=== PATIENT | female | born 1940 | race African-American/Black ===

== ENCOUNTER → 2017-08-21 10:43 | Outpatient (CLI) | payer MEDICARE, OTHER, SELFPAY ==
[2017-08-21 12:04] LABS: Anion Gap 8 (5-15); BUN 36 mg/dL (7-18); BUN/Creat Ratio 20.5 RATIO (10-20); Chloride 109 mmol/L (98-107); Creatinine, Serum 1.76 mg/dL (0.55-1.02); EST Glomerular Filtration Rate 30 mL/min (>60); Est Glom Filt Rate - Afr Amer 36 mL/min (>60); Glucose 281 mg/dL (74-106); Potassium 5.8 mmol/L (3.5-5.1); Sodium Level 138 mmol/L (136-145)
== END ==
PROVIDERS: Family Provider Family Medicine; PCP Family Medicine; Visit Provider Family Medicine
DX: N18.3 Chronic kidney disease, stage 3 (moderate) (principal)
CPT/HCPCS: 36415; 80048

== ENCOUNTER → 2017-09-20 10:44 | Outpatient (CLI) | payer MEDICARE, OTHER, SELFPAY ==
[2017-09-20 11:34] LABS: Hematocrit 35.9 % (37-47); Hemoglobin 11.6 g/dl (12.0-15.0); Mean Corp Hgb Conc 32.3 g/gl (32-36); Mean Corpuscular Volume 86.7 fL (81-99); Mean Platelet Vol. 11.8 fl (6.2-12.0); Platelet Count 221 K/mm3 (150-450); RBC Distribution Width CV 12.1 % (11.6-14.6); RBC Distribution Width SD 37.6 fl (35.1-43.9); Red Blood Count 4.14 M/mm3 (4.2-5.4); White Blood Count 5.6 K/mm3 (4.4-11.0)
[2017-09-20 11:35] LABS: Scan Indicated on CBC? Y/N NO
[2017-09-20 11:53] LABS: Protein, Urine (Random) 38.7 mg/dL (<11.9); Protein:Creat Ratio 419 mg/g CRE (0-200)
[2017-09-20 12:06] LABS: Albumin, Serum 3.7 g/dL (3.2-5.0); BUN 33 mg/dL (7-18); BUN/Creat Ratio 20.5 RATIO (10-20); Calcium,Total 9.5 mg/dL (8.5-10.1); Chloride 114 mmol/L (98-107); Creatinine, Serum 1.61 mg/dL (0.55-1.02); EST Glomerular Filtration Rate 33 mL/min (>60); Est Glom Filt Rate - Afr Amer 40 mL/min (>60); Glucose 74 mg/dL (74-106); Phosphorus 3.4 mg/dL (2.5-4.9); Potassium 5.3 mmol/L (3.5-5.1); Sodium Level 144 mmol/L (136-145)
[2017-09-20 12:17] LABS: PTHIN 73.5 pg/mL (18.4-80.1); Vitamin D,25 Hydroxy 60.2 ng/mL (29.95-100.01)
== END ==
PROVIDERS: Family Provider Family Medicine; PCP Family Medicine; Visit Provider Internal Medicine Nephrology
DX: N18.3 Chronic kidney disease, stage 3 (moderate) (principal)
CPT/HCPCS: 36415; 80069; 82306; 82570; 83970; 84156; 85027

== ENCOUNTER 2017-09-27 11:05 | Observation (INO) | payer MEDICARE, OTHER, SELFPAY ==
[2017-09-27] VITALS (14 sets, daily range): BP systolic 156–170; BP diastolic 60–78; PULSE 78–111; RESP 15–34; TEMP 36.6–37.2; O2SAT 94–100; BMI 25.1; BMI 25.5; BMI 25.6
--- NOTE | 2017-09-27 11:15 | NURSING ---
NO LW OR POA
[2017-09-27] MEDS: 0.9% Normal Saline 1,000 ML 1000 ML IV (11:39)
[2017-09-27 11:47] LABS: Absolute Lymphocyte Count 1.33 X10^3/ul (0.83-4.51); Absolute Neutrophil Count 4.1 X10^3/uL (2.0-7.7); Basophil# 0.02 X10^3/uL; Basophil% 0.3 % (0-1); Eosinophil# 0.38 X10^3/uL; Eosinophils% 5.9 % (0-5); Hematocrit 33.5 % (37-47); Hemoglobin 10.9 g/dl (12.0-15.0); Lymphocyte # 1.33 X10^3/ul (4.0); Lymphocyte % 20.7 % (19-41); Mean Corp Hgb Conc 32.5 g/gl (32-36); Mean Corpuscular Hgb 28.2 pg (27.0-32.0); Mean Corpuscular Volume 86.6 fL (81-99); Mean Platelet Vol. 11.9 fl (6.2-12.0); Monocyte# 0.62 X10^3/uL; Monocyte% 9.6 % (0-10); Neutrophil # 4.06 X10^3/uL (2.7-7.7); Neutrophil % 63.2 % (47-70); Platelet Count 218 K/mm3 (150-450); RBC Distribution Width CV 11.8 % (11.6-14.6); RBC Distribution Width SD 36.8 fl (35.1-43.9); Red Blood Count 3.87 M/mm3 (4.2-5.4); White Blood Count 6.4 K/mm3 (4.4-11.0)
[2017-09-27 11:49] LABS: POSITIVE COUNT NO; POSITIVE DIFFERENTIAL NO; POSITIVE MORPHOLOGY NO
[2017-09-27 11:56] LABS: Anion Gap 6 (5-15); BUN 29 mg/dL (7-18); Calcium,Total 9.9 mg/dL (8.5-10.1); Chloride 108 mmol/L (98-107); Creatinine, Serum 1.53 mg/dL (0.55-1.02); EST Glomerular Filtration Rate 35 mL/min (>60); Est Glom Filt Rate - Afr Amer 42 mL/min (>60); Estimated Creatinine Clearance 21.77 ml/min; Glucose 141 mg/dL (74-106); Potassium 5.9 mmol/L (3.5-5.1); Sodium Level 139 mmol/L (136-145)
[2017-09-27 12:18] LABS: Lactic Acid 1.1 mmol/L (0.4-2.0)
--- NOTE | 2017-09-27 13:11 | EKG12_ITS ---
Test Reason : FLU S/SX Blood Pressure : / mmHG Vent. Rate : 076 BPM Atrial Rate : 076 BPM P-R Int : 108 ms QRS Dur : 066 ms QT Int : 346 ms P-R-T Axes : 026 003 023 degrees QTc Int : 389 ms Sinus rhythm with short [place] Otherwise normal ECG Confirmed by RICK JORDAN, BABITA ([id number]), food expeditor HALEY GRACIA ([id number] on 09/29/2017 3:37:53 PM Referred By: Brant Marquis Confirmed By:BABITA CABRERA MD
[2017-09-27] MEDS: Ipratropium/Albuterol Sulfate 3 ML AMPUL.NEB INHALATION ×3 (13:25→23:26)
--- NOTE | 2017-09-27 13:33 | RAD_ITS ---
STUDY: X-RAY CHEST REASON FOR EXAM: Female, 77 years old. Dyspnea TECHNIQUE: Single AP portable view of the chest. COMPARISON: None. FINDINGS: There is hyperinflation of the lungs consistent with chronic obstructive lung disease (COPD). There is no demonstrated pleural abnormality. Normal size heart. Normal mediastinum and riki. Normal visualized pulmonary arteries. Normal visualized aortic arch and descending thoracic aorta. Normal visualized thoracic spine. Normal visualized ribs, clavicles, and shoulders. There is no demonstrated abnormality of the visualized soft tissue structures of the upper abdomen. RAD/Chest PA and Lateral IMPRESSION: COPD Electronically Signed: Amena Parish MD at 14:47 EDT Tel , Service support ,
--- NOTE | 2017-09-27 15:21 | ED.VISSUMM ---
- ER Visit Summary Date of Service: 09/27/17 Chief Complaint: [Shortness of breath, cough, not feeling well] History of Present Illness: The patient is a 77 F [presents to the emergency department with cough, shortness of breath, not feeling well for the last week and a half. Patient planes of exertional dyspnea. Cough is been nonproductive. Patient has not had a fever. Patient had some intermittent chest discomfort. She has had intermittent abdominal discomfort. Patient did have diarrhea 2 or 3 days ago but that seems to have improved. Patient denies any blood in her stool or black tarry stools.] Physical Examination: [HEENT-PERRLA, EOMI. Cranial nerves II through XII grossly intact. TMs clear. Mucous membranes moist. No adenopathy. Cardiovascular-regular rate and rhythm without murmur or ectopy Lungs-aeration bilaterally. Some faint expiratory wheezes noted bilaterally. No accessory muscles or retractions. With ambulation to bathroom and back patient gets very dyspneic and develops significant tachypnea and expiratory wheezes. Abdomen-normoactive bowel sounds, soft, nontender, no rebound or rigidity, no peritoneal signs. Extremities-intact ?4, normal range of motion, normal pulses, atraumatic] Test Results: [EKG obtained arrival shows sinus rhythm with a ventricular rate 76 bpm with no acute ST segment changes. CBC with differential showed a white count 6.4, hemoglobin 10.9, hematocrit 33, platelets 218. Chemistry showed a sodium 139, potassium 5.9, chloride 108, CO2 25, BUN 29, creatinine 1.5, glucose 141. Lactate was normal 1.1 troponin was less than 0.02. BNP was normal. Chest x-ray showed COPD.] Emergency Department Course and Treatment: [Patient was medicated with Solu-Medrol and a DuoNeb aerosol. Patient was given 30 g of Kayexalate p.o.] Treatment Plan: [Admit] Disposition: [Admit] Impression: [COPD exacerbation Hyperkalemia] This note was generated with [employer] dictation software. It may contain incorrect words, spelling, and punctuation that were not noted in review of the chart prior to signing ED Disposition - Plan for ED Patient: Chief Complaint: Cold Sx Referrals: Becky Lassiter DO [Primary Care Provider] -
--- NOTE | 2017-09-27 15:24 | ED.DCSUM_ITS ---
- ER Visit Summary Date of Service: 09/27/17 Chief Complaint: [Shortness of breath, cough, not feeling well] History of Present Illness: The patient is a 77 F [presents to the emergency department with cough, shortness of breath, not feeling well for the last week and a half. Patient planes of exertional dyspnea. Cough is been nonproductive. Patient has not had a fever. Patient had some intermittent chest discomfort. She has had intermittent abdominal discomfort. Patient did have diarrhea 2 or 3 days ago but that seems to have improved. Patient denies any blood in her stool or black tarry stools.] Physical Examination: [HEENT-PERRLA, EOMI. Cranial nerves II through XII grossly intact. TMs clear. Mucous membranes moist. No adenopathy. Cardiovascular-regular rate and rhythm without murmur or ectopy Lungs-aeration bilaterally. Some faint expiratory wheezes noted bilaterally. No accessory muscles or retractions. With ambulation to bathroom and back patient gets very dyspneic and develops significant tachypnea and expiratory wheezes. Abdomen-normoactive bowel sounds, soft, nontender, no rebound or rigidity, no peritoneal signs. Extremities-intact ?4, normal range of motion, normal pulses, atraumatic] Test Results: [EKG obtained arrival shows sinus rhythm with a ventricular rate 76 bpm with no acute ST segment changes. CBC with differential showed a white count 6.4, hemoglobin 10.9, hematocrit 33, platelets 218. Chemistry showed a sodium 139, potassium 5.9, chloride 108, CO2 25, BUN 29, creatinine 1.5, glucose 141. Lactate was normal 1.1 troponin was less than 0.02. BNP was normal. Chest x-ray showed COPD.] Emergency Department Course and Treatment: [Patient was medicated with Solu- Medrol and a DuoNeb aerosol. Patient was given 30 g of Kayexalate p.o.] Treatment Plan: [Admit] Disposition: [Admit] Impression: [COPD exacerbation Hyperkalemia] This note was generated with [employer] dictation software. It may contain incorrect words, spelling, and punctuation that were not noted in review of the chart prior to signing ED Disposition - Plan for ED Patient: Chief Complaint: Cold Sx Referrals: Becky Lassiter DO [Primary Care Provider] -
[2017-09-27] MEDS: MethylPREDNISolone 125 MG/2 ML Vial IV (15:54)
[2017-09-27] MEDS: Sodium Polystyrene Sulfonate 15 GM/60 ML UDC 30 GM PO (15:54)
--- NOTE | 2017-09-27 16:00 | HP.PCM_ITS ---
<Janelle Patel - Last Filed: 09/27/17 16:10> Problem List (1) Hyperlipidemia Status: Chronic (2) History of tobacco use Status: Chronic (3) Suspected chronic obstructive pulmonary disease based on initial evaluation Status: Chronic (4) Benign essential hypertension Status: Chronic (5) Hearing loss Status: Chronic (6) Type 2 diabetes mellitus Status: Chronic (7) history of breast cancer with lumpectomy Status: Chronic History of Present Illness Date of Admission: 09/27/17 Chief Complaint: Shortness of breath The patient is a 77 year old F who presents to the emergency room with a 3-4 day history of shortness of breath. Patient complains of associated cough, nasal drainage. Denies fever, chills. Patient states she has had intermittent chest pain which has been ongoing. Denies chest pain with exertion. Denies exposure to sick persons. Denies other associated complaints. Patient has never had a formal diagnosis of COPD. She states she was a longtime smoker and quit in 2004. She does not use home inhalers or home oxygen. She denies previous hospital admissions for COPD. Her past medical history includes hypertension, hyperlipidemia, type 2 diabetes mellitus, chronic kidney disease stage III, history of recurrent hyperkalemia, anemia of chronic disease, history of breast cancer status post lumpectomy and chemotherapy. Patient's lives at home with her son. Denies difficulty caring for self at home. Past Medical History Past Medical History (Chronic Problems): Chronic Problems Hyperlipidemia (Chronic) History of tobacco use (Chronic) Suspected chronic obstructive pulmonary disease based on initial evaluation ( Chronic) Hearing loss (Chronic) history of breast cancer with lumpectomy (Chronic) Type 2 diabetes mellitus (Chronic) Benign essential hypertension (Chronic) Allergies penicillin Allergy (Verified 09/27/17 11:07) Rash Home Medications: Ambulatory Orders Medication Instructions Recorded Atenolol [Tenormin (beta nae)] 25 mg PO DAILY 09/27/17 Cholecalciferol (Vitamin D3) 2,000 unit PO DAILY 09/27/17 [Vitamin D3] Glipizide [Glipizide ER] 2.5 mg PO DAILY 09/27/17 Insulin Glargine,Hum.rec.anlog 60 unit SQ QHS 09/27/17 [Lantus] Lisinopril [Lisinopril] 20 mg PO DAILY 09/27/17 Simvastatin [Zocor] 20 mg PO DAILY 09/27/17 Surgical History: cholecystectomy, - - Breast lumpectomy, bilateral cataract surgery. Psychiatric History: No pertinent psych hx Lives: With Family Smoking Status: Former smoker Alcohol: None Drugs: None - *Family History Maternal History Items: No pertinent history Paternal History Items: No pertinent history Review of Systems Constitutional: Reports: Malaise. Denies: Chills, Fever, Fatigue HEENT: Reports: Difficulty Hearing, Nasal Congestion. Denies: Sore Throat Cardiovascular: Reports: Chest Pain. Denies: Edema, Light Headedness, Palpitations, Syncope Respiratory: Reports: Cough, Shortness of Breath, Wheezing. Denies: Sputum production Gastrointestinal: Denies: Abdominal Pain, Diarrhea, Nausea, Vomiting Genitourinary: Denies: Dysuria Musculoskeletal: Denies: Joint Pain, Joint Tenderness Skin: Denies: Rash, Wounds Neurological: Denies: Numbness, Tingling, Focal weakness Psychiatric: Denies: Anxiety, Depression, Homicidal Ideations, Suicidal Ideations Hematologic/ Lymphatic: Denies: Easy Bruising, Easy Bleeding VTE Information - Inpt Only VTE Present on Admission: No VTE Mechan Device Prophylaxis: None VTE Pharm Prophylaxis ordered?: Yes - Physical Exam General: Alert, Oriented x3, Cooperative, No apparent distress HEENT: Atraumatic, PERRLA, EOMI, Normocephalic Oral: Dry Mucosa Neck: Supple, No JVD, Negative Carotid Bruits Lungs: Diminished, Wheezes - Minimal scattered expiratory wheezing. Cardiovascular: Regular rate, Regular Rhythm, Normal S1, Normal S2, No murmurs Abdomen: Bowel Sounds Present, Soft, Non Tender, Non-Distended Extremities: No clubbing, No cyanosis, No edema, Capillary Refill Less than 3 Seconds Skin: No rashes, No breakdown Musculoskeletal: No Tenderness to Palpation of Joints or Extremities Neurological: Cranial nerves II-XII grossly intact, Neuro grossly intact Psych/Mental Status: Normal Affect, Appropriate Vital Signs Temp Pulse Resp BP Pulse Ox 98.9 F 79 18 156/78 H 97 09/27/17 11:05 09/27/17 13:25 09/27/17 13:25 09/27/17 11:05 09/27/17 13:25 Oxygen Flow Rate (L/min) 2 Oxygen Delivery Method Nasal Cannula Weight: 58.4 kg Body Mass Index (BMI) 25.1 Laboratory Tests Past 24 Hrs 09/27/17 09/27/17 09/27/17 11:30 11:30 11:30 WBC 6.4 RBC 3.87 L Hgb 10.9 L Hct 33.5 L MCV 86.6 MCH 28.2 MCHC 32.5 RDW 11.8 RDW Differential 36.8 Plt Count 218 MPV 11.9 Immature Gran % (Auto) 0.300 Neut % (Auto) 63.2 Lymph % (Auto) 20.7 [place] % (Auto) 9.6 Eos % (Auto) 5.9 H Baso % (Auto) 0.3 Absolute Neuts (auto) 4.1 Absolute Lymphs (auto) 1.33 Total Counted Not Reportable Sodium 139 Potassium 5.9 H Chloride 108 H Carbon Dioxide 25.0 Anion Gap 6 BUN 29 H Creatinine 1.53 H Estim Creat Clear Calc 21.77 Est GFR (MDRD) Af Amer 42 L Est GFR (MDRD) Non-Af 35 L BUN/Creatinine Ratio 19.0 Glucose 141 H Lactic Acid 1.1 Calcium 9.9 Troponin I B-Natriuretic Peptide Blood Type Antibody Screen 09/27/17 09/27/17 09/27/17 11:30 11:30 11:30 WBC RBC Hgb Hct MCV MCH MCHC RDW RDW Differential Plt Count MPV Immature Gran % (Auto) Neut % (Auto) Lymph % (Auto) [place] % (Auto) Eos % (Auto) Baso % (Auto) Absolute Neuts (auto) Absolute Lymphs (auto) Total Counted Sodium Potassium Chloride Carbon Dioxide Anion Gap BUN Creatinine Estim Creat Clear Calc Est GFR (MDRD) Af Amer Est GFR (MDRD) Non-Af BUN/Creatinine Ratio Glucose Lactic Acid Calcium Troponin I < 0.02 B-Natriuretic Peptide 12.0 Blood Type A POSITIVE Antibody Screen NEGATIVE Assessment/Plan 1. Suspected COPD exacerbation-patient has not had any formal pulmonary function testing. Denies known history of COPD. Chest x-ray on admission consistent with COPD. Patient does have a long-term smoking history. Quit in 2004. IV Solu-Medrol 40 mg every 8 hours. Albuterol and DuoNeb aerosols. Complete respiratory panel. Patient is on 2 L of oxygen with no documentation of hypoxia prior to supplemental oxygen. Wean oxygen as tolerated to maintain O2 at or above 90%. Recommend follow-up with pulmonary medicine as outpatient for pulmonary function testing. 2. Hyperkalemia-patient has had chronic intermittent hyperkalemia. She received Kayexalate in ER. No EKG changes. Hold lisinopril. Trend BMP. 3. Atypical chest pain-patient complains of ongoing intermittent chest pain. Not associated with exertion. EKG on admission without evidence of ischemia. Trend enzymes. 4. Chronic kidney disease stage III- Follows with Dr. Marquis. Baseline creat appears to be approximately 1.6. Creatinine admission 1.5. Monitor BMP. Lisinopril on hold. Consider discontinuing lisinopril going forward given chronic kidney disease and recurrent hyperkalemia. May need additional blood pressure agent. 5. Type 2 diabetes mellitus-hemoglobin A1c November 2016 10.4%. Repeat hemoglobin A1c. Continue home glipizide and Lantus regimen. Accu-Cheks before meals at bedtime with sliding scale insulin. ADA diet. 6. Hypertension-continue home atenolol regimen. Hydralazine as needed for systolic greater than 160. Lisinopril on hold secondary to #1/#2. 7. Hyperlipidemia-continue statin. 8. Chronic normochromic normocytic anemia/anemia of chronic disease-stable. 9. History of breast cancer-status post lumpectomy and chemotherapy. DVT prophylaxis-heparin subcu. This patient was seen by DOROTHY Milton under the supervision of Dr. Sparks. <Bimal Sparks - Last Filed: 09/27/17 18:39> History of Present Illness Seen and examined patient is admitted for shortness of breath for 3-4 days along with cough nasal congestion. Patient also has wheezing , [] Past Medical History Allergies penicillin Allergy (Verified 09/27/17 11:07) Rash - Physical Exam Lungs: Diminished, Wheezes Cardiovascular: Regular rate, Normal S1, Normal S2, No murmurs Vital Signs Temp Pulse Resp BP Pulse Ox 98.0 F 78 16 170/73 H 97 09/27/17 17:26 09/27/17 17:50 09/27/17 17:26 09/27/17 17:50 09/27/17 17:59 Oxygen Flow Rate (L/min) 2 Oxygen Delivery Method Room Air Weight: 126 lb 8.725 oz Body Mass Index (BMI) 25.5 Intake and Output for Last 24 Hours 09/25/17 09/26/17 09/27/17 23:59 23:59 23:59 Intake Total Balance Laboratory Tests Past 24 Hrs 09/27/17 09/27/17 18:08 18:08 Hgb Pending Troponin I Pending POC Glucose 09/27/17 17:41 POC Glucose 98 Assessment/Plan This patient was seen in conjunction with HEALTH AND SAFETY ADVISORJanelle. I have independently interviewed and examined the patient and reviewed pertinent history, examination findings, laboratory and plan of management. I have reviewed the note and agree with the documented findings with the few additional points. In brief, patient is admitted for COPD exacerbation most probably from viral bronchitis. Patient also has hyperkalemia for which she received Kayexalate. Repeat potassium at about 8 PM I have discussed my assessment with Janelle SAINI and orders have been reviewed. Code Visit Inpatient E&M: 65163 Init Hosp L3
--- NOTE | 2017-09-27 16:07 | NURSING ---
PCU OBS COPD EXAC, AND HYPERKALEMIA JESI
[2017-09-27] MEDS: hydrALAZINE 20 MG/ML Vial 5 MG IV (17:50)
[2017-09-27 17:51] LABS: Bedside Glucose 98 mg/dL (70-110)
[2017-09-27 18:39] LABS: Hemoglobin 11.3 g/dl (12.0-15.0)
[2017-09-27] MEDS: Enoxaparin 30 MG/0.3 ML Syringe SC (21:22)
[2017-09-27] MEDS: Atorvastatin Calcium 10 MG Tablet PO (21:23)
[2017-09-27 21:42] LABS: Potassium 4.9 mmol/L (3.5-5.1)
[2017-09-27 23:25] LABS: Bedside Glucose 435 mg/dL (70-110)
[2017-09-28] VITALS (15 sets, daily range): BP systolic 111–143; BP diastolic 54–74; PULSE 94–120; RESP 16–20; TEMP 36.6–36.8; O2SAT 95–99
[2017-09-28] MEDS: Ipratropium/Albuterol Sulfate 3 ML AMPUL.NEB INHALATION ×5 (03:22→22:56)
[2017-09-28 03:50] LABS: Anion Gap 16 (5-15); BUN 30 mg/dL (7-18); BUN/Creat Ratio 15.5 RATIO (10-20); Calcium,Total 9.1 mg/dL (8.5-10.1); Chloride 107 mmol/L (98-107); Creatinine, Serum 1.94 mg/dL (0.55-1.02); EST Glomerular Filtration Rate 27 mL/min (>60); Est Glom Filt Rate - Afr Amer 32 mL/min (>60); Estimated Creatinine Clearance 21.66 ml/min; Glucose 493 mg/dL (74-106); Potassium 5.1 mmol/L (3.5-5.1); Sodium Level 139 mmol/L (136-145)
[2017-09-28 04:01] LABS: Bedside Glucose > 500 mg/dL (70-110)
[2017-09-28] MEDS: Enoxaparin 30 MG/0.3 ML Syringe SC (06:52)
[2017-09-28 07:31] LABS: Glucose 484 mg/dL (74-106)
[2017-09-28] MEDS: 0.9% Normal Saline 1,000 ML 100 ML IV ×2 (08:30→17:45)
[2017-09-28] MEDS: 0.9% NaCl Peripheral Flush Adult/Peds IV (08:30)
[2017-09-28] MEDS: glipiZIDE 5 MG Tablet 2.5 MG PO (08:51)
[2017-09-28] MEDS: Atenolol 25 MG Tablet PO (08:52)
--- NOTE | 2017-09-28 09:17 | EKG12_ITS ---
Test Reason : CP Blood Pressure : / mmHG Vent. Rate : 112 BPM Atrial Rate : 112 BPM P-R Int : 154 ms QRS Dur : 070 ms QT Int : 330 ms P-R-T Axes : 064 -01 004 degrees QTc Int : 450 ms Sinus tachycardia Marked ST abnormality, possible inferior subendocardial injury Abnormal ECG When compared with ECG of 27-SEP-2017 13:26, MANUAL COMPARISON REQUIRED, DATA IS UNCONFIRMED Confirmed by RICK JORDAN, BABITA ([id number]), avid editor HALEY GRACIA ([id number]) on 10/02/2017 2:33:59 PM Referred By: Brant Marquis Confirmed By:BABITA CABRERA MD
[2017-09-28 09:21] LABS: Bedside Glucose 480 mg/dL (70-110)
[2017-09-28 10:39] LABS: Glucose 506 mg/dL (74-106)
[2017-09-28] MEDS: Acetaminophen 325 MG Tablet 650 MG PO (11:20)
--- NOTE | 2017-09-28 11:20 | CASEMGMT ---
This MIRNA GONZALEZ to room with STEEN form at this time, explanation done, and pt voices understanding. Pt voices no further questions/concerns at this time. Pt attempts to sign STEEN form at this time but is very shaking and gets frustrated. Pt is able to initial at this time and did give this MIRNA GONZALEZ verbal consent for form. Original STEEN to chart and copy to pt at this time. S[place]en MIRNA GONZALEZ
[2017-09-28 11:41] LABS: Bedside Glucose > 500 mg/dL (70-110)
--- NOTE | 2017-09-28 13:08 | PCM.PROGNOTE ---
<Jairon Villa - Last Filed: 09/28/17 13:08> Subjective: Pts SOB significantly improved this AM. Still complaining of intermittent midsternal chest pain. Former smoker. Last stress test >10 years ago in [place]. No dizzyness or LH. Has a chronic resting tremor. Told by her PCP she does not have parkinsons, has no diagnosis for this. It is not new, or worse than normal. Blood sugars are still resistant despite additional sliding scales. - Physical Exam General: Alert, Oriented x3, Cooperative HEENT: Atraumatic, PERRLA, EOMI, Normocephalic Neck: Supple, No JVD, Negative Carotid Bruits Lungs: Clear to auscultation, Normal air movement Cardiovascular: Regular rate, No murmurs Abdomen: Bowel Sounds Present, Soft, Non Tender Extremities: No edema, Capillary Refill Less than 3 Seconds Skin: No rashes, No breakdown Musculoskeletal: No Tenderness to Palpation of Joints or Extremities Neurological: Cranial nerves II-XII grossly intact Psych/Mental Status: Normal Affect, Appropriate, Alert and oriented to time, place, person, mood and affect Vital Signs Temp Pulse Resp BP Pulse Ox 97.9 F 120 H 19 H 132/63 H 98 09/28/17 08:34 09/28/17 11:43 09/28/17 10:10 09/28/17 08:34 09/28/17 08:34 Oxygen Flow Rate (L/min) 2 Oxygen Delivery Method Room Air Weight: 57.4 kg Body Mass Index (BMI) 25.5 Intake and Output for Last 24 Hours 09/26/17 09/27/17 09/28/17 23:59 23:59 23:59 Intake Total 1019 / 1019 Balance 1019 / 1019 Microbiology Past 72 Hours 09/27/17 17:22 Respiratory Panel (PCR) - Final Mucosa - Nose Laboratory Tests Past 24 Hrs 09/27/17 09/27/17 09/27/17 18:08 18:08 21:02 Hgb 11.3 L Sodium Potassium Chloride Carbon Dioxide Anion Gap BUN Creatinine Estim Creat Clear Calc Est GFR (MDRD) Af Amer Est GFR (MDRD) Non-Af BUN/Creatinine Ratio Glucose Calcium Troponin I < 0.02 < 0.02 09/27/17 09/28/17 09/28/17 21:02 03:12 03:12 Hgb Sodium 139 Potassium 4.9 5.1 Chloride 107 Carbon Dioxide 16.0 L Anion Gap 16 H BUN 30 H Creatinine 1.94 H Estim Creat Clear Calc 21.66 Est GFR (MDRD) Af Amer 32 L Est GFR (MDRD) Non-Af 27 L BUN/Creatinine Ratio 15.5 Glucose 493 H* Calcium 9.1 Troponin I 0.15 H 09/28/17 09/28/17 07:05 09:34 Hgb Sodium Potassium Chloride Carbon Dioxide Anion Gap BUN Creatinine Estim Creat Clear Calc Est GFR (MDRD) Af Amer Est GFR (MDRD) Non-Af BUN/Creatinine Ratio Glucose 484 H* 506 H* Calcium Troponin I POC Glucose 09/28/17 09/28/17 09/28/17 11:30 09:05 03:54 POC Glucose > 500 H* 480 H* > 500 H* 09/27/17 09/27/17 21:20 17:41 POC Glucose 435 H 98 Medical Necessity - Tobacco Use Smoking Status: Former smoker Assessment/Plan 1. Acute COPD exacerbation - no formal diagnosis of COPD but was a heavy smoker. CXR c/w COPD. 2. Chest pain - troponin bump. Intermittent CP continues. Stress test tomorrow. Risk factors include age, htn, former smoker, poorly controlled DMt2. 3. T2DM with hyperglycemia - added mealtime, increased long acting, continue SSI. Continue PO. 4. Tachy - sinus. Trend and maintain tele. Possibly 2/2 steroids/albuterol. Check TSH. 5. Elevated creatinine - dc lovenox. OCTAVIO held at admission. Improve glycemic control - Glucose goal 130. Likely CKD III 6. Hyperkalemia - resolved s/p kayex 7. HTN - stable 8. Tremor - resting. Neuro consult. 9. Mild normocytic anemia - improved. DVT ppx: lovenox changed to heparin DC planning: PTOT. Patient was seen by Jairon Villa PA-C under the supervision of Dr. Reyes <Nancy Reyes - Last Filed: 09/29/17 07:17> - Physical Exam Vital Signs Temp Pulse Resp BP Pulse Ox 98.1 F 90 16 114/40 L 96 09/29/17 03:55 09/29/17 03:55 09/29/17 03:55 09/29/17 03:55 09/29/17 03:55 Oxygen Flow Rate (L/min) 2 Oxygen Delivery Method Room Air Weight: 57.4 kg Body Mass Index (BMI) 25.5 Intake and Output for Last 24 Hours 09/27/17 09/28/17 09/29/17 23:59 23:59 23:59 Intake Total 1877 1041 / 1041 Balance 1877 1041 / 1041 Microbiology Past 72 Hours 09/27/17 17:22 Respiratory Panel (PCR) - Final Mucosa - Nose Laboratory Tests Past 24 Hrs 09/28/17 09/28/17 09/28/17 07:05 09:34 09:34 WBC RBC Hgb Hct MCV MCH MCHC RDW RDW Differential Plt Count MPV Immature Gran % (Auto) Neut % (Auto) Lymph % (Auto) [place] % (Auto) Eos % (Auto) Baso % (Auto) Absolute Neuts (auto) Absolute Lymphs (auto) Total Counted PT INR APTT Sodium Potassium Chloride Carbon Dioxide Anion Gap BUN Creatinine Estim Creat Clear Calc Est GFR (MDRD) Af Amer Est GFR (MDRD) Non-Af BUN/Creatinine Ratio Glucose 484 H* 506 H* Calcium TSH 1.05 09/29/17 09/29/17 09/29/17 05:00 05:00 05:00 WBC 8.3 RBC 3.27 L Hgb 9.1 L Hct 27.9 L MCV 85.3 MCH 27.8 MCHC 32.6 RDW 12.6 RDW Differential 39.0 Plt Count 184 MPV 11.6 Immature Gran % (Auto) 0.200 Neut % (Auto) 69.3 Lymph % (Auto) 21.1 [place] % (Auto) 7.6 Eos % (Auto) 1.7 Baso % (Auto) 0.1 Absolute Neuts (auto) 5.7 Absolute Lymphs (auto) 1.75 Total Counted Not Reportable PT 14.6 INR 1.1 APTT 29.2 Sodium 147 H Potassium 4.0 Chloride 116 H Carbon Dioxide 22.0 Anion Gap 9 BUN 30 H Creatinine 1.44 H Estim Creat Clear Calc 29.18 Est GFR (MDRD) Af Amer 45 L Est GFR (MDRD) Non-Af 37 L BUN/Creatinine Ratio 20.8 H Glucose 78 Calcium 8.8 TSH POC Glucose 09/29/17 09/28/17 09/28/17 05:47 21:01 17:31 POC Glucose 80 306 H 332 H 09/28/17 09/28/17 09/28/17 14:53 11:30 09:05 POC Glucose 389 H > 500 H* 480 H* 09/28/17 09/28/17 09/28/17 06:49 06:46 06:44 POC Glucose > 500 H* 449 H > 500 H* Assessment/Plan Patient was seen and examined. Denies any shortness of breath. Off oxygen. Complains of severe tremors in both hands getting worse. Vitals reviewed, stable. Not bilateral intention tremors. 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 Await further recommendations from neurology. Code Visit Inpatient E&M: 98110 Subs Hosp L2
[2017-09-28 13:58] LABS: Thyroid Stim Hormone (TSH) 1.05 uIU/mL (0.358-3.74)
[2017-09-28 15:10] LABS: Bedside Glucose > 500 mg/dL (70-110)
[2017-09-28 15:10] LABS: Bedside Glucose 449 mg/dL (70-110)
[2017-09-28 15:10] LABS: Bedside Glucose 389 mg/dL (70-110)
[2017-09-28 15:10] LABS: Bedside Glucose > 500 mg/dL (70-110)
[2017-09-28 17:51] LABS: Bedside Glucose 332 mg/dL (70-110)
[2017-09-28] MEDS: Atorvastatin Calcium 10 MG Tablet PO (21:14)
[2017-09-28 21:15] LABS: Bedside Glucose 306 mg/dL (70-110)
[2017-09-29] VITALS (7 sets, daily range): BP systolic 114–127; BP diastolic 40–69; PULSE 85–100; RESP 16–20; TEMP 36.7; O2SAT 95–97
[2017-09-29 05:26] LABS: International Normalized Ratio 1.1; Prothrombin Time (Protime)PT. 14.6 SECONDS (11.7-14.9)
[2017-09-29 05:27] LABS: Partial Thromboplast Time 29.2 Seconds (24.1-36.2)
[2017-09-29 05:34] LABS: Anion Gap 9 (5-15); BUN 30 mg/dL (7-18); BUN/Creat Ratio 20.8 RATIO (10-20); Calcium,Total 8.8 mg/dL (8.5-10.1); Chloride 116 mmol/L (98-107); Creatinine, Serum 1.44 mg/dL (0.55-1.02); EST Glomerular Filtration Rate 37 mL/min (>60); Est Glom Filt Rate - Afr Amer 45 mL/min (>60); Estimated Creatinine Clearance 29.18 ml/min; Glucose 78 mg/dL (74-106); Sodium Level 147 mmol/L (136-145)
[2017-09-29 05:35] LABS: Absolute Lymphocyte Count 1.75 X10^3/ul (0.83-4.51); Absolute Neutrophil Count 5.7 X10^3/uL (2.0-7.7); Basophil# 0.01 X10^3/uL; Basophil% 0.1 % (0-1); Eosinophil# 0.14 X10^3/uL; Eosinophils% 1.7 % (0-5); Hematocrit 27.9 % (37-47); Hemoglobin 9.1 g/dl (12.0-15.0); Lymphocyte # 1.75 X10^3/ul (4.0); Lymphocyte % 21.1 % (19-41); Mean Corp Hgb Conc 32.6 g/gl (32-36); Mean Corpuscular Hgb 27.8 pg (27.0-32.0); Mean Corpuscular Volume 85.3 fL (81-99); Mean Platelet Vol. 11.6 fl (6.2-12.0); Monocyte# 0.63 X10^3/uL; Monocyte% 7.6 % (0-10); Neutrophil # 5.74 X10^3/uL (2.7-7.7); Neutrophil % 69.3 % (47-70); Platelet Count 184 K/mm3 (150-450); RBC Distribution Width CV 12.6 % (11.6-14.6); Red Blood Count 3.27 M/mm3 (4.2-5.4); White Blood Count 8.3 K/mm3 (4.4-11.0)
[2017-09-29 05:37] LABS: POSITIVE COUNT NO; POSITIVE DIFFERENTIAL NO; POSITIVE MORPHOLOGY NO
--- NOTE | 2017-09-29 05:55 | EKG12_ITS ---
Test Reason : AM EKG Blood Pressure : / mmHG Vent. Rate : 096 BPM Atrial Rate : 096 BPM P-R Int : 102 ms QRS Dur : 066 ms QT Int : 342 ms P-R-T Axes : 043 001 003 degrees QTc Int : 432 ms Sinus rhythm with short [place] Otherwise normal ECG Confirmed by RICK JORDAN, BABITA ([id number]), editor trade journal HALEY GRACIA ([id number]) on 10/10/2017 2:09:47 PM Referred By: Brant Marquis Confirmed By:BABITA CABRERA MD
[2017-09-29 05:56] LABS: Bedside Glucose 80 mg/dL (70-110)
[2017-09-29] MEDS: Ipratropium/Albuterol Sulfate 3 ML AMPUL.NEB INHALATION ×2 (07:00→10:38)
[2017-09-29] MEDS: Primidone 50 MG Tablet PO (10:26)
[2017-09-29] MEDS: Propranolol 40 MG Tablet PO (10:26)
[2017-09-29] MEDS: predniSONE 20 MG Tablet 40 MG PO (10:26)
--- NOTE | 2017-09-29 10:46 | STRESSREP_ITS ---
Stress Test Report Date: 09/29/2017 Procedure: Pharmacologic stress nuclear imaging study Indications: Chest pain Consent: Per the patient Procedure: The patient underwent pharmacologic (Regadenoson) evaluation with a peak heart rate of 116 beats per minute (81 predicted maximal heart rate) and a peak blood pressure of 128/80 mmHg. The baseline ECG demonstrated normal sinus rhythm. The peak pharmacologic ECG demonstrated no obvious ECG changes. There were no cardiac dysrhythmias pretest, during pharmacologic infusion, or recovery. There was no complaint of chest discomfort during pharmacologic infusion or recovery. The examination was discontinued secondary to completion of protocol. Impression: 1. Pharmacologic (Regadenoson) evaluation 2. Peak pharmacologic ECG with no obvious ECG changes. 3. There were no cardiac dysrhythmias pretest, during pharmacologic infusion, or recovery 4. Nuclear images pending Myocardial perfusion imaging study: Technique: The patient was injected with 12 millicuries of technetium 99m Cardiolite and subsequently rest SPECT Cardiolite nuclear imaging was obtained in the horizontal long, vertical long, and short axis views. The patient underwent pharmacologic (Regadenoson) evaluation with a peak heart rate of 116 beats per minute (81 % percent predicted maximal heart rate) and a peak blood pressure of 128/80 mmHg. The patient was injected with 35 millicuries of technetium 99m Cardiolite and subsequently stress SPECT Cardiolite nuclear imaging was obtained in the horizontal long, vertical long, and short axis views. A gated Cardiolite study at peak stress was obtained. Interpretation: Rest and stress SPECT Cardiolite nuclear imaging status post realignment, normalization, and attenuation correction demonstrate relative uniform tracer uptake and myocardial perfusion appearing within normal limits. There is end systolic thickening and brightening. The gated Cardiolite study demonstrates myocardial thickening and inward wall motion. The reported LVEF is 72 %. Impression: 1. Rest and stress SPECT Cardiolite nuclear imaging demonstrate relative uniform tracer uptake and myocardial perfusion appearing within normal limits. 2. The gated Cardiolite study reports an LVEF of 72 %. This note was generated with [employer] software. It may contain incorrect words, spelling, and punctuation that were not noted in checking the note before signing.
--- NOTE | 2017-09-29 10:56 | CON.PCM_ITS ---
Reason for Consult Date of Consultation: 09/29/17 Reason for Consultation: tremor History of Present Illness: The patient is a 77 year old right handed female presented with wheezing and cough. has had tremor for approx 10yrs, reports non issue at home, however she has noted severe tremor since steroids and beta agonists have been started. reports breathing now normal. denies difficulty using spoons or drinking out of a cup at home. tremor only affects hands. no family history of tremor. no difficulty walking, stumbling or falling. Past Medical History Past Medical History (Chronic Problems): Chronic Problems Hyperlipidemia (Chronic) History of tobacco use (Chronic) Suspected chronic obstructive pulmonary disease based on initial evaluation ( Chronic) Hearing loss (Chronic) history of breast cancer with lumpectomy (Chronic) Type 2 diabetes mellitus (Chronic) Benign essential hypertension (Chronic) Allergies penicillin Allergy (Verified 09/27/17 11:07) Rash Home Medications: Ambulatory Orders Medication Instructions Recorded Atenolol [Tenormin (beta nae)] 25 mg PO DAILY 09/27/17 Cholecalciferol (Vitamin D3) 2,000 unit PO DAILY 09/27/17 [Vitamin D3] Glipizide [Glipizide ER] 2.5 mg PO DAILY 09/27/17 Insulin Glargine,Hum.rec.anlog 60 unit SQ QHS 09/27/17 [Lantus] Lisinopril [Lisinopril] 20 mg PO DAILY 09/27/17 Simvastatin [Zocor] 20 mg PO DAILY 09/27/17 Surgical History: cholecystectomy, - - Breast lumpectomy, bilateral cataract surgery. Psychiatric History: No pertinent psych hx Lives: With Family Smoking Status: Former smoker Alcohol: None Drugs: None - *Family History Maternal History Items: No pertinent history Paternal History Items: No pertinent history Review of Systems Constitutional: Denies: Chills, Fever, Weight Change HEENT: Denies: Head Aches, Sinus Congestion, Sinus Drainage Cardiovascular: Denies: Chest Pain, Palpitations Respiratory: Reports: Shortness of Breath - resolved, Wheezing - resolveed. Denies: Cough, Shortness of breath at rest, Sputum production Gastrointestinal: Denies: Abdominal Pain, Nausea, Vomiting Genitourinary: Denies: Dysuria Musculoskeletal: Denies: Joint Pain, Joint Tenderness Skin: Denies: Rash, Wounds Neurological: Reports: Tremor. Denies: Focal weakness, Numbness, Tingling Psychiatric: Denies: Anxiety, Depression, Homicidal Ideations, Suicidal Ideations Hematologic/ Lymphatic: Denies: Easy Bruising, Easy Bleeding Objective: intention tremor - Physical Exam General: Alert, Oriented x3, Cooperative HEENT: Atraumatic, PERRLA, EOMI, Normocephalic Neck: Supple, No JVD, Negative Carotid Bruits Lungs: Clear to auscultation, Normal air movement Cardiovascular: Regular rate, No murmurs Abdomen: Bowel Sounds Present, Soft, Non Tender Extremities: No edema, Capillary Refill Less than 3 Seconds Skin: No rashes, No breakdown Musculoskeletal: No Tenderness to Palpation of Joints or Extremities Neurological: Cranial nerves II-XII grossly intact Psych/Mental Status: Normal Affect, Appropriate Vital Signs Temp Pulse Resp BP Pulse Ox 36.7 C 100 16 127/69 H 97 09/29/17 09:55 09/29/17 09:55 09/29/17 09:55 09/29/17 09:55 09/29/17 09:55 Oxygen Flow Rate (L/min) 2 Oxygen Delivery Method Room Air Weight: 57.4 kg Body Mass Index (BMI) 25.5 Intake and Output for Last 24 Hours 09/27/17 09/28/17 09/29/17 23:59 23:59 23:59 Intake Total 1877 1041 / 1041 Balance 1877 1041 / 1041 Microbiology Past 72 Hours 09/27/17 17:22 Respiratory Panel (PCR) - Final Mucosa - Nose Laboratory Tests Past 24 Hrs 09/28/17 09/29/17 09/29/17 09:34 05:00 05:00 WBC 8.3 RBC 3.27 L Hgb 9.1 L Hct 27.9 L MCV 85.3 MCH 27.8 MCHC 32.6 RDW 12.6 RDW Differential 39.0 Plt Count 184 MPV 11.6 Immature Gran % (Auto) 0.200 Neut % (Auto) 69.3 Lymph % (Auto) 21.1 [place] % (Auto) 7.6 Eos % (Auto) 1.7 Baso % (Auto) 0.1 Absolute Neuts (auto) 5.7 Absolute Lymphs (auto) 1.75 Total Counted Not Reportable PT 14.6 INR 1.1 APTT 29.2 Sodium Potassium Chloride Carbon Dioxide Anion Gap BUN Creatinine Estim Creat Clear Calc Est GFR (MDRD) Af Amer Est GFR (MDRD) Non-Af BUN/Creatinine Ratio Glucose Calcium TSH 1.05 09/29/17 05:00 WBC RBC Hgb Hct MCV MCH MCHC RDW RDW Differential Plt Count MPV Immature Gran % (Auto) Neut % (Auto) Lymph % (Auto) [place] % (Auto) Eos % (Auto) Baso % (Auto) Absolute Neuts (auto) Absolute Lymphs (auto) Total Counted PT INR APTT Sodium 147 H Potassium 4.0 Chloride 116 H Carbon Dioxide 22.0 Anion Gap 9 BUN 30 H Creatinine 1.44 H Estim Creat Clear Calc 29.18 Est GFR (MDRD) Af Amer 45 L Est GFR (MDRD) Non-Af 37 L BUN/Creatinine Ratio 20.8 H Glucose 78 Calcium 8.8 TSH POC Glucose 09/29/17 09/28/17 09/28/17 05:47 21:01 17:31 POC Glucose 80 306 H 332 H 09/28/17 09/28/17 09/28/17 14:53 11:30 06:49 POC Glucose 389 H > 500 H* > 500 H* 09/28/17 09/28/17 06:46 06:44 POC Glucose 449 H > 500 H* Assessment/Plan benign essential tremor, normally non-bothersome however this is now worse due to intercurrent illness suggest avoid beta agonists and primidone, titrate respiratory therapies as feasible. followup as outpatient as needed
[2017-09-29] MEDS: glipiZIDE 5 MG Tablet 2.5 MG PO (11:16)
[2017-09-29 11:25] LABS: Bedside Glucose 103 mg/dL (70-110)
--- NOTE | 2017-09-29 11:45 | PCM.DC ---
- Discharge Diagnoses Current Active Problems: Current Active and Chronic Problems Hyperlipidemia (Chronic) History of tobacco use (Chronic) Suspected chronic obstructive pulmonary disease based on initial evaluation (Chronic) You will use the following diet at home:: Calorie/Carbohydrate Controlled (specify 1200, 1400, etc) - 1800 massiel/day, Cardiac Your food should be the consistency of: Regular Your liquids should be the consistency of: Regular/Thin Discharge Activity: Return to Normal Activity Allergies/Adverse Reactions: Allergies penicillin Allergy (Verified 09/27/17 11:07) Rash Medications to take at Discharge Atenolol [Tenormin (beta nae)] 25 mg PO DAILY 09/27/17 Cholecalciferol (Vitamin D3) [Vitamin D3] 2,000 unit PO DAILY 09/27/17 Glipizide [Glipizide ER] 2.5 mg PO DAILY 09/27/17 Insulin Glargine,Hum.rec.anlog [Lantus] 60 unit SQ QHS 09/27/17 Lisinopril 20 mg PO DAILY 09/27/17 Simvastatin [Zocor] 20 mg PO DAILY 09/27/17 Albuterol IH (ProAir) [Proair Hfa] 1 puff INHALATION Q4H PRN PRN #1 inhaler 09/29/17 Prednisone [Deltasone] 40 mg PO DAILY 2 Days #4 tab 09/29/17 The following prescriptions were given: Albuterol IH (ProAir) [Proair Hfa] 1 puff INHALATION Q4H PRN PRN #1 inhaler PRN Reason: Asthma Prednisone [Deltasone] 40 mg PO DAILY 2 Days #4 tab Primary Care Physician: Becky Lassiter DO [Primary Care Provider] - Please follow up with your Primary Care Physician in: 1-2 weeks Proposed Discharge Date: 09/29/17
--- NOTE | 2017-09-29 11:49 | DCINST_ITS ---
- Discharge Diagnoses Current Active Problems: Current Active and Chronic Problems Hyperlipidemia (Chronic) History of tobacco use (Chronic) Suspected chronic obstructive pulmonary disease based on initial evaluation ( Chronic) You will use the following diet at home:: Calorie/Carbohydrate Controlled ( specify 1200, 1400, etc) - 1800 massiel/day, Cardiac Your food should be the consistency of: Regular Your liquids should be the consistency of: Regular/Thin Discharge Activity: Return to Normal Activity Allergies/Adverse Reactions: Allergies penicillin Allergy (Verified 09/27/17 11:07) Rash Medications to take at Discharge Atenolol [Tenormin (beta nae)] 25 mg PO DAILY 09/27/17 Cholecalciferol (Vitamin D3) [Vitamin D3] 2,000 unit PO DAILY 09/27/17 Glipizide [Glipizide ER] 2.5 mg PO DAILY 09/27/17 Insulin Glargine,Hum.rec.anlog [Lantus] 60 unit SQ QHS 09/27/17 Lisinopril 20 mg PO DAILY 09/27/17 Simvastatin [Zocor] 20 mg PO DAILY 09/27/17 Albuterol IH (ProAir) [Proair Hfa] 1 puff INHALATION Q4H PRN PRN #1 inhaler 09/13 Prednisone [Deltasone] 40 mg PO DAILY 2 Days #4 tab 09/29/17 The following prescriptions were given: Albuterol IH (ProAir) [Proair Hfa] 1 puff INHALATION Q4H PRN PRN #1 inhaler PRN Reason: Asthma Prednisone [Deltasone] 40 mg PO DAILY 2 Days #4 tab Primary Care Physician: Becky Lassiter DO [Primary Care Provider] - Please follow up with your Primary Care Physician in: 1-2 weeks Proposed Discharge Date: 09/29/17
--- NOTE | 2017-09-29 12:51 | PCM.DC.SUM ---
<Jairon Vlila - Last Filed: 09/29/17 12:51> Discharge Date and Diagnosis Date of Admission: 09/27/17 Date of Discharge: 09/29/17 - Primary Discharge Diagnosis Acute COPD exacerbation Chest pain-muscular skeletal Benign essential tremor Type 2 diabetes mellitus CKD stage III Hypertension Mild normocytic anemia - Secondary Discharge Diagnosis Chronic Problems Hyperlipidemia (Chronic) History of tobacco use (Chronic) Suspected chronic obstructive pulmonary disease based on initial evaluation (Chronic) Hearing loss (Chronic) history of breast cancer with lumpectomy (Chronic) Type 2 diabetes mellitus (Chronic) Benign essential hypertension (Chronic) Hospital Course and Treatment Imaging Results: 09/29/17 05:55 Nuclear Stress Test - Chemical [NM] AM (NON MEDS) Consultations: Joceline-neurology Operations: None Procedures: Stress test Summary of Care Provided: Physical exam on day of discharge: General: Resting comfortably NAD Psych: A/Ox3 normal affect HEENT: PEARRLA AT NC Neck: Supple NT CV: RRR no m/t/r/g/h Resp: CTA Abd: [id number] Soft NT no guarding or rigidity Ext: DP2+= no edema Skin: W/D normal turgor Lymph/Heme: No active bleeding or adenopathy Neuro: CN2-12 intact Hospital course: The patient is a 77 year old F with a history of COPD, type 2 diabetes, CKD stage III, hypertension, essential tremor, chronic anemia, who presented to the emergency room with worsening of shortness of breath and midsternal chest pressure going on for 3-4 days. She also had some cough and nasal drainage, denied sick contacts. She had a chest x-ray consistent with COPD no fever or white count, and did not have increased oxygen demands. She was admitted to the hospital on the telemetry unit and placed on IV steroids, duo nebs, and had troponin cycled. She had no events on telemetry however her fourth troponin was slightly elevated at 0.15. Given this along with her midsternal chest pain and the fact that she had not had a stress test in greater than 10 years, she had a significant smoking history although currently does not smoke, and diabetes, is felt that she would benefit from further stress testing. This was done the following day as her breathing had significantly improved overnight. Her stress test ended up being negative. After she was started on IV steroids and aerosol treatment her blood sugars spiked very high and we had to temporarily adjust her insulin and provide her with several sliding scale boluses along with mealtime insulin to obtain better control. She also developed worsening of a chronic tremor felt to be benign essential tremor. She was briefly started on propranolol and primidone for this and neurology was consulted. Neurology felt that this was secondary to steroids and beta agonists and discontinued these medications. They agreed that this was benign essential tremor. The patient was placed on oral prednisone and given an albuterol inhaler for discharge. She has 2 more days of prednisone at 40 mg to complete a total of 5 days therapy for COPD exacerbation with steroids. She will need close follow-up with her family care physician. She has been informed that her PCP is not going to be able to see her until November, and she asked for names of other providers. We provided her with a list of local family physicians. The patient was discharged home in stable condition. She is also ambulated before discharge and had no further physical therapy or oxygen needs. She also has never had formal PFT testing and would likely benefit from this as an outpatient to come up with a definitive diagnosis of COPD and for staging. This patient was seen by Jairon Villa PA-C under the supervision of Doctor Reyes. [] Discharge Diet: Low fat/ Low Cholesterol, 1800 Calorie Control Diet, 2000 mg Sodium Diet Discharge Activity: Return to Normal Activity Home Medications: Medications to take at Discharge Atenolol [Tenormin (beta nea)] 25 mg PO DAILY 09/27/17 Cholecalciferol (Vitamin D3) [Vitamin D3] 2,000 unit PO DAILY 09/27/17 Glipizide [Glipizide ER] 2.5 mg PO DAILY 09/27/17 Insulin Glargine,Hum.rec.anlog [Lantus] 60 unit SQ QHS 09/27/17 Lisinopril 20 mg PO DAILY 09/27/17 Simvastatin [Zocor] 20 mg PO DAILY 09/27/17 Albuterol IH (ProAir) [Proair Hfa] 1 puff INHALATION Q4H PRN PRN #1 inhaler 09/29/17 Prednisone [Deltasone] 40 mg PO DAILY 2 Days #4 tab 09/29/17 Following Prescrptions Were Given to Patient: Albuterol IH (ProAir) [Proair Hfa] 1 puff INHALATION Q4H PRN PRN #1 inhaler PRN Reason: Asthma Prednisone [Deltasone] 40 mg PO DAILY 2 Days #4 tab Primary Care Physician: Becky Lassiter DO [Primary Care Provider] - Please follow up with your Primary Care Physician in: 1-2 weeks Medical Necessity - Tobacco Use Smoking Status: Former smoker Meaningful Use Info Meaningful Use Diagnoses (Choose all that apply): None applicable <Nancy Reyes - Last Filed: 09/29/17 13:23> Discharge Date and Diagnosis - Secondary Discharge Diagnosis Chronic Problems Hyperlipidemia (Chronic) History of tobacco use (Chronic) Suspected chronic obstructive pulmonary disease based on initial evaluation (Chronic) Hearing loss (Chronic) history of breast cancer with lumpectomy (Chronic) Type 2 diabetes mellitus (Chronic) Benign essential hypertension (Chronic) Hospital Course and Treatment Imaging Results: 09/29/17 05:55 Nuclear Stress Test - Chemical [NM] AM (NON MEDS) Summary of Care Provided: The patient is a 77 year old F [] Disposition: Home Minutes spent on discharge:: 45 Patient Condition:: Stable Code Visit Inpatient E&M: 37821 Disch Hosp
== END 2017-09-29 11:47 | disposition home or self-care (01) ==
LOC: ED 13:27 → PCU 16:16
PROVIDERS: Nurse Practitioner Family; Physician Assistant; Admitting Provider Internal Medicine; Emergency Provider Emergency Medicine; Family Provider Family Medicine; PCP Family Medicine; Visit Provider Internal Medicine
DX: J44.1 Chronic obstructive pulmonary disease with (acute) exacerbation (principal); G25.0 Essential tremor; E11.22 Type 2 diabetes mellitus with diabetic chronic kidney disease; I12.9 Hypertensive chronic kidney disease with stage 1 through stage 4 chronic kidney disease, or unspecified chronic kidney disease; N18.3 Chronic kidney disease, stage 3 (moderate); D64.9 Anemia, unspecified; E78.5 Hyperlipidemia, unspecified; E11.65 Type 2 diabetes mellitus with hyperglycemia; E87.5 Hyperkalemia; Z79.899 Other long term (current) drug therapy; Z85.3 Personal history of malignant neoplasm of breast; Z87.891 Personal history of nicotine dependence; Z79.4 Long term (current) use of insulin; D63.8 Anemia in other chronic diseases classified elsewhere
CPT/HCPCS: 36415; 71046; 78452; 80048; 82947; 82962; 83605; 83880; 84132; 84443; 84484; 85018; 85025; 85610; 85730; 86850; 86900; 87633; 93005; 93017; 94640; 94667; 94668; 96361; 96372; 96374; 96375; 96376; 97162; 97165; 97530; 97802; 99218; 99282; A9500; J7030; A4216; G0378; J2785

== ENCOUNTER → 2018-02-09 09:54 | Outpatient (CLI) | payer MEDICARE, OTHER, SELFPAY ==
[2018-02-09 11:25] LABS: Hemoglobin A1c 9.2 % (4.2-6.3)
[2018-02-09 11:43] LABS: ALB/GLOB Ratio 0.9 RATIO (0.9-2.4); AST(SGOT) 14 U/L (15-37); Alanine Aminotransfer ALT/SGPT 19 U/L (13-56); Albumin, Serum 3.5 g/dL (3.2-5.0); Alkaline Phosphatase 83 U/L (45-117); Anion Gap 10 (5-15); BUN 39 mg/dL (7-18); Calcium,Total 9.5 mg/dL (8.5-10.1); Chloride 112 mmol/L (98-107); Creatinine, Serum 1.77 mg/dL (0.55-1.02); EST Glomerular Filtration Rate 29 mL/min (>60); Est Glom Filt Rate - Afr Amer 36 mL/min (>60); Globulin 4.1 g/dL (2.2-4.2); Glucose 100 mg/dL (74-106); Potassium 4.7 mmol/L (3.5-5.1); Protein, Total 7.6 g/dL (6.4-8.2); Sodium Level 142 mmol/L (136-145)
== END ==
PROVIDERS: Family Provider Family Medicine; PCP Family Medicine; Visit Provider Family Medicine
DX: E11.22 Type 2 diabetes mellitus with diabetic chronic kidney disease (principal); N18.3 Chronic kidney disease, stage 3 (moderate); E87.5 Hyperkalemia
CPT/HCPCS: 36415; 80053; 83036

== ENCOUNTER → 2018-05-25 11:08 | Outpatient (CLI) | payer MEDICARE, OTHER, SELFPAY ==
[2017-09-27 17:11] VITALS: BMI 25.5
[2018-05-25 12:17] LABS: Absolute Neutrophil Count 4.8 X10^3/uL (2.0-7.7); Basophil# 0.02 X10^3/uL; Basophil% 0.3 % (0-1); Eosinophil# 0.07 X10^3/uL; Eosinophils% 1.1 % (0-5); Hematocrit 34.8 % (37-47); Lymphocyte % 17.4 % (19-41); Mean Corp Hgb Conc 31.6 g/gl (32-36); Mean Corpuscular Hgb 27.4 pg (27.0-32.0); Mean Corpuscular Volume 86.8 fL (81-99); Monocyte# 0.33 X10^3/uL; Monocyte% 5.2 % (0-10); Neutrophil # 4.81 X10^3/uL (2.7-7.7); Neutrophil % 75.8 % (47-70); Platelet Count 239 K/mm3 (150-450); RBC Distribution Width CV 12.8 % (11.6-14.6); RBC Distribution Width SD 40.9 fl (35.1-43.9); Red Blood Count 4.01 M/mm3 (4.2-5.4); White Blood Count 6.3 K/mm3 (4.4-11.0)
[2018-05-25 12:24] LABS: POSITIVE COUNT NO; POSITIVE DIFFERENTIAL NO; POSITIVE MORPHOLOGY NO
[2018-05-25 12:32] LABS: Microalbumin,Random Urine 12.2 mg/L (NO RANGE EST.); Microalbumin:Creatinine Ratio 11.7 mg/g CRE (<30 mg/g CRE)
[2018-05-25 12:41] LABS: AST(SGOT) 14 U/L (15-37); Alanine Aminotransfer ALT/SGPT 22 U/L (13-56); Albumin, Serum 3.8 g/dL (3.2-5.0); Alkaline Phosphatase 75 U/L (45-117); Anion Gap 9 (5-15); BUN 45 mg/dL (7-18); Calcium,Total 9.9 mg/dL (8.5-10.1); Chloride 112 mmol/L (98-107); EST Glomerular Filtration Rate 29 mL/min (>60); Est Glom Filt Rate - Afr Amer 35 mL/min (>60); Glucose 100 mg/dL (74-106); Phosphorus 4.1 mg/dL (2.5-4.9); Potassium 5.5 mmol/L (3.5-5.1); Protein, Total 7.8 g/dL (6.4-8.2); Sodium Level 142 mmol/L (136-145)
[2018-05-25 12:50] LABS: Vitamin D,25 Hydroxy 62.5 ng/mL (29.95-100.01)
[2018-05-25 12:51] LABS: PTHIN 64.4 pg/mL (18.4-80.1)
[2018-05-25 14:02] LABS: Hemoglobin A1c 8.9 % (4.2-6.3)
--- OUTSIDE RECORDS SUMMARY | 2018-08-16 18:38 | XMS RPT_ITS ---
:1940 Author Organization DCIP Support Name Relationship Address Phone NIKO ANGELA Unavailable [address] + [place] [address] NIKO, BRENNA Unavailable Unavailable + [place], [place] R Unavailable Unavailable Unavailable NIKO, ANGELA Unavailable [address] + [place] [address] NIKO, BRENNA Unavailable Unavailable + R Unavailable Unavailable Unavailable NIKO, ANGELA Unavailable [address] + [place] [address] NIKO, BRENNA Unavailable Unavailable + R Unavailable Unavailable Unavailable NIKO, ANGELA Unavailable [address] + [place] [address] NIKO, BRENNA Unavailable Unavailable + R Unavailable Unavailable Unavailable NIKO, ANGELA Unavailable [address] + [place] [address] NIKO, BRENNA Unavailable Unavailable + R Unavailable Unavailable Unavailable NIKO, ANGELA Unavailable [address] + [place] [address] NIKO, BRENNA Unavailable Unavailable + R Unavailable Unavailable Unavailable NIKO, ANGELA Unavailable [address] + [place] [address] NIKO, BRENNA Unavailable Unavailable + R Unavailable Unavailable Unavailable NIKO, ANGELA Unavailable [address] + [place] [address] NIKO, BRENNA Unavailable Unavailable + R Unavailable Unavailable Unavailable NIKO, ANGELA Unavailable [address] + [place] [address] NIKO, BRENNA Unavailable Unavailable + R Unavailable Unavailable Unavailable NIKO, ANGELA Unavailable [address] + [place] [address] NIKO, BRENNA Unavailable Unavailable + R Unavailable Unavailable Unavailable NIKO, ANGELA Unavailable [address] + [place] [address] NIKO, BRENNA Unavailable Unavailable + R Unavailable Unavailable Unavailable Care Team Providers Name Role Phone Malys, Becky Attending Unavailable Malys, Becky Referring Unavailable Malys, Becky Primary Care Unavailable Malys, Becky Primary Care Unavailable Bridger, Bimal Admitting Unavailable [place], [place] Attending Unavailable Car, Nikolay Consulting Unavailable Bridger, Bimal Admitting Unavailable Malys, Becky Primary Care Unavailable Bridger, Bimal Consulting Unavailable Bridger, Bimal Attending Unavailable Bridger, Bimal Admitting Unavailable Jairon Villa Attending Unavailable Malys, Becky Primary Care Unavailable Car, Nikolay Consulting Unavailable [place], [place] Consulting Unavailable José Miguel Christine Attending Unavailable [place], [place] Referring Unavailable Malys, Becky Attending Unavailable Malys, Becky Referring Unavailable Malys, Becky Primary Care Unavailable Edin Gonzalez Attending Unavailable Kandis, Jayaprakash Referring Unavailable Bridger, Bimal Admitting Unavailable Malys, Becky Primary Care Unavailable Car, Nikolay Consulting Unavailable [place], [place] Attending Unavailable [place], [place] Consulting Unavailable Kandis, Jayaprakash Attending Unavailable Kandis, Jayaprakash Referring Unavailable Malys, Becky Primary Care Unavailable Malys, Becky Attending Unavailable Malys, Becky Referring Unavailable Malys, Becky Primary Care Unavailable Kandis, Jayaprakash Attending Unavailable Kandis, Jayaprakash Referring Unavailable Malys, Becky Primary Care Unavailable Malys, Becky Consulting Unavailable PROBLEMS PROBLEMS DATE TYPE CONDITION / CODE ATTENDING STATUS SOURCE 06/19/2018 Unknown E87.5 - Hyperkalemia / Malys, Becky Active [place] E87.5(ICD-10) [facility] Repository 06/19/2018 Unknown N18.3 - Chronic kidney Malys, Becky Active [place] disease, stage 3 Community (moderate) / Hospital N18.3(ICD-10) Repository 02/09/2018 Unknown E11.22 - Type 2 Becky Lassiter Active [place] diabetes mellitus with Community diabetic chronic Hospital kidney disease / Repository E11.22(ICD-10) 11/11/2017 Unknown R00.0 - Tachycardia, Tor Gonzalezl Active [place] unspecified / Community R00.0(ICD-10) Hospital Repository 11/11/2017 Unknown R94.31 - Abnormal Carlos, Edin Active [place] electrocardiogram Community [ECG] [EKG] / Hospital R94.31(ICD-10) Repository 11/11/2017 Unknown R06.02 - Shortness of Carlos, [place] Active [place] breath / Community R06.02(ICD-10) Hospital Repository PROCEDURES PROCEDURES No Procedure Records FoundRESULTS RESULTS BASIC METABOLIC Collected: 06/19/2018 Status: F Source: [place] PROFILE (BMP) 10:25 AM [facility] REPOSITORY TYPE CODE TESTS RESULT OUT OF RANGE REFERENCE UNITS LAB L501.0100 74-106 mg/dL High GLU 111 Result Comment: Fasting Glucose result from 100 to 125 mg/dL suggests IMPAIRED HOMEOSTASIS per A.D.A. criteria. Please note revised GLUCOSE reference range effective 2017. LAB L501.1000 7-18 mg/dL High BUN 43 LAB L501.1100 0.55-1.02 mg/dL High CREAT,SERUM 1.79 Result Comment: The validity of the calculated GFR AND GFRAA in patients over 70 years has not been determined. Clinical correlation is essential. LAB L501.1110 >60 mL/min Low EST GFR 29 Result Comment: Non- GFR Calc LAB L501.1115 >60 mL/min Low EST GFR - AA 35 Result Comment: GFR Calc LAB L501.1300 10-20 RATIO High BUN/CRE 24.0 LAB L501.2200 8.5-10.1 mg/dL CA Normal 9.8 LAB L501.5300 136-145 mmol/L NA Normal 143 LAB L501.5600 3.5-5.1 mmol/L High K 5.2 LAB L501.5900 98-107 mmol/L High CL 112 LAB L501.6100 21.0-32.0 mmol/L Normal CO2 23.0 LAB L501.6200 5-15 Normal GAP 8 Performed By: #### L500.2500 #### [facility] [address] [place], [place], [address] CBC W/DIFF, AUTOMATED Collected: 05/25/2018 Status: F Source: [place] 11:10 AM [facility] REPOSITORY TYPE CODE TESTS RESULT OUT OF RANGE REFERENCE UNITS LAB L100.1000 4.4-11.0 K/mm3 Normal WBC 6.3 LAB L100.1200 4.2-5.4 M/mm3 Low RBC 4.01 LAB L100.1300 12.0-15.0 g/dl Low HGB 11.0 LAB L100.1400 37-47 % Low HCT 34.8 LAB L100.1500 81-99 fL Normal MCV 86.8 LAB L100.1600 27.0-32.0 pg Normal MCH 27.4 LAB L100.1700 32-36 g/gl Low MCHC 31.6 LAB L100.1810 11.6-14.6 % Normal RDW CV 12.8 LAB L100.1820 35.1-43.9 fl Normal RDW SD 40.9 LAB L100.1900 150-450 K/mm3 Normal PLT 239 LAB L100.2000 6.2-12.0 fl Normal MPV 12.0 LAB L100.2100 47-70 % High NEUT% 75.8 LAB L100.2200 19-41 % Low LY% 17.4 LAB L100.2300 0-10 % Normal MONO% 5.2 LAB L100.2400 0-5 % Normal EO% 1.1 LAB L100.2500 0-1 % Normal BASO% 0.3 LAB L100.2550 0.0-0.9 % Normal IM GRAN % 0.200 Result Comment: IG% - Immature Granulocytes (promyelocytes, myelocytes and metamyelocytes) > 1% indicates that a LEFT SHIFT is Present. LAB L100.2620 2.0-7.7 X10 3/uL Normal Absolute Neut 4.8 LAB L100.2720 0.83-4.51 X10 3/ul Normal Absolute Lymph 1.10 Performed By: #### L100.0100 #### [facility] [address] [place], [address] MICROALB:CREAT Collected: 05/25/2018 Status: F Source: [place] RATIO,RANDOM UR 11:10 AM [facility] REPOSITORY TYPE CODE TESTS RESULT OUT OF RANGE REFERENCE UNITS LAB L501.1200 NO RANGE EST. mg/dL Normal UR CREAT 104.00 LAB L502.0500 NO RANGE EST. mg/L Normal 12.2 MICROALBUMIN ,UR LAB L502.0600 <30 mg/g CRE mg/g CRE Normal 11.7 MALB:CREAT Performed By: #### L502.0250 #### [facility] [address] [place], [address] COMPREHENSIVE METABOLIC Collected: 05/25/2018 Status: F Source: [place] PROFIL 11:10 AM [facility] REPOSITORY TYPE CODE TESTS RESULT OUT OF RANGE REFERENCE UNITS LAB L501.0100 74-106 mg/dL Normal GLU 100 Result Comment: Fasting Glucose result from 100 to 125 mg/dL suggests IMPAIRED HOMEOSTASIS per A.D.A. criteria. Please note revised GLUCOSE reference range effective 2017. LAB L501.1000 7-18 mg/dL High BUN 45 LAB L501.1100 0.55-1.02 mg/dL High CREAT,SERUM 1.80 Result Comment: The validity of the calculated GFR AND GFRAA in patients over 70 years has not been determined. Clinical correlation is essential. LAB L501.1110 >60 mL/min Low EST GFR 29 Result Comment: Non- GFR Calc LAB L501.1115 >60 mL/min Low EST GFR - AA 35 Result Comment: GFR Calc LAB L501.1300 10-20 RATIO High BUN/CRE 25.0 LAB L501.1500 6.4-8.2 g/dL T Normal PROT 7.8 LAB L501.1800 3.2-5.0 g/dL Normal ALB 3.8 LAB L501.1950 2.2-4.2 g/dL Normal GLOB 4.0 LAB L501.2000 0.9-2.4 RATIO Normal A/G 1.0 LAB L501.2200 8.5-10.1 mg/dL CA Normal 9.9 LAB L501.4100 15-37 U/L Low AST 14 LAB L501.4305 45-117 U/L Normal ALK P 75 LAB L501.4405 13-56 U/L Normal ALT 22 LAB L501.4600 0.20-1.00 mg/dL T Normal BILI 0.30 LAB L501.5300 136-145 mmol/L NA Normal 142 LAB L501.5600 3.5-5.1 mmol/L High K 5.5 LAB L501.5900 98-107 mmol/L High CL 112 LAB L501.6100 21.0-32.0 mmol/L Normal CO2 21.0 LAB L501.6200 5-15 Normal GAP 9 Performed By: #### L500.4050, L501.2300 #### [facility] [address] [place], [address] PHOSPHORUS Collected: 05/25/2018 Status: F Source: [place] 11:10 AM [facility] REPOSITORY TYPE CODE TESTS RESULT OUT OF RANGE REFERENCE UNITS LAB L501.2300 2.5-4.9 mg/dL Normal PHOS 4.1 Performed By: #### L500.4050, L501.2300 #### [facility] [address] [place], [address] VITAMIN D,25 HYDROXY Collected: 05/25/2018 Status: F Source: [place] 11:10 AM [facility] REPOSITORY TYPE CODE TESTS RESULT OUT OF RANGE REFERENCE UNITS LAB L506.1000 29.95-100.01 ng/mL Normal Vitamin D 62.5 25-OH Result Comment: Vitamin D 25(OH) Status Range Deficiency <20 ng/mL (50nmol/L) Insuffciency 20 - 30 ng/mL (50 - 75 nmol/L) Sufficiency 30 - 100 ng/mL (75 - 250 nmol/L) Toxicity >100 ng/mL (>250 nmol/L) Performed By: #### L506.1000 #### [facility] [address] [place], [address] PTHIN Collected: 05/25/2018 Status: F Source: [place] 11:10 AM [facility] REPOSITORY TYPE CODE TESTS RESULT OUT OF RANGE REFERENCE UNITS LAB L509.1000 18.4-80.1 pg/mL Normal PTHIN 64.4 Performed By: #### L509.1000 #### [facility] [address] [place], [address] HEMOGLOBIN A1C Collected: 05/25/2018 Status: F Source: [place] 11:10 AM [facility] REPOSITORY TYPE CODE TESTS RESULT OUT OF RANGE REFERENCE UNITS LAB L501.9985 4.2-6.3 % High HGB A1C 8.9 Performed By: #### L501.9985 #### [facility] [address] [place], [address] HEMOGLOBIN A1C Collected: 02/09/2018 Status: F Source: [place] 10:08 AM [facility] REPOSITORY TYPE CODE TESTS RESULT OUT OF RANGE REFERENCE UNITS LAB L501.9985 4.2-6.3 % High HGB A1C 9.2 Performed By: #### L501.9985 #### [facility] [address] [facility] [place], [address] COMPREHENSIVE METABOLIC Collected: 02/09/2018 Status: F [facility] AM [facility] REPOSITORY TYPE CODE TESTS RESULT OUT OF RANGE REFERENCE UNITS LAB L501.0100 74-106 mg/dL Normal GLU 100 Result Comment: Fasting Glucose result from 100 to 125 mg/dL suggests IMPAIRED HOMEOSTASIS per A.D.A. criteria. Please note revised GLUCOSE reference range effective 2017. LAB L501.1000 7-18 mg/dL High BUN 39 LAB L501.1100 0.55-1.02 mg/dL High CREAT,SERUM 1.77 Result Comment: The validity of the calculated GFR AND GFRAA in patients over 70 years has not been determined. Clinical correlation is essential. LAB L501.1110 >60 mL/min Low EST GFR 29 Result Comment: Non- GFR Calc LAB L501.1115 >60 mL/min Low EST GFR - AA 36 Result Comment: GFR Calc LAB L501.1300 10-20 RATIO High BUN/CRE 22.0 LAB L501.1500 6.4-8.2 g/dL T Normal PROT 7.6 LAB L501.1800 3.2-5.0 g/dL Normal ALB 3.5 LAB L501.1950 2.2-4.2 g/dL Normal GLOB 4.1 LAB L501.2000 0.9-2.4 RATIO Normal A/G 0.9 LAB L501.2200 8.5-10.1 mg/dL CA Normal 9.5 LAB L501.4100 15-37 U/L Low AST 14 LAB L501.4305 45-117 U/L Normal ALK P 83 LAB L501.4405 13-56 U/L Normal ALT 19 LAB L501.4600 0.20-1.00 mg/dL T Normal BILI 0.30 LAB L501.5300 136-145 mmol/L NA Normal 142 LAB L501.5600 3.5-5.1 mmol/L K Normal 4.7 LAB L501.5900 98-107 mmol/L High CL 112 LAB L501.6100 21.0-32.0 mmol/L Low CO2 20.0 LAB L501.6200 5-15 Normal GAP 10 Performed By: #### L500.4050 #### [facility] [address] [facility] [place], [address] 12 LEAD ELECTROCARDIOGRAM Observed: 10/10/2017 Status: F Source: [place] 2:10 PM [facility] REPOSITORY [facility] Cardiovascular Services [address] [place] [address] 12 Lead EKG 09/29/17517 MR#: [id number] Acct: [id number] Name: JANEY MARVIN Rep #: [id number] : 1940 77 From: Edin Gonzalez MD Attending Dr: Nancy Reyes MD Status: DIS ROBERT Ordering Dr: Nancy Reyes MD Date: 09/29/17 Location: [facility] Sex: F AA Admitted: 09/27/17 Test Reason : AM EKG Blood Pressure : / mmHG Vent. Rate : 096 BPM Atrial Rate : 096 BPM P-R Int : 102 ms QRS Dur : 066 ms QT Int : 342 ms P-R-T Axes : 043 001 003 degrees QTc Int : 432 ms Sinus rhythm with short TX Otherwise normal ECG Confirmed by CARLOS JORDAN, EDIN ([id number]), story editor HALEY GRACIA ([id number]) on 10/10/2017 2:09:47 PM Referred By: Brant Marquis Confirmed By:EDIN GONZALEZ MD 10/10/17 1409 Date Edin Gonzalez MD CC: Nancy Reyes MD; Becky Lassiter DO Signed 12 LEAD ELECTROCARDIOGRAM Observed: 10/02/2017 Status: F Source: [place] 2:34 PM [facility] REPOSITORY [facility] Cardiovascular Services [address] [place] [address] 12 Lead EKG 09/28/17 1011 MR#: [id number] Acct: [id number] Name: JANEY MARVIN Rep #: [id number] : 1940 77 From: Edin Gonzalez MD Attending Dr: Nancy Reyes MD Status: DIS ROBERT Ordering Dr: Jairon Villa Date: 09/28/17 Location: [facility] Sex: F AA Admitted: 09/27/17 Test Reason : CP Blood Pressure : / mmHG Vent. Rate : 112 BPM Atrial Rate : 112 BPM P-R Int : 154 ms QRS Dur : 070 ms QT Int : 330 ms P-R-T Axes : 064 -01 004 degrees QTc Int : 450 ms Sinus tachycardia Marked ST abnormality, possible inferior subendocardial injury Abnormal ECG When compared with ECG of 27-SEP-2017 13:26, MANUAL COMPARISON REQUIRED, DATA IS UNCONFIRMED Confirmed by EDIN GONZALEZ MD ([id number]), story editor HALEY GRACIA ([id number]) on 10/02/2017 2:33:59 PM Referred By: Brant Marquis Confirmed By:EDIN GONZALEZ MD 10/02/17 1434 Date Edin Gonzalez MD CC: MIKE Villa; Nancy Reyes MD; Becky Lassiter DO Signed 12 LEAD ELECTROCARDIOGRAM Observed: 09/29/2017 Status: F Source: [place] 3:38 PM [facility] REPOSITORY [facility] Cardiovascular Services [address] [place] [address] 12 Lead EKG 09/27/17 1326 MR#: [id number] Acct: [id number] Name: JANEY MARVIN Rep #: [id number] : 1940 77 From: Edin Gonzalez MD Attending Dr: Nancy Reyes MD Status: DIS ROBERT Ordering Dr: Aida Raza DO Date: 09/27/17 Location: [facility] Sex: F AA Admitted: 09/27/17 Test Reason : FLU S/SX Blood Pressure : / mmHG Vent. Rate : 076 BPM Atrial Rate : 076 BPM P-R Int : 108 ms QRS Dur : 066 ms QT Int : 346 ms P-R-T Axes : 026 003 023 degrees QTc Int : 389 ms Sinus rhythm with short TX Otherwise normal ECG Confirmed by CARLOS JORDAN, EDIN ([id number]), story editor HALEY GRACIA ([id number]) on 09/29/2017 3:37:53 PM Referred By: Brant Marquis Confirmed By:EDIN GONZALEZ MD 09/29/17 1537 Date Edin Gonzalez MD CC: Nancy Reyes MD; Becky Lassiter DO; Aida Raza DO Signed DISCHARGE SUMMARY Observed: 09/29/2017 Status: F Source: [place] 1:23 PM [facility] REPOSITORY [facility] Medical Records Department [address] [place] [address] Discharge Summary 09/29/17 1251 MR#: [id number] Acct: [id number] Name: JANEY MARVIN Rep #: [id number] : 1940 77 From: Jairon MCKEON PCP: Becky Lassiter DO Status: DIS ROBERT Y Location: [place] [address] <Jairon Villa - Last Filed: 09/29/17 12:51> Discharge Date and Diagnosis Date of Admission: 09/27/17 Date of Discharge: 09/29/17 - Primary Discharge Diagnosis Acute COPD exacerbation Chest pain-muscular skeletal Benign essential tremor Type 2 diabetes mellitus CKD stage III Hypertension Mild normocytic anemia - Secondary Discharge Diagnosis Chronic Problems Hyperlipidemia (Chronic) History of tobacco use (Chronic) Suspected chronic obstructive pulmonary disease based on initial evaluation (Chronic) Hearing loss (Chronic) history of breast cancer with lumpectomy (Chronic) Type 2 diabetes mellitus (Chronic) Benign essential hypertension (Chronic) Hospital Course and Treatment Imaging Results: 09/29/17 05:55 Nuclear Stress Test - Chemical [NM] AM (NON MEDS) Consultations: [place]-neurology Operations: None Procedures: Stress test Summary of Care Provided: Physical exam on day of discharge: General: Resting comfortably NAD Psych: A/Ox3 normal affect HEENT: PEARRLA AT NC Neck: Supple NT CV: RRR no m/t/r/g/h Resp: CTA Abd: [id number] Soft NT no guarding or rigidity Ext: DP2+= no edema Skin: W/D normal turgor Lymph/Heme: No active bleeding or adenopathy Neuro: CN2-12 intact Hospital course: The patient is a 77 year old F with a history of COPD, type 2 diabetes, CKD stage III, hypertension, essential tremor, chronic anemia, who presented to the emergency room with worsening of shortness of breath and midsternal chest pressure going on for 3-4 days. She also had some cough and nasal drainage, denied sick contacts. She had a chest x-ray consistent with COPD no fever or white count, and did not have increased oxygen demands. She was admitted to the hospital on the telemetry unit and placed on IV steroids, duo nebs, and had troponin cycled. She had no events on telemetry however her fourth troponin was slightly elevated at 0.15. Given this along with her midsternal chest pain and the fact that she had not had a stress test in greater than 10 years, she had a significant smoking history although currently does not smoke, and diabetes, is felt that she would benefit from further stress testing. This was done the following day as her breathing had significantly improved overnight. Her stress test ended up being negative. After she was started on IV steroids and aerosol treatment her blood sugars spiked very high and we had to temporarily adjust her insulin and provide her with several sliding scale boluses along with mealtime insulin to obtain better control. She also developed worsening of a chronic tremor felt to be benign essential tremor. She was briefly started on propranolol and primidone for this and neurology was consulted. Neurology felt that this was secondary to steroids and beta agonists and discontinued these medications. They agreed that this was benign essential tremor. The patient was placed on oral prednisone and given an albuterol inhaler for discharge. She has 2 more days of prednisone at 40 mg to complete a total of 5 days therapy for COPD exacerbation with steroids. She will need close follow-up with her family care physician. She has been informed that her PCP is not going to be able to see her until November, and she asked for names of other providers. We provided her with a list of local family physicians. The patient was discharged home in stable condition. She is also ambulated before discharge and had no further physical therapy or oxygen needs. She also has never had formal PFT testing and would likely benefit from this as an outpatient to come up with a definitive diagnosis of COPD and for staging. This patient was seen by Jairon Villa PA-C under the supervision of Doctor Reyes. [] Discharge Diet: Low fat/ Low Cholesterol, 1800 Calorie Control Diet, 2000 mg Sodium Diet Discharge Activity: Return to Normal Activity Home Medications: Medications to take at Discharge Atenolol [Tenormin (beta nae)] 25 mg PO DAILY 09/27/17 Cholecalciferol (Vitamin D3) [Vitamin D3] 2,000 unit PO DAILY 09/27/17 Glipizide [Glipizide ER] 2.5 mg PO DAILY 09/27/17 Insulin Glargine,Hum.rec.anlog [Lantus] 60 unit SQ QHS 09/27/17 Lisinopril 20 mg PO DAILY 09/27/17 Simvastatin [Zocor] 20 mg PO DAILY 09/27/17 Albuterol IH (ProAir) [Proair Hfa] 1 puff INHALATION Q4H PRN PRN #1 inhaler 09/29/17 Prednisone [Deltasone] 40 mg PO DAILY 2 Days #4 tab 09/29/17 Following Prescrptions Were Given to Patient: Albuterol IH (ProAir) [Proair Hfa] 1 puff INHALATION Q4H PRN PRN #1 inhaler PRN Reason: Asthma Prednisone [Deltasone] 40 mg PO DAILY 2 Days #4 tab Primary Care Physician: Becky Lassiter DO [Primary Care Provider] - Please follow up with your Primary Care Physician in: 1-2 weeks Medical Necessity - Tobacco Use Smoking Status: Former smoker Meaningful Use Info Meaningful Use Diagnoses (Choose all that apply): None applicable <Nancy Reyes - Last Filed: 09/29/17 13:23> Discharge Date and Diagnosis - Secondary Discharge Diagnosis Chronic Problems Hyperlipidemia (Chronic) History of tobacco use (Chronic) Suspected chronic obstructive pulmonary disease based on initial evaluation (Chronic) Hearing loss (Chronic) history of breast cancer with lumpectomy (Chronic) Type 2 diabetes mellitus (Chronic) Benign essential hypertension (Chronic) Hospital Course and Treatment Imaging Results: 09/29/17 05:55 Nuclear Stress Test - Chemical [NM] AM (NON MEDS) Summary of Care Provided: The patient is a 77 year old F [] Disposition: Home Minutes spent on discharge:: 45 Patient Condition:: Stable Code Visit Inpatient E AND M: [id number] Disch Hosp 09/29/17 1300 <Electronically signed by Jairon Villa PA> Date Jairon MCKEON 09/29/17 1323<Electronically signed by Nancy Reyes MD> Cosigner Signature (if applicable): Date Nancy Reyes MD CC: MIKE Villa; Nancy Reyes MD; Becky Lassiter DO Signed DISCHARGE INSTRUCTION Observed: 09/29/2017 Status: F Source: [place] 11:49 AM [facility] REPOSITORY [facility] Medical Records Department [address] [place] [address] Instructions for Home/Discharge Instructions 09/29/17 1145 MR#: [id number] Acct: [id number] Name: JANEY MARVIN Rep #: [id number] : 1940 77 From: Jairon MCKEON PCP: Becky Lassiter DO Status: ADM ROBERT - Discharge Diagnoses Current Active Problems: Current Active and Chronic Problems Hyperlipidemia (Chronic) History of tobacco use (Chronic) Suspected chronic obstructive pulmonary disease based on initial evaluation (Chronic) You will use the following diet at home:: Calorie/Carbohydrate Controlled (specify 1200, 1400, etc) - 1800 massiel/day, Cardiac Your food should be the consistency of: Regular Your liquids should be the consistency of: Regular/Thin Discharge Activity: Return to Normal Activity Allergies/Adverse Reactions: Allergies penicillin Allergy (Verified 09/27/17 11:07) Rash Medications to take at Discharge Atenolol [Tenormin (beta nae)] 25 mg PO DAILY 09/27/17 Cholecalciferol (Vitamin D3) [Vitamin D3] 2,000 unit PO DAILY 09/27/17 Glipizide [Glipizide ER] 2.5 mg PO DAILY 09/27/17 Insulin Glargine,Hum.rec.anlog [Lantus] 60 unit SQ QHS 09/27/17 Lisinopril 20 mg PO DAILY 09/27/17 Simvastatin [Zocor] 20 mg PO DAILY 09/27/17 Albuterol IH (ProAir) [Proair Hfa] 1 puff INHALATION Q4H PRN PRN #1 inhaler 09/29/17 Prednisone [Deltasone] 40 mg PO DAILY 2 Days #4 tab 09/29/17 The following prescriptions were given: Albuterol IH (ProAir) [Proair Hfa] 1 puff INHALATION Q4H PRN PRN #1 inhaler PRN Reason: Asthma Prednisone [Deltasone] 40 mg PO DAILY 2 Days #4 tab Primary Care Physician: Becky Lassiter DO [Primary Care Provider] - Please follow up with your Primary Care Physician in: 1-2 weeks Proposed Discharge Date: 09/29/17 09/29/17 1149 <Electronically signed by Jairon MCKEON> Date Jairon MCKEON CC: Becky Lassiter DO; Nikolay Car MD CONSULTATION Observed: 09/29/2017 Status: F Source: [place] 11:31 AM [facility] REPOSITORY [facility] Medical Records Department [address] [place] [address] Consultation 09/29/17 1047 MR#: [id number] Acct: [id number] Name: JANEY MARVIN Rep #: [id number] : 1940 77 From: Nikolay Car MD PCP: Becky Lassiter DO Status: ADM ROBERT Y Location: [place] [address] Reason for Consult Date of Consultation: 09/29/17 Reason for Consultation: tremor History of Present Illness: The patient is a 77 year old right handed female presented with wheezing and cough. has had tremor for approx 10yrs, reports non issue at home, however she has noted severe tremor since steroids and beta agonists have been started. reports breathing now normal. denies difficulty using spoons or drinking out of a cup at home. tremor only affects hands. no family history of tremor. no difficulty walking, stumbling or falling. Past Medical History Past Medical History (Chronic Problems): Chronic Problems Hyperlipidemia (Chronic) History of tobacco use (Chronic) Suspected chronic obstructive pulmonary disease based on initial evaluation (Chronic) Hearing loss (Chronic) history of breast cancer with lumpectomy (Chronic) Type 2 diabetes mellitus (Chronic) Benign essential hypertension (Chronic) Allergies penicillin Allergy (Verified 09/27/17 11:07) Rash Home Medications: Ambulatory Orders Medication Instructions Recorded Atenolol [Tenormin (beta nae)] 25 mg PO DAILY 09/27/17 Cholecalciferol (Vitamin D3) 2,000 unit PO DAILY 09/27/17 [Vitamin D3] Glipizide [Glipizide ER] 2.5 mg PO DAILY 09/27/17 Surgical History: cholecystectomy, - - Breast lumpectomy, bilateral cataract surgery. Psychiatric History: No pertinent psych hx Lives: With Family Smoking Status: Former smoker Alcohol: None Drugs: None - *Family History Maternal History Items: No pertinent history Paternal History Items: No pertinent history Review of Systems Constitutional: Denies: Chills, Fever, Weight Change HEENT: Denies: Head Aches, Sinus Congestion, Sinus Drainage Cardiovascular: Denies: Chest Pain, Palpitations Respiratory: Reports: Shortness of Breath - resolved, Wheezing - resolveed. Denies: Cough, Shortness of breath at rest, Sputum production Gastrointestinal: Denies: Abdominal Pain, Nausea, Vomiting Genitourinary: Denies: Dysuria Musculoskeletal: Denies: Joint Pain, Joint Tenderness Skin: Denies: Rash, Wounds Neurological: Reports: Tremor. Denies: Focal weakness, Numbness, Tingling Psychiatric: Denies: Anxiety, Depression, Homicidal Ideations, Suicidal Ideations Hematologic/ Lymphatic: Denies: Easy Bruising, Easy Bleeding Objective: intention tremor - Physical Exam General: Alert, Oriented x3, Cooperative HEENT: Atraumatic, PERRLA, EOMI, Normocephalic Neck: Supple, No JVD, Negative Carotid Bruits Lungs: Clear to auscultation, Normal air movement Cardiovascular: Regular rate, No murmurs Abdomen: Bowel Sounds Present, Soft, Non Tender Extremities: No edema, Capillary Refill Less than 3 Seconds Skin: No rashes, No breakdown Musculoskeletal: No Tenderness to Palpation of Joints or Extremities Neurological: Cranial nerves II-XII grossly intact Psych/Mental Status: Normal Affect, Appropriate Vital Signs Temp Pulse Resp BP Pulse Ox 36.7 C 100 16 127/69 H 97 09/29/17 09:55 09/29/17 09:55 09/29/17 09:55 09/29/17 09:55 09/29/17 09:55 Oxygen Flow Rate (L/min) 2 Oxygen Delivery Method Room Air Weight: 57.4 kg Body Mass Index (BMI) 25.5 Intake and Output for Last 24 Hours Intake Total 1877 1041 / 1041 Balance 1877 1041 / 1041 Microbiology Past 72 Hours 09/27/17 17:22 Respiratory Panel (PCR) - Final Mucosa - Nose Laboratory Tests Past 24 Hrs WBC 8.3 RBC 3.27 L Hgb 9.1 L Hct 27.9 L MCV 85.3 MCH 27.8 MCHC 32.6 RDW 12.6 POC Glucose POC Glucose 80 306 H 332 H POC Glucose 389 H > 500 H* > 500 H* POC Glucose 449 H > 500 H* Assessment/Plan benign essential tremor, normally non-bothersome however this is now worse due to intercurrent illness suggest avoid beta agonists and primidone, titrate respiratory therapies as feasible. followup as outpatient as needed 09/29/17 1131 <Electronically signed by Nikolay Car MD> Date Nikolay Car MD Cosigner Signature (if applicable): Date CC: Becky Lassiter DO; Nikolay Car MD Signed BEDSIDE GLUCOSE Collected: 09/29/2017 Status: F Source: [place] 11:16 AM [facility] REPOSITORY TYPE CODE TESTS RESULT OUT OF RANGE REFERENCE UNITS LAB L501.080 70-110 mg/dL Normal BEDSIDE GLU 103 Result Comment: MANAGEMENT OF PATIENT CARE PER NURSING PROTOCOL Performed By: #### L501.080 #### [facility] [address] [address] STRESS REPORT Observed: 09/29/2017 Status: F Source: [place] 10:46 AM [facility] REPOSITORY [facility] Cardiovascular Services [address] [place] [id number] MR#: [id number] Acct: [id number] Name: JANEY MARVIN Rep #: [id number] : 1940 77 From: José Miguel Christine MD Primary Care: Becky Lassiter DO Status: ADM ROBERT Ordering Dr: Sex: F AA Stress Test Report Date: 09/29/2017 Procedure: Pharmacologic stress nuclear imaging study Indications: Chest pain Consent: Per the patient Procedure: The patient underwent pharmacologic (Regadenoson) evaluation with a peak heart rate of 116 beats per minute (81 predicted maximal heart rate) and a peak blood pressure of 128/80 mmHg. The baseline ECG demonstrated normal sinus rhythm. The peak pharmacologic ECG demonstrated no obvious ECG changes. There were no cardiac dysrhythmias pretest, during pharmacologic infusion, or recovery. There was no complaint of chest discomfort during pharmacologic infusion or recovery. The examination was discontinued secondary to completion of protocol. Impression: 1. Pharmacologic (Regadenoson) evaluation 2. Peak pharmacologic ECG with no obvious ECG changes. 3. There were no cardiac dysrhythmias pretest, during pharmacologic infusion, or recovery 4. Nuclear images pending Myocardial perfusion imaging study: Technique: The patient was injected with 12 millicuries of technetium 99m Cardiolite and subsequently rest SPECT Cardiolite nuclear imaging was obtained in the horizontal long, vertical long, and short axis views. The patient underwent pharmacologic (Regadenoson) evaluation with a peak heart rate of 116 beats per minute (81 % percent predicted maximal heart rate) and a peak blood pressure of 128/80 mmHg. The patient was injected with 35 millicuries of technetium 99m Cardiolite and subsequently stress SPECT Cardiolite nuclear imaging was obtained in the horizontal long, vertical long, and short axis views. A gated Cardiolite study at peak stress was obtained. Interpretation: Rest and stress SPECT Cardiolite nuclear imaging status post realignment, normalization, and attenuation correction demonstrate relative uniform tracer uptake and myocardial perfusion appearing within normal limits. There is end systolic thickening and brightening. The gated Cardiolite study demonstrates myocardial thickening and inward wall motion. The reported LVEF is 72 %. Impression: 1. Rest and stress SPECT Cardiolite nuclear imaging demonstrate relative uniform tracer uptake and myocardial perfusion appearing within normal limits. 2. The gated Cardiolite study reports an LVEF of 72 %. This note was generated with Cortona3D software. It may contain incorrect words, spelling, and punctuation that were not noted in checking the note before signing. 09/29/17 1046 <Electronically signed by José Miguel Christine MD> Date José Miguel Christine MD CC: Nancy Reyes MD; Becky Lassiter DO Date Dictated: 09/29/17 1039 Date Transcribed: 09/29/17 1039 [employer] [place] [facility]: PM Signed BEDSIDE GLUCOSE Collected: 09/29/2017 Status: F Source: [place] 5:47 AM [facility] REPOSITORY TYPE CODE TESTS RESULT OUT OF RANGE REFERENCE UNITS LAB L501.080 70-110 mg/dL Normal BEDSIDE GLU 80 Result Comment: MANAGEMENT OF PATIENT CARE PER NURSING PROTOCOL Performed By: #### L501.080 #### [facility] [place] [address] BASIC METABOLIC Collected: 09/29/2017 Status: F Source: [place] PROFILE (BMP) 5:00 AM [facility] REPOSITORY TYPE CODE TESTS RESULT OUT OF RANGE REFERENCE UNITS LAB L501.0100 74-106 mg/dL Normal GLU 78 Result Comment: Please note revised GLUCOSE reference range effective 2017. LAB L501.1000 7-18 mg/dL High BUN 30 LAB L501.1100 0.55-1.02 mg/dL High CREAT,SERUM 1.44 Result Comment: The validity of the calculated GFR AND GFRAA in patients over 70 years has not been determined. Clinical correlation is essential. LAB L501.1110 >60 mL/min Low EST GFR 37 Result Comment: Non- GFR Calc LAB L501.1115 >60 mL/min Low EST GFR - AA 45 Result Comment: GFR Calc LAB L501.1255 ml/min Normal Estimated CRCL 29.18 LAB L501.1300 10-20 RATIO High BUN/CRE 20.8 LAB L501.2200 8.5-10 mg/dL Normal .1 CA 8.8 LAB L501.5300 136-14 mmol/L High 5 NA 147 LAB L501.5600 3.5-5. mmol/L Normal 1 K 4.0 LAB L501.5900 98-107 mmol/L High CL 116 LAB L501.6100 21.0-3 mmol/L Normal 2.0 CO2 22.0 LAB L501.6200 5-15 Normal GAP 9 Performed By: #### L500.2500 #### [facility] [address] [place], [address] CBC W/DIFF, AUTOMATED Collected: 09/29/2017 Status: F Source: [place] 5:00 AM [facility] REPOSITORY TYPE CODE TESTS RESULT OUT OF RANGE REFERENCE UNITS LAB L100.1000 4.4-11.0 K/mm3 Normal WBC 8.3 LAB L100.1200 4.2-5.4 M/mm3 Low RBC 3.27 LAB L100.1300 12.0-15.0 g/dl Low HGB 9.1 LAB L100.1400 37-47 % Low HCT 27.9 LAB L100.1500 81-99 fL Normal MCV 85.3 LAB L100.1600 27.0-32.0 pg Normal MCH 27.8 LAB L100.1700 32-36 g/gl Normal MCHC 32.6 LAB L100.1810 11.6-14.6 % Normal RDW CV 12.6 LAB L100.1820 35.1-43.9 fl Normal RDW SD 39.0 LAB L100.1900 150-450 K/mm3 Normal PLT 184 LAB L100.2000 6.2-12.0 fl Normal MPV 11.6 LAB L100.2100 47-70 % Normal NEUT% 69.3 LAB L100.2200 19-41 % Normal LY% 21.1 LAB L100.2300 0-10 % Normal MONO% 7.6 LAB L100.2400 0-5 % Normal EO% 1.7 LAB L100.2500 0-1 % Normal BASO% 0.1 LAB L100.2550 0.0-0.9 % Normal IM GRAN % 0.200 Result Comment: IG% - Immature Granulocytes (promyelocytes, myelocytes and metamyelocytes) > 1% indicates that a LEFT SHIFT is Present. LAB L100.2620 2.0-7.7 X10 3/uL Normal Absolute Neut 5.7 LAB L100.2720 0.83-4.51 X10 3/ul Normal Absolute Lymph 1.75 Performed By: #### L100.0100 #### [facility] [address] [facility] [place], [address] PROTHROMBIN TIME W/INR Collected: 09/29/2017 Status: F Source: [place] 5:00 AM [facility] REPOSITORY TYPE CODE TESTS RESULT OUT OF RANGE REFERENCE UNITS LAB L300.4150 11.7-14.9 SECONDS Normal PROTIME 14.6 LAB L300.4200 Normal INR 1.1 Performed By: #### L300.3900, L300.4310 #### [facility] [address] [place], [address] PARTIAL THROMBOPLAST Collected: 09/29/2017 Status: F Source: [place] TIME 5:00 AM [facility] REPOSITORY TYPE CODE TESTS RESULT OUT OF RANGE REFERENCE UNITS LAB L300.4310 24.1-36.2 Seconds Normal PTT 29.2 Performed By: #### L300.3900, L300.4310 #### [facility] [address] [place], [address] BEDSIDE GLUCOSE Collected: 09/28/2017 Status: F Source: [place] 9:01 PM [facility] REPOSITORY TYPE CODE TESTS RESULT OUT OF REFERENCE UNITS RANGE LAB L501.080 70-110 mg/dL High BEDSIDE GLU 306 Result Comment: MANAGEMENT OF PATIENT CARE PER NURSING PROTOCOL Performed By: #### L501.080 #### [facility] Point of Care [address] [place] [address] BEDSIDE GLUCOSE Collected: 09/28/2017 Status: F Source: [place] 5:31 PM [facility] REPOSITORY TYPE CODE TESTS RESULT OUT OF REFERENCE UNITS RANGE LAB L501.080 70-110 mg/dL High BEDSIDE GLU 332 Result Comment: MANAGEMENT OF PATIENT CARE PER NURSING PROTOCOL Performed By: #### L501.080 #### [facility] Point of Care [address] [place] [address] BEDSIDE GLUCOSE Collected: 09/28/2017 Status: F Source: [place] 2:53 PM [facility] REPOSITORY TYPE CODE TESTS RESULT OUT OF REFERENCE UNITS RANGE LAB L501.080 70-110 mg/dL High BEDSIDE GLU 389 Result Comment: MANAGEMENT OF PATIENT CARE PER NURSING PROTOCOL Performed By: #### L501.080 #### [facility] Point of Care [address] [place] [address] BEDSIDE GLUCOSE Collected: 09/28/2017 Status: F Source: [place] 11:30 AM [facility] REPOSITORY TYPE CODE TESTS RESULT OUT OF REFERENCE UNITS RANGE LAB L501.080 70-110 mg/dL High alert BEDSIDE GLU > 500 Result Comment: Dr Mendieta Followed MANAGEMENT OF PATIENT CARE PER NURSING PROTOCOL Performed By: #### L501.080 #### [facility] Point of Care [address] [place] [address] GLUCOSE Collected: 09/28/2017 Status: F Source: [place] 9:34 AM [facility] REPOSITORY TYPE CODE TESTS RESULT OUT OF RANGE REFERENCE UNITS LAB L501.0100 74-106 mg/dL High alert GLU 506 Result Comment: Critical Result(s) Called at: 10:38:49 09/28/2017 by: FLOR HuddlestonNils Glucose result greater than or equal to 200 mg/dL suggests DIABETES MELLITUS per A.D.A. criteria. Please note revised GLUCOSE reference range effective 2017. Performed By: #### L501.0100 #### [facility] [address] [place], [address] THYROID STIM HORMONE Collected: 09/28/2017 Status: F Source: [place] (TSH) 9:34 AM [facility] REPOSITORY Order Comment: Comments: ok to add on. TYPE CODE TESTS RESULT OUT OF RANGE REFERENCE UNITS LAB L501.9520 0.358-3.74 uIU/mL Normal TSH 1.05 Performed By: #### L501.9520 #### [facility] [address] [facility] [address] [place], [address] BEDSIDE GLUCOSE Collected: 09/28/2017 Status: F Source: [place] 9:05 AM [facility] REPOSITORY TYPE CODE TESTS RESULT OUT OF REFERENCE UNITS RANGE LAB L501.080 70-110 mg/dL High alert BEDSIDE GLU 480 Result Comment: Repeat Test MANAGEMENT OF PATIENT CARE PER NURSING PROTOCOL Performed By: #### L501.080 #### [facility] Point of Care [address] [facility] [address] [place] [address] GLUCOSE Collected: 09/28/2017 Status: F Source: [place] 7:05 AM [facility] REPOSITORY TYPE CODE TESTS RESULT OUT OF RANGE REFERENCE UNITS LAB L501.0100 74-106 mg/dL High alert GLU 484 Result Comment: Critical Result(s) Called at: 07:30:22 09/28/2017 by: FLOR Tran Glucose result greater than or equal to 200 mg/dL suggests DIABETES MELLITUS per A.D.A. criteria. Please note revised GLUCOSE reference range effective 2017. Performed By: #### L501.0100 #### [facility] [address] [place], [address] BEDSIDE GLUCOSE Collected: 09/28/2017 Status: F Source: [place] 6:49 AM [facility] REPOSITORY TYPE CODE TESTS RESULT OUT OF REFERENCE UNITS RANGE LAB L501.080 70-110 mg/dL High alert BEDSIDE GLU > 500 Result Comment: Dr Orders Followed MANAGEMENT OF PATIENT CARE PER NURSING PROTOCOL Performed By: #### L501.080 #### [facility] Point of Care [address] [place] [address] BEDSIDE GLUCOSE Collected: 09/28/2017 Status: F Source: [place] 6:46 AM [facility] REPOSITORY TYPE CODE TESTS RESULT OUT OF REFERENCE UNITS RANGE LAB L501.080 70-110 mg/dL High BEDSIDE GLU 449 Result Comment: MANAGEMENT OF PATIENT CARE PER NURSING PROTOCOL Performed By: #### L501.080 #### [facility] Point of Care [address] [place] [address] BEDSIDE GLUCOSE Collected: 09/28/2017 Status: F Source: [place] 6:44 AM [facility] REPOSITORY TYPE CODE TESTS RESULT OUT OF REFERENCE UNITS RANGE LAB L501.080 70-110 mg/dL High alert BEDSIDE GLU > 500 Result Comment: Dr Orders Followed Repeat Test MANAGEMENT OF PATIENT CARE PER NURSING PROTOCOL Performed By: #### L501.080 #### [facility] Point of Care [address] [place] [address] BEDSIDE GLUCOSE Collected: 09/28/2017 Status: F Source: [place] 3:54 AM [facility] REPOSITORY TYPE CODE TESTS RESULT OUT OF REFERENCE UNITS RANGE LAB L501.080 70-110 mg/dL High alert BEDSIDE GLU > 500 Result Comment: Dr Orders Followed MANAGEMENT OF PATIENT CARE PER NURSING PROTOCOL Performed By: #### L501.080 #### [facility] Point of Care [address] [place] [address] TROPONIN-I Collected: 09/28/2017 Status: F Source: [place] 3:12 AM [facility] REPOSITORY Order Comment: 'TROP' Serial specimen #1, #2, #3, or #4: 4 TYPE CODE TESTS RESULT OUT OF RANGE REFERENCE UNITS LAB L501.4010 <0.06 ng/mL High 0.15 TROPONIN-I Result Comment: TROPONIN-I EXPECTED VALUES <0.05 NEGATIVE 0.06 - 0.59 AT RISK OF TN > OR = 0.60 SUGGEST TN Performed By: #### L501.4010 #### [facility] [address] [place], [place], [address] BASIC METABOLIC Collected: 09/28/2017 Status: F Source: [place] PROFILE (BMP) 3:12 AM [facility] REPOSITORY TYPE CODE TESTS RESULT OUT OF RANGE REFERENCE UNITS LAB L501.0100 74-106 mg/dL High alert GLU 493 Result Comment: Critical Result(s) Called at: 03:49:43 09/28/2017 by: JASON SHAIKH to Angela Norris Glucose result greater than or equal to 200 mg/dL suggests DIABETES MELLITUS per A.D.A. criteria. Please note revised GLUCOSE reference range effective 2017. LAB L501.1000 7-18 mg/dL High BUN 30 LAB L501.1100 0.55-1.02 mg/dL High CREAT,SERUM 1.94 Result Comment: The validity of the calculated GFR AND GFRAA in patients over 70 years has not been determined. Clinical correlation is essential. LAB L501.1110 >60 mL/min Low EST GFR 27 Result Comment: Non- GFR Calc LAB L501.1115 >60 mL/min Low EST GFR - AA 32 Result Comment: GFR Calc LAB L501.1255 ml/min Normal Estimated CRCL 21.66 LAB L501.1300 10-20 RATIO Normal BUN/CRE 15.5 LAB L501.2200 8.5-10 mg/dL Normal .1 CA 9.1 LAB L501.5300 136-14 mmol/L Normal 5 NA 139 LAB L501.5600 3.5-5. mmol/L Normal 1 K 5.1 LAB L501.5900 98-107 mmol/L Normal CL 107 LAB L501.6100 21.0-3 mmol/L Low 2.0 CO2 16.0 LAB L501.6200 5-15 High GAP 16 Performed By: #### L500.2500 #### [facility] [address] [place], [place], [address] BEDSIDE GLUCOSE Collected: 09/27/2017 Status: F Source: [place] 9:20 PM [facility] REPOSITORY TYPE CODE TESTS RESULT OUT OF REFERENCE UNITS RANGE LAB L501.080 70-110 mg/dL High BEDSIDE GLU 435 Result Comment: MANAGEMENT OF PATIENT CARE PER NURSING PROTOCOL Performed By: #### L501.080 #### [facility] Point of Care [address] [place] [address] TROPONIN-I Collected: 09/27/2017 Status: F Source: [place] 9:02 [facility] REPOSITORY Order Comment: 'TROP' Serial specimen #1, #2, #3, or #4: 3 TYPE CODE TESTS RESULT OUT OF RANGE REFERENCE UNITS LAB L501.4010 <0.06 ng/mL Normal < 0.02 TROPONIN-I Result Comment: TROPONIN-I EXPECTED VALUES <0.05 NEGATIVE 0.06 - 0.59 AT RISK OF TN > OR = 0.60 SUGGEST TN Performed By: #### L501.4010 #### [facility] [address] [place], [address] POTASSIUM Collected: 09/27/2017 Status: F Source: [place] 9:02 [facility] REPOSITORY TYPE CODE TESTS RESULT OUT OF RANGE REFERENCE UNITS LAB L501.5600 3.5-5.1 mmol/L Normal K 4.9 Performed By: #### L501.5600 #### [facility] [address] [place], [address] HISTORY AND PHYSICAL Observed: 09/27/2017 Status: F Source: [place] EXAM 6:39 PM [facility] REPOSITORY [facility] Medical Records Department [facility] [place] [address] History and Physical 09/27/17 1543 MR#: [id number] Acct: [id number] Name: JANEY AMRVIN Rep #: [id number] : 1940 77 From: Janelle Patel [employer] PCP: Becky Lassiter DO Status: ADM ROBERT Y [id number] <Janelle Patel - Last Filed: 09/27/17 16:10> Problem List (1) Hyperlipidemia Status: Chronic (2) History of tobacco use Status: Chronic (3) Suspected chronic obstructive pulmonary disease based on initial evaluation Status: Chronic (4) Benign essential hypertension Status: Chronic (5) Hearing loss Status: Chronic (6) Type 2 diabetes mellitus Status: Chronic (7) history of breast cancer with lumpectomy Status: Chronic History of Present Illness Date of Admission: 09/27/17 Chief Complaint: Shortness of breath The patient is a 77 year old F who presents to the emergency room with a 3-4 day history of shortness of breath. Patient complains of associated cough, nasal drainage. Denies fever, chills. Patient states she has had intermittent chest pain which has been ongoing. Denies chest pain with exertion. Denies exposure to sick persons. Denies other associated complaints. Patient has never had a formal diagnosis of COPD. She states she was a longtime smoker and quit in 2004. She does not use home inhalers or home oxygen. She denies previous hospital admissions for COPD. Her past medical history includes hypertension, hyperlipidemia, type 2 diabetes mellitus, chronic kidney disease stage III, history of recurrent hyperkalemia, anemia of chronic disease, history of breast cancer status post lumpectomy and chemotherapy. Patient's lives at home with her son. Denies difficulty caring for self at home. Past Medical History Past Medical History (Chronic Problems): Chronic Problems Hyperlipidemia (Chronic) History of tobacco use (Chronic) Suspected chronic obstructive pulmonary disease based on initial evaluation (Chronic) Hearing loss (Chronic) history of breast cancer with lumpectomy (Chronic) Type 2 diabetes mellitus (Chronic) Benign essential hypertension (Chronic) Allergies penicillin Allergy (Verified 09/27/17 11:07) Rash Home Medications: Ambulatory Orders Medication Instructions Recorded Atenolol [Tenormin (beta nae)] 25 mg PO DAILY 09/27/17 Cholecalciferol (Vitamin D3) 2,000 unit PO DAILY 09/27/17 [Vitamin D3] Glipizide [Glipizide ER] 2.5 mg PO DAILY 09/27/17 Surgical History: cholecystectomy, - - Breast lumpectomy, bilateral cataract surgery. Psychiatric History: No pertinent psych hx Lives: With Family Smoking Status: Former smoker Alcohol: None Drugs: None - *Family History Maternal History Items: No pertinent history Paternal History Items: No pertinent history Review of Systems Constitutional: Reports: Malaise. Denies: Chills, Fever, Fatigue HEENT: Reports: Difficulty Hearing, Nasal Congestion. Denies: Sore Throat Cardiovascular: Reports: Chest Pain. Denies: Edema, Light Headedness, Palpitations, Syncope Respiratory: Reports: Cough, Shortness of Breath, Wheezing. Denies: Sputum production Gastrointestinal: Denies: Abdominal Pain, Diarrhea, Nausea, Vomiting Genitourinary: Denies: Dysuria Musculoskeletal: Denies: Joint Pain, Joint Tenderness Skin: Denies: Rash, Wounds Neurological: Denies: Numbness, Tingling, Focal weakness Psychiatric: Denies: Anxiety, Depression, Homicidal Ideations, Suicidal Ideations Hematologic/ Lymphatic: Denies: Easy Bruising, Easy Bleeding VTE Information - Inpt Only VTE Present on Admission: No VTE Mechan Device Prophylaxis: None VTE Pharm Prophylaxis ordered?: Yes - Physical Exam General: Alert, Oriented x3, Cooperative, No apparent distress HEENT: Atraumatic, PERRLA, EOMI, Normocephalic Oral: Dry Mucosa Neck: Supple, No JVD, Negative Carotid Bruits Lungs: Diminished, Wheezes - Minimal scattered expiratory wheezing. Cardiovascular: Regular rate, Regular Rhythm, Normal S1, Normal S2, No murmurs Abdomen: Bowel Sounds Present, Soft, Non Tender, Non-Distended Extremities: No clubbing, No cyanosis, No edema, Capillary Refill Less than 3 Seconds Skin: No rashes, No breakdown Musculoskeletal: No Tenderness to Palpation of Joints or Extremities Neurological: Cranial nerves II-XII grossly intact, Neuro grossly intact Psych/Mental Status: Normal Affect, Appropriate Vital Signs Temp Pulse Resp BP Pulse Ox 98.9 F 79 18 156/78 H 97 09/27/17 11:05 09/27/17 13:25 09/27/17 13:25 09/27/17 11:05 09/27/17 13:25 Oxygen Flow Rate (L/min) 2 Oxygen Delivery Method Nasal Cannula Weight: 58.4 kg Body Mass Index (BMI) 25.1 Laboratory Tests Past 24 Hrs WBC 6.4 RBC 3.87 L Hgb 10.9 L WBC RBC Hgb Hct MCV MCH MCHC RDW RDW Differential Assessment/Plan 1. Suspected COPD exacerbation-patient has not had any formal pulmonary function testing. Denies known history of COPD. Chest x-ray on admission consistent with COPD. Patient does have a long-term smoking history. Quit in 2004. IV Solu- Medrol 40 mg every 8 hours. Albuterol and DuoNeb aerosols. Complete respiratory panel. Patient is on 2 L of oxygen with no documentation of hypoxia prior to supplemental oxygen. Wean oxygen as tolerated to maintain O2 at or above 90%. Recommend follow-up with pulmonary medicine as outpatient for pulmonary function testing. 2. Hyperkalemia-patient has had chronic intermittent hyperkalemia. She received Kayexalate in ER. No EKG changes. Hold lisinopril. Trend BMP. 3. Atypical chest pain-patient complains of ongoing intermittent chest pain. Not associated with exertion. EKG on admission without evidence of ischemia. Trend enzymes. 4. Chronic kidney disease stage III- Follows with Dr. Marquis. Baseline creat appears to be approximately 1.6. Creatinine admission 1.5. Monitor BMP. Lisinopril on hold. Consider discontinuing lisinopril going forward given chronic kidney disease and recurrent hyperkalemia. May need additional blood pressure agent. 5. Type 2 diabetes mellitus-hemoglobin A1c November 2016 10.4%. Repeat hemoglobin A1c. Continue home glipizide and Lantus regimen. Accu-Cheks before meals at bedtime with sliding scale insulin. ADA diet. 6. Hypertension-continue home atenolol regimen. Hydralazine as needed for systolic greater than 160. Lisinopril on hold secondary to #1/#2. 7. Hyperlipidemia-continue statin. 8. Chronic normochromic normocytic anemia/anemia of chronic disease-stable. 9. History of breast cancer-status post lumpectomy and chemotherapy. DVT prophylaxis-heparin subcu. This patient was seen by DOROTHY Milton under the supervision of Dr. Sparks. <Bimal Sparks - Last Filed: 09/27/17 18:39> History of Present Illness Seen and examined patient is admitted for shortness of breath for 3-4 days along with cough nasal congestion. Patient also has wheezing , [] Past Medical History Allergies penicillin Allergy (Verified 09/27/17 11:07) Rash - Physical Exam Lungs: Diminished, Wheezes Cardiovascular: Regular rate, Normal S1, Normal S2, No murmurs Vital Signs Temp Pulse Resp BP Pulse Ox 98.0 F 78 16 170/73 H 97 09/27/17 17:26 09/27/17 17:50 09/27/17 17:26 09/27/17 17:50 09/27/17 17:59 Oxygen Flow Rate (L/min) 2 Oxygen Delivery Method Room Air Weight: 126 lb 8.725 oz Body Mass Index (BMI) 25.5 Intake and Output for Last 24 Hours Intake Total Balance Laboratory Tests Past 24 Hrs Hgb Pending Troponin I Pending POC Glucose POC Glucose 98 Assessment/Plan This patient was seen in conjunction with MIDDLE SCHOOL COMBINATION TEACHERJanelle. I have independently interviewed and examined the patient and reviewed pertinent history, examination findings, laboratory and plan of management. I have reviewed the note and agree with the documented findings with the few additional points. In brief, patient is admitted for COPD exacerbation most probably from viral bronchitis. Patient also has hyperkalemia for which she received Kayexalate. Repeat potassium at about 8 PM I have discussed my assessment with MIDDLE SCHOOL COMBINATION TEACHERJanelle and orders have been reviewed. Code Visit Inpatient E AND M: 14366 Init Hosp L3 09/27/17 1611 <Electronically signed by Janelle Patel [employer] COMBINATION TEACHER-C> Date Janelle Patel [employer] COM[employer]ATION TEACHER-C 09/27/17 1839<Electronically signed by Bimal Sparks MD> Cosigner Signature: Date (if applicable) Bimal Sparks MD CC: [employer] TEACHER-C Janelle Patel; Becky Lassiter DO; Bimal Sparks MD Signed HEMOGLOBIN Collected: 09/27/2017 Status: F Source: [place] 6:08 PM [facility] REPOSITORY TYPE CODE TESTS RESULT OUT OF RANGE REFERENCE UNITS LAB L100.1300 12.0-15.0 g/dl Low HGB 11.3 Performed By: #### L100.1300 #### [facility] [address] [place], [address] BEDSIDE GLUCOSE Collected: 09/27/2017 Status: F Source: [place] 5:41 PM [facility] REPOSITORY TYPE CODE TESTS RESULT OUT OF RANGE REFERENCE UNITS LAB L501.080 70-110 mg/dL Normal BEDSIDE GLU 98 Result Comment: MANAGEMENT OF PATIENT CARE PER NURSING PROTOCOL Performed By: #### L501.080 #### [facility] Point of Care [address] [place] [address] Observed: 09/27/2017 Status: F Source: [place] RESPIRATORY PANEL 5:22 PM [facility] MOLECULAR REPOSITORY RP PANEL ADENOVIRUS Not Detected HUMAN METAPHNEUMO Not Detected INFLUENZA A Not Detected INFLUENZA A (SUBTYPE H1) Not Detected INFLUENZA A (SUBTYPE H3) Not Detected INFLUENZA B Not Detected PARAINFLUENZA 1 Not Detected PARAINFLUENZA 2 Not Detected PARAINFLUENZA 3 Not Detected PARAINFLUENZA 4 Not Detected RHINOVIRUS Not Detected RSV A Not Detected RSV B Not Detected NAAT METHOD Testing was performed using nucleic acid amplification Performed By: #### M100.638 #### [facility] [address] [place], [address] EMERGENCY DEPARTMENT Observed: 09/27/2017 Status: F Source: [place] SUMMARY 3:24 PM [facility] REPOSITORY [facility] Medical Records Department [address] [place] [address] Emergency Department Summary 09/27/17 1521 MR#: [id number] Acct: [id number] Name: JANEY MARVIN Rep #: [id number] : 1940 77 From: Aida Raza DO PCP: Becky Lassiter DO Status: REG ER - ER Visit Summary Date of Service: 09/27/17 Chief Complaint: [Shortness of breath, cough, not feeling well] History of Present Illness: The patient is a 77 F [presents to the emergency department with cough, shortness of breath, not feeling well for the last week and a half. Patient planes of exertional dyspnea. Cough is been nonproductive. Patient has not had a fever. Patient had some intermittent chest discomfort. She has had intermittent abdominal discomfort. Patient did have diarrhea 2 or 3 days ago but that seems to have improved. Patient denies any blood in her stool or black tarry stools.] Physical Examination: [HEENT-PERRLA, EOMI. Cranial nerves II through XII grossly intact. TMs clear. Mucous membranes moist. No adenopathy. Cardiovascular-regular rate and rhythm without murmur or ectopy Lungs-aeration bilaterally. Some faint expiratory wheezes noted bilaterally. No accessory muscles or retractions. With ambulation to bathroom and back patient gets very dyspneic and develops significant tachypnea and expiratory wheezes. Abdomen-normoactive bowel sounds, soft, nontender, no rebound or rigidity, no peritoneal signs. Extremities-intact 4, normal range of motion, normal pulses, atraumatic] Test Results: [EKG obtained arrival shows sinus rhythm with a ventricular rate 76 bpm with no acute ST segment changes. CBC with differential showed a white count 6.4, hemoglobin 10.9, hematocrit 33, platelets 218. Chemistry showed a sodium 139, potassium 5.9, chloride 108, CO2 25, BUN 29, creatinine 1.5, glucose 141. Lactate was normal 1.1 troponin was less than 0.02. BNP was normal. Chest x-ray showed COPD.] Emergency Department Course and Treatment: [Patient was medicated with Solu-Medrol and a DuoNeb aerosol. Patient was given 30 g of Kayexalate p.o.] Treatment Plan: [Admit] Disposition: [Admit] Impression: [COPD exacerbation Hyperkalemia] This note was generated with [employer] dictation software. It may contain incorrect words, spelling, and punctuation that were not noted in review of the chart prior to signing ED Disposition - Plan for ED Patient: Chief Complaint: Cold Sx Referrals: Becky Lassiter DO [Primary Care Provider] - What to do if you have Problems For any increased pain, shortness of breath, bleeding, nausea or vomiting, chest pain, or any unexpected problems, contact your Primary Care Provider. Call [facility] ([phone]) or report to the closest Emergency Room. Call 911 if necessary. 09/27/17 1524 <Electronically signed by Aida Raza DO> Date Aida Raza DO Cosigner Signature (If Indicated): Date CC: Becky Lassiter DO CHEST PA AND LATERAL Observed: 09/27/2017 Status: F Source: [place] 1:09 PM [facility] REPOSITORY [facility] Imaging Services [address] [place] [address] Chest PA and Lateral MR#: [id number] Acct: [id number] Name: JANEY MARVIN Rep #: [id number] : 1940 F 77 From: Amena Parish MD PCP: Becky Lassiter DO Status: REG ER Study: Chest PA and Lateral Date of Exam: 09/27/17 Exam# [id number] Ordering Dr: Aida Raza DO STUDY: X-RAY CHEST REASON FOR EXAM: Female, 77 years old. Dyspnea TECHNIQUE: Single AP portable view of the chest. COMPARISON: None. FINDINGS: There is hyperinflation of the lungs consistent with chronic obstructive lung disease (COPD). There is no demonstrated pleural abnormality. Normal size heart. Normal mediastinum and riki. Normal visualized pulmonary arteries. Normal visualized aortic arch and descending thoracic aorta. Normal visualized thoracic spine. Normal visualized ribs, clavicles, and shoulders. There is no demonstrated abnormality of the visualized soft tissue structures of the upper abdomen. RAD/Chest PA and Lateral IMPRESSION: COPD Electronically Signed: Amena Parish MD at 14:47 EDT Tel , Service support , CC: Becky Lassiter DO; Aida Raza DO [employer] [place] [facility]: Signed CBC W/DIFF, AUTOMATED Collected: 09/27/2017 Status: F Source: [place] 11:30 AM [facility] REPOSITORY TYPE CODE TESTS RESULT OUT OF RANGE REFERENCE UNITS LAB L100.1000 4.4-11.0 K/mm3 Normal WBC 6.4 LAB L100.1200 4.2-5.4 M/mm3 Low RBC 3.87 LAB L100.1300 12.0-15.0 g/dl Low HGB 10.9 LAB L100.1400 37-47 % Low HCT 33.5 LAB L100.1500 81-99 fL Normal MCV 86.6 LAB L100.1600 27.0-32.0 pg Normal MCH 28.2 LAB L100.1700 32-36 g/gl Normal MCHC 32.5 LAB L100.1810 11.6-14.6 % Normal RDW CV 11.8 LAB L100.1820 35.1-43.9 fl Normal RDW SD 36.8 LAB L100.1900 150-450 K/mm3 Normal PLT 218 LAB L100.2000 6.2-12.0 fl Normal MPV 11.9 LAB L100.2100 47-70 % Normal NEUT% 63.2 LAB L100.2200 19-41 % Normal LY% 20.7 LAB L100.2300 0-10 % Normal MONO% 9.6 LAB L100.2400 0-5 % High EO% 5.9 LAB L100.2500 0-1 % Normal BASO% 0.3 LAB L100.2550 0.0-0.9 % Normal IM GRAN % 0.300 Result Comment: IG% - Immature Granulocytes (promyelocytes, myelocytes and metamyelocytes) > 1% indicates that a LEFT SHIFT is Present. LAB L100.2620 2.0-7.7 X10 3/uL Normal Absolute Neut 4.1 LAB L100.2720 0.83-4.51 X10 3/ul Normal Absolute Lymph 1.33 Performed By: #### L100.0100 #### [facility] [address] [place], [place], [address] BASIC METABOLIC Collected: 09/27/2017 Status: F Source: [place] PROFILE ([facility]) 11:30 AM [facility] REPOSITORY TYPE CODE TESTS RESULT OUT OF RANGE REFERENCE UNITS LAB L501.0100 74-106 mg/dL High GLU 141 Result Comment: Fasting Glucose result greater than or equal to 126 mg/dL suggests DIABETES MELLITUS per A.D.A. criteria. Please note revised GLUCOSE reference range effective 2017. LAB L501.1000 7-18 mg/dL High BUN 29 LAB L501.1100 0.55-1.02 mg/dL High CREAT,SERUM 1.53 Result Comment: The validity of the calculated GFR AND GFRAA in patients over 70 years has not been determined. Clinical correlation is essential. LAB L501.1110 >60 mL/min Low EST GFR 35 Result Comment: Non- GFR Calc LAB L501.1115 >60 mL/min Low EST GFR - AA 42 Result Comment: GFR Calc LAB L501.1255 ml/min Normal Estimated CRCL 21.77 LAB L501.1300 10-20 RATIO Normal BUN/CRE 19.0 LAB L501.2200 8.5-10 mg/dL Normal .1 CA 9.9 LAB L501.5300 136-14 mmol/L Normal 5 NA 139 LAB L501.5600 3.5-5. mmol/L High 1 K 5.9 LAB L501.5900 98-107 mmol/L High CL 108 LAB L501.6100 21.0-3 mmol/L Normal 2.0 CO2 25.0 LAB L501.6200 5-15 Normal GAP 6 Performed By: #### L500.2500 #### [facility] [address] [facility]. [place], [place], [address] LACTIC ACID Collected: 09/27/2017 Status: F Source: [place] 11:30 AM [facility] REPOSITORY Order Comment: Yes/No query for Sepsis Lactate Rule Y TYPE CODE TESTS RESULT OUT OF RANGE REFERENCE UNITS LAB L503.6005 0.4-2.0 mmol/L Normal LACTIC ACID 1.1 Performed By: #### L503.6005 #### [facility] [address] [place], [address] TYPE AND SCREEN Collected: 09/27/2017 Status: F Source: [place] 11:30 AM [facility] REPOSITORY Order Comment: Reason for Type AND Screen/Red Cells: HEMORRHAGE, GI BLEED TYPE CODE TESTS RESULT OUT OF RANGE REFERENCE UNITS LAB B10.0800 A Normal BLOOD TYPE GEL POSITIVE LAB B100.4000 Normal Antibody NEGATIVE Screen Performed By: #### B101.7450 #### [facility] [address] [place], [place], [address] TROPONIN-I Collected: 09/27/2017 Status: F Source: [place] 11:30 AM [facility] REPOSITORY Order Comment: 'TROP' Serial specimen #1, #2, #3, or #4: 1 TYPE CODE TESTS RESULT OUT OF RANGE REFERENCE UNITS LAB L501.4010 <0.06 ng/mL Normal < 0.02 TROPONIN-I Result Comment: TROPONIN-I EXPECTED VALUES <0.05 NEGATIVE 0.06 - 0.59 AT RISK OF TN > OR = 0.60 SUGGEST TN Performed By: #### L501.4010 #### [facility] [address] [facility]. [place], [place], [address] BNP,B-TYPE NATRIURETIC Collected: 09/27/2017 Status: F Source: [place] PEPTIDE 11:30 AM [facility] REPOSITORY TYPE CODE TESTS RESULT OUT OF RANGE REFERENCE UNITS LAB L503.6620 0-100 pg/mL Normal B-TYPE 12.0 AWA PEP Performed By: #### L503.6620 #### [facility] [address] [facility] [place], [place], [address] CBC-COMPLETE BLOOD CNT Collected: 09/20/2017 Status: F Source: [place] NO DIFF 11:02 AM [facility] REPOSITORY TYPE CODE TESTS RESULT OUT OF RANGE REFERENCE UNITS LAB L100.1000 4.4-11.0 K/mm3 Normal WBC 5.6 LAB L100.1200 4.2-5.4 M/mm3 Low RBC 4.14 LAB L100.1300 12.0-15.0 g/dl Low HGB 11.6 LAB L100.1400 37-47 % Low HCT 35.9 LAB L100.1500 81-99 fL Normal MCV 86.7 LAB L100.1600 27.0-32.0 pg Normal MCH 28.0 LAB L100.1700 32-36 g/gl Normal MCHC 32.3 LAB L100.1810 11.6-14.6 % Normal RDW CV 12.1 LAB L100.1820 35.1-43.9 fl Normal RDW SD 37.6 LAB L100.1900 150-450 K/mm3 Normal PLT 221 LAB L100.2000 6.2-12.0 fl Normal MPV 11.8 Performed By: #### L100.0500 #### [facility] [address] [place], [address] PROTEIN+CREATININE Collected: Status: F Source: [place] RATIO,URINE 09/20/2017 11:02 AM [facility] REPOSITORY TYPE CODE TESTS RESULT OUT OF RANGE REFERENCE UNITS LAB L501.1200 NO RANGE EST. mg/dL Normal UR CREAT 92.30 LAB L501.1930 <11.9 mg/dL High 38.7 PROTEIN,UR.R AN. LAB L501.1940 0-200 mg/g CRE High PROT:CRE 419 RATIO Performed By: #### L501.0900 #### [facility] [address] [place], [address] RENAL PROFILE Collected: 09/20/2017 Status: F Source: [place] 11:02 AM [facility] REPOSITORY TYPE CODE TESTS RESULT OUT OF RANGE REFERENCE UNITS LAB L501.0100 74-106 mg/dL Normal GLU 74 Result Comment: Please note revised GLUCOSE reference range effective 2017. LAB L501.1000 7-18 mg/dL High BUN 33 LAB L501.1100 0.55-1.02 mg/dL High CREAT,SERUM 1.61 Result Comment: The validity of the calculated GFR AND GFRAA in patients over 70 years has not been determined. Clinical correlation is essential. LAB L501.1110 >60 mL/min Low EST GFR 33 Result Comment: Non- GFR Calc LAB L501.1115 >60 mL/min Low EST GFR - AA 40 Result Comment: GFR Calc LAB L501.1300 10-20 RATIO High BUN/CRE 20.5 LAB L501.1800 3.2-5.0 g/dL Normal ALB 3.7 LAB L501.2200 8.5-10.1 mg/dL CA Normal 9.5 LAB L501.2300 2.5-4.9 mg/dL Normal PHOS 3.4 LAB L501.5300 136-145 mmol/L NA Normal 144 LAB L501.5600 3.5-5.1 mmol/L High K 5.3 LAB L501.5900 98-107 mmol/L High CL 114 LAB L501.6100 21.0-32.0 mmol/L Normal CO2 23.0 Performed By: #### L500.3600 #### [facility] [address] [place], [address] VITAMIN D,25 HYDROXY Collected: 09/20/2017 Status: F Source: [place] 11:02 AM [facility] REPOSITORY TYPE CODE TESTS RESULT OUT OF RANGE REFERENCE UNITS LAB L506.1000 29.95-100.01 ng/mL Normal Vitamin D 60.2 25-OH Result Comment: Vitamin D 25(OH) Status Range Deficiency <20 ng/mL (50nmol/L) Insuffciency 20 - 30 ng/mL (50 - 75 nmol/L) Sufficiency 30 - 100 ng/mL (75 - 250 nmol/L) Toxicity >100 ng/mL (>250 nmol/L) Performed By: #### L506.1000 #### [facility] [address] [place], [address] PTHIN Collected: 09/20/2017 Status: F Source: [place] 11:02 AM [facility] REPOSITORY TYPE CODE TESTS RESULT OUT OF RANGE REFERENCE UNITS LAB L509.1000 18.4-80.1 pg/mL Normal PTHIN 73.5 Result Comment: Please Note: PTH INTACT METHOD AND REFERENCE RANGE CHANGE Effective 05/17/2017. Performed By: #### L509.1000 #### [facility] [address] [place], [address] BASIC METABOLIC Collected: 08/21/2017 Status: F Source: [place] PROFILE (BMP) 10:52 AM [facility] REPOSITORY TYPE CODE TESTS RESULT OUT OF RANGE REFERENCE UNITS LAB L501.0100 74-106 mg/dL High GLU 281 Result Comment: Glucose result greater than or equal to 200 mg/dL suggests DIABETES MELLITUS per A.D.A. criteria. Please note revised GLUCOSE reference range effective 2017. LAB L501.1000 7-18 mg/dL High BUN 36 LAB L501.1100 0.55-1.02 mg/dL High CREAT,SERUM 1.76 Result Comment: The validity of the calculated GFR AND GFRAA in patients over 70 years has not been determined. Clinical correlation is essential. LAB L501.1110 >60 mL/min Low EST GFR 30 Result Comment: Non- GFR Calc LAB L501.1115 >60 mL/min Low EST GFR - AA 36 Result Comment: GFR Calc LAB L501.1300 10-20 RATIO High BUN/CRE 20.5 LAB L501.2200 8.5-10.1 mg/dL CA Normal 10.0 LAB L501.5300 136-145 mmol/L NA Normal 138 LAB L501.5600 3.5-5.1 mmol/L High K 5.8 LAB L501.5900 98-107 mmol/L High CL 109 LAB L501.6100 21.0-32.0 mmol/L Normal CO2 21.0 LAB L501.6200 5-15 Normal GAP 8 Performed By: #### L500.2500 #### [facility] [address] [place], [address] ALLERGIES ALLERGIES DATE TYPE / CODE NAME / CODE REACTION SEVERITY SOURCE 09/27/2017 Drug penicillin/F Rash Unknown [facility] Allergy/4160 [id number]( Hospital 48337(SNOMED NORM) Repository CT) ENCOUNTERS ENCOUNTERS ADMIT/DISCHARGE ACCOUNT ADMITTING ENCOUNTER LOCATION SOURCE NUMBER CLASS 06/19/2018 [id number] Ambulatory [address] ing:LAB Repository 05/25/2018 [id number] Ambulatory [address] ing:LAB Repository 02/09/[id number] ing:LAB Repository 09/29/2017/ [id number] Ambulatory BMSBuilding:W [place] 8 8 [facility] Repository 09/28/2017/ [id number] Ambulatory BMSBuilding:W [place] 8 8 [facility] Repository 09/27/2017/ [id number] [place], Ambulatory [place] 8 4 [facility] ing:PCURoom: Repository [id number]: 1 09/27/2017 [id number] [place], Ambulatory BMSBuilding:B [place] 3 [facility] [place].Critical access hospital Repository 09/27/2017 [id number] [place], Ambulatory BMSBuilding:B [place] 5 [facility] [place].Critical access hospital Repository 09/27/2017 [id number] [place], Ambulatory BMSBuilding:B [place] 9 [facility] [place].WVP [facility] Repository 09/20/2017 [id number] Ambulatory [place] 4 [facility] ing:LAB Repository 08/21/2017 [id number] Ambulatory [place] 2 [facility] ing:LAB Repository PAYERS PAYERS ENCOUNTER GUARANTOR PAYER SUBSCRIBER SOURCE 06/19/2018 JANEY Montalvo Primary JANEY Villalobos [id number] Insurance:MEDICARE [facility]DOB[facility] [id number]: Repository [address]Ljk: [phone] [id number] [phone] () Date:2018-06-19 06/19/2018 Secondary JANEY Montalvo [place] Insurance:AARPPolicy EARLEYDOB: [facility] Number: [id number] Hospital [id number] Repository Date:4926-28-69OY [address], [place] [address]VP: 06/19/2018 Tertiary NOT GIVENUNK [place] Insurance:SELF PAY [facility] Number: Effective Repository Date:2018-06-19 05/25/2018 JANEY Montalvo Primary JANEY Samsonoster [id number] Insurance:MEDICARE EARLEYDOB: [facility] PART A [facility] [id number] Number: Repository [address]Tjl: [phone] [id number] [phone] () Date:2018-05-15 05/25/2018 Secondary JANEY Montalvo [place] Insurance:AARPPolicy EARLEYDOB: Community Number: [id number] Hospital [id number] Repository Date:9247-86-22IY [address], [place] [address]QL: 05/25/2018 Tertiary NOT GIVENUNK [place] Insurance:SELF PAY [facility] Number: Effective Repository Date:2018-05-15 02/09/2018 Janey Montalvo Primary Janey Montalvo [place] [id number] Insurance:MEDICARE EarleyDOB: Community [place] PART A [facility] [id number] [place] Number: Repository [id number]: [id number] [phone] (HP) Date:2018-02-09 02/09/2018 Secondary Janey Montalvo [place] Insurance:AARPPolicy EarleyDOB: Community Number: [id number] Hospital [id number] Repository Date:6271-86-56GA [facility] [address], [place] [address]BY: 02/09/2018 Tertiary NOT GIVENUNK [place] Insurance:SELF PAY [facility] Number: Effective Repository Date:2018-02-09 09/29/2017 Janey Montalvo Primary Janey Montalvo [place] [id number] Insurance:MEDICARE EarleyDOB: [facility] [place] PART A [id number] [place] Number: Repository [id number]: [id number] [phone] Date:2017-09-27 2 (HP) 09/29/2017 Secondary Janey M [place] Insurance:AARPPolicy EarleyDOB: Community Number: [id number] Hospital [id number] Repository Date:3356-62-46[address], [place] [address]LL: 09/29/2017 Tertiary NOT GIVENUNK [place] Insurance:SELF PAY [facility] Number: Effective Repository Date:2017-09-29 09/28/2017 Janey Montalvo Primary Janey Montalvo [place] [id number] Insurance:MEDICARE EarleyDOB: Community [place] PART A [facility] [id number] [place] Number: Repository [id number]: [id number] [phone] Date:2017-09-27 2 (HP) 09/28/2017 Secondary Janey M [place] Insurance:AARPPolicy EarleyDOB: Community Number: [id number] Hospital [id number] Repository Date:0824-77-64[address], [place] [address]JS: 09/28/2017 Tertiary NOT GIVENUNK [place] Insurance:SELF PAY [facility] Number: Effective Repository Date:2017-09-28 09/27/2017 Janey Montalvo Primary Janey Montalvo [place] [id number] Insurance:MEDICARE EarleyDOB: Community [place] PART A [facility] [id number] [place] Number: Repository [id number]: [id number] [phone] Date:2017-09-27 2 (HP) 09/27/2017 Secondary Janey Montalvo [place] Insurance:AARPPolicy EarleyDOB: Community Number: [id number] Hospital [id number] Repository Date:3357-84-42GK [address], [place] [address]NI: 09/27/2017 Tertiary NOT GIVENUNK [place] Insurance:SELF PAY [facility] Number: Effective Repository Date:2017-09-27 09/27/2017 Janey Montalvo Primary Janey Montalvo [place] [id number] Insurance:MEDICARE EarleyDOB: [facility] [place] PART A [facility] [id number] [place] Number: Repository [id number]: [id number] [phone] Date:2017-09-27 2 () 09/27/2017 Secondary Janey Montalvo [place] Insurance:AARPPolicy EarleyDOB: Community Number: [id number] Hospital [id number] Repository Date:0251-49-20[address], [place] [address]IE: 09/27/2017 Tertiary NOT GIVENUNK [place] Insurance:SELF PAY [facility] Number: Effective Repository Date:2017-09-27 09/27/2017 Janey Montalvo Primary Janey Montalvo [place] [id number] Insurance:MEDICARE EarleyDOB: Community [place] PART A [facility] [id number] [place] Number: Repository [id number]: [id number] [phone] Date:2017-09-27 2 (HP) 09/27/2017 Secondary Janey Montalvo [place] Insurance:AARPPolicy EarleyDOB: Community Number: [id number] [facility] [id number] Repository Date:[id number] [facility] [id number], [place] [address]AN: 09/27/2017 Tertiary NOT GIVENUNK Wilfredo Insurance:SELF PAY [facility] Number: Effective Repository Date:2017-09-27 09/27/2017 Janey Montalvo Primary Janey Montalvo [place] [id number] Insurance:MEDICARE EarleyDOB: Community [place]ters [place] PART A [facility] [id number]: Repository [id number]: [id number] [phone] Date:2017-09-27 2 (HP) 09/27/2017 Secondary Janey Katia Wilfredo Insurance:AARPPolicy EarleyDOB: Community Number: [id number] [facility] [id number] Repository Date:[id number] [facility] [id number], [place] [address]LH: 09/27/2017 Tertiary NOT GIVENUNK Wilfredo Insurance:SELF PAY [facility] Number: Effective Repository Date:2017-09-27 09/20/2017 Janey Montalvo Primary Janey Montalvo Wilfredo [id number] Insurance:MEDICARE EarleyDOB: Community [place] PART A [facility] [id number] [place]: Repository [id number]: [id number] [phone] Date:2017-09-20 2 (HP) 09/20/2017 Secondary Janey Montalvo Wil[place] Insurance:AARPPolicy EarleyDOB: Community Number: [id number] [facility] [id number] Repository Date:[id number] [facility] [id number], [place] [address]NC: 09/20/2017 Tertiary NOT GIVENUNK [place] Insurance:SELF PAY [facility] Number: Effective Repository Date:2017-09-20 08/21/2017 Janey Montalvo Primary Janeyedgardo Villalobos [id number] Insurance:MEDICARE EarleyDOB: [facility] Lynette Erickson PART A [facility] [id number] [facility] [place] Number: Repository [id number]: [id number] [phone] Date:2017-08-21 2 (HP) 08/21/2017 Secondary Janey Samsonoster Insurance:AARtenziny ArthurB: Community Number: [id number] [facility] [id number] Repository Date:[id number]Q, [place] [address]KB: 08/21/2017 Tertiary NOT GIVENUNK [place] Insurance:SELF PAY [facility] Number: Effective Repository Date:2017-08-21
== END ==
PROVIDERS: Family Provider Family Medicine; PCP Family Medicine; Referring Provider Internal Medicine Nephrology; Visit Provider Internal Medicine Nephrology
DX: E11.22 Type 2 diabetes mellitus with diabetic chronic kidney disease (principal); N18.3 Chronic kidney disease, stage 3 (moderate); D63.1 Anemia in chronic kidney disease; N25.81 Secondary hyperparathyroidism of renal origin
CPT/HCPCS: 36415; 80053; 82043; 82306; 82570; 83036; 83970; 84100; 85025

== ENCOUNTER → 2018-06-19 10:16 | Outpatient (CLI) | payer MEDICARE, OTHER, SELFPAY ==
[2018-06-19 11:28] LABS: Anion Gap 8 (5-15); BUN 43 mg/dL (7-18); Calcium,Total 9.8 mg/dL (8.5-10.1); Chloride 112 mmol/L (98-107); Creatinine, Serum 1.79 mg/dL (0.55-1.02); EST Glomerular Filtration Rate 29 mL/min (>60); Est Glom Filt Rate - Afr Amer 35 mL/min (>60); Glucose 111 mg/dL (74-106); Potassium 5.2 mmol/L (3.5-5.1); Sodium Level 143 mmol/L (136-145)
--- OUTSIDE RECORDS SUMMARY | 2018-08-21 13:03 | XMS RPT_ITS ---
:1940 Author Organization NCIP Support Name Relationship Address Phone NIKO ANGELA Unavailable [address] + [place] [address] NIKO, BRENNA Unavailable Unavailable + [place], [place] R Unavailable Unavailable Unavailable NIKO, ANGELA Unavailable [address] + [place] [address] NIKO, BRENNA Unavailable Unavailable + R Unavailable Unavailable Unavailable NIKO, ANGELA Unavailable [address] + [place] [address] NIKO, BRENNA Unavailable Unavailable + R Unavailable Unavailable Unavailable NIKO, ANGELA Unavailable [address] + [place] [address] NIKO, BRENNA Unavailable Unavailable + R Unavailable Unavailable Unavailable NIKO, ANGELA Unavailable [address] + [place] [address] NIKO, BRENNA Unavailable Unavailable + R Unavailable Unavailable Unavailable NIKO, ANGELA Unavailable [address] + [place] [address] NIKO, BRENNA Unavailable Unavailable + R Unavailable Unavailable Unavailable NIKO, ANGELA Unavailable [address] + [place] [address] NIKO, BRENNA Unavailable Unavailable + R Unavailable Unavailable Unavailable NIKO, ANGELA Unavailable [address] + [place] [address] NIKO, BRENNA Unavailable Unavailable + R Unavailable Unavailable Unavailable NIKO, ANGELA Unavailable [address] + [place] [address] NIKO, BRENNA Unavailable Unavailable + R Unavailable Unavailable Unavailable NIKO, ANGELA Unavailable [address] + [place] [address] NIKO, BRENNA Unavailable Unavailable + R Unavailable Unavailable Unavailable NIKO, ANGELA Unavailable [address] + [place] [address] NIKO, BRENNA Unavailable Unavailable + R Unavailable Unavailable Unavailable Care Team Providers Name Role Phone Yodit Marquis Attending Unavailable Kandis, Jayaprakash Referring Unavailable Malys, Becky Primary Care Unavailable Malys, Becky Attending Unavailable Malys, Becky Referring Unavailable Malys, Becky Primary Care Unavailable José Miguel Christine Attending Unavailable Paintsil, [place] Referring Unavailable Malys, Becky Primary Care Unavailable Bridger, Bimal Admitting Unavailable Paintsil, [place] Attending Unavailable Car, Nikolay Consulting Unavailable Malys, Becky Attending Unavailable Malys, Becky Referring Unavailable Malys, Becky Primary Care Unavailable Malys, Becky Attending Unavailable Malys, Becky Referring Unavailable Malys, Becky Primary Care Unavailable Kandis, Jayaprakash Attending Unavailable Kandsi, Jayaprakash Referring Unavailable Malys, Becky Primary Care Unavailable Malys, Becky Consulting Unavailable Edin Gonzalez Attending Unavailable Kandis, Jayaprakash Referring Unavailable Bridger, Bimal Admitting Unavailable Jairon Villa Attending Unavailable Malys, Becky Primary Care Unavailable Car, Nikolay Consulting Unavailable Paintsil, [place] Consulting Unavailable Paintsil, [place] Attending Unavailable Bridger, Bimal Admitting Unavailable Malys, Becky Primary Care Unavailable Car, Nikolay Consulting Unavailable Paintsil, [place] Consulting Unavailable Bridger, Bimal Admitting Unavailable Malys, Becky Primary Care Unavailable Bridger, Bimal Consulting Unavailable Bridger, Bimal Attending Unavailable PROBLEMS PROBLEMS DATE TYPE CONDITION / CODE ATTENDING STATUS SOURCE 06/19/2018 Unknown E87.5 - Hyperkalemia / Malys, Becky Active [place] E87.5(ICD-10) [facility] Repository 06/19/2018 Unknown N18.3 - Chronic kidney Malys, Becky Active [place] disease, stage 3 Community (moderate) / Hospital N18.3(ICD-10) Repository 02/09/2018 Unknown 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 / Repository E11.22(ICD-10) 11/11/2017 Unknown R00.0 - Tachycardia, Tor Gonzalezl Active [place] unspecified / Community R00.0(ICD-10) Hospital Repository 11/11/2017 Unknown R94.31 - Abnormal Carlos, Edin Active [place] electrocardiogram Community [ECG] [EKG] / Hospital R94.31(ICD-10) Repository 11/11/2017 Unknown R06.02 - Shortness of Carlos, Lenox Active [place] breath / Community R06.02(ICD-10) Hospital Repository PROCEDURES PROCEDURES No Procedure Records FoundRESULTS RESULTS BASIC METABOLIC Collected: 06/19/2018 Status: F Source: [place] PROFILE (BMP) 10:25 AM [facility] REPOSITORY TYPE CODE TESTS RESULT OUT [...] GAP 8 Performed By: #### L500.2500 #### [facility] [address] [place], [place], [address] CBC W/DIFF, AUTOMATED Collected: 05/25/2018 Status: F Source: [place] 11:[address] [facility] REPOSITORY TYPE CODE TESTS RESULT OUT OF [...] Lymph 1.10 Performed By: #### L100.0100 #### [facility] [address] [place], [address] MICROALB:CREAT Collected: 05/25/2018 Status: F Source: [place] RATIO,RANDOM UR 11:[address] [facility] REPOSITORY TYPE CODE TESTS RESULT OUT OF RANGE REFERENCE UNITS LAB L501.1200 NO RANGE EST. mg/dL Normal UR CREAT 104.00 LAB L502.0500 NO RANGE EST. mg/L Normal 12.2 MICROALBUMIN ,UR LAB L502.0600 <30 mg/g CRE mg/g CRE Normal 11.7 MALB:CREAT Performed By: #### L502.0250 #### [facility] [address] [place], [address] COMPREHENSIVE METABOLIC Collected: 05/25/2018 Status: F Source: [place] PROFIL 11:[address] [facility] REPOSITORY TYPE CODE TESTS RESULT OUT OF [...] 9 Performed By: #### L500.4050, L501.2300 #### [facility] [address] [place], [address] PHOSPHORUS Collected: 05/25/2018 Status: F Source: [place] 11:[address] [facility] REPOSITORY TYPE CODE TESTS RESULT OUT OF RANGE REFERENCE UNITS LAB L501.2300 2.5-4.9 mg/dL Normal PHOS 4.1 Performed By: #### L500.4050, L501.2300 #### [facility] [address] [place], [address] VITAMIN D,25 HYDROXY Collected: 05/25/2018 Status: F Source: [place] 11:[address] [facility] REPOSITORY TYPE CODE TESTS RESULT OUT OF RANGE REFERENCE UNITS LAB L506.1000 29.95-100.01 ng/mL Normal Vitamin D 62.5 25-OH Result Comment: Vitamin D 25(OH) Status Range Deficiency <20 ng/mL (50nmol/L) Insuffciency 20 - 30 ng/mL (50 - 75 nmol/L) Sufficiency 30 - 100 ng/mL (75 - 250 nmol/L) Toxicity >100 ng/mL (>250 nmol/L) Performed By: #### L506.1000 #### [facility] [address] [place], [address] PTHIN Collected: 05/25/2018 Status: F Source: [place] 11:[address] [facility] REPOSITORY TYPE CODE TESTS RESULT OUT OF RANGE REFERENCE UNITS LAB L509.1000 18.4-80.1 pg/mL Normal PTHIN 64.4 Performed By: #### L509.1000 #### [facility] [address] [place], [address] HEMOGLOBIN A1C Collected: 05/25/2018 Status: F Source: [place] 11:[address] [facility] REPOSITORY TYPE CODE TESTS RESULT OUT OF RANGE REFERENCE UNITS LAB L501.9985 4.2-6.3 % High HGB A1C 8.9 Performed By: #### L501.9985 #### [facility] [address] [place], [address] HEMOGLOBIN A1C Collected: 02/09/2018 Status: F Source: [place] 10:[address] [facility] REPOSITORY TYPE CODE TESTS RESULT OUT OF RANGE REFERENCE UNITS LAB L501.9985 4.2-6.3 % High HGB A1C 9.2 Performed By: #### L501.9985 #### [facility] [address] [facility] [address] [place], [address] COMPREHENSIVE METABOLIC Collected: 02/09/2018 Status: F [facility] [facility] REPOSITORY TYPE CODE TESTS RESULT OUT OF [...] GAP 10 Performed By: #### L500.4050 #### [facility] [address] [facility] [place], [address] 12 LEAD ELECTROCARDIOGRAM Observed: 10/10/2017 Status: F Source: [place] 2:[address] [facility] REPOSITORY [facility] Cardiovascular Services [address] [place] [address] 12 Lead EKG 09/29/17517 MR#: [id number] Acct: [id number] Name: JANEY MARVIN Rep #: [id number] : 1940 77 From: Edin Gonzalez MD Attending Dr: Nancy Reyes MD Status: DIS ROBERT Ordering Dr: Nancy Reyes MD Date: 09/29/17 Location: [facility] Sex: F AA Admitted: 09/27/17 Test Reason : AM EKG Blood Pressure : / mmHG Vent. Rate : 096 BPM Atrial Rate : 096 BPM P-R Int : 102 ms QRS Dur : 066 ms QT Int : 342 ms P-R-T Axes : 043 001 003 degrees QTc Int : 432 ms Sinus rhythm with short SD Otherwise normal ECG Confirmed by CARLOS JORDAN, EDIN ([id number]), food expeditor HALEY GRACIA (56) on 10/10/2017 2:09:47 PM Referred By: Brant Marquis Confirmed By:EDIN GONZALEZ MD 10/10/17 1409 Date Edin Gonzalez MD CC: Nancy Reyes MD; Becky Lassiter DO Signed 12 LEAD ELECTROCARDIOGRAM Observed: 10/02/2017 Status: F Source: [place] 2:[address] [facility] REPOSITORY [facility] Cardiovascular Services [address] [place] [address] 12 Lead EKG 09/28/17 1011 MR#: [id number] Acct: [id number] Name: JANEY MARVIN Rep #: [id number] : 1940 77 From: Edin Gonzalez MD Attending Dr: Nancy Reyes MD Status: DIS ROBERT Ordering Dr: Jairon Villa Date: 09/28/17 Location: [facility] Sex: F AA Admitted: 09/27/17 Test Reason [...] UNCONFIRMED Confirmed by EDIN GONZALEZ MD ([id number]), food expeditor HALEY GRACIA (56) on 10/02/2017 2:33:59 PM Referred By: Brant Marquis Confirmed By:EDIN GONZALEZ MD 10/02/17 1434 Date Edin Gonzalez MD CC: MIKE Villa; Nancy Reyes MD; Becky Lassiter DO Signed 12 LEAD ELECTROCARDIOGRAM Observed: 09/29/2017 Status: F Source: [place] 3:[address] [facility] REPOSITORY [facility] Cardiovascular Services [address] [place] [address] 12 Lead EKG 09/27/17 1326 MR#: [id number] Acct: [id number] Name: JANEY MARVIN Rep #: [id number] : 1940 77 From: Edin Gonzalez MD Attending Dr: Nancy Reyes MD Status: DIS ROBERT Ordering Dr: Aida Raza DO Date: 09/27/17 Location: [facility] Sex: F AA Admitted: 09/27/17 Test Reason : FLU S/SX Blood Pressure : / mmHG Vent. Rate : 076 BPM Atrial Rate : 076 BPM P-R Int : 108 ms QRS Dur : 066 ms QT Int : 346 ms P-R-T Axes : 026 003 023 degrees QTc Int : 389 ms Sinus rhythm with short SD Otherwise normal ECG Confirmed by CARLOS JORDAN, EDIN ([id number]), food expeditor HALEY GRACIA (56) on 09/29/2017 3:37:53 PM Referred By: Brant Marquis Confirmed By:EDIN GONZALEZ MD 09/29/17 1537 Date Edin Gonzalez MD CC: Nancy Reyes MD; Becky Lassiter DO; Aida Raza DO Signed DISCHARGE SUMMARY Observed: 09/29/2017 Status: F Source: [place] 1:[address] [facility] REPOSITORY [facility] Medical Records Department [address] [place] [address] Discharge Summary 09/29/17 1251 MR#: [id number] Acct: [id number] Name: JANEY MARVIN Rep #: [id number] : 1940 77 From: Jairon MCKEON PCP: Becky Lassiter DO Status: DIS ROBERT Y Location: [place] [address] <Jairon Villa - Last Filed: 09/29/17 12:51> [...] - Chemical [NM] AM (NON MEDS) Consultations: Joceline-neurology Operations: None Procedures: Stress test Summary of [...] Stable Code Visit Inpatient E AND M: 35653 Disch Hosp 09/29/17 1300 <Electronically signed by Jairon Villa PA> Date Jairon MCKEON 09/29/17 1323<Electronically signed by Nancy Reyes MD> Cosigner Signature (if applicable): Date Nancy Reyes MD CC: MIKE Villa; Nancy Reyes MD; Becky Lassiter DO Signed DISCHARGE INSTRUCTION Observed: 09/29/2017 Status: F Source: [place] 11:[address] [facility] REPOSITORY [facility] Medical Records Department [address] [place] [address] Instructions for Home/Discharge Instructions 09/29/17 1145 MR#: [id number] Acct: [id number] Name: JANEY MARVIN Rep #: [id number] : 1940 77 From: Jairon MCKEON PCP: [...] 09/29/2017 Status: F Source: [place] 11:[address] [facility] REPOSITORY [facility] Medical Records Department [address] [place] [address] Consultation 09/29/17 1047 MR#: [id number] Acct: [id number] Name: JANEY MARVIN Rep #: [id number] : 1940 77 From: Nikolay Car MD PCP: Becky Lassiter DO Status: ADM ROBERT Y Location: [place] [address] Reason for Consult Date of Consultation: 09/29/17 [...] BEDSIDE GLUCOSE Collected: 09/29/2017 Status: F Source: [place] 11:[address] [facility] REPOSITORY TYPE CODE TESTS RESULT OUT OF RANGE REFERENCE UNITS LAB L501.080 70-110 mg/dL Normal BEDSIDE GLU 103 Result Comment: MANAGEMENT OF PATIENT CARE PER NURSING PROTOCOL Performed By: #### L501.080 #### [facility] [address] [place] [address] STRESS REPORT Observed: 09/29/2017 Status: F Source: [place] 10:[address] [facility] REPOSITORY [facility] Cardiovascular Services [address] [place] [address] MR#: [id number] Acct: [id number] Name: JANEY MARVIN Rep #: [id number] : 1940 77 From: José Miguel Christine [...] 72 %. This note was generated with [employer] software. It may contain incorrect words, spelling, and punctuation that were not noted in checking the note before signing. 09/29/17 1046 <Electronically signed by José Miguel Christine MD> Date José Miguel Christine MD CC: Nancy Reyes MD; Becky Lassiter DO Date Dictated: 09/29/17 1039 Date Transcribed: 09/29/17 1039 Flash Ranging Crewmember: PM Signed BEDSIDE GLUCOSE Collected: 09/29/2017 Status: F Source: [place] 5:[address] [facility] REPOSITORY TYPE CODE TESTS RESULT OUT OF RANGE REFERENCE UNITS LAB L501.080 70-110 mg/dL Normal BEDSIDE GLU 80 Result Comment: MANAGEMENT OF PATIENT CARE PER NURSING PROTOCOL Performed By: #### L501.080 #### [facility] [place] [address] BASIC METABOLIC Collected: 09/29/2017 Status: F Source: [place] PROFILE (BMP) 5:[address] [facility] REPOSITORY TYPE CODE TESTS RESULT OUT OF [...] GAP 9 Performed By: #### L500.2500 #### [facility] [address] [place], [address] CBC W/DIFF, AUTOMATED Collected: 09/29/2017 Status: F Source: [place] 5:[address] [facility] REPOSITORY TYPE CODE TESTS RESULT OUT OF [...] Lymph 1.75 Performed By: #### L100.0100 #### [facility] [address] [facility] [place], [address] PROTHROMBIN TIME W/INR Collected: 09/29/2017 Status: F Source: [place] 5:[address] [facility] REPOSITORY TYPE CODE TESTS RESULT OUT OF RANGE REFERENCE UNITS LAB L300.4150 11.7-14.9 SECONDS Normal PROTIME 14.6 LAB L300.4200 Normal INR 1.1 Performed By: #### L300.3900, L300.4310 #### [facility] [address] [place], [address] PARTIAL THROMBOPLAST Collected: 09/29/2017 Status: F Source: [place] TIME 5:[address] [facility] REPOSITORY TYPE CODE TESTS RESULT OUT OF RANGE REFERENCE UNITS LAB L300.4310 24.1-36.2 Seconds Normal PTT 29.2 Performed By: #### L300.3900, L300.4310 #### [facility] [address] [place], [address] BEDSIDE GLUCOSE Collected: 09/28/2017 Status: F Source: [place] 9:[address] [facility] REPOSITORY TYPE CODE TESTS RESULT OUT OF REFERENCE UNITS RANGE LAB L501.080 70-110 mg/dL High BEDSIDE GLU 306 Result Comment: MANAGEMENT OF PATIENT CARE PER NURSING PROTOCOL Performed By: #### L501.080 #### [facility] Point of Care [address] [place] [address] BEDSIDE GLUCOSE Collected: 09/28/2017 Status: F Source: [place] 5:[address] [facility] REPOSITORY TYPE CODE TESTS RESULT OUT OF REFERENCE UNITS RANGE LAB L501.080 70-110 mg/dL High BEDSIDE GLU 332 Result Comment: MANAGEMENT OF PATIENT CARE PER NURSING PROTOCOL Performed By: #### L501.080 #### [facility] Point of Care [address] [place] [address] BEDSIDE GLUCOSE Collected: 09/28/2017 Status: F Source: [place] 2:[address] [facility] REPOSITORY TYPE CODE TESTS RESULT OUT OF REFERENCE UNITS RANGE LAB L501.080 70-110 mg/dL High BEDSIDE GLU 389 Result Comment: MANAGEMENT OF PATIENT CARE PER NURSING PROTOCOL Performed By: #### L501.080 #### [facility] Point of Care [address] [place] [address] BEDSIDE GLUCOSE Collected: 09/28/2017 Status: F Source: [place] 11:[address] [facility] REPOSITORY TYPE CODE TESTS RESULT OUT OF REFERENCE UNITS RANGE LAB L501.080 70-110 mg/dL High alert BEDSIDE GLU > 500 Result Comment: Dr Mendieta Followed MANAGEMENT OF PATIENT CARE PER NURSING PROTOCOL Performed By: #### L501.080 #### [facility] Point of Care [address] [place] [address] GLUCOSE Collected: 09/28/2017 Status: F Source: [place] 9:[address] [facility] REPOSITORY TYPE CODE TESTS RESULT OUT OF RANGE REFERENCE UNITS LAB L501.0100 74-106 mg/dL High alert GLU 506 Result Comment: Critical Result(s) Called at: 10:38:49 09/28/2017 by: FLOR HuddlestonNils Glucose result greater than or equal to 200 mg/dL suggests DIABETES MELLITUS per A.D.A. criteria. Please note revised GLUCOSE reference range effective 2017. Performed By: #### L501.0100 #### [facility] [address] [place], [address] THYROID STIM HORMONE Collected: 09/28/2017 Status: F Source: [place] (TSH) 9:[address] [facility] REPOSITORY Order Comment: Comments: ok to add on. TYPE CODE TESTS RESULT OUT OF RANGE REFERENCE UNITS LAB L501.9520 0.358-3.74 uIU/mL Normal TSH 1.05 Performed By: #### L501.9520 #### [facility] [address] [place], [address] BEDSIDE GLUCOSE Collected: 09/28/2017 Status: F Source: [place] 9:[address] [facility] REPOSITORY TYPE CODE TESTS RESULT OUT OF REFERENCE UNITS RANGE LAB L501.080 70-110 mg/dL High alert BEDSIDE GLU 480 Result Comment: Repeat Test MANAGEMENT OF PATIENT CARE PER NURSING PROTOCOL Performed By: #### L501.080 #### [facility] Point of Care [address] [place] [address] GLUCOSE Collected: 09/28/2017 Status: F Source: [place] 7:[address] [facility] REPOSITORY TYPE CODE TESTS RESULT OUT OF RANGE REFERENCE UNITS LAB L501.0100 74-106 mg/dL High alert GLU 484 Result Comment: Critical Result(s) Called at: 07:30:22 09/28/2017 by: FLOR Tran Glucose result greater than or equal to 200 mg/dL suggests DIABETES MELLITUS per A.D.A. criteria. Please note revised GLUCOSE reference range effective 2017. Performed By: #### L501.0100 #### [facility] [address] [place], [address] BEDSIDE GLUCOSE Collected: 09/28/2017 Status: F Source: [place] 6:[address] [facility] REPOSITORY TYPE CODE TESTS RESULT OUT OF REFERENCE UNITS RANGE LAB L501.080 70-110 mg/dL High alert BEDSIDE GLU > 500 Result Comment: Dr Orders Followed MANAGEMENT OF PATIENT CARE PER NURSING PROTOCOL Performed By: #### L501.080 #### [facility] Point of Care [address] [place] [address] BEDSIDE GLUCOSE Collected: 09/28/2017 Status: F Source: [place] 6:[address] [facility] REPOSITORY TYPE CODE TESTS RESULT OUT OF REFERENCE UNITS RANGE LAB L501.080 70-110 mg/dL High BEDSIDE GLU 449 Result Comment: MANAGEMENT OF PATIENT CARE PER NURSING PROTOCOL Performed By: #### L501.080 #### [facility] Point of Care [address] [place] [address] BEDSIDE GLUCOSE Collected: 09/28/2017 Status: F Source: [place] 6:[address] [facility] REPOSITORY TYPE CODE TESTS RESULT OUT OF REFERENCE UNITS RANGE LAB L501.080 70-110 mg/dL High alert BEDSIDE GLU > 500 Result Comment: Dr Orders Followed Repeat Test MANAGEMENT OF PATIENT CARE PER NURSING PROTOCOL Performed By: #### L501.080 #### [facility] Point of Care [address] [place] [address] BEDSIDE GLUCOSE Collected: 09/28/2017 Status: F Source: [place] 3:[address] [facility] REPOSITORY TYPE CODE TESTS RESULT OUT OF REFERENCE UNITS RANGE LAB L501.080 70-110 mg/dL High alert BEDSIDE GLU > 500 Result Comment: Dr Orders Followed MANAGEMENT OF PATIENT CARE PER NURSING PROTOCOL Performed By: #### L501.080 #### [facility] Point of Care [address] [place] [address] TROPONIN-I Collected: 09/28/2017 Status: F Source: [place] 3:[address] [facility] REPOSITORY Order Comment: 'TROP' Serial specimen #1, #2, #3, or #4: 4 TYPE CODE TESTS RESULT OUT OF RANGE REFERENCE UNITS LAB L501.4010 <0.06 ng/mL High 0.15 TROPONIN-I Result Comment: TROPONIN-I EXPECTED VALUES <0.05 NEGATIVE 0.06 - 0.59 AT RISK OF [place] > OR = 0.60 SUGGEST [place] Performed By: #### L501.4010 #### [facility] [address] [place], [place], [address] BASIC METABOLIC Collected: 09/28/2017 Status: F Source: [place] PROFILE (BMP) 3:[address] [facility] REPOSITORY TYPE CODE TESTS RESULT OUT OF [...] GAP 16 Performed By: #### L500.2500 #### [facility] [address] [place], [place], [address] BEDSIDE GLUCOSE Collected: 09/27/2017 Status: F Source: [place] 9:[address] [facility] REPOSITORY TYPE CODE TESTS RESULT OUT OF REFERENCE UNITS RANGE LAB L501.080 70-110 mg/dL High BEDSIDE GLU 435 Result Comment: MANAGEMENT OF PATIENT CARE PER NURSING PROTOCOL Performed By: #### L501.080 #### [facility] Point of Care [address] [place] [address] TROPONIN-I Collected: 09/27/2017 Status: F Source: [place] 9:02 [facility] REPOSITORY Order Comment: 'TROP' Serial specimen #1, #2, #3, or #4: 3 TYPE CODE TESTS RESULT OUT OF RANGE REFERENCE UNITS LAB L501.4010 <0.06 ng/mL Normal < 0.02 TROPONIN-I Result Comment: TROPONIN-I EXPECTED VALUES <0.05 NEGATIVE 0.06 - 0.59 AT RISK OF [place] > OR = 0.60 SUGGEST [place] Performed By: #### L501.4010 #### [facility] [address] [place], [address] POTASSIUM Collected: 09/27/2017 Status: F Source: [place] 9:02 [facility] REPOSITORY TYPE CODE TESTS RESULT OUT OF RANGE REFERENCE UNITS LAB L501.5600 3.5-5.1 mmol/L Normal K 4.9 Performed By: #### L501.5600 #### [facility] [address] [place], [address] HISTORY AND PHYSICAL Observed: 09/27/2017 Status: F Source: [place] EXAM 6:[address] [facility] REPOSITORY [facility] Medical Records Department [facility] [place] [place] [address] History and Physical 09/27/17 1543 MR#: [id number] Acct: [id number] Name: JANEY MARVIN Rep #: [id number] : 1940 77 From: Janelle Patel SANDSTONE SPLITTER-C PCP: Becky Lassiter DO Status: ADM ROBERT Y [id number] <Janelle Patel - Last Filed: 09/27/17 16:10> [...] This patient was seen in conjunction with SANDSTONE SPLITTERJanelle. I have independently interviewed and examined the [...] PM I have discussed my assessment with SANDSTONE SPLITTERJanelle and orders have been reviewed. Code Visit Inpatient E AND M: 08410 Init Hosp L3 09/27/17 1611 <Electronically signed by Janelle Patel SANDSTONE SPLITTER-C> Date Janelle Patel SANDSTONE SPLITTER-C 09/27/17 1839<Electronically signed by Bimal Sparks MD> Cosigner Signature: Date (if applicable) Bimal Sparks MD CC: SANDSTONE SPLITTER-C Janelle Patel; Becky Lassiter DO; Bimal Sparks MD Signed HEMOGLOBIN Collected: 09/27/2017 Status: F Source: [place] 6:[address] [facility] REPOSITORY TYPE CODE TESTS RESULT OUT OF RANGE REFERENCE UNITS LAB L100.1300 12.0-15.0 g/dl Low HGB 11.3 Performed By: #### L100.1300 #### [facility] [address] [place], [address] BEDSIDE GLUCOSE Collected: 09/27/2017 Status: F Source: [place] 5:[address] [facility] REPOSITORY TYPE CODE TESTS RESULT OUT OF RANGE REFERENCE UNITS LAB L501.080 70-110 mg/dL Normal BEDSIDE GLU 98 Result Comment: MANAGEMENT OF PATIENT CARE PER NURSING PROTOCOL Performed By: #### L501.080 #### [facility] Point of Care [address] [place] [address] Observed: 09/27/2017 Status: F Source: [place] RESPIRATORY PANEL 5:[address] [facility] MOLECULAR REPOSITORY RP PANEL ADENOVIRUS Not Detected [...] acid amplification Performed By: #### M100.638 #### [facility] [address] [place], [address] EMERGENCY DEPARTMENT Observed: 09/27/2017 Status: F Source: [place] SUMMARY 3:24 PM [facility] HOSPITAL REPOSITORY [facility] Medical Records Department [address] [place] [address] Emergency Department Summary 09/27/17 1521 MR#: [id number] Acct: [id number] Name: JANEY MARVIN Rep #: [id number] : 1940 77 From: Aida Raza DO [...] exacerbation Hyperkalemia] This note was generated with [employer] dictation software. It may contain incorrect words, [...] your Primary Care Provider. Call [facility] ([phone]) or report to the closest Emergency Room. Call 911 if necessary. 09/27/17 1524 <Electronically signed by Aida Raza DO> Date Aida Raza DO Cosigner Signature (If Indicated): Date CC: Becky Lassiter DO CHEST PA AND LATERAL Observed: 09/27/2017 Status: F Source: [place] 1:09 PM [facility] HOSPITAL REPOSITORY [facility] Imaging Services [address] [place] [address] Chest PA and Lateral MR#: [id number] Acct: [id number] Name: JANEY MARVIN Rep #: [id number] : 1940 F 77 From: Amena Parish MD PCP: Becky Lassiter DO Status: REG ER Study: Chest PA and Lateral Date of Exam: 09/27/17 Exam# [id number] Ordering Dr: Aida Raza DO STUDY: X-RAY [...] CC: Becky Lassiter DO; Aida Raza DO Flash Ranging Crewmember: Signed CBC W/DIFF, AUTOMATED Collected: 09/27/2017 Status: F Source: [place] 11:[address] [facility] REPOSITORY TYPE CODE TESTS RESULT OUT OF [...] Lymph 1.33 Performed By: #### L100.0100 #### [facility] [address] [place], [place], [address] BASIC METABOLIC Collected: 09/27/2017 Status: F Source: [place] PROFILE ([facility]) 11:[address] [facility] REPOSITORY TYPE CODE TESTS RESULT OUT OF [...] GAP 6 Performed By: #### L500.2500 #### [facility] [address] [facility] [place], [place], [address] LACTIC ACID Collected: 09/27/2017 Status: F Source: [place] 11:[address] [facility] REPOSITORY Order Comment: Yes/No query for Sepsis Lactate Rule Y TYPE CODE TESTS RESULT OUT OF RANGE REFERENCE UNITS LAB L503.6005 0.4-2.0 mmol/L Normal LACTIC ACID 1.1 Performed By: #### L503.6005 #### [facility] [address] [place], [address] TYPE AND SCREEN Collected: 09/27/2017 Status: F Source: [place] 11:[address] [facility] REPOSITORY Order Comment: Reason for Type AND Screen/Red Cells: HEMORRHAGE, GI BLEED TYPE CODE TESTS RESULT OUT OF RANGE REFERENCE UNITS LAB B10.0800 A Normal BLOOD TYPE GEL POSITIVE LAB B100.4000 Normal Antibody NEGATIVE Screen Performed By: #### B101.7450 #### [facility] [address] [place], [place], [address] TROPONIN-I Collected: 09/27/2017 Status: F Source: [place] 11:[address] [facility] REPOSITORY Order Comment: 'TROP' Serial specimen #1, #2, #3, or #4: 1 TYPE CODE TESTS RESULT OUT OF RANGE REFERENCE UNITS LAB L501.4010 <0.06 ng/mL Normal < 0.02 TROPONIN-I Result Comment: TROPONIN-I EXPECTED VALUES <0.05 NEGATIVE 0.06 - 0.59 AT RISK OF [place] > OR = 0.60 SUGGEST [place] Performed By: #### L501.4010 #### [facility] [address] [facility] [place], [place], [address] BNP,B-TYPE NATRIURETIC Collected: 09/27/2017 Status: F Source: [place] PEPTIDE 11:[address] [facility] REPOSITORY TYPE CODE TESTS RESULT OUT OF RANGE REFERENCE UNITS LAB L503.6620 0-100 pg/mL Normal B-TYPE 12.0 AWA PEP Performed By: #### L503.6620 #### [facility] [address] [facility] [place], [place], [address] CBC-COMPLETE BLOOD CNT Collected: 09/20/2017 Status: F Source: [place] NO DIFF 11:[address] [facility] REPOSITORY TYPE CODE TESTS RESULT OUT OF [...] MPV 11.8 Performed By: #### L100.0500 #### [facility] [address] [place], [address] PROTEIN+CREATININE Collected: Status: F Source: [place] RATIO,URINE 09/20/2017 11:[address] [facility] REPOSITORY TYPE CODE TESTS RESULT OUT OF RANGE REFERENCE UNITS LAB L501.1200 NO RANGE EST. mg/dL Normal UR CREAT 92.30 LAB L501.1930 <11.9 mg/dL High 38.7 PROTEIN,UR.R AN. LAB L501.1940 0-200 mg/g CRE High PROT:CRE 419 RATIO Performed By: #### L501.0900 #### [facility] [address] [place], [address] RENAL PROFILE Collected: 09/20/2017 Status: F Source: [place] 11:[address] [facility] REPOSITORY TYPE CODE TESTS RESULT OUT OF [...] CO2 23.0 Performed By: #### L500.3600 #### [facility] [address] [place], [address] VITAMIN D,25 HYDROXY Collected: 09/20/2017 Status: F Source: [place] 11:[address] [facility] REPOSITORY TYPE CODE TESTS RESULT OUT OF RANGE REFERENCE UNITS LAB L506.1000 29.95-100.01 ng/mL Normal Vitamin D 60.2 25-OH Result Comment: Vitamin D 25(OH) Status Range Deficiency <20 ng/mL (50nmol/L) Insuffciency 20 - 30 ng/mL (50 - 75 nmol/L) Sufficiency 30 - 100 ng/mL (75 - 250 nmol/L) Toxicity >100 ng/mL (>250 nmol/L) Performed By: #### L506.1000 #### [facility] [address] [place], [address] PTHIN Collected: 09/20/2017 Status: F Source: [place] 11:[address] [facility] REPOSITORY TYPE CODE TESTS RESULT OUT OF RANGE REFERENCE UNITS LAB L509.1000 18.4-80.1 pg/mL Normal PTHIN 73.5 Result Comment: Please Note: PTH INTACT METHOD AND REFERENCE RANGE CHANGE Effective 05/17/2017. Performed By: #### L509.1000 #### [facility] [address] [place], [address] BASIC METABOLIC Collected: 08/21/2017 Status: F Source: [place] PROFILE (BMP) 10:[address] [facility] REPOSITORY TYPE CODE TESTS RESULT OUT OF [...] GAP 8 Performed By: #### L500.2500 #### [facility] [address] [place], [address] ALLERGIES ALLERGIES DATE TYPE / CODE NAME / CODE REACTION SEVERITY SOURCE 09/27/2017 Drug penicillin/F Rash Unknown [facility] Allergy/4160 [id number]( Hospital 24787(SNOMED NORM) Repository CT) ENCOUNTERS ENCOUNTERS ADMIT/DISCHARGE ACCOUNT ADMITTING ENCOUNTER LOCATION SOURCE NUMBER CLASS 06/19/2018 [id number] Ambulatory [address] ing:LAB Repository 05/25/2018 [id number] Ambulatory [address] ing:LAB Repository 02/09/[id number] ing:LAB Repository 09/29/2017/ [id number] Ambulatory BMSBuilding:W [place] 8 8 [facility] Repository 09/28/2017/ [id number] Ambulatory BMSBuilding:W [place] 8 8 [facility] Repository 09/27/2017/ [id number] [facility], Ambulatory [place] 8 4 [facility] ing:PCURoom: Repository [id number]: 1 09/27/2017 [id number] [place], Ambulatory BMSBuilding:B [place] 5 [facility] [place]Critical [facility] hospital Repository 09/27/2017 [id number] [place], Ambulatory BMSBuilding:B [place] 9 [facility] [place].Critical access hospital Repository 09/27/2017 [id number] [place], Ambulatory BMSBuilding:B [place] 3 [facility] [place].[facility] Hospital Repository 09/20/2017 [id number] Ambulatory [place] 4 [facility] ing:LAB Repository 08/21/2017 [id number] Ambulatory [place] 2 [facility] ing:LAB Repository PAYERS PAYERS ENCOUNTER GUARANTOR PAYER SUBSCRIBER SOURCE 06/19/2018 JANEY Montalvo Primary JANEY [place] [id number] Insurance:MEDICARE [facility]DOB: [facility] [place] [facility] [id number] Number: Repository [address]Aix: [phone] [id number] [phone] () Date:2018-06-19 06/19/2018 Secondary JANEY Montalvo [place] Insurance:AARPPolicy EARLEYDOB: [facility] Number: [id number] Hospital [id number] Repository Date:9177-50-68[address]X [address], [place] [address]MG: 06/19/2018 Tertiary NOT GIVENUNK [place] Insurance:SELF PAY [facility] Number: Effective Repository Date:2018-06-19 05/25/2018 JANEY Montalvo Primary JANEY Samsonoster [id number] Insurance:MEDICARE EARLEYDOB: [facility] PART A [facility] [id number] Number: Repository [address]Qec: [phone] [id number] [phone] () Date:2018-05-15 05/25/2018 Secondary JANEY Montalvo [place] Insurance:AARPPolicy EARLEYDOB: Community Number: [id number] Hospital [id number] Repository Date:4137-28-17[address], [place] [address]IP: 05/25/2018 Tertiary NOT GIVENUNK [place] Insurance:SELF PAY [facility] Number: Effective Repository Date:2018-05-15 02/09/2018 Janey Montalvo Primary Janey Montalvo [place] [id number] Insurance:MEDICARE EarleyDOB: [facility] [place] PART A [facility] [id number], [place] Number: Repository [address]Xdk: [id number] [phone] (HP) Date:2018-02-09 02/09/2018 Secondary Janey Montalvo [place] Insurance:AARPPolicy EarleyDOB: Community Number: [id number] Hospital [id number] Repository Date:0746-95-39SK [facility] [address], [place] [address]ER: 02/09/2018 Tertiary NOT GIVENUNK [place] Insurance:SELF PAY [facility] Number: Effective Repository Date:2018-02-09 09/29/2017 Janey Montalvo Primary Janey Montalvo [place] [id number] Insurance:MEDICARE EarleyDOB: [facility] [place] PART A [facility] [id number] [place] Number: Repository [address]Gtp: [id number] [phone] Date:2017-09-27 2 (HP) 09/29/2017 Secondary Janey M [place] Insurance:AARPPolicy EarleyDOB: Community Number: [id number] Hospital [id number] Repository Date:1387-69-52KL [address], [place] [address]NX: 09/29/2017 Tertiary NOT GIVENUNK [place] Insurance:SELF PAY [facility] Number: Effective Repository Date:2017-09-29 09/28/2017 Janey Montalvo Primary Janey Montalvo [place] [id number] Insurance:MEDICARE EarleyDOB: [facility] [place] PART A [facility] [id number], [place] Number: Repository [id number]: [id number] [phone] Date:2017-09-27 2 (HP) 09/28/2017 Secondary Janey M [place] Insurance:AARPPolicy EarleyDOB: Community Number: [id number] Hospital [id number] Repository Date:8009-60-25CK [address], [place] [address]ZM: 09/28/2017 Tertiary NOT GIVENUNK [place] Insurance:SELF PAY [facility] Number: Effective Repository Date:2017-09-28 09/27/2017 Janey Montalvo Primary Janey Montalvo [place] [id number] Insurance:MEDICARE EarleyDOB: [facility] [place] PART A [facility] [id number] Number: Repository [id number]: [id number] [phone] Date:2017-09-27 2 (HP) 09/27/2017 Secondary Janey Montalvo [place] Insurance:AARPPolicy EarleyDOB: Community Number: [id number] Hospital [id number] Repository Date:6501-20-76TQ [address], [place] [address]LV: 09/27/2017 Tertiary NOT GIVENUNK [place] Insurance:SELF PAY [facility] Number: Effective Repository Date:2017-09-27 09/27/2017 Janey Montalvo Primary Janey Montalvo [place] [id number] Insurance:MEDICARE EarleyDOB: [facility] [place] PART A [facility] [id number] Number: Repository [id number]: [id number] [phone] Date:2017-09-27 2 () 09/27/2017 Secondary Janey Montalvo [place] Insurance:AARPPolicy EarleyDOB: Community Number: [id number] Hospital [id number] Repository Date:7886-82-56OQ [address], [place] [address]RZ: 09/27/2017 Tertiary NOT GIVENUNK [place] Insurance:SELF PAY [facility] Number: Effective Repository Date:2017-09-27 09/27/2017 Janey Montalvo Primary Janey Montalvo [place] [id number] Insurance:MEDICARE EarleyDOB: [facility] [place] PART A [facility] [id number] Number: Repository [id number]: [id number] [phone] Date:2017-09-27 2 (HP) 09/27/2017 Secondary Janey Montalvo [place] Insurance:AARPPolicy EarleyDOB: Community Number: [id number] Hospital [id number] Repository Date:0184-45-58LV [facility] [place]49[address], [place] [address]ZJ: 09/27/2017 Tertiary NOT GIVENUNK [place] Insurance:SELF PAY [facility] Number: Effective Repository Date:2017-09-27 09/27/2017 Janey Montalvo Primary Janey Montalvo [place] [id number] Insurance:MEDICARE EarleyDOB: [facility] [place] PART A [facility] [id number] Number: Repository [address]Mrb: [id number] [phone] Date:2017-09-27 2 (HP) 09/27/2017 Secondary Janey Katia [place] Insurance:AARPPolicy EarleyDOB: Community Number: [id number] Hospital [id number] Repository Date:7357-99-65ZF [facility] [place], [place] [address]NH: 09/27/2017 Tertiary NOT GIVENUNK [place] Insurance:SELF PAY [facility] Number: Effective Repository Date:2017-09-27 09/20/2017 Janey Montalvo Primary Janey Montalvo [place] [id number] Insurance:MEDICARE EarleyDOB: [facility] [place] PART A [facility] [id number], [place] Number: Repository [address]Yxt: [id number] [phone] Date:2017-09-20 2 (HP) 09/20/2017 Secondary Janey Montalvo [place] Insurance:AARPPolicy EarleyDOB: Community Number: [id number] Hospital [id number] Repository Date:7427-45-62QO [facility] 458331CFYGZ[place]X, [place] [address]YI: 09/20/2017 Tertiary NOT GIVENUNK [place] Insurance:SELF PAY [facility] Number: Effective Repository Date:2017-09-20 08/21/2017 Janey Montalvo Primary Janeyedgardo Villalobos [id number] Insurance:MEDICARE EarleyDOB: [facility] Lynette Erickson PART A [facility] [id number] Number: Repository [address]Uuw: [id number] [phone] Date:2017-08-21 2 (HP) 08/21/2017 Secondary Janey Samsonoster Insurance:AARtenziny ArthurB: Community Number: [id number] Hospital [id number] Repository Date:5655-43-91IJ [address]IFGMJ[place], [place] [address]OV: 08/21/2017 Tertiary NOT GIVENUNK [place] Insurance:SELF PAY [facility] Number: Effective Repository Date:2017-08-21
== END ==
PROVIDERS: Family Provider Family Medicine; PCP Family Medicine; Referring Provider Family Medicine; Visit Provider Family Medicine
DX: E87.5 Hyperkalemia (principal); N18.3 Chronic kidney disease, stage 3 (moderate)
CPT/HCPCS: 36415; 80048

== ENCOUNTER → 2018-06-26 11:09 | Outpatient (CLI) | payer MEDICARE, OTHER, SELFPAY ==
[2017-09-27 17:11] VITALS: BMI 25.5
[2018-06-26 12:09] LABS: Anion Gap 8 (5-15); BUN 32 mg/dL (7-18); BUN/Creat Ratio 19.9 RATIO (10-20); Calcium,Total 9.3 mg/dL (8.5-10.1); Chloride 110 mmol/L (98-107); Creatinine, Serum 1.61 mg/dL (0.55-1.02); EST Glomerular Filtration Rate 33 mL/min (>60); Est Glom Filt Rate - Afr Amer 40 mL/min (>60); Glucose 92 mg/dL (74-106); Potassium 4.2 mmol/L (3.5-5.1); Sodium Level 143 mmol/L (136-145)
== END ==
LOC: LAB.FUTURE 11:12 → LAB 11:15
PROVIDERS: Family Provider Family Medicine; PCP Family Medicine; Referring Provider Family Medicine; Visit Provider Family Medicine
DX: E87.5 Hyperkalemia (principal)
CPT/HCPCS: 36415; 80048

== ENCOUNTER 2018-08-23 08:38 | Emergency (ER) | payer MEDICARE, OTHER, SELFPAY ==
[2018-08-23 08:40] VITALS: BP 137/78; PULSE 82; RESP 12; TEMP 36.2; O2SAT 97; BMI 25.6
--- NOTE | 2018-08-23 08:52 | RAD_ITS ---
STUDY: X-RAY - LEFT FOOT CLINICAL: Female, 78 years old. Pain along the first metatarsal following injury. TECHNIQUE: 3 view(s) of the foot. COMPARISON: None. FINDINGS: Normal talus, calcaneus, and tarsal bones. Normal visualized subtalar, talonavicular, calcaneocuboid, tarsal and tarsometatarsal articulations. Normal metatarsi. There is degenerative arthrosis of the metatarsophalangeal joint of the hallux with a hallux valgus deformity. Normal tibial and fibular sesamoid bones. Normal interphalangeal joint of the great toe. Nondisplaced avulsion type fracture at the base of the distal phalanx of the great toe. Normal second through fifth metatarsophalangeal joints. Normal interphalangeal joints and phalanges of the lesser toes. Soft tissue swelling. RAD/Foot min 3 Views IMPRESSION: Nondisplaced avulsion type fracture at the base of the distal phalanx of the great toe with overlying soft tissue swelling. Electronically Signed: Parag Bell, at 9:45 EDT , Service support ,
--- NOTE | 2018-08-23 08:54 | ED.VISSUMM ---
- ER Visit Summary Date of Service: 08/23/18 Chief Complaint: Left foot pain History of Present Illness: The patient is a 78 F who got her left foot caught in a blanket when she was laying in bed 4 days ago. She fell out of the bed and her left foot got twisted in the blanket. She complained of immediate pain. She has tried multiple muscle rubs and ice over the past 4 days but no improvement in her foot pain. She is able to ambulate with a slow and steady gait. She denies any other injury from her fall. Physical Examination: Vital signs are unremarkable. Patient was observed ambulating to the room with slow and steady gait. Head neck examination reveals no external sign of trauma. Left lower extremity examination reveals tenderness across the top of the left foot with mild edema. She has strong pulses. She has no tenderness at the ankle or the knee. Test Results: Left foot x-rays reveal nondisplaced avulsion type fracture at the base of the distal phalanx of the great toe with soft tissue swelling. Emergency Department Course and Treatment: Patient declined pain medication while here. Test results were reviewed with patient and son at bedside. Left foot will be placed in an Mario wrap and should be given a postop shoe. Treatment Plan: [] Disposition: Discharge Impression: 1. Left foot sprain 2. Nondisplaced avulsion fracture left great toe This note was generated with eshtery dictation software. It may contain incorrect words, spelling, and punctuation that were not noted in review of the chart prior to signing ED Disposition - Plan for ED Patient: Referrals: Becky Lassiter DO [Primary Care Provider] -
--- NOTE | 2018-08-23 10:07 | ED.DEP ---
ED Disposition - Plan for ED Patient: Disposition: Home or Assisted Living Instructions: ED Sprain Foot, ED Fx Toe Closed Referrals: Becky Lassiter DO [Primary Care Provider] - 1 Week
== END 2018-08-23 10:37 | disposition home or self-care (01) ==
PROVIDERS: Emergency Provider Emergency Medicine; Family Provider Family Medicine; PCP Family Medicine
DX: S92.425A Nondisplaced fracture of distal phalanx of left great toe, initial encounter for closed fracture (principal); S93.602A Unspecified sprain of left foot, initial encounter; J44.9 Chronic obstructive pulmonary disease, unspecified; E11.9 Type 2 diabetes mellitus without complications; I10 Essential (primary) hypertension; Z87.891 Personal history of nicotine dependence; W06.XXXA Fall from bed, initial encounter; Y93.84 Activity, sleeping; Y92.003 Bedroom of unspecified non-institutional (private) residence as the place of occurrence of the external cause; Y99.8 Other external cause status
CPT/HCPCS: 73630; 99283

== ENCOUNTER 2018-08-26 12:42 | Emergency (ER) | payer MEDICARE, OTHER, SELFPAY ==
[2018-08-26 12:44] VITALS: BP 150/84; PULSE 84; RESP 11; TEMP 36.7; O2SAT 98; BMI 24.2
[2018-08-26 12:51] LABS: Bedside Glucose 55 mg/dL (70-110)
--- NOTE | 2018-08-26 12:55 | ED.VIS.GEN ---
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 Most recent blood sugars 55. She is a type I diabetic. She did not eat anything for breakfast or lunch today and had minimal to eat last night. She has no other complaints. - Past Medical History (1) Type 1 diabetes mellitus Status: Acute (2) Benign essential hypertension Status: Chronic (3) Hearing loss Status: Chronic (4) History of tobacco use Status: Chronic (5) Hyperlipidemia Status: Chronic (6) history of breast cancer with lumpectomy Status: Chronic Past Medical History - Allergies and Home Meds Allergies/Adverse Reactions: Allergies penicillin Allergy (Verified 08/23/18 08:40) Rash Primary Care Physician: Becky Lassiter DO [Primary Care Provider] - Prior records reviewed: Yes Surgical History: cholecystectomy, - - Breast lumpectomy, bilateral cataract surgery. Lives: With Family Smoking Status: Former smoker Alcohol: None Drugs: None - Family History Maternal Family History: Reports: No pertinent history Paternal Family History: Reports: No pertinent history Review of Systems General: Denies: Chills, Fever, Sweats Eyes: Denies: Visual changes - bilaterally, Diplopia ENT: Denies: Rhinorrhea, Sore throat Cardiovascular: Denies: Chest pain, Palpitations Respiratory: Denies: Dyspnea, Cough, Dyspnea on exertion Gastrointestinal: Denies: Abdominal pain, Nausea, Vomiting, Diarrhea, Melena, Hematochezia Genitourinary: Denies: Dysuria, Hematuria, Frequency Musculoskeletal: Denies: Back pain, Extremity Pain Skin: Denies: Rash, Wounds Neurological: Denies: Headache, Weakness, Numbness Hematologic: Denies: Easy bruising, Easy bleeding Allergy: Denies: Uticaria Physical Exam Vital Signs/Narrative: Vital Signs Temp Pulse Resp BP Pulse Ox 08/26/18 12:44 98.1 F 84 11 L 150/84 H 98 General: Well nourished, Well developed, No Acute Distress Head: Normocephalic, Atraumatic Eyes: Perrl, EOMI. Negative for: Pale conjunctiva, Scleral icterus ENT: Moist mucous membranes, No rhinorrhea Neck: Supple, Nontender Cardiovascular: Regular rate, Regular rhythm, No murmurs, Normal S1, Normal S2 Respiratory: No distress, CTA bilaterally, Chest nontender Abdomen: Soft, Nontender, Nondistended, Normal bowel sounds Back: Nontender, Normal Inspection Extremities: Nontender, No edema Skin: Normal color, No rash Neurological: Alert, Oriented x3, Cranial nerves II-XII grossly intact, Normal Strength, Normal Sensation Psychological: Normal affect, Normal Mood Diagnostic/Tx/Re-eval - Medical Decision Making Blood sugar prior to treatment was 34. Blood sugar upon arrival is 55. Plan 1 amp of D50 and diet. She will be observed. After observation plan is to discharge to home Most recent PTT is 364. This is after D50 and eating. ED Disposition - Plan for ED Patient: Disposition: Home or Assisted Living Diagnosis: Hypoglycemia due to type 1 diabetes mellitus Instructions: ED Diabetes Hypoglycemia Insulin React Referrals: Becky Lassiter DO [Primary Care Provider] - As Needed Additional Instructions: You must eat otherwise he will have recurrence of low blood sugar.
[2018-08-26] MEDS: Dextrose 50%-Water 25 GM/50 ML DISP.SYRIN IV (13:02)
[2018-08-26 13:45] LABS: Bedside Glucose 322 mg/dL (70-110)
[2018-08-26 14:22] VITALS: BP 157/65; PULSE 80; RESP 18; O2SAT 97
[2018-08-26 14:26] LABS: Bedside Glucose 340 mg/dL (70-110)
== END 2018-08-26 14:26 | disposition home or self-care (01) ==
PROVIDERS: Emergency Provider Emergency Medicine; Family Provider Family Medicine; PCP Family Medicine
DX: E10.649 Type 1 diabetes mellitus with hypoglycemia without coma (principal); I10 Essential (primary) hypertension; Z85.3 Personal history of malignant neoplasm of breast; Z87.891 Personal history of nicotine dependence; E78.5 Hyperlipidemia, unspecified; Z79.4 Long term (current) use of insulin; Z79.899 Other long term (current) drug therapy
CPT/HCPCS: 82962; 96374; 99285; J7030; J1610

== ENCOUNTER → 2018-09-20 | Outpatient (CLI) | payer MEDICARE, OTHER, SELFPAY ==
[2018-08-26 12:44] VITALS: BMI 24.2
[2018-09-20 14:49] LABS: Anion Gap 5 (5-15); BUN 43 mg/dL (7-18); BUN/Creat Ratio 24.6 RATIO (10-20); Calcium,Total 9.1 mg/dL (8.5-10.1); Chloride 106 mmol/L (98-107); Creatinine, Serum 1.75 mg/dL (0.55-1.02); EST Glomerular Filtration Rate 30 mL/min (>60); Est Glom Filt Rate - Afr Amer 36 mL/min (>60); Glucose 239 mg/dL (74-106); Potassium 5.2 mmol/L (3.5-5.1); Sodium Level 136 mmol/L (136-145)
== END | disposition home or self-care (01) ==
LOC: LAB 13:30
PROVIDERS: Family Provider Family Medicine; PCP Family Medicine; Referring Provider Family Medicine; Visit Provider Family Medicine
DX: E87.5 Hyperkalemia (principal)
CPT/HCPCS: 36415; 80048

== ENCOUNTER → 2018-12-17 | Outpatient (CLI) | payer MEDICARE, OTHER, SELFPAY ==
--- NOTE | 2018-12-17 10:04 | RAD_ITS ---
STUDY: X-RAY - THORACIC SPINE REASON FOR EXAM: Female, 78 years old. Mid back pain TECHNIQUE: 3 view(s) of the thoracic spine were obtained. COMPARISON: None. FINDINGS: Normal kyphosis of the thoracic spine. There is no substantial scoliosis. Normal thoracic vertebrae and endplates. Mild disc space narrowing. The soft tissue structures are unremarkable. RAD/Thoracic Spine 3 Views IMPRESSION: Mild degenerative changes, no acute findings Electronically Signed: Nasir Welsh MD at 14:36 EDT , Service support ,
[2018-12-17 12:35] LABS: Absolute Lymphocyte Count 2.03 X10^3/uL (0.83-4.51); Absolute Neutrophil Count 4.5 X10^3/uL (2.0-7.7); Basophil# 0.04 X10^3/uL; Basophil% 0.5 % (0-1); Eosinophil# 0.56 X10^3/uL; Hematocrit 38.2 % (37-47); Hemoglobin 12.2 g/dL (12.0-15.0); Lymphocyte # 2.03 X10^3/ul (4.0); Lymphocyte % 25.4 % (19-41); Mean Corp Hgb Conc 31.9 g/dL (32-36); Mean Corpuscular Volume 87.8 fL (81-99); Mean Platelet Vol. 12.3 fl (6.2-12.0); Monocyte# 0.83 X10^3/uL; Monocyte% 10.4 % (0-10); NRBC Flagged by Analyzer 0 % (0-5); Neutrophil # 4.48 X10^3/uL (2.7-7.7); Neutrophil % 56.1 % (47-70); Platelet Count 264 K/mm3 (150-450); RBC Distribution Width CV 12.4 % (11.6-14.6); RBC Distribution Width SD 39.8 fl (35.1-43.9); Red Blood Count 4.35 M/mm3 (4.2-5.4)
[2018-12-17 13:31] LABS: ALB/GLOB Ratio 0.8 RATIO (0.9-2.4); AST(SGOT) 19 U/L (15-37); Alanine Aminotransfer ALT/SGPT 25 U/L (13-56); Albumin, Serum 3.7 g/dL (3.2-5.0); Alkaline Phosphatase 86 U/L (45-117); Anion Gap 9 (5-15); BUN 34 mg/dL (7-18); BUN/Creat Ratio 17.3 RATIO (10-20); Calcium,Total 9.9 mg/dL (8.5-10.1); Chloride 109 mmol/L (98-107); Cholesterol 121 mg/dL (200); Creatinine, Serum 1.96 mg/dL (0.55-1.02); EST Glomerular Filtration Rate 26 mL/min (>60); Est Glom Filt Rate - Afr Amer 32 mL/min (>60); Globulin 4.6 g/dL (2.2-4.2); Glucose 33 mg/dL (74-106); High Density Lipoprotein 41 mg/dL; Potassium 5.4 mmol/L (3.5-5.1); Protein, Total 8.3 g/dL (6.4-8.2); Sodium Level 142 mmol/L (136-145); Triglycerides 87 mg/dL; Very Low Density Lipoprotein 17 mg/dL (5-40)
== END | disposition home or self-care (01) ==
LOC: LAB.FUTURE 10:01
PROVIDERS: Family Provider Family Medicine; PCP Family Medicine; Referring Provider Family Medicine; Visit Provider Family Medicine
DX: E11.22 Type 2 diabetes mellitus with diabetic chronic kidney disease (principal); N18.3 Chronic kidney disease, stage 3 (moderate); E87.5 Hyperkalemia; D63.1 Anemia in chronic kidney disease; M54.6 Pain in thoracic spine; M25.512 Pain in left shoulder
CPT/HCPCS: 36415; 72072; 80053; 80061; 85025

== ENCOUNTER → 2018-12-31 | Outpatient (CLI) | payer MEDICARE, OTHER, SELFPAY ==
[2018-12-31 12:07] LABS: Hematocrit 36.4 % (37-47); Hemoglobin 11.9 g/dL (12.0-15.0); Mean Corp Hgb Conc 32.7 g/dL (32-36); Mean Corpuscular Hgb 27.9 pg (27.0-32.0); Mean Corpuscular Volume 85.2 fL (81-99); Mean Platelet Vol. 11.8 fl (6.2-12.0); Platelet Count 269 K/mm3 (150-450); RBC Distribution Width CV 12.4 % (11.6-14.6); Red Blood Count 4.27 M/mm3 (4.2-5.4)
[2018-12-31 12:55] LABS: Vitamin D,25 Hydroxy 43.7 ng/mL (29.95-100.01)
[2018-12-31 12:56] LABS: Albumin, Serum 3.8 g/dL (3.2-5.0); BUN 40 mg/dL (7-18); BUN/Creat Ratio 21.6 RATIO (10-20); Calcium,Total 10.5 mg/dL (8.5-10.1); Chloride 109 mmol/L (98-107); Creatinine, Serum 1.85 mg/dL (0.55-1.02); EST Glomerular Filtration Rate 28 mL/min (>60); Est Glom Filt Rate - Afr Amer 34 mL/min (>60); Glucose 61 mg/dL (74-106); Phosphorus 3.6 mg/dL (2.5-4.9); Sodium Level 140 mmol/L (136-145)
[2018-12-31 13:36] LABS: Protein, Urine (Random) 23.8 mg/dL (<11.9); Protein:Creat Ratio 257 mg/g CRE (0-200)
== END | disposition home or self-care (01) ==
LOC: LAB.FUTURE 10:47
PROVIDERS: Family Provider Family Medicine; PCP Family Medicine; Referring Provider Family Medicine; Visit Provider Family Medicine
DX: E87.5 Hyperkalemia (principal); N18.3 Chronic kidney disease, stage 3 (moderate); D63.1 Anemia in chronic kidney disease
CPT/HCPCS: 36415; 80069; 82306; 82570; 83970; 84156; 85027

== ENCOUNTER → 2019-12-12 | Outpatient (CLI) | payer MEDICARE, OTHER, SELFPAY ==
[2019-12-12 13:19] LABS: Absolute Lymphocyte Count 1.58 X10^3/uL (0.83-4.51); Absolute Neutrophil Count 5.3 X10^3/uL (2.0-7.7); Basophil# 0.03 X10^3/uL; Basophil% 0.4 % (0-1); Eosinophil# 0.44 X10^3/uL; Eosinophils% 5.6 % (0-5); Hematocrit 40.2 % (37-47); Hemoglobin 12.4 g/dL (12.0-15.0); Lymphocyte # 1.58 X10^3/ul (4.0); Mean Corp Hgb Conc 30.8 g/dL (32-36); Mean Corpuscular Hgb 27.6 pg (27.0-32.0); Mean Corpuscular Volume 89.3 fL (81-99); Mean Platelet Vol. 12.3 fl (6.2-12.0); Monocyte# 0.55 X10^3/uL; NRBC Flagged by Analyzer 0 % (0-5); Neutrophil # 5.28 X10^3/uL (2.7-7.7); Neutrophil % 66.6 % (47-70); Platelet Count 274 K/mm3 (150-450); RBC Distribution Width CV 12.6 % (11.6-14.6); White Blood Count 7.9 K/mm3 (4.4-11.0)
[2019-12-12 14:23] LABS: ALB/GLOB Ratio 0.8 RATIO (0.9-2.4); AST(SGOT) 18 U/L (15-37); Alanine Aminotransfer ALT/SGPT 21 U/L (13-56); Albumin, Serum 3.6 g/dL (3.2-5.0); Alkaline Phosphatase 77 U/L (45-117); Anion Gap 3 (5-15); BUN 44 mg/dL (7-18); BUN/Creat Ratio 23.7 RATIO (10-20); Calcium,Total 10.3 mg/dL (8.5-10.1); Chloride 109 mmol/L (98-107); Creatinine, Serum 1.86 mg/dL (0.55-1.02); EST Glomerular Filtration Rate 28 mL/min (>60); Est Glom Filt Rate - Afr Amer 34 mL/min (>60); Globulin 4.5 g/dL (2.2-4.2); Glucose 109 mg/dL (74-106); Potassium 5.2 mmol/L (3.5-5.1); Protein, Total 8.1 g/dL (6.4-8.2); Sodium Level 137 mmol/L (136-145)
== END | disposition home or self-care (01) ==
PROVIDERS: PCP Family Medicine; Referring Provider Family Medicine; Visit Provider Family Medicine
DX: E11.22 Type 2 diabetes mellitus with diabetic chronic kidney disease (principal); N18.3 Chronic kidney disease, stage 3 (moderate); Z51.81 Encounter for therapeutic drug level monitoring
CPT/HCPCS: 36415; 80053; 85025

== ENCOUNTER 2020-04-21 11:49 | Emergency (ER) | payer MEDICARE, OTHER, SELFPAY ==
[2020-04-21 11:50] VITALS: BP 149/76; PULSE 86; RESP 17; TEMP 36.1; O2SAT 98; BMI 26.1
--- NOTE | 2020-04-21 13:05 | RAD_ITS ---
INDICATION: TRIPPED AND FELL TWO DAYS AGO. PAIN IN LEFT FOOT. EXAMINATION/TECHNIQUE: X-RAY - LEFT XR Foot Min 3 Views 3 VIEWS COMPARISON: None. FINDINGS: A hallux valgus deformity is identified. There is an oblique nondisplaced fracture of the fifth metatarsal. No other fractures are seen. RAD/Foot min 3 Views IMPRESSION: 1. Hallux valgus deformity is identified. 2. Oblique nondisplaced fracture of the fifth metatarsal Electronically Signed: Corey Nguyễn, at 13:33 EST Tel , Service support ,
--- NOTE | 2020-04-21 13:13 | ED.VISSUMM ---
- ER Visit Summary Date of Service: 04/21/20 Chief Complaint: Left foot pain History of Present Illness: The patient is a 80 F who presents with left foot pain that occurred 3 days ago. Patient states she tripped and fell. Patient states the pain is over the metatarsals of her left foot. Patient describes the pain as aching. Patient states her pain is worse with ambulation. Patient states she has been able to ambulate on her left foot for the past 3 days however. Patient denies any paresthesias or weakness. Patient denies any pain over the ankle or proximal fibula. Patient denies any other injuries. Physical Examination: Vital signs are stable. Patient is afebrile. Patient is in no acute distress. Musculoskeletal exam reveals tenderness, edema, and ecchymosis over the metatarsals of the left foot, worse laterally. There is no obvious deformity noted. Range of motion was limited in all motion secondary to pain. Sensation was intact to light touch in all digits. Capillary refill was less than 2 seconds in all digits. Pedal pulses are equal bilaterally. There is no tenderness over the medial or lateral malleoli. There is no tenderness over the proximal fibula. Test Results: 3 views of the left foot were obtained. On my interpretation, there is a long oblique fracture of the midshaft of the fifth metatarsal. There is minimal displacement. Radiologist also interpreted the x-ray and agrees. Emergency Department Course and Treatment: Patient was placed in a boot orthosis. Patient was instructed to use her cane to help with ambulation. Patient was instructed to follow-up with her primary care physician in 5 to 7 days. Patient was also given a referral for orthopedics. Patient was given a prescription for short course of [place]. Patient understood and was agreeable with the plan. All questions were answered. Disposition: Discharge home Impression: 1. Acute fracture left fifth metatarsal This note was generated with [employer] dictation software. It may contain incorrect words, spelling, and punctuation that were not noted in review of the chart prior to signing ED Disposition - Plan for ED Patient: Disposition: Home or Assisted Living Diagnosis: Nondisplaced fracture of fifth metatarsal bone, left foot, initial encounter for closed fracture Instructions: ED FOOT FRACTURE Prescriptions: Hydrocodone Bitart/Apap 5-325 [[place] 5MG-325MG] 1 tab PO Q6H PRN PRN 3 Days #10 tab PRN Reason: Pain Prescription Printed Referrals: Becky Lassiter DO [Primary Care Provider] - 5-7 Days Axel Roberts DO [STAFF PHYSICIAN] - 5-7 Days
[2020-04-21 14:26] VITALS: BP 154/86; PULSE 83; RESP 16; O2SAT 98
== END 2020-04-21 14:27 | disposition home or self-care (01) ==
PROVIDERS: Emergency Provider Emergency Medicine; PCP Family Medicine
DX: S92.355A Nondisplaced fracture of fifth metatarsal bone, left foot, initial encounter for closed fracture (principal); W01.0XXA Fall on same level from slipping, tripping and stumbling without subsequent striking against object, initial encounter
CPT/HCPCS: 73630; 99284

== ENCOUNTER → 2020-05-26 09:29 | Outpatient (CLI) | payer MEDICARE, OTHER, SELFPAY ==
[2020-05-26 10:26] LABS: Absolute Lymphocyte Count 1.12 X10^3/uL (0.83-4.51); Basophil# 0.02 X10^3/uL; Basophil% 0.3 % (0-1); Eosinophil# 0.39 X10^3/uL; Eosinophils% 6.5 % (0-5); Hematocrit 36.1 % (37-47); Hemoglobin 11.2 g/dL (12.0-15.0); Lymphocyte # 1.12 X10^3/ul (4.0); Lymphocyte % 18.6 % (19-41); Mean Corpuscular Hgb 27.1 pg (27.0-32.0); Mean Corpuscular Volume 87.4 fL (81-99); Mean Platelet Vol. 12.8 fl (6.2-12.0); Monocyte# 0.48 X10^3/uL; NRBC Flagged by Analyzer 0 % (0-5); Neutrophil # 3.99 X10^3/uL (2.7-7.7); Neutrophil % 66.1 % (47-70); Platelet Count 248 K/mm3 (150-450); RBC Distribution Width CV 13.2 % (11.6-14.6); RBC Distribution Width SD 41.4 fl (35.1-43.9); Red Blood Count 4.13 M/mm3 (4.2-5.4)
[2020-05-26 10:53] LABS: Microalbumin:Creatinine Ratio 416.5 mg/g CRE (<30 mg/g CRE)
[2020-05-26 10:56] LABS: PTHIN 67.6 pg/mL (18.4-80.1)
[2020-05-26 10:59] LABS: Hemoglobin A1c 7.7 % (3.8-5.6); Vitamin D,25 Hydroxy 85.8 ng/mL
[2020-05-26 11:03] LABS: ALB/GLOB Ratio 0.8 RATIO (0.9-2.4); AST(SGOT) 14 U/L (15-37); Alanine Aminotransfer ALT/SGPT 19 U/L (13-56); Albumin, Serum 3.2 g/dL (3.2-5.0); Alkaline Phosphatase 73 U/L (45-117); Anion Gap 5 (5-15); BUN 34 mg/dL (7-18); BUN/Creat Ratio 20.7 RATIO (10-20); Calcium,Total 9.7 mg/dL (8.5-10.1); Chloride 109 mmol/L (98-107); Cholesterol 106 mg/dL (200); Creatinine, Serum 1.64 mg/dL (0.55-1.02); EST Glomerular Filtration Rate 32 mL/min (>60); Est Glom Filt Rate - Afr Amer 39 mL/min (>60); Globulin 4.2 g/dL (2.2-4.2); Glucose 135 mg/dL (74-106); High Density Lipoprotein 42 mg/dL; Potassium 4.3 mmol/L (3.5-5.1); Protein, Total 7.4 g/dL (6.4-8.2); Sodium Level 140 mmol/L (136-145); Triglycerides 75 mg/dL; Very Low Density Lipoprotein 15 mg/dL (5-40)
== END ==
PROVIDERS: PCP Family Medicine; Referring Provider Podiatrist; Visit Provider Podiatrist
DX: E11.22 Type 2 diabetes mellitus with diabetic chronic kidney disease (principal); N18.30 Chronic kidney disease, stage 3 unspecified; E78.00 Pure hypercholesterolemia, unspecified; R80.9 Proteinuria, unspecified; E55.9 Vitamin D deficiency, unspecified
CPT/HCPCS: 36415; 80053; 80061; 82043; 82306; 82570; 83036; 83970; 85025

== ENCOUNTER → 2020-07-06 10:02 | Outpatient (CLI) | payer MEDICARE, OTHER, SELFPAY ==
--- NOTE | 2020-07-06 10:06 | RAD_ITS ---
STUDY: X-RAY - LEFT FOOT CLINICAL: Follow-up fifth metatarsal fracture after left foot injury 04/19/2020. TECHNIQUE: 3 view(s) of the foot. COMPARISON: Radiographs 04/21/2020. FINDINGS: Normal talus, calcaneus, and tarsal bones. Normal visualized subtalar, talonavicular, calcaneocuboid, tarsal and tarsometatarsal articulations. There is a minimally displaced healing fracture of the fifth metatarsal diaphysis. There is mild joint space narrowing of the metatarsophalangeal joint of the great toe. There is mild hallux valgus deformity. Normal tibial and fibular sesamoid bones. Normal interphalangeal joint of the great toe. Normal phalanges of the great toe. Normal second through fifth metatarsophalangeal joints. Normal interphalangeal joints and phalanges of the lesser toes. There are hammertoe deformities of the lesser toes. The soft tissue structures are unremarkable. RAD/Foot min 3 Views IMPRESSION: Healing fracture of the fifth metatarsal. Mild arthrosis of the first metatarsophalangeal joint. Mild hallux valgus deformity. Electronically Signed: Ramesh Haynes MD at 13:02 EST Tel , Service support ,
== END ==
PROVIDERS: PCP Family Medicine; Referring Provider Podiatrist; Visit Provider Podiatrist
DX: S92.355A Nondisplaced fracture of fifth metatarsal bone, left foot, initial encounter for closed fracture (principal)
CPT/HCPCS: 73630

== ENCOUNTER 2020-10-20 14:45 | Emergency (ER) | payer MEDICARE, OTHER, SELFPAY ==
[2020-10-20 14:47] VITALS: BP 107/86; PULSE 79; RESP 16; TEMP 36.3; O2SAT 93; BMI 22.4
[2020-10-20] MEDS: Dextrose 50%-Water 25 GM/50 ML DISP.SYRIN IV (14:57)
--- NOTE | 2020-10-20 14:59 | EKG12_ITS ---
Test Reason : HYPOGLYCEMIA Blood Pressure : / mmHG Vent. Rate : 089 BPM Atrial Rate : 089 BPM P-R Int : 110 ms QRS Dur : 068 ms QT Int : 346 ms P-R-T Axes : 040 -15 021 degrees QTc Int : 420 ms Sinus rhythm with short OH Otherwise normal ECG Confirmed by RICK JORDAN, BABITA ([id number]), editor index PATIENCE PRETTY ([id number]) on 10/22/2020 11:19:44 AM Referred By: Confirmed By:BABITA CABRERA MD
--- NOTE | 2020-10-20 14:59 | EX.ED.DYSGE1 ---
HPI History of Present Illness Chief Complaint: Hypoglycemia Informant: patient and EMS Narrative Narrative: 80-year-old female found to be hypoglycemic by EMS. Reportedly her daughter was unable to get her on the phone and called police to do a welfare check. They are unable to have anybody answer the door so they remove the door. This is when EMS checked her blood sugar is in the 30s. Patient unsure when she took her medicines. She believes she had some cereal today. She does not believe she ate any lunch. She denies any current pain. [facility] Medical History (Updated 10/20/20 @ 17:[address] Aman Bangura DO) HTN (hypertension) Home Medications Lantus U-100 Insulin 54 unit SQ QHS 09/27/17 [History Last Taken 10/19/20] atenolol 25 mg PO DAILY 09/27/17 [History Last Taken 10/20/20] simvastatin 20 mg PO DAILY 09/27/17 [History Last Taken 10/20/20] amlodipine 5 mg PO DAILY 10/20/20 [History Last Taken 10/20/20] cephalexin 500 mg PO Q6 #20 capsule 10/20/20 [Rx Last Taken Unknown] glipizide 10 mg PO DAILY 10/20/20 [History Last Taken 10/20/20] Allergy/AdvReac Type Severity Reaction Status Date / Time penicillin Allergy Rash Verified 10/20/20 15:12 Social History (Updated 10/20/20 @ 15:[address] Aman Bangura DO) Smoking Status: Unknown if ever smoked substance use type: does not use ROS ROS ED Review of Systems ROS Unobtainable: due to mental status EXAM Physical Exam Const Vital Signs: 10/20/20 14:47 10/20/20 16:46 Temperature 97.3 F L Temperature Source Temporal Pulse Rate 79 93 Respiratory Rate 16 16 Blood Pressure 107/86 H 157/83 H Blood Pressure Mean 93 107 Pulse Ox 93 94 Oxygen Delivery Method Room Air Room Air Positive well nourished and well developed General Appearance ED: well developed HEENT Reports normocephalic, head/scalp atraumatic and moist mucous membranes Eyes PERRL and EOMs intact bilaterally Neck no lymphadenopathy, supple and no JVD Resp normal respiratory effort and clear to auscultation bilaterally Cardio regular rate, regular rhythm and no murmurs GI normal to inspection, nondistended, normoactive bowel sounds and non-tender Palpation: soft Back/Spine no CVA tenderness and normal ROM Extremity normal to inspection General Extremety ED: Negative for edema General Extremity: Negative for edema Neuro CN's II-XII intact bilaterally Neuro Narrative: Patient lethargic slow to answer Sensorium / Orientation: alert Motor Exam: strength 5/5 throughout Psych Mood & Affect: Negative for depressed or tearful Skin no rashes or lesions noted and no wounds MDM MDM MDM Narrative Medical decision making narrative: My interpretation of the chest x-ray is no acute process basic blood work showed a creatinine 1.72. Urinalysis is infected. Will be sent for culture. I will be placing her on Keflex. She has had greater than 2 hours of blood sugars that are not hypoglycemic. She has been able to eat. Her daughter is here. Lab Data Labs: Laboratory Results - last 24 hr 10/20/20 10/20/20 10/20/20 14:48 14:55 14:55 WBC 7.0 RBC 4.36 Hgb 11.8 L Hct 37.4 MCV 85.8 MCH 27.1 MCHC 31.6 L RDW Std Deviation 41.7 RDW Coeff of Abhinav 13.3 Plt Count 249 MPV 12.9 H Immature Gran % (Auto) 0.300 Neut % (Auto) 68.3 Lymph % (Auto) 20.1 [place] % (Auto) 8.3 Eos % (Auto) 2.6 Baso % (Auto) 0.4 Absolute Neuts (auto) 4.8 Absolute Lymphs (auto) 1.41 Nucleated RBC % 0 Sodium 143 Potassium 4.6 Chloride 112 H Carbon Dioxide 28.0 Anion Gap 3 L BUN 29 H Creatinine 1.72 H Estim Creat Clear Calc 22.15 Est GFR (MDRD) Af Amer 37 L Est GFR (MDRD) Non-Af 30 L BUN/Creatinine Ratio 16.9 Glucose 33 L* Calcium 10.3 H Total Bilirubin 0.50 AST 22 ALT 21 Alkaline Phosphatase 72 Total Protein 8.2 Albumin 3.7 Globulin 4.5 H Albumin/Globulin Ratio 0.8 L Urine Color Urine Clarity Urine pH Ur Specific [place] Urine Protein Urine Glucose (UA) Urine Ketones Urine Occult Blood Urine Nitrite Urine Bilirubin Urine Urobilinogen Ur Leukocyte Esterase Urine RBC Urine WBC Ur Squamous Epith Cells Urine Bacteria Urine Mucus POC Glucose 31 L* 10/20/20 10/20/20 10/20/20 15:10 15:11 16:09 WBC RBC Hgb Hct MCV MCH MCHC RDW Std Deviation RDW Coeff of Abhinav Plt Count MPV Immature Gran % (Auto) Neut % (Auto) Lymph % (Auto) [place] % (Auto) Eos % (Auto) Baso % (Auto) Absolute Neuts (auto) Absolute Lymphs (auto) Nucleated RBC % Sodium Potassium Chloride Carbon Dioxide Anion Gap BUN Creatinine Estim Creat Clear Calc Est GFR (MDRD) Af Amer Est GFR (MDRD) Non-Af BUN/Creatinine Ratio Glucose Calcium Total Bilirubin AST ALT Alkaline Phosphatase Total Protein Albumin Globulin Albumin/Globulin Ratio Urine Color Yellow Urine Clarity Sl. Cloudy Urine pH 6.5 Ur Specific [place] 1.010 Urine Protein 30 H Urine Glucose (UA) 50 H Urine Ketones Negative Urine Occult Blood 25 H Urine Nitrite Positive H Urine Bilirubin Negative Urine Urobilinogen Normal Ur Leukocyte Esterase 500 H Urine RBC 0 SEEN Urine WBC 10-25 SEEN Ur Squamous Epith Cells 0 SEEN Urine Bacteria 2+ Urine Mucus 0 SEEN POC Glucose 229 H 184 H 10/20/20 16:57 WBC RBC Hgb Hct MCV MCH MCHC RDW Std Deviation RDW Coeff of Abhinav Plt Count MPV Immature Gran % (Auto) Neut % (Auto) Lymph % (Auto) [place] % (Auto) Eos % (Auto) Baso % (Auto) Absolute Neuts (auto) Absolute Lymphs (auto) Nucleated RBC % Sodium Potassium Chloride Carbon Dioxide Anion Gap BUN Creatinine Estim Creat Clear Calc Est GFR (MDRD) Af Amer Est GFR (MDRD) Non-Af BUN/Creatinine Ratio Glucose Calcium Total Bilirubin AST ALT Alkaline Phosphatase Total Protein Albumin Globulin Albumin/Globulin Ratio Urine Color Urine Clarity Urine pH Ur Specific [place] Urine Protein Urine Glucose (UA) Urine Ketones Urine Occult Blood Urine Nitrite Urine Bilirubin Urine Urobilinogen Ur Leukocyte Esterase Urine RBC Urine WBC Ur Squamous Epith Cells Urine Bacteria Urine Mucus POC Glucose 180 H Radiography Diagnostic Testing: Radiology Impression Chest X-Ray 10/20/20 15:31 IMPRESSION: Prominent soft tissue in the right paratracheal region as described. Correlation with a CT scan is recommended for further evaluation. Electronically Signed: Parag Bell MD at 15:45 EDT , Service support , EKG Initial EKG: Attestation: I personally reviewed and interpreted this EKG as follows: Comments: EKG demonstrates a sinus rhythm at a rate of 89. No concerning features of ACS or ectopy. Discharge Plan Triage Chief Complaint: Hypoglycemia ED Provider: Aman Bangura Dx/Rx/DC Orders Clinical Impression: Diabetic hypoglycemia, Acute cystitis Instructions: ED Diabetic Insulin Reaction, ED Bladder Infection, Female (Adult) Prescriptions: New cephalexin [cephalexin] 500 MG capsule 500 mg PO Q6 Qty: 20 RF: 0 No Action atenolol 25 MG tablet 25 mg PO DAILY RF: 0 simvastatin 20 MG tablet 20 mg PO DAILY RF: 0 Lantus U-100 Insulin 100 UNIT/ML solution 54 unit SQ QHS RF: 0 glipizide 10 mg tablet extended release 24hr 10 mg PO DAILY RF: 0 amlodipine 5 mg tablet 5 mg PO DAILY RF: 0 Primary Care Provider: Becky Lassiter Referrals: Becky Lassiter DO [Primary Care Provider] - 1 Week Disposition Disposition: Home, self care
[2020-10-20 15:01] LABS: Bedside Glucose 31 mg/dL (70-110)
[2020-10-20 15:15] LABS: Mucous, Urine 0 SEEN /hpf (<or=2+); Red Blood Cells-Urine 0 SEEN /hpf (0-5); Squamous Epithelial Cells - UA 0 SEEN /hpf (5-10)
[2020-10-20 15:21] LABS: Bedside Glucose 229 mg/dL (70-110)
[2020-10-20 15:23] LABS: Absolute Lymphocyte Count 1.41 X10^3/uL (0.83-4.51); Absolute Neutrophil Count 4.8 X10^3/uL (2.0-7.7); Basophil# 0.03 X10^3/uL; Basophil% 0.4 % (0-1); Eosinophil# 0.18 X10^3/uL; Eosinophils% 2.6 % (0-5); Hematocrit 37.4 % (37-47); Hemoglobin 11.8 g/dL (12.0-15.0); Lymphocyte # 1.41 X10^3/ul (0.83-4.51); Lymphocyte % 20.1 % (19-41); Mean Corp Hgb Conc 31.6 g/dL (32-36); Mean Corpuscular Hgb 27.1 pg (27.0-32.0); Mean Corpuscular Volume 85.8 fL (81-99); Mean Platelet Vol. 12.9 fl (6.2-12.0); Monocyte# 0.58 X10^3/uL; Monocyte% 8.3 % (0-10); NRBC Flagged by Analyzer 0 % (0-5); Neutrophil # 4.81 X10^3/uL (2.7-7.7); Neutrophil % 68.3 % (47-70); Platelet Count 249 K/mm3 (150-450); RBC Distribution Width CV 13.3 % (11.6-14.6); RBC Distribution Width SD 41.7 fl (35.1-43.9); Red Blood Count 4.36 M/mm3 (4.2-5.4)
--- NOTE | 2020-10-20 15:31 | RAD_ITS ---
STUDY: X-RAY CHEST REASON FOR EXAM: Female, 80 years old. Weakness, hypoglycemia. TECHNIQUE: Single AP portable view of the chest. COMPARISON: Comparison is made with prior study dated 09/27/2017. FINDINGS: EKG electrodes are seen. Surgical clips are seen in the right axilla. There is prominence of the right paratracheal region. This most likely is secondary to vascular ectasia although focal infiltrate and/or mass lesion cannot be excluded. Correlation with CT scan is recommended. There is no demonstrated pleural abnormality. Normal size heart. Normal mediastinum and riki. Normal visualized pulmonary arteries. There is atherosclerotic tortuosity of the aortic arch and descending thoracic aorta. There are diffuse degenerative changes of the visualized thoracic spine. Normal visualized ribs, clavicles, and shoulders. There is no demonstrated abnormality of the visualized soft tissue structures of the upper abdomen. RAD/Chest 1 View (Portable) IMPRESSION: Prominent soft tissue in the right paratracheal region as described. Correlation with a CT scan is recommended for further evaluation. Electronically Signed: Parag Bell MD at 15:45 EDT , Service support ,
[2020-10-20 15:36] LABS: ALB/GLOB Ratio 0.8 RATIO (0.9-2.4); AST(SGOT) 22 U/L (15-37); Alanine Aminotransfer ALT/SGPT 21 U/L (13-56); Albumin, Serum 3.7 g/dL (3.2-5.0); Alkaline Phosphatase 72 U/L (45-117); Anion Gap 3 (5-15); BUN 29 mg/dL (7-18); BUN/Creat Ratio 16.9 RATIO (10-20); Calcium,Total 10.3 mg/dL (8.5-10.1); Chloride 112 mmol/L (98-107); Creatinine, Serum 1.72 mg/dL (0.55-1.02); EST Glomerular Filtration Rate 30 mL/min (>60); Est Glom Filt Rate - Afr Amer 37 mL/min (>60); Estimated Creatinine Clearance 22.15 ml/min; Globulin 4.5 g/dL (2.2-4.2); Glucose 33 mg/dL (74-106); Potassium 4.6 mmol/L (3.5-5.1); Protein, Total 8.2 g/dL (6.4-8.2); Sodium Level 143 mmol/L (136-145)
[2020-10-20 15:58] LABS: Color, Urine Yellow (Yellow); Glucose, Dipstick 50 mg/dl (Normal); Ketone-Dipstick Negative (Negative); Leukocyte Esterase-Dipstick 500 /ul (Negative); Nitrite-Dipstick Positive (Negative); Occult Blood-Urine 25 /ul (Negative); Protein-Dipstick 30 mg/dl (Negative); Urine Bilirubin Dipstick Negative (Negative); Urine Clarity Sl. Cloudy (Clear); Urine Urobilinogen Normal (Normal); Urine pH 6.5 (5.0 - 8.0)
[2020-10-20 16:44] LABS: Bacteria 2+ /hpf (None Seen); White Blood Cells 10-25 SEEN /hpf (0-5)
[2020-10-20 16:46] VITALS: BP 157/83; PULSE 93; RESP 16; O2SAT 94
[2020-10-20 17:00] LABS: Bedside Glucose 184 mg/dL (70-110)
[2020-10-20 17:00] LABS: Bedside Glucose 180 mg/dL (70-110)
[2020-10-20 18:15] VITALS: BP 148/78; PULSE 90; RESP 16; O2SAT 94
== END 2020-10-20 18:16 | disposition home or self-care (01) ==
PROVIDERS: Emergency Provider Emergency Medicine; PCP Family Medicine
DX: E11.649 Type 2 diabetes mellitus with hypoglycemia without coma (principal); N30.00 Acute cystitis without hematuria; I10 Essential (primary) hypertension; Z79.4 Long term (current) use of insulin; Z79.899 Other long term (current) drug therapy
CPT/HCPCS: 71045; 80053; 81001; 82962; 85025; 87077; 87086; 87088; 87186; 93005; 96374; 99285; J7030; A4216

== ENCOUNTER 2020-10-28 12:13 | Inpatient (IN) | payer MEDICARE, OTHER, SELFPAY ==
[2020-10-28 12:16] VITALS: BP 188/78; PULSE 94; RESP 19; TEMP 36.4; O2SAT 96; BMI 23.2
[2020-10-28 12:25] LABS: Bedside Glucose 222 mg/dL (70-110)
--- NOTE | 2020-10-28 12:33 | EKG12_ITS ---
Test Reason : HYPOGLYCEMIA Blood Pressure : / mmHG Vent. Rate : 086 BPM Atrial Rate : 086 BPM P-R Int : 114 ms QRS Dur : 070 ms QT Int : 352 ms P-R-T Axes : 048 -10 025 degrees QTc Int : 421 ms Normal sinus rhythm Normal ECG Confirmed by TAWNY JORDAN, JAMAL ([id number]), video tape editor PATIENCE PRETTY ([id number]) on 10/29/2020 12:50:57 PM Referred By: LILIYA/ELI Confirmed By:DWIGHT HECTOR MD
--- NOTE | 2020-10-28 12:33 | EX.ED.DYSGE1 ---
HPI History of Present Illness Chief Complaint: Hypoglycemia Detail of Chief Complaint: Low blood sugar today Informant: patient Narrative Narrative: Patient presents to the emergency department via EMS after a hypoglycemic episode. Patient was at home and apparently the daughter called EMS. The daughter's been staying with the patient for the last week because the patient recently lost her son. On EMS arrival patient was noted to have a fingerstick blood sugar of 33. Patient received glucagon and dextrose. On arrival to the emergency department glucose over 200. Patient states she feels pretty well otherwise. She states that she did not feel well last evening so she gave herself 60 units of Lantus. She did not eat breakfast this morning. She denies recent illness. She denies dysuria. She states that last time she was here for hypoglycemia couple weeks ago she was noted to have a UTI. [facility] Medical History (Updated 10/28/20 @ 14:[address] Aida Raza, ) Diabetes HTN (hypertension) Home Medications Lantus U-100 Insulin 54 unit SQ QHS 09/27/17 [History Last Taken 10/19/20] atenolol 25 mg PO DAILY 09/27/17 [History Last Taken 10/20/20] simvastatin 20 mg PO DAILY 09/27/17 [History Last Taken 10/20/20] amlodipine 5 mg PO DAILY 10/20/20 [History Last Taken 10/20/20] cephalexin 500 mg PO Q6 #20 capsule 10/20/20 [Rx Last Taken Unknown] glipizide 10 mg PO DAILY 10/20/20 [History Last Taken 10/20/20] Allergy/AdvReac Type Severity Reaction Status Date / Time penicillin Allergy Rash Verified 10/28/20 12:21 Social History (Updated 10/28/20 @ 12:33 by Samanta Hood) [facility] Smoking Status: Unknown if ever smoked substance use type: does not use ROS ROS ED Constitutional Constitutional ED: Reports systems reviewed and no addt'l complaints, except as documented; Denies body ache(s), change in weight or chills Eyes Eyes: Denies acute decrease in peripheral vision, change in vision, double vision or loss of vision ENT ENT ED: Reports none; Denies ear pain, lip swelling, loss taste/smell, neck pain, otalgia or sore throat Cardiovascular Cardiovascular: Reports none; Denies abdominal pain, chest pain with activity, leg edema, lightheadedness, palpitations, rapid heart rate or syncope Respiratory/Chest Respiratory/Chest: Reports none; Denies change in mental status, dry cough, dyspnea, hemoptysis, shortness of breath at rest or shortness of breath with exertion Gastrointestinal Gastrointestinal: Reports none; Denies abdominal pain, change in stool character, diarrhea, hematemesis, hematochezia, melena, rectal bleeding or vomiting Genitourinary Genitourinary ED: Reports none; Denies abdominal discomfort, anuria, dysuria, genital pain or polyuria Musculoskeletal Musculoskeletal: Reports none; Denies arthralgias, back pain, difficulty walking, extremity pain, muscle weakness or myalgias Integumentary Reports none; Denies abscess or rash Neurologic Neurologic: Reports none; Denies abnormal gait, confusion, focal weakness, frequent falls, headache(s), loss of vision, numbness, paresthesias, radicular pain, vertigo or weakness Psychiatric Psychiatric: Reports systems reviewed and no addt'l complaints, except as documented and none; Denies behavioral changes, confusion, difficulty concentrating, hallucinations, suicidal ideation, tactile hallucinations or visual hallucinations Endocrine Endocrinology: Denies none, cold intolerance, excessive sweating, fatigue or heat intolerance Hematologic/Lymphatic Hematologic/Lymphatic: Reports none; Denies anemia, easy bleeding or easy bruising Allergic/Immunologic Allergic/Immunologic ED: Denies as per HPI, none, lip swelling, mouth swelling, throat swelling, tongue swelling or hives EXAM Physical Exam Const Vital Signs: 10/28/20 12:16 10/28/20 12:31 Temperature 97.6 F L Temperature Source Temporal Pulse Rate 94 Respiratory Rate 19 H Respiratory Pattern Normal Blood Pressure 188/78 H Blood Pressure Mean 114 Pulse Ox 96 Oxygen Delivery Method Room Air Positive well nourished and well developed General Appearance ED: well developed and NAD HEENT Reports TM's clear and moist mucous membranes normocephalic and atraumatic; Negative for trauma or tenderness Tympanic Membrane ED: Yes TM's clear Eyes PERRL and EOMs intact bilaterally General Eye ED: Negative for pale conjunctiva or scleral icterus Neck no lymphadenopathy, supple and no JVD General: Negative for tenderness Chest Wall inspection of chest normal and palpation of chest normal Chest: Negative for tenderness Resp normal respiratory effort and clear to auscultation bilaterally Effort and Inspection: Negative for respiratory distress or pain with movement Auscultation: Negative for rhonchi, wheezes or diminished lung sounds Cardio regular rate, regular rhythm, S1 normal heart sound, S2 normal heart sound and no murmurs Peripheral Pulses: pulses 2+ throughout GI normal to inspection, nondistended, normoactive bowel sounds, soft to palpation, non-tender, non-distended and no masses Back/Spine no CVA tenderness and no thoracic nor lumbar tenderness Extremity normal to inspection General Extremety ED: Negative for edema General Extremity: Negative for edema Neuro oriented x3, CN's II-XII intact bilaterally, no sensory deficits noted and gait normal Sensorium / Orientation: awake, alert, oriented to person, oriented to place and oriented to time Motor Exam: strength 5/5 throughout and strength abnormal Psych mental status grossly normal Skin no rashes or lesions noted and no wounds MDM MDM MDM Narrative Medical decision making narrative: Patient was given a meal tray in the department. Patient was found to have a UTI and was started on Rocephin 1 g IV. Case will be discussed with hospitalist evaluate patient for admission. Patient states that she did not take her antibiotic for her UTI from a week ago because she was concerned about interaction with other medications that she has. Lab Data Attestation: I reviewed the patient's lab results. Labs: Laboratory Results - last 24 hr 10/28/20 10/28/20 10/28/20 12:21 12:35 13:06 WBC 10.6 RBC 4.07 L Hgb 11.0 L Hct 35.6 L MCV 87.5 MCH 27.0 MCHC 30.9 L RDW Std Deviation 43.3 RDW Coeff of Abhinav 13.8 Plt Count 199 MPV 12.7 H Immature Gran % (Auto) 0.700 Neut % (Auto) 81.4 H Lymph % (Auto) 10.8 L [place] % (Auto) 5.7 Eos % (Auto) 1.1 Baso % (Auto) 0.3 Absolute Neuts (auto) 8.7 H Absolute Lymphs (auto) 1.15 Nucleated RBC % 0 Urine Color Yellow Urine Clarity Sl. Cloudy Urine pH 7.0 Ur Specific [place] 1.010 Urine Protein 30 H Urine Glucose (UA) Normal Urine Ketones Negative Urine Occult Blood 25 H Urine Nitrite Positive H Urine Bilirubin Negative Urine Urobilinogen Normal Ur Leukocyte Esterase 500 H Urine RBC 0 SEEN Urine WBC 50-100 SEEN Ur Squamous Epith Cells 0 SEEN Urine Bacteria 0 SEEN Urine Mucus 0 SEEN POC Glucose 222 H EKG Initial EKG: Comments: Sinus rhythm with a ventricular rate of 86 bpm with no acute ST segment changes Prior EKG tracings: available for review Prior: Unchanged Discharge Plan Triage Chief Complaint: Hypoglycemia ED Provider: Aida Raza Dx/Rx/DC Orders Clinical Impression: Hypoglycemia, Acute UTI Prescriptions: No Action atenolol 25 MG tablet 25 mg PO DAILY RF: 0 simvastatin 20 MG tablet 20 mg PO DAILY RF: 0 Lantus U-100 Insulin 100 UNIT/ML solution 54 unit SQ QHS RF: 0 glipizide 10 mg tablet extended release 24hr 10 mg PO DAILY RF: 0 amlodipine 5 mg tablet 5 mg PO DAILY RF: 0 cephalexin [cephalexin] 500 MG capsule 500 mg PO Q6 Qty: 20 RF: 0 Primary Care Provider: Becky Lassiter Referrals: Becky Lassiter DO [Primary Care Provider] - Disposition Disposition: Acute Care Hospital [facility]
[2020-10-28 12:40] LABS: Color, Urine Yellow (Yellow); Glucose, Dipstick Normal (Normal); Ketone-Dipstick Negative (Negative); Leukocyte Esterase-Dipstick 500 /ul (Negative); Nitrite-Dipstick Positive (Negative); Occult Blood-Urine 25 /ul (Negative); Protein-Dipstick 30 mg/dl (Negative); Urine Bilirubin Dipstick Negative (Negative); Urine Clarity Sl. Cloudy (Clear); Urine Urobilinogen Normal (Normal)
[2020-10-28 12:41] LABS: Bacteria 0 SEEN /hpf (None Seen); Mucous, Urine 0 SEEN /hpf (<or=2+); Red Blood Cells-Urine 0 SEEN /hpf (0-5); Squamous Epithelial Cells - UA 0 SEEN /hpf (5-10)
[2020-10-28 12:45] LABS: White Blood Cells 50-100 SEEN /hpf (0-5)
[2020-10-28] MEDS: 0.9% Normal Saline 1,000 ML 15 ML IV (13:00)
[2020-10-28 13:18] LABS: Absolute Lymphocyte Count 1.15 X10^3/uL (0.83-4.51); Absolute Neutrophil Count 8.7 X10^3/uL (2.0-7.7); Basophil# 0.03 X10^3/uL; Basophil% 0.3 % (0-1); Eosinophil# 0.12 X10^3/uL; Eosinophils% 1.1 % (0-5); Hematocrit 35.6 % (37-47); Lymphocyte # 1.15 X10^3/ul (0.83-4.51); Lymphocyte % 10.8 % (19-41); Mean Corp Hgb Conc 30.9 g/dL (32-36); Mean Corpuscular Volume 87.5 fL (81-99); Mean Platelet Vol. 12.7 fl (6.2-12.0); Monocyte# 0.61 X10^3/uL; Monocyte% 5.7 % (0-10); NRBC Flagged by Analyzer 0 % (0-5); Neutrophil # 8.66 X10^3/uL (2.7-7.7); Neutrophil % 81.4 % (47-70); Platelet Count 199 K/mm3 (150-450); RBC Distribution Width CV 13.8 % (11.6-14.6); RBC Distribution Width SD 43.3 fl (35.1-43.9); Red Blood Count 4.07 M/mm3 (4.2-5.4); White Blood Count 10.6 K/mm3 (4.4-11.0)
[2020-10-28 13:49] LABS: ALB/GLOB Ratio 0.7 RATIO (0.9-2.4); AST(SGOT) 39 U/L (15-37); Alanine Aminotransfer ALT/SGPT 21 U/L (13-56); Alkaline Phosphatase 65 U/L (45-117); Anion Gap 4 (5-15); BUN 38 mg/dL (7-18); BUN/Creat Ratio 21.1 RATIO (10-20); Calcium,Total 8.9 mg/dL (8.5-10.1); Chloride 115 mmol/L (98-107); EST Glomerular Filtration Rate 29 mL/min (>60); Est Glom Filt Rate - Afr Amer 35 mL/min (>60); Globulin 4.3 g/dL (2.2-4.2); Glucose 209 mg/dL (74-106); Potassium 5.2 mmol/L (3.5-5.1); Protein, Total 7.3 g/dL (6.4-8.2); Sodium Level 141 mmol/L (136-145)
--- NOTE | 2020-10-28 14:07 | HP.PCM.HOS_ITS ---
HPI - General General Date of Admission: 10/28/20 Date of Service: 10/28/20 Chief Complaint: Hypoglycemia episodes HPI Narrative The patient is an 80 y/o F w/ PMHx: Chronic anemia, CKD stage III, HTN, HLD, History of Tobacco use, Hx Breast CA unclear type/side, Diabetes mellitus type II, Suspected underlying COPD who presents to the [facility] ED on 10/28/20 with history of recent of her son, daughter currently staying with her, she normally takes lantus at night, decided to take 60 instead of 54 units because she felt poorly however following she had onset confusion with BS 33 prompting EMS call with administration of glucose. She had recently been evaluated in the ED in the ED and was discharged on keflex for UTI but she did not take it per her report. She denies any current specific dysuria but states she is felt weak and fati gued. She denies any current fevers or chills. She notes currently feeling improved and more herself mentally. Work-up in the ED included T 97.6 temporally, heart rate 94, BP 188/78, respiratory rate 19, 96% on room air, CBC with WBC 10.6, hemoglobin, platelet 199 with left shift, CMP with sodium 141, potassium 5.2 however noted to be moderately hemolyzed this falsely elevated likely, chloride 115, BUN/creatinine 38/1.80, glucose 209, total bilirubin 0.40, AST/ALT 39/21, alk phos 65, otherwise not marked hepatic profile, urinalysis with specific gravity 1.010, cloudy nature, protein 30, negative ketones, normal glucose, positive nitrates, 25 occult blood, 500 leukocyte esterase, urine WBCs 50-100 with no significant urine bacteria. Most recent 10/20/2020 urine culture noting Citrobacter and Klebsiella noted to be resistant to Rocephin however sensitive to cefepime and also resistant to Ancef but currently per list on cephalexin. [facility] Medical History (Updated 10/28/20 @ 18:01 by Taylor Harris) Cancer COPD (chronic obstructive pulmonary disease) Diabetes Diabetes Former smoker Hearing loss, left Hearing loss, right HTN (hypertension) Hypertension Kidney disease Home Medications Lantus U-100 Insulin 54 unit SQ QHS 09/27/17 [History Last Taken 10/27/20] atenolol 25 mg PO DAILY 09/27/17 [History Last Taken 10/27/20] simvastatin 20 mg PO DAILY 09/27/17 [History Last Taken 10/27/20] amlodipine 5 mg PO DAILY 10/20/20 [History Last Taken 10/27/20] glipizide 10 mg PO DAILY 10/20/20 [History Last Taken 10/27/20] aspirin [Aspirin Low Dose] 81 mg PO MOWEFR 10/28/20 [History Last Taken 10/26/20] cholecalciferol (vitamin D3) 50 mcg PO TU 10/28/20 [History Last Taken 10/27/20] saelilulowxq-Ee-tddj-minerals [Women's Daily Multivitamin] 1 tab PO DAILY 10/28/20 [History Last Taken 10/27/20] Allergy/AdvReac Type Severity Reaction Status Date / Time penicillin Allergy Rash Verified 10/28/20 12:21 Family History (Updated 10/28/20 @ 18:[address] Saniya Molina MD) Mother Hypertension Diabetes other (Patient notes she does not know her paternal family history.) Surgical History (Updated 10/28/20 @ 18:[address] Saniya Molina MD) Hx of cataract surgery S/P breast lumpectomy Social History (Updated 10/28/20 @ 18:[address] Saniya Molina MD) household members: none housing: condominium Smoking Status: Former smoker how long ago did patient quit smoking: Patient quit cigarette tobacco use in the 1970s, started age 20-22. alcohol intake: never substance use type: does not use ROS ROS Narrative Admission Review of Systems: CONSTITUTIONAL: No weight loss, fever, chills, + weakness or fatigue. HEENT: Eyes: No visual loss, blurred vision, double vision or yellow sclerae. Ears, Nose, Throat: No hearing loss, sneezing, congestion, runny nose or sore throat. SKIN: No rash or itching, lesions, wounds. CARDIOVASCULAR: No chest pain, chest pressure or chest discomfort, palpitations, edema, orthopnea, syncopal events. RESPIRATORY: No shortness of breath, cough or sputum, wheezing, hemoptysis. GASTROINTESTINAL: No anorexia, nausea, vomiting or diarrhea, abdominal pain, melena, BRBPR. GENITOURINARY: No dysuria, frequency, urgency or retention. NEUROLOGICAL: + Confusion. No headache, dizziness, syncope, paralysis, ataxia, numbness or tingling in the extremities, focal weakness, change in bowel or bladder control, seizure. MUSCULOSKELETAL: + muscle, back pain, joint pain or stiffness. HEMATOLOGIC: No anemia, bleeding or bruising. LYMPHATICS: No enlarged nodes. No history of splenectomy. PSYCHIATRIC: No history of depression or anxiety. ENDOCRINOLOGIC: No reports of sweating, cold or heat intolerance. No polyuria or polydipsia. ALLERGIES: No history of asthma, hives, eczema or rhinitis. Vital Signs Vital Signs Vital Signs: 10/28/20 12:16 10/28/20 12:31 Temperature 97.6 F L Temperature Source Temporal Pulse Rate 94 Respiratory Rate 19 H Respiratory Pattern Normal Blood Pressure 188/78 H Blood Pressure Mean 114 Pulse Ox 96 Oxygen Delivery Method Room Air Weight Weight: 123 lb 0.287 oz Body Mass Index (BMI) 23.2 Physical Exam Narrative Physical Examination: General: awake, alert, oriented x 3 and cooperative, very hard of hearing, seated upright in the ED bed in no apparent distress. Skin: normal color, normal turgor, no icterus, no cyanosis. HEENT: AT/NC, EOMI, PERRLA, MMM, lack of dentition, no carotid bruits or JVD noted. Lungs: Mildly diminished, > bases, appropriate effort, no rales, ronchi or wheezing. Heart: Regular rate and rhythm; no gallop, rub audible. Abdomen: soft, NTTP, ND, normal BS, no HSM. Extremities: no cyanosis, clubbing, or edema. Neurological: patient awake, alert, oriented as noted, cognitive function improved, now appears baseline intact; pupils equally reactive to light and accommodation, cranial nerves II-XII grossly normal, moving all 4 extremities, no focal deficits, strength moderately globally decreased. Psychiatric: affect appears fatigued otherwise normal, no acute evidence of depressive or anxiety feelings. Lab / Micro Data Result Diagrams: 10/28/20 13:06 10/28/20 13:06 Labs: Laboratory Results - last 24 hr 10/28/20 10/28/20 10/28/20 12:21 12:35 13:06 WBC 10.6 RBC 4.07 L Hgb 11.0 L Hct 35.6 L MCV 87.5 MCH 27.0 MCHC 30.9 L RDW Std Deviation 43.3 RDW Coeff of Abhinav 13.8 Plt Count 199 MPV 12.7 H Immature Gran % (Auto) 0.700 Neut % (Auto) 81.4 H Lymph % (Auto) 10.8 L [place] % (Auto) 5.7 Eos % (Auto) 1.1 Baso % (Auto) 0.3 Absolute Neuts (auto) 8.7 H Absolute Lymphs (auto) 1.15 Nucleated RBC % 0 Sodium Potassium Chloride Carbon Dioxide Anion Gap BUN Creatinine Estim Creat Clear Calc Est GFR (MDRD) Af Amer Est GFR (MDRD) Non-Af BUN/Creatinine Ratio Glucose Calcium Total Bilirubin AST ALT Alkaline Phosphatase Total Protein Albumin Globulin Albumin/Globulin Ratio Urine Color Yellow Urine Clarity Sl. Cloudy Urine pH 7.0 Ur Specific [place] 1.010 Urine Protein 30 H Urine Glucose (UA) Normal Urine Ketones Negative Urine Occult Blood 25 H Urine Nitrite Positive H Urine Bilirubin Negative Urine Urobilinogen Normal Ur Leukocyte Esterase 500 H Urine RBC 0 SEEN Urine WBC 50-100 SEEN Ur Squamous Epith Cells 0 SEEN Urine Bacteria 0 SEEN Urine Mucus 0 SEEN POC Glucose 222 H 10/28/20 13:06 WBC RBC Hgb Hct MCV MCH MCHC RDW Std Deviation RDW Coeff of Abhinav Plt Count MPV Immature Gran % (Auto) Neut % (Auto) Lymph % (Auto) [place] % (Auto) Eos % (Auto) Baso % (Auto) Absolute Neuts (auto) Absolute Lymphs (auto) Nucleated RBC % Sodium 141 Potassium 5.2 H Chloride 115 H Carbon Dioxide 22.0 Anion Gap 4 L BUN 38 H Creatinine 1.80 H Estim Creat Clear Calc 18.50 Est GFR (MDRD) Af Amer 35 L Est GFR (MDRD) Non-Af 29 L BUN/Creatinine Ratio 21.1 H Glucose 209 H Calcium 8.9 Total Bilirubin 0.40 AST 39 H ALT 21 Alkaline Phosphatase 65 Total Protein 7.3 Albumin 3.0 L Globulin 4.3 H Albumin/Globulin Ratio 0.7 L Urine Color Urine Clarity Urine pH Ur Specific [place] Urine Protein Urine Glucose (UA) Urine Ketones Urine Occult Blood Urine Nitrite Urine Bilirubin Urine Urobilinogen Ur Leukocyte Esterase Urine RBC Urine WBC Ur Squamous Epith Cells Urine Bacteria Urine Mucus POC Glucose Assessment & Plan Assessment/Plan (1) Diabetic hypoglycemia: (2) Acute UTI: PLAN: The patient is an 80 y/o F w/ PMHx: Chronic anemia, CKD stage III, HTN, HLD, History of Tobacco use, Hx Breast CA unclear type/side, Diabetes mellitus type II, Suspected underlying COPD who presents to the [facility] [place] ED on 10/28/20 with history of recent of her son, daughter currently staying with her, she normally takes lantus at night, decided to take 60 instead of 54 units because she felt poorly however following she had onset confusion with BS 33 prompting EMS call with administration of glucose with recent UTI dx. 1. Acute Encephalopathy, multifactorial, secondary to #1 Acute Urinary Tract Infection and #2: Will admit to MS however if patient has any recurrent hypoglycemia may need to consider transitioning to telemetry status, UA upon ED evaluation remarkable and do note recent 10/16/2020 urine culture for which patient did not take the medication however from review of records likely would have been resistant, continue IVFs, monitor I/Os, will initiate and continue IV cefepime based on current cultures but may also consider transitioning as new sensitivities and speciation results. PT/OT/case management consultations for discharge planning. 2. Diabetes mellitus type II with hypoglycemic episodes: Hold oral home regimen, patient with noted episodes of hypoglycemia, noted also historically to have these episodes, possibly secondary to #1 with UTI presentation, improved BS in the ED, will temporarily hold home lantus until view of trend and add back once appropriate, ADA diet, accu checks w/ ISS. 3. Chronic Kidney Disease Stage III, unclear subtype: Admission BUN/Cr 38/1.80, baseline renal function 1.6-1.9, repeat BMP in AM. 4. Chronic normocytic anemia: Admission hemoglobin 11, baseline appears 11-12 primarily, stable, trend 5. Hypertension: Continue home regimen including atenolol cautiously, amlodipine with hold parameters, PRN hydralazine. 6. Hyperlipidemia: Continue home statin regimen. 7. DVT prophylaxis: SCDs, heparin. 8. CODE status: Patient LEONIDES is her daughter and living will is currently in place. Discussed CODE status at length including difference between FULL code, DNR-CCA and DNR-CC status. Following discussions about the differences in these status, requested DNR-CCA, no intubation status. Advanced Care Planning Face to Face Time: 16 minutes. Visit Charges OBSV E&M: 96431 Initial observation care L3 Procedures Hospitalists Procedures: 34381 Advncd Care Plan 30 Min
[2020-10-28 14:32] VITALS: BP 159/83; PULSE 86; RESP 17; TEMP 37.2; O2SAT 97
--- NOTE | 2020-10-28 14:36 | NURSING ---
MED SURG WHITE OBS UTI, HYPOGLYCEMIA, WEAKNESS
[2020-10-28 16:09] VITALS: BMI 24.2
[2020-10-28 16:15] VITALS: BP 153/75; PULSE 92; RESP 18; TEMP 35.6; O2SAT 98
[2020-10-28] MEDS: Insulin Lispro 100 UNIT/ML INSULN.PEN SC ×2 (17:05→21:49)
[2020-10-28] MEDS: 0.9% Normal Saline 1,000 ML 100 ML IV (17:06)
[2020-10-28] MEDS: Aspirin E.C. 81 MG Tablet PO (17:06)
[2020-10-28 17:21] LABS: Bedside Glucose 164 mg/dL (70-110)
[2020-10-28 20:15] VITALS: BP 159/68; PULSE 93; RESP 16; TEMP 36.8; O2SAT 97
[2020-10-28] MEDS: 0.9% Saline Lock 10 ML Syringe IV (21:48)
[2020-10-28] MEDS: Heparin Injection (Vial) 5,000 UNIT/ML VIAL 5000 UNIT SC (21:49)
[2020-10-28] MEDS: Atorvastatin Calcium 10 MG Tablet PO (21:49)
[2020-10-28 22:25] LABS: Bedside Glucose 267 mg/dL (70-110)
[2020-10-29 02:00] VITALS: BP 150/81; PULSE 92; RESP 16; TEMP 36.8; O2SAT 97
[2020-10-29] MEDS: 0.9% Normal Saline 1,000 ML 100 ML IV ×3 (04:15→23:46)
[2020-10-29 06:40] LABS: Bedside Glucose 123 mg/dL (70-110)
[2020-10-29 09:02] VITALS: BP 150/63; PULSE 88; RESP 16; TEMP 37.3; O2SAT 97
[2020-10-29 09:02] LABS: Absolute Lymphocyte Count 1.45 X10^3/uL (0.83-4.51); Absolute Neutrophil Count 4.7 X10^3/uL (2.0-7.7); Basophil# 0.03 X10^3/uL; Basophil% 0.4 % (0-1); Eosinophil# 0.43 X10^3/uL; Eosinophils% 5.9 % (0-5); Hematocrit 34.1 % (37-47); Hemoglobin 10.5 g/dL (12.0-15.0); Lymphocyte # 1.45 X10^3/ul (0.83-4.51); Mean Corp Hgb Conc 30.8 g/dL (32-36); Mean Corpuscular Hgb 26.9 pg (27.0-32.0); Mean Corpuscular Volume 87.4 fL (81-99); Monocyte# 0.61 X10^3/uL; Monocyte% 8.4 % (0-10); NRBC Flagged by Analyzer 0 % (0-5); Neutrophil # 4.72 X10^3/uL (2.7-7.7); Platelet Count 229 K/mm3 (150-450); RBC Distribution Width CV 13.6 % (11.6-14.6); RBC Distribution Width SD 43.4 fl (35.1-43.9); White Blood Count 7.3 K/mm3 (4.4-11.0)
[2020-10-29] MEDS: amLODIPine 5 MG Tablet PO (09:21)
[2020-10-29] MEDS: Atenolol 25 MG Tablet PO (09:21)
[2020-10-29] MEDS: Heparin Injection (Vial) 5,000 UNIT/ML VIAL 5000 UNIT SC ×2 (09:21→22:16)
[2020-10-29] MEDS: Aspirin E.C. 81 MG Tablet PO (09:21)
[2020-10-29 09:37] LABS: BUN 32 mg/dL (7-18); Creatinine, Serum 1.57 mg/dL (0.55-1.02); EST Glomerular Filtration Rate 34 mL/min (>60); Estimated Creatinine Clearance 24.17 ml/min; Glucose 135 mg/dL (74-106)
[2020-10-29 09:38] LABS: Anion Gap 5 (5-15); BUN/Creat Ratio 20.4 RATIO (10-20); Chloride 112 mmol/L (98-107); Est Glom Filt Rate - Afr Amer 41 mL/min (>60); Potassium 4.8 mmol/L (3.5-5.1); Sodium Level 142 mmol/L (136-145)
--- NOTE | 2020-10-29 10:00 | CASEMGMT ---
Addendum entered by Sam Mauro 10/29/20 16:40: Call received from Lashawn @ [facility]. They are able to accept pt. She is aware anticipate pt will d/c home tomorrow. Addendum entered by Sam Mauro 10/29/20 15:58: PT/OT evals have been completed. Pt ambulated 90 ft and required min A of 1 w/ambulation. Additional therapy and walker recommended. MIRNA GONZALEZ to room to talk w/pt and she was made aware of recommendations. She states she is agreeable to walker. She is also agreeable to [facility]. Pt was provided with list of HHC and DME providers including quality and resource use data and consistent with the patient's preferred geographic region, medical needs, and insurance network. The pt's preferred provider is [facility] and [facility] for a walker. TC to [facility] and RANI w/Lashawn re: referral. Order for [facility] placed for: SN, PT/OT, and SW. Call placed to [facility] and OP therapy cx'd. Call placed to Troy @ [facility]. She was made aware plans are now for pt to d/c home w/HHC. CCN to follow after pt has been discharged from [facility] services. Script for walker to be faxed to [facility] when available and walker to be delivered to [facility] prior to d/c home. Original Note: RN CM DROP WIRE STRINGER CM to room to meet with patient for initial transition planning/care coordination assessment. MIRNA GONZALEZ introduced self and role at [facility]. Pt voices understanding and consents to assessment at this time. Pt resting in bed in no distress at this time. Pt is A/O at this time and answers all questions appropriately. Care providers, pharmacy, and demographics verified/updated at this time. PCP: Dr Lassiter Specialists: None Preferred Pharmacy: [facility] Insurance: [facility] [place] Prescription Benefit: Yes Living Will/HPOA: Has both LW and Healthcare POA, who is her daughter, Jackelin LNOK: Has 2 daughters (Jackelin and Mary) and one son (Casey Sanchez). Dtr, Jackelin, is POA. Pt had a son, Donte, who just passed aware from [place] on 10/15/2020. Living Arrangements: Pt lives in a one-story home w/one step to enter. Pt now lives alone. Son, Donte, who just was living w/pt. Jackelin (lives in [place]) has been staying w/pt for the past week since Donte , but will not be staying w/her long-term. Pt states she is independent w/ADL's. Jackelin and pt's granddaughter, Ilana, (who also lives in [place]) help w/grocery shopping and Ilana helps w/cleaning. Pt states she can prepare her own meals and does her own laundry. Pt states she manages her own medications and appts. Transportation: Pt does not drive. Pt's son, Donte, who just , provided pt's transportation for her. She states her family may be able to help on occasion, but since they live in [place], she may need to use cabs/taxi's. DME: States has the following DME: cane, shower chair, [id number] hand-rails. Pt also has a glucometer. Pt states she thinks it is working properly, but states she has not used it for a couple of months d/t running out of test strips. Pt's dtr, Jackelin, just picked up some more test strips yesterday. Pt states she has all other needed supplies. Pt states Dr Lassiter had decreased her Lantus to 54 units, but d/t she was not feeling well last evening, she decided to take 60 units instead, as she thought her not feeling well may be related to her BS being elevated. Pt did not check her BS prior to taking the insulin. Pt states does not have a medical alert button, but is interested. Pt provided w/list of local companies that provide this. Pt states no need for further DME at this time. HHC/SNF/OP therapy: Hx of SNF after ankle fx, but pt does not remember name of SNF. No history of HHC. Discussed HHC w/pt. Pt states she is active and it is not difficult for her to go places and states she is not homebound. Discussed OP therapy and pt is interested in going to [facility]. She was made aware of [facility] van transp services to [facility] and she would like to utilize this. Script for OP therapy obtained and faxed to [facility] along w/demographic sheet. Call placed to them and made aware [facility] van transp will need set up per pt request. Script also given to pt at this time. CCN: Discussed CCN w/pt and she is interested in this and agreeable to referral. Order placed. TC to Troy @ [facility] and she was notified of referral. Pt wishes to return home w/OP therapy and states has no concerns with going home at time of discharge. CM to follow for any further discharge planning/needs. Pt voices no further concerns/needs at this time. Advised pt to ask for CM if any further questions/concerns/needs arise. Voices understanding. PLAN: Home w/OP therapy @ [facility] referral made. Jarocho WINSLOW RN CM
--- NOTE | 2020-10-29 10:01 | PCM.PN.HOSP ---
Documented by User: Janelle Patel NP, TIN POURER-C 10/29/20 10:32 Subjective Subjective Patient seen and examined. Very pleasant, denies current symptoms or complaints. States she is hoping to be discharged tomorrow. Denies urinary symptoms. Denies fever, chills. Mental status improved. Objective Data Objective Data Vital Signs: Vital Signs Temp Pulse Resp BP Pulse Ox 99.1 F 88 16 150/63 H 97 10/29/20 09:02 10/29/20 09:02 10/29/20 09:02 10/29/20 09:02 10/29/20 09:02 Oxygen Delivery Method Room Air Weight: 120 lb 2 oz Body Mass Index (BMI) 24.2 Intake & Output: Intake and Output for Last 24 Hours 10/27/20 10/28/20 10/29/20 23:59 23:59 23:59 Intake Total 793 / 793 583.33 / 583.33 Output Total 0 / 300 950 / 950 Balance 793 / 493 -366.67 / -366.67 Lab / Micro Data Result Diagrams: 10/29/20 08:48 10/29/20 08:48 Labs: Laboratory Results - last 24 hr 10/28/20 10/28/20 10/28/20 12:21 12:35 13:06 WBC 10.6 RBC 4.07 L Hgb 11.0 L Hct 35.6 L MCV 87.5 MCH 27.0 MCHC 30.9 L RDW Std Deviation 43.3 RDW Coeff of Abhinav 13.8 Plt Count 199 MPV 12.7 H Immature Gran % (Auto) 0.700 Neut % (Auto) 81.4 H Lymph % (Auto) 10.8 L [place] % (Auto) 5.7 Eos % (Auto) 1.1 Baso % (Auto) 0.3 Absolute Neuts (auto) 8.7 H Absolute Lymphs (auto) 1.15 Nucleated RBC % 0 Sodium Potassium Chloride Carbon Dioxide Anion Gap BUN Creatinine Estim Creat Clear Calc Est GFR (MDRD) Af Amer Est GFR (MDRD) Non-Af BUN/Creatinine Ratio Glucose Calcium Total Bilirubin AST ALT Alkaline Phosphatase Total Protein Albumin Globulin Albumin/Globulin Ratio Urine Color Yellow Urine Clarity Sl. Cloudy Urine pH 7.0 Ur Specific [place] 1.010 Urine Protein 30 H Urine Glucose (UA) Normal Urine Ketones Negative Urine Occult Blood 25 H Urine Nitrite Positive H Urine Bilirubin Negative Urine Urobilinogen Normal Ur Leukocyte Esterase 500 H Urine RBC 0 SEEN Urine WBC 50-100 SEEN Ur Squamous Epith Cells 0 SEEN Urine Bacteria 0 SEEN Urine Mucus 0 SEEN POC Glucose 222 H 10/28/20 10/28/20 10/28/20 13:06 17:00 21:42 WBC RBC Hgb Hct MCV MCH MCHC RDW Std Deviation RDW Coeff of Abhinav Plt Count MPV Immature Gran % (Auto) Neut % (Auto) Lymph % (Auto) [place] % (Auto) Eos % (Auto) Baso % (Auto) Absolute Neuts (auto) Absolute Lymphs (auto) Nucleated RBC % Sodium 141 Potassium 5.2 H Chloride 115 H Carbon Dioxide 22.0 Anion Gap 4 L BUN 38 H Creatinine 1.80 H Estim Creat Clear Calc 18.50 Est GFR (MDRD) Af Amer 35 L Est GFR (MDRD) Non-Af 29 L BUN/Creatinine Ratio 21.1 H Glucose 209 H Calcium 8.9 Total Bilirubin 0.40 AST 39 H ALT 21 Alkaline Phosphatase 65 Total Protein 7.3 Albumin 3.0 L Globulin 4.3 H Albumin/Globulin Ratio 0.7 L Urine Color Urine Clarity Urine pH Ur Specific [place] Urine Protein Urine Glucose (UA) Urine Ketones Urine Occult Blood Urine Nitrite Urine Bilirubin Urine Urobilinogen Ur Leukocyte Esterase Urine RBC Urine WBC Ur Squamous Epith Cells Urine Bacteria Urine Mucus POC Glucose 164 H 267 H 10/29/20 10/29/20 10/29/20 06:30 08:48 08:48 WBC 7.3 RBC 3.90 L Hgb 10.5 L Hct 34.1 L MCV 87.4 MCH 26.9 L MCHC 30.8 L RDW Std Deviation 43.4 RDW Coeff of Abhinav 13.6 Plt Count 229 MPV 12.0 Immature Gran % (Auto) 0.300 Neut % (Auto) 65.0 Lymph % (Auto) 20.0 [place] % (Auto) 8.4 Eos % (Auto) 5.9 H Baso % (Auto) 0.4 Absolute Neuts (auto) 4.7 Absolute Lymphs (auto) 1.45 Nucleated RBC % 0 Sodium 142 Potassium 4.8 Chloride 112 H Carbon Dioxide 25.0 Anion Gap 5 BUN 32 H Creatinine 1.57 H Estim Creat Clear Calc 24.17 Est GFR (MDRD) Af Amer 41 L Est GFR (MDRD) Non-Af 34 L BUN/Creatinine Ratio 20.4 H Glucose 135 H Calcium 9.0 Total Bilirubin AST ALT Alkaline Phosphatase Total Protein Albumin Globulin Albumin/Globulin Ratio Urine Color Urine Clarity Urine pH Ur Specific [place] Urine Protein Urine Glucose (UA) Urine Ketones Urine Occult Blood Urine Nitrite Urine Bilirubin Urine Urobilinogen Ur Leukocyte Esterase Urine RBC Urine WBC Ur Squamous Epith Cells Urine Bacteria Urine Mucus POC Glucose 123 H Physical Exam Const alert, oriented x3 and no apparent distress Orientation / Consciousness: awake, oriented to person, oriented to place and oriented to time HEENT normocephalic and moist oral mucous membranes Eyes PERRL, EOMs intact bilaterally and conjunctivae normal Neck no lymphadenopathy Resp normal respiratory effort and clear to auscultation bilaterally Cardio regular rate, regular rhythm and no murmurs Peripheral Pulses: pulses 2+ throughout GI normal to inspection, nondistended, normoactive bowel sounds, non-tender and non-distended Extremity normal to inspection Skin no rashes or lesions noted Lesions: no lesions Rashes: no rashes Trauma: no lacerations or abrasions Neuro CN's II-XII intact bilaterally, no focal motor deficits, no sensory deficits noted and deep tendon reflexes 2+ bilaterally Psych mental status grossly normal and affect normal Assessment & Plan Assessment/Plan (1) Acute UTI: (2) Diabetic hypoglycemia: PLAN: 1. Acute encephalopathy secondary to acute UTI and hypoglycemia- improved. Continue treatment of underlying processes. 2. Type 2 diabetes mellitus with hyperglycemia-insulin regimen recently decreased by PCP. Patient ran out of glucose strips at home and has not been checking her blood glucose. States she was not feeling well and took extra insulin yesterday. Patient's family did buy her more glucose testing supplies. Accu-Cheks with sliding scale insulin. Resume Lantus at lower dose, 20 units nightly. 3. Acute UTI-IV meropenem pending culture. 4. Chronic kidney disease stage IIIb-at baseline, trend BMP. 5. Chronic normocytic anemia- stable, trend cbc. 6. Hypertension- stable, continue home atenolol, amlodipine regimen. 7. Hyperlipidemia- continue statin. DVT prophylaxis-Heparin subcu This patient was seen by DOROTHY Milton under the supervision of Dr. Nassar. Documented by User: Dr. Daya Nassar MD 10/29/20 15:20 Objective Data Lab / Micro Data Result Diagrams: 10/29/20 08:48 10/29/20 08:48 Charges/Coding Addendum Addendum: Patient seen by DOROTHY Milton under my supervision enter enter patient is an 80-year-old female with an extensive past medical history as outlined who was admitted by the ED on 10/28/2020 with a complaint of altered mental status. Patient had taken 60 units of Lantus instead of her usual 54 and subsequently was found with blood sugar of 33 as well as confusion. She was brought in and admitted for iatrogenic hypoglycemia. She was also found to have UTI. She has no complaints this morning and feels very well. Patient wanted to go home. Review of symptoms otherwise negative. She has remained hemodynamically stable. Const alert, oriented x3 and no apparent distress Orientation / Consciousness: awake, oriented to person, oriented to place and oriented to time HEENT normocephalic and moist oral mucous membranes Eyes PERRL, EOMs intact bilaterally and conjunctivae normal Neck no lymphadenopathy Resp normal respiratory effort and clear to auscultation bilaterally Cardio regular rate, regular rhythm and no murmurs Peripheral Pulses: pulses 2+ throughout GI normal to inspection, nondistended, normoactive bowel sounds, non-tender and non-distended Extremity normal to inspection Skin no rashes or lesions noted Lesions: no lesions Rashes: no rashes Trauma: no lacerations or abrasions Neuro CN's II-XII intact bilaterally, no focal motor deficits, no sensory deficits noted and deep tendon reflexes 2+ bilaterally Psych mental status grossly normal and affect normal Plan is continue Keflex. Resume patient's Lantus at 20 units daily for now. Monitor blood sugars via Accu-Cheks AC at bedtime. Continue IV meropenem. Urine culture pending. Acute metabolic encephalopathy has resolved. Continue heparin for DVT prophylaxis. Rest as per DOROTHY Milton's note which I reviewed and endorsed. Visit Charges OBSV E&M: 29371 Subsequent observation care L2
[2020-10-29] MEDS: Acetaminophen 325 MG Tablet 650 MG PO (10:03)
[2020-10-29] MEDS: Insulin Lispro 100 UNIT/ML INSULN.PEN SC ×3 (11:27→22:14)
[2020-10-29 11:40] LABS: Bedside Glucose 256 mg/dL (70-110)
[2020-10-29 15:00] VITALS: BP 158/70; PULSE 87; RESP 16; TEMP 37; O2SAT 97
--- NOTE | 2020-10-29 16:07 | CHAPLAIN ---
Type of Pastoral Visit _x__ Initial Visit ___ Follow-up Visit ___ On-call Visit ___ General Patient Visit ___ Spiritual Assessment ___ Family Conference ___ Bereavement ___ Rapid Response ___ Code Blue ___ Other (describe below) Pastoral Care Referral From _x__ Patient ___ Family ___ Nurse ___ Physician ___ Marketing Forecaster ___ Radiation Monitor ___ Other (describe below) Sacrament/Intervention _x__ Active listening ___ Anointing ___ Evangelical _x__ Bereavement ___ Communion ___ Dawn exploration ___ _x__ Life review _x__ Prayer ___ Reconciliation ___ Sacrament of Sick __x_ Supportive presence ___ Wedding ___ Other (describe below) Pastoral Comments patient recently lost her son to sudden illness and he was her primary caregiver; grief support and spiritual care given
[2020-10-29 17:35] LABS: Bedside Glucose 225 mg/dL (70-110)
[2020-10-29 21:00] VITALS: BP 152/70; PULSE 86; RESP 18; TEMP 36.4; O2SAT 97
[2020-10-29] MEDS: Atorvastatin Calcium 10 MG Tablet PO (22:17)
[2020-10-29 22:25] LABS: Bedside Glucose 232 mg/dL (70-110)
[2020-10-30 03:00] VITALS: BP 160/67; PULSE 86; RESP 16; TEMP 36.7; O2SAT 99
[2020-10-30] MEDS: Insulin Lispro 100 UNIT/ML INSULN.PEN SC ×2 (06:34→11:41)
[2020-10-30 07:51] LABS: Bedside Glucose 151 mg/dL (70-110)
[2020-10-30 08:03] VITALS: BP 175/80; PULSE 84; RESP 16; TEMP 36.7; O2SAT 98
[2020-10-30] MEDS: Heparin Injection (Vial) 5,000 UNIT/ML VIAL 5000 UNIT SC (08:11)
[2020-10-30] MEDS: Aspirin E.C. 81 MG Tablet PO (08:11)
[2020-10-30] MEDS: Atenolol 25 MG Tablet PO (08:12)
[2020-10-30] MEDS: amLODIPine 5 MG Tablet PO (08:12)
--- NOTE | 2020-10-30 09:45 | CASEMGMT ---
Addendum entered by Yesika Ordaz 10/30/20 10:49: Kaelyn at [facility] aware [place] [facility] script and states dedicated local truck driver will bring over for pt. Robinson BRADLEY CM Original Note: Per Sam BRADLYE CM, pt would like WW at discharge and would like it thru [facility]. Order signed and faxed to [facility] as plan is for discharge today. Pt also set up with [facility] and [facility] after. CM to follow for any further discharge planning/needs. Robinson BRADLEY CM
[2020-10-30] MEDS: 0.9% Normal Saline 1,000 ML 100 ML IV (10:28)
--- NOTE | 2020-10-30 10:33 | PCM.DC ---
Discharge Instructions Diet Discharge Diet: No restrictions Activity Discharge Activity: Return to Normal Activity Dressing / Incision Call your doctor if you observe: Shortness of breath, Dizziness and Chest pain Follow Up Care Test Results: Test results from this visit will be discussed in further detail at your follow-up appointment, if applicable. Discharge Plan Admission Admit Date/Time: 10/29/20 10:07 Primary Reason for Your Visit: UTI, hypoglycemia Attending Provider: Daya Nassar Primary Care Provider: Becky Lassiter Discharge Orders/Prescriptions Prescriptions: New cefadroxil 500 mg capsule 500 mg PO BID Qty: 14 RF: 0 Continued atenolol 25 MG tablet 25 mg PO DAILY RF: 0 simvastatin 20 MG tablet 20 mg PO DAILY RF: 0 glipizide 10 mg tablet extended release 24hr 10 mg PO DAILY RF: 0 amlodipine 5 mg tablet 5 mg PO DAILY RF: 0 aspirin [Aspirin Low Dose] 81 mg Tablet,Delayed Release (Dr/Ec) 81 mg PO MOWEFR RF: 0 ejzgysuvwvbt-Mp-bnxx-minerals 18-0.4 mg Tablet 1 tab PO DAILY RF: 0 cholecalciferol (vitamin D3) 50 mcg (2,000 unit) Capsule 50 mcg PO TU RF: 0 Changed Lantus U-100 Insulin 100 UNIT/ML solution 35 unit SQ QHS Qty: 0 RF: 0 Referrals / Follow Up: Becky Lassiter DO [Primary Care Provider] - In 1 Week Disposition Disposition (needs filled in before D/C Order can be placed): Home Health Service
--- NOTE | 2020-10-30 10:51 | DS.PCM_ITS ---
Documented by User: Janelle Patel NP, ANGULAR DEVELOPER-C 10/30/20 10:57 Providers Date of Admission: 10/29/20 Date of Discharge: 10/30/20 Primary Care Physician: Dr. Becky Lassiter DO Reason For Visit: UTI, HYPOPGLYCEMIA, ENCEPHALOPATHY Diagnosis Discharge Diagnosis (1) Acute UTI: Status: Acute Code(s): N39.0 - Urinary tract infection, site not specified (2) Diabetic hypoglycemia: Status: Acute Code(s): E11.649 - Type 2 diabetes mellitus with hypoglycemia without coma Medications at Discharge Home Medications atenolol 25 mg PO DAILY 09/27/17 simvastatin 20 mg PO DAILY 09/27/17 glipizide 10 mg PO DAILY 10/20/20 aspirin [Aspirin Low Dose] 81 mg PO MOWEFR 10/28/20 cholecalciferol (vitamin D3) 50 mcg PO TU 10/28/20 lhgwmhtizvdw-Fl-gyrw-minerals 1 tab PO DAILY 10/28/20 Lantus U-100 Insulin 35 unit SQ QHS #0 ml 10/30/20 amlodipine 10 mg PO DAILY #30 tab 10/30/20 cefadroxil 500 mg PO BID #14 cap 10/30/20 Hospital Course Operations None Procedures None Summary of Care Provided Minutes Spent on Discharge: 35 Hospital Course: Patient is a 80-year-old female admitted 10/28/20 due to hypoglycemia and altered mental status. 1. Acute encephalopathy secondary to acute UTI and hypoglycemia- improved. Baseline mental status at discharge. Continue treatment per #2/#3 at discharge. Follow-up with PCP in 1 week. 2. Type 2 diabetes mellitus with hypoglycemia-insulin regimen recently decreased by PCP. Patient ran out of glucose strips at home and has not been checking her blood glucose. States she was not feeling well and took extra insulin prior to admission and was found to be significantly hypoglycemic. Patient's family did buy her more glucose testing supplies. Continue home oral regimen. Reduce Lantus to 35 units at bedtime. Repeat hemoglobin A1c pending at discharge. Instructed patient to continue Accu-Cheks at home and document findings to report to PCP at follow-up for further insulin adjustment as necessary. 3. Acute UTI-IV meropenem during admission. Urine culture growing Klebsiella. Discharged on renally dosed Duricef to complete course. Patient was recently prescribed Keflex for UTI however per admission note, she did not take prescribed medication. 4. Chronic kidney disease stage IIIb-at baseline. 5. Chronic normocytic anemia- stable. 6. Hypertension- stable, continue home atenolol, amlodipine regimen. 7. Hyperlipidemia- continue statin. Physical Exam Const alert, oriented x3 and no apparent distress Orientation / Consciousness: awake, oriented to person, oriented to place and oriented to time HEENT normocephalic and moist oral mucous membranes Eyes PERRL, EOMs intact bilaterally and conjunctivae normal Neck no lymphadenopathy Resp normal respiratory effort and clear to auscultation bilaterally Cardio regular rate, regular rhythm and no murmurs Peripheral Pulses: pulses 2+ throughout GI normal to inspection, nondistended, normoactive bowel sounds, non-tender and non-distended Extremity normal to inspection Skin no rashes or lesions noted Lesions: no lesions Rashes: no rashes Trauma: no lacerations or abrasions Neuro CN's II-XII intact bilaterally, no focal motor deficits, no sensory deficits noted and deep tendon reflexes 2+ bilaterally Psych mental status grossly normal and affect normal Patient seen and examined prior to discharge. Physical assessment as noted above. Patient is stable for discharge with follow up recommendations as noted above. This patient was seen by DOROTHY Milton under the supervision of Dr. Nassar. ABG / Lab / Microbiology Data Result Diagrams: 10/29/20 08:48 10/29/20 08:48 Laboratory: Laboratory Results - last 24 hr 10/29/20 10/29/20 10/29/20 11:26 17:27 22:13 POC Glucose 256 H 225 H 232 H 10/30/20 06:34 POC Glucose 151 H Microbiology: Microbiology 10/28/20 12:35 Urine Culture - Final Urine, Clean Catch Klebsiella pneumoniae sp pneum Microbiology 10/28/20 12:35 Urine, Clean Catch Urine Culture - Final Klebsiella pneumoniae sp pneum D/C Instructions Discharge Diet: No restrictions Call your doctor if you observe: Shortness of breath, Dizziness and Chest pain Meaningful Use Info Meaningful Use Diagnoses (Choose all that apply): None applicable Discharge Plan Admission Admit Date/Time: 10/29/20 10:07 Primary Reason for Your Visit: UTI, hypoglycemia Attending Provider: Daya Nassar Primary Care Provider: Becky Lassiter Discharge Orders/Prescriptions Prescriptions: New cefadroxil 500 mg capsule 500 mg PO BID Qty: 14 RF: 0 amlodipine 10 mg tablet 10 mg PO DAILY Qty: 30 RF: 0 Continued atenolol 25 MG tablet 25 mg PO DAILY RF: 0 simvastatin 20 MG tablet 20 mg PO DAILY RF: 0 glipizide 10 mg tablet extended release 24hr 10 mg PO DAILY RF: 0 aspirin [Aspirin Low Dose] 81 mg Tablet,Delayed Release (Dr/Ec) 81 mg PO MOWEFR RF: 0 xvhivzkfzouo-Nh-cxsw-minerals 18-0.4 mg Tablet 1 tab PO DAILY RF: 0 cholecalciferol (vitamin D3) 50 mcg (2,000 unit) Capsule 50 mcg PO TU RF: 0 Changed Lantus U-100 Insulin 100 UNIT/ML solution 35 unit SQ QHS Qty: 0 RF: 0 Discontinued amlodipine 5 mg tablet 5 mg PO DAILY RF: 0 Referrals / Follow Up: Becky Lassiter DO [Primary Care Provider] - In 1 Week (unable to schedule follow up appointment. Patient to schedule appointment) Disposition Disposition (needs filled in before D/C Order can be placed): Home Health Service Documented by User: Dr. Daya Nassar MD 10/30/20 14:32 Providers Date of Admission: 10/29/20 Reason For Visit: UTI, HYPOPGLYCEMIA, ENCEPHALOPATHY Medications at Discharge Home Medications atenolol 25 mg PO DAILY 09/27/17 simvastatin 20 mg PO DAILY 09/27/17 glipizide 10 mg PO DAILY 10/20/20 aspirin [Aspirin Low Dose] 81 mg PO MOWEFR 10/28/20 cholecalciferol (vitamin D3) 50 mcg PO TU 10/28/20 tovfskbhaoac-Cu-vbyq-minerals 1 tab PO DAILY 10/28/20 Lantus U-100 Insulin 35 unit SQ QHS #0 ml 10/30/20 amlodipine 10 mg PO DAILY #30 tab 10/30/20 cefadroxil 500 mg PO BID #14 cap 10/30/20 ABG / Lab / Microbiology Data Result Diagrams: 10/29/20 08:48 10/29/20 08:48 Discharge Plan Admission Admit Date/Time: 10/29/20 10:07 Primary Reason for Your Visit: UTI, hypoglycemia Attending Provider: Daya Nassar Primary Care Provider: Becky Lassiter Discharge Orders/Prescriptions Prescriptions: New cefadroxil 500 mg capsule 500 mg PO BID Qty: 14 RF: 0 amlodipine 10 mg tablet 10 mg PO DAILY Qty: 30 RF: 0 Continued atenolol 25 MG tablet 25 mg PO DAILY RF: 0 simvastatin 20 MG tablet 20 mg PO DAILY RF: 0 glipizide 10 mg tablet extended release 24hr 10 mg PO DAILY RF: 0 aspirin [Aspirin Low Dose] 81 mg Tablet,Delayed Release (Dr/Ec) 81 mg PO MOWEFR RF: 0 fxjxabfpttyb-Pc-rbik-minerals 18-0.4 mg Tablet 1 tab PO DAILY RF: 0 cholecalciferol (vitamin D3) 50 mcg (2,000 unit) Capsule 50 mcg PO TU RF: 0 Changed Lantus U-100 Insulin 100 UNIT/ML solution 35 unit SQ QHS Qty: 0 RF: 0 Discontinued amlodipine 5 mg tablet 5 mg PO DAILY RF: 0 Referrals / Follow Up: Becky Lassiter DO [Primary Care Provider] - In 1 Week (unable to schedule follow up appointment. Patient to schedule appointment) Disposition Disposition (needs filled in before D/C Order can be placed): Home Health Service Charges/Coding Addendum Addendum: Patient seen by Janelle DE LA CRUZ under my supervision Patient is an 80-year-old female with past medical history as outlined was a dmitted through the ED on 10/28/2020 with a complaint of altered mental status. She had taken a higher dose of her Lantus and taken about 60 units instead of her usual 54 and was found to have hypoglycemia with blood sugar of 33. She was also found to have UTI. She was admitted and managed for iatrogenic hypoglycemia and acute metabolic encephalopathy due to hypoglycemia as well as UTI. She was started on IV meropenem. Her Lantus was initially held and resumed at a lower dose of 20 units daily. Urine culture grew Klebsiella. She remained stable and was discharged home on 10/30/2020 with p.o. Duricef renally dosed. She is follow-up with her primary care doctor and is to check her blood sugars at home to make sure that she does not get hypoglycemic. Patient seen and examined prior to discharge. He had no complaints and wanted to go home. She was working with physical therapy. Review of symptoms otherwise negative. Labs and vitals reviewed. Home medication reviewed and reconciled. O/E: Const alert, oriented x3 and no apparent distress Orientation / Consciousness: awake, oriented to person, oriented to place and oriented to time HEENT normocephalic and moist oral mucous membranes Eyes PERRL, EOMs intact bilaterally and conjunctivae normal Neck no lymphadenopathy Resp normal respiratory effort and clear to auscultation bilaterally Cardio regular rate, regular rhythm and no murmurs Peripheral Pulses: pulses 2+ throughout GI normal to inspection, nondistended, normoactive bowel sounds, non-tender and non-distended Extremity normal to inspection Skin no rashes or lesions noted Lesions: no lesions Rashes: no rashes Trauma: no lacerations or abrasions Neuro CN's II-XII intact bilaterally, no focal motor deficits, no sensory deficits noted and deep tendon reflexes 2+ bilaterally Psych mental status grossly normal and affect normal Plan is for discharge home today. Rest as per Janelle Patel ANGULAR DEVELOPER-c's note, which I have reviewed and endorsed. Visit Charges Inpatient E&M: 30038 Disch Hosp
[2020-10-30 11:12] LABS: Hemoglobin A1c 7.3 % (3.8-5.6)
--- NOTE | 2020-10-30 11:26 | PHA.DC.MC ---
Pharmacy Service has performed discharge medication reconciliation and counseling for this patient. 1. CEFADROXIL 500MG PO BID X 7 DAYS The patient's discharge medication list was reviewed for discrepancies and discrepancies were resolved. Home Medications atenolol 25 mg PO DAILY 09/27/17 simvastatin 20 mg PO DAILY 09/27/17 amlodipine 5 mg PO DAILY 10/20/20 glipizide 10 mg PO DAILY 10/20/20 aspirin [Aspirin Low Dose] 81 mg PO MOWEFR 10/28/20 cholecalciferol (vitamin D3) 50 mcg PO TU 10/28/20 uzsaxrvfgsjy-Ta-mpyw-minerals 1 tab PO DAILY 10/28/20 Lantus U-100 Insulin 35 unit SQ QHS #0 ml 10/30/20 cefadroxil 500 mg PO BID #14 cap 10/30/20 The patient was counseled on the following discharge medications and changes in medications for homegoing were reviewed. The Reason for Use, instructions for use, and potential side effects were reviewed for all new medications. The patient's questions regarding all of their medications were answered. The patient was able to verbally demonstrate an understanding of their discharge medications.
[2020-10-30 11:51] LABS: Bedside Glucose 249 mg/dL (70-110)
[2020-10-30 13:50] VITALS: BP 160/80; PULSE 85; RESP 16; TEMP 36.7; O2SAT 98
--- NOTE | 2020-10-30 14:12 | NURSING ---
Discharge teaching completed. Patient and daughter voiced understanding of same.
--- NOTE | 2020-10-30 14:55 | NURSING ---
Late entry: RN checked with CM to see if able to send script for bp wrist machine. PEr CM, insurance won't cover; however patient can get one OTC at [employer] or a local drug store. Patient and daughter voice understanding of same. Patient instructed to take extra dose of Norvasc 5mg tonight and increase to Norvasc 10mg po tomorrow per YENY Luis. Patient is to monitor bp before taking medication and keep a log. Provide log to PCP at next visit along with glucose levels. Patient and her daughter voice understanding of same.
--- NOTE | 2020-11-02 12:03 | CASEMGMT ---
Addendum entered by Adelaide Garcia 11/02/20 12:51: MIRNA GONZALEZ attempted to call pt dtr as requested. No answer and no voicemail to leave a message. Original Note: MIRNA GONZALEZ Discharge Follow Up Phone Call: MARILUZ: 10 Strata: 3 Call Date: 11.02.20 Discharge Date: 10.30.20 Time of Call:1158 Duration:6 min Admitting Dx: UTI, hypoglycemia, encephalopathy MIRNA GONZALEZ completed follow up phone call after recent hospitalization. Pt states she is doing well. She has her antibiotic prescribed. She states she is seeing today. When asked if [facility] had been in contact, pt was unable to hear this CM. She asked CM to call back at 1245 when her daughter will be there so CM can speak to her. CM to do so. Pt has no further questions or concerns at this time.
== END 2020-10-30 14:32 | disposition home health service (06) | DRG 637 ==
LOC: ED 14:21 → PCU 14:45
PROVIDERS: Nurse Practitioner Family; Admitting Provider Family Medicine; Emergency Provider Emergency Medicine; PCP Family Medicine; Visit Provider Student in an Organized Health Care Education/Training Program
DX: E11.649 Type 2 diabetes mellitus with hypoglycemia without coma (principal); G93.41 Metabolic encephalopathy; N39.0 Urinary tract infection, site not specified; N18.32 Chronic kidney disease, stage 3b; E11.22 Type 2 diabetes mellitus with diabetic chronic kidney disease; I12.9 Hypertensive chronic kidney disease with stage 1 through stage 4 chronic kidney disease, or unspecified chronic kidney disease; D64.9 Anemia, unspecified; D63.1 Anemia in chronic kidney disease; E78.5 Hyperlipidemia, unspecified; Z79.4 Long term (current) use of insulin; Z79.899 Other long term (current) drug therapy; Z87.891 Personal history of nicotine dependence; Z66 Do not resuscitate; B96.1 Klebsiella pneumoniae [K. pneumoniae] as the cause of diseases classified elsewhere
CPT/HCPCS: 36415; 80048; 80053; 81001; 82962; 83036; 85025; 87077; 87086; 87088; 87186; 93005; 97110; 97162; 97166; 97535; 99251; 99285; J2185; J7030; A4216; G0463

== ENCOUNTER 2020-12-10 18:18 | Outpatient (RCR) | payer MEDICARE, OTHER, SELFPAY ==
[2020-12-10 18:44] LABS: Color, Urine Yellow (Yellow); Glucose, Dipstick 100 mg/dl (Normal); Ketone-Dipstick Negative (Negative); Leukocyte Esterase-Dipstick 500 /ul (Negative); Nitrite-Dipstick Negative (Negative); Occult Blood-Urine Negative /ul (Negative); Protein-Dipstick 100 mg/dl (Negative); Specific Gravity, Urine 1.015 (1.002-1.030); Urine Bilirubin Dipstick Negative (Negative); Urine Clarity Sl. Cloudy (Clear); Urine Urobilinogen Normal (Normal)
== END 2020-12-11 18:00 | disposition home or self-care (01) ==
LOC: HHLAB 18:18
PROVIDERS: PCP Family Medicine; Visit Provider Family Medicine
DX: N39.0 Urinary tract infection, site not specified (principal); E11.649 Type 2 diabetes mellitus with hypoglycemia without coma; I12.9 Hypertensive chronic kidney disease with stage 1 through stage 4 chronic kidney disease, or unspecified chronic kidney disease; N18.9 Chronic kidney disease, unspecified
CPT/HCPCS: 81002; 87086; 87088

== ENCOUNTER → 2021-03-20 10:28 | Outpatient (CLI) | payer MEDICARE, OTHER, SELFPAY ==
--- NOTE | 2021-03-20 10:37 | RAD_ITS ---
STUDY: X-RAY CHEST REASON FOR EXAM: Female, 80 years old. CHEST PAIN TECHNIQUE: PA and lateral views of the chest. COMPARISON: 10/20/20. FINDINGS: Surgical clips are noted right base. Upper quadrant. The lungs are clear and expanded. There is no demonstrated pleural abnormality. Normal size heart. Normal mediastinum and riki. Normal visualized pulmonary arteries. There is atherosclerotic calcification of the aortic arch with tortuosity. Normal visualized thoracic spine. Normal visualized ribs, clavicles, and shoulders. There is no demonstrated abnormality of the visualized soft tissue structures of the upper abdomen. RAD/Chest PA and Lateral IMPRESSION: No acute cardiopulmonary process. Electronically Signed: Joel Dawson MD at 11:09 EDT Tel , Service support ,
[2021-03-20 12:12] LABS: Absolute Lymphocyte Count 1.02 X10^3/uL (0.83-4.51); Absolute Neutrophil Count 6.9 X10^3/uL (2.0-7.7); Basophil# 0.02 X10^3/uL; Basophil% 0.2 % (0-1); Eosinophil# 0.12 X10^3/uL; Eosinophils% 1.4 % (0-5); Hematocrit 37.2 % (37-47); Hemoglobin 11.5 g/dL (12.0-15.0); Lymphocyte # 1.02 X10^3/ul (0.83-4.51); Lymphocyte % 11.8 % (19-41); Mean Corp Hgb Conc 30.9 g/dL (32-36); Mean Corpuscular Hgb 26.7 pg (27.0-32.0); Mean Corpuscular Volume 86.5 fL (81-99); Mean Platelet Vol. 12.5 fl (6.2-12.0); Monocyte# 0.57 X10^3/uL; Monocyte% 6.6 % (0-10); NRBC Flagged by Analyzer 0 % (0-5); Neutrophil # 6.88 X10^3/uL (2.7-7.7); Neutrophil % 79.7 % (47-70); Platelet Count 252 K/mm3 (150-450); RBC Distribution Width CV 14.3 % (11.6-14.6); White Blood Count 8.6 K/mm3 (4.4-11.0)
[2021-03-20 12:53] LABS: ALB/GLOB Ratio 0.7 RATIO (0.9-2.4); AST(SGOT) 14 U/L (15-37); Alanine Aminotransfer ALT/SGPT 19 U/L (13-56); Albumin, Serum 3.2 g/dL (3.2-5.0); Alkaline Phosphatase 71 U/L (45-117); Anion Gap 8 (5-15); BUN 41 mg/dL (7-18); BUN/Creat Ratio 20.5 RATIO (10-20); Calcium,Total 9.5 mg/dL (8.5-10.1); Chloride 107 mmol/L (98-107); EST Glomerular Filtration Rate 25 mL/min (>60); Est Glom Filt Rate - Afr Amer 31 mL/min (>60); Globulin 4.5 g/dL (2.2-4.2); Glucose 80 mg/dL (74-106); Potassium 4.3 mmol/L (3.5-5.1); Protein, Total 7.7 g/dL (6.4-8.2); Sodium Level 141 mmol/L (136-145); Thyroid Stim Hormone (TSH) 3.32 uIU/mL (0.358-3.74)
== END ==
PROVIDERS: PCP Family Medicine; Referring Provider Family Medicine; Visit Provider Family Medicine
DX: E11.22 Type 2 diabetes mellitus with diabetic chronic kidney disease (principal); N18.9 Chronic kidney disease, unspecified; R07.9 Chest pain, unspecified; R06.00 Dyspnea, unspecified; R53.83 Other fatigue; D64.9 Anemia, unspecified; D63.1 Anemia in chronic kidney disease
CPT/HCPCS: 36415; 71046; 80053; 84443; 85025

== ENCOUNTER 2021-06-11 15:31 | Emergency (ER) | payer MEDICARE, OTHER, SELFPAY ==
[2021-06-11 15:32] VITALS: BP 146/99; PULSE 88; RESP 19; TEMP 36.5; O2SAT 97; BMI 26.2
[2021-06-11 15:50] LABS: Bedside Glucose 97 mg/dL (70-110)
[2021-06-11 17:01] VITALS: BP 117/72; PULSE 97; RESP 12; O2SAT 96
--- NOTE | 2021-06-11 17:07 | EX.ED.DYSGE1 ---
HPI History of Present Illness Chief Complaint: Hypoglycemia Detail of Chief Complaint: Altered mental status due to hypoglycemia Informant: patient and EMS Onset/Context/Timing Onset: Hours Context: Sudden Onset Timing: Intermittent Quality: Low blood sugar Location: Residents Current Severity: Gone Maximum Severity: Severe Worsened by: Decreased caloric intake Relieved by: Glucose Associated Symptoms Associated Symptoms: None Narrative Narrative: Patient is a type I diabetic who presents because of altered mental status. She had poor caloric intake this morning. She presently has no symptoms. She states she feels back to baseline. She is not required treatment in the emergency department for hyperglycemia in some time. Prior similar symptoms: Yes Recent Illness/Hospitalization: No PFSH PFS Medical History Cancer COPD (chronic obstructive pulmonary disease) Diabetes Diabetes Former smoker Hearing loss, left Hearing loss, right HTN (hypertension) Hypertension Kidney disease Home Medications atenolol 25 mg PO DAILY 09/27/17 [History Last Taken 10/27/20] simvastatin 20 mg PO DAILY 09/27/17 [History Last Taken 10/27/20] aspirin [Aspirin Low Dose] 81 mg PO DAILY 10/28/20 [History Last Taken 10/26/20] cholecalciferol (vitamin D3) 50 mcg PO TU 10/28/20 [History Last Taken 10/27/20] mqqmryqxxpdr-Sg-rfqg-minerals 1 tab PO DAILY 10/28/20 [History Last Taken 10/27/20] Lantus U-100 Insulin 35 unit SQ QHS #0 ml 10/30/20 [Rx Last Taken 10/27/20] amlodipine 5 mg PO/SL DAILY 03/19/21 [History Last Taken Unknown] glipizide 5 mg PO/SL DAILY 03/19/21 [History Last Taken Unknown] Allergy/AdvReac Type Severity Reaction Status Date / Time penicillin Allergy Rash Verified 06/11/21 15:54 Family History Mother Hypertension Diabetes Surgical History Hx of cataract surgery S/P breast lumpectomy Social History household members: none housing: condominium Smoking Status: Former smoker how long ago did patient quit smoking: Patient quit cigarette tobacco use in the 1970s, started age 20-22. alcohol intake: never substance use type: does not use ROS ROS ED Constitutional Constitutional ED: Denies chills, fever(s), subjective or sweats Eyes Eyes: Denies blurry vision, change in vision or diplopia ENT ENT ED: Denies ear pain, rhinorrhea or sore throat Cardiovascular Cardiovascular: Denies chest pain, palpitations or racing heartbeat Respiratory/Chest Respiratory/Chest: Denies cough, dyspnea or dyspnea on exertion Gastrointestinal Gastrointestinal: Denies abdominal pain, diarrhea, nausea or vomiting Genitourinary Genitourinary ED: Denies dysuria, hematuria or urinary frequency Musculoskeletal Musculoskeletal: Denies arthralgias or myalgias Neurologic Neurologic: Denies headache(s), paresthesias or weakness Endocrine Endocrinology: Denies polydipsia, polyphagia or polyuria EXAM Physical Exam Const Vital Signs: 06/11/21 15:32 06/11/21 15:50 06/11/21 17:01 Temperature 97.7 F L Temperature Source Temporal Pulse Rate 88 97 Respiratory Rate 19 H 12 Respiratory Effort Normal Non-Labored Respiratory Pattern Normal Blood Pressure 146/99 H 117/72 Blood Pressure Mean 114 87 Pulse Ox 97 96 Oxygen Delivery Method Room Air Room Air Positive well nourished and well developed General Appearance ED: well developed and NAD; Negative for pallor HEENT Reports TM's clear and moist mucous membranes Negative for trauma or tenderness Tympanic Membrane ED: Yes TM's clear Eyes PERRL and EOMs intact bilaterally General Eye ED: Negative for pale conjunctiva or scleral icterus Neck no lymphadenopathy, supple and no JVD Resp normal respiratory effort and clear to auscultation bilaterally Cardio regular rate, regular rhythm, S2 normal heart sound and no murmurs GI normal to inspection, nondistended, normoactive bowel sounds and non-tender Palpation: soft Extremity normal to inspection Neuro oriented x3, CN's II-XII intact bilaterally and no sensory deficits noted Sensorium / Orientation: alert Motor Exam: strength 5/5 throughout Psych mental status grossly normal Skin no rashes or lesions noted and no wounds General Skin Exam: Negative for jaundice or pallor MDM MDM MDM Narrative Medical decision making narrative: Patient is alert now has no complaints we will feed her. After she demonstrates she is able to eat will discharge to home Lab Data Labs: Laboratory Results - last 24 hr 06/11/21 15:42 POC Glucose 97 Discharge Plan Triage Chief Complaint: Hypoglycemia ED Provider: Diego Jackson Dx/Rx/DC Orders Clinical Impression: Hypoglycemia due to type 1 diabetes mellitus, Acute alteration in mental status Instructions: ED Diabetic Insulin Reaction Prescriptions: No Action atenolol 25 MG tablet 25 mg PO DAILY RF: 0 simvastatin 20 MG tablet 20 mg PO DAILY RF: 0 aspirin [Aspirin Low Dose] 81 mg Tablet,Delayed Release (Dr/Ec) 81 mg PO DAILY RF: 0 xhoobxwcqglt-Fk-ahbu-minerals 18-0.4 mg Tablet 1 tab PO DAILY RF: 0 cholecalciferol (vitamin D3) 50 mcg (2,000 unit) Capsule 50 mcg PO TU RF: 0 Lantus U-100 Insulin 100 UNIT/ML solution 35 unit SQ QHS Qty: 0 RF: 0 amlodipine 5 mg tablet 5 mg PO/SL DAILY RF: 0 glipizide 5 mg tablet 5 mg PO/SL DAILY RF: 0 Primary Care Provider: Becky Lassiter Referrals: Becky Lassiter DO [Primary Care Provider] - As Needed Disposition Disposition: Home, Self Care
[2021-06-11 17:16] LABS: Bedside Glucose 171 mg/dL (70-110)
[2021-06-11 17:40] VITALS: BP 132/109; PULSE 93; O2SAT 97
== END 2021-06-11 17:42 | disposition home or self-care (01) ==
PROVIDERS: Emergency Provider Emergency Medicine; PCP Family Medicine; Visit Provider Emergency Medicine
DX: E10.649 Type 1 diabetes mellitus with hypoglycemia without coma (principal); R41.82 Altered mental status, unspecified; Z87.891 Personal history of nicotine dependence
CPT/HCPCS: 82962; 99285

== ENCOUNTER 2021-11-02 14:53 | Emergency (ER) | payer MEDICARE, OTHER, SELFPAY ==
[2021-11-02 14:54] VITALS: BP 147/92; PULSE 88; RESP 20; TEMP 36.6; O2SAT 96; BMI 26.2
--- NOTE | 2021-11-02 15:40 | EX.ED.VIS.EY ---
HPI History of Present Illness Chief Complaint: Eye Problem Detail of Chief Complaint: Pain above left eye for 3 to 4 days Informant: patient and family Narrative Narrative: Patient presents to the emergency department complaint of pain above her left eye that started 3 to 4 days ago. She denies injury or trauma. She denies fever or recent illness. She denies eye pain or visual changes. Patient's been taken Tylenol for the discomfort. Prior similar symptoms: No PFSH PFSH Medical History Cancer COPD (chronic obstructive pulmonary disease) Diabetes Diabetes Former smoker Hearing loss, left Hearing loss, right HTN (hypertension) Hypertension Kidney disease Home Medications atenolol 25 mg PO DAILY 09/27/17 [History Last Taken 10/27/20] simvastatin 20 mg PO DAILY 09/27/17 [History Last Taken 10/27/20] aspirin [Josue Low Dose Aspirin] 81 mg PO DAILY 10/28/20 [History Last Taken 10/26/20] cholecalciferol (vitamin D3) 50 mcg PO TU 10/28/20 [History Last Taken 10/27/20] jdpvwmhdwbtv-Zx-tcfp-minerals 1 tab PO DAILY 10/28/20 [History Last Taken 10/27/20] Lantus U-100 Insulin 35 unit SQ QHS #0 ml 10/30/20 [Rx Last Taken 10/27/20] amlodipine 5 mg PO/SL DAILY 03/19/21 [History Last Taken Unknown] glipizide 5 mg PO/SL DAILY 03/19/21 [History Last Taken Unknown] famciclovir 500 mg PO Q8H 5 Days #15 tab 11/02/21 [Rx Last Taken Unknown] hydrocodone-acetaminophen 1 tab PO Q4H PRN PRN 2 Days #10 tablet 11/02/21 [Rx Last Taken Unknown] prednisone 20 mg PO BID #10 tab 11/02/21 [Rx Last Taken Unknown] Allergy/AdvReac Type Severity Reaction Status Date / Time penicillin Allergy Rash Verified 11/02/21 14:56 Family History Mother Hypertension Diabetes Surgical History Hx of cataract surgery S/P breast lumpectomy Social History household members: none housing: condominium Smoking Status: Former smoker how long ago did patient quit smoking: Patient quit cigarette tobacco use in the 1970s, started age 20-22. alcohol intake: never substance use type: does not use ROS ROS ED Constitutional Constitutional ED: Reports systems reviewed and no addt'l complaints, except as documented; Denies body ache(s), change in weight or chills Eyes Eyes: Denies acute decrease in peripheral vision, change in vision, double vision or loss of vision ENT ENT ED: Reports none and other Details: Pain left forehead above left eyebrow ; Denies ear pain, lip swelling, loss taste/smell, neck pain, otalgia or sore throat Cardiovascular Cardiovascular: Reports none; Denies abdominal pain, chest pain with activity, leg edema, lightheadedness, palpitations, rapid heart rate or syncope Respiratory/Chest Respiratory/Chest: Reports none; Denies change in mental status, dry cough, dyspnea, hemoptysis, shortness of breath at rest or shortness of breath with exertion Gastrointestinal Gastrointestinal: Reports none; Denies abdominal pain, change in stool character, diarrhea, hematemesis, hematochezia, melena, rectal bleeding or vomiting Genitourinary Genitourinary ED: Reports none; Denies abdominal discomfort, anuria, dysuria, genital pain or polyuria Musculoskeletal Musculoskeletal: Reports none; Denies arthralgias, back pain, difficulty walking, extremity pain, muscle weakness or myalgias Integumentary Reports none; Denies abscess or rash Neurologic Neurologic: Reports none; Denies abnormal gait, confusion, focal weakness, frequent falls, headache(s), loss of vision, numbness, paresthesias, radicular pain, vertigo or weakness Psychiatric Psychiatric: Reports systems reviewed and no addt'l complaints, except as documented and none; Denies behavioral changes, confusion, difficulty concentrating, hallucinations, suicidal ideation, tactile hallucinations or visual hallucinations Endocrine Endocrinology: Denies none, cold intolerance, excessive sweating, fatigue or heat intolerance Hematologic/Lymphatic Hematologic/Lymphatic: Reports none; Denies anemia, easy bleeding or easy bruising Allergic/Immunologic Allergic/Immunologic ED: Denies as per HPI, none, lip swelling, mouth swelling, throat swelling, tongue swelling or hives EXAM Physical Exam Const Vital Signs: 11/02/21 14:54 Temperature 97.9 F Temperature Source Temporal Pulse Rate 88 Respiratory Rate 20 H Blood Pressure 147/92 H Blood Pressure Mean 110 Pulse Ox 96 Oxygen Delivery Method Room Air Positive well nourished and well developed General Appearance ED: well developed and NAD HEENT Reports TM's clear and moist mucous membranes HEENT Narrative: Patient has a vesicular rash above the left eyebrow in a dermatomal pattern consistent with shingles. No lesions noted onto the upper eyelid. No lesions noted on the cornea. No lesions noted at the ear or nose. normocephalic and atraumatic; Negative for trauma or tenderness Tympanic Membrane ED: Yes TM's clear Eyes PERRL and EOMs intact bilaterally General Eye ED: Negative for pale conjunctiva or scleral icterus Neck no lymphadenopathy, supple and no JVD General: Negative for tenderness Chest Wall inspection of chest normal and palpation of chest normal Chest: Negative for tenderness Resp normal respiratory effort and clear to auscultation bilaterally Effort and Inspection: Negative for respiratory distress or pain with movement Auscultation: Negative for rhonchi, wheezes or diminished lung sounds Cardio regular rate, regular rhythm, S1 normal heart sound, S2 normal heart sound and no murmurs Peripheral Pulses: pulses 2+ throughout GI normal to inspection, nondistended, normoactive bowel sounds, soft to palpation, non-tender, non-distended and no masses Back/Spine no CVA tenderness and no thoracic nor lumbar tenderness Extremity normal to inspection General Extremety ED: Negative for edema General Extremity: Negative for edema Neuro oriented x3, CN's II-XII intact bilaterally, no sensory deficits noted and gait normal Sensorium / Orientation: awake, alert, oriented to person, oriented to place and oriented to time Motor Exam: strength 5/5 throughout and strength abnormal Psych mental status grossly normal Skin no rashes or lesions noted and no wounds MDM MDM MDM Narrative Medical decision making narrative: I feel patient has shingles. I will start her on antiviral as well as prednisone and a few [place] for pain. Patient advised to follow-up with her primary care physician in 3 to 5 days. Discharge Plan Triage Chief Complaint: Eye Problem ED Provider: Aida Raza Dx/Rx/DC Orders Clinical Impression: Shingles Instructions: Shingles (Herpes Zoster) Prescriptions: New prednisone 20 mg tablet 20 mg PO BID Qty: 10 RF: 0 famciclovir 500 mg tablet 500 mg PO Q8H 5 Days Qty: 15 RF: 0 hydrocodone-acetaminophen [hydrocodone-acetaminophen] 1 TABLET tablet 1 tab PO Q4H PRN PRN (Reason: Pain) 2 Days Qty: 10 RF: 0 No Action atenolol 25 MG tablet 25 mg PO DAILY RF: 0 simvastatin 20 MG tablet 20 mg PO DAILY RF: 0 aspirin [Josue Low Dose Aspirin] 81 mg Tablet,Delayed Release (Dr/Ec) 81 mg PO DAILY RF: 0 dowrnttyioev-Pe-gnvd-minerals 18-0.4 mg Tablet 1 tab PO DAILY RF: 0 cholecalciferol (vitamin D3) 50 mcg (2,000 unit) Capsule 50 mcg PO TU RF: 0 Lantus U-100 Insulin 100 UNIT/ML solution 35 unit SQ QHS Qty: 0 RF: 0 amlodipine 5 mg tablet 5 mg PO/SL DAILY RF: 0 glipizide 5 mg tablet 5 mg PO/SL DAILY RF: 0 Primary Care Provider: Becky Lassiter Referrals: Becky Lassiter DO [Primary Care Provider] - 3-5 Days Disposition Disposition: Home, Self Care
--- NOTE | 2021-11-02 16:00 | ED.RN ---
PT AND PT DAUGHTER EDUCATED ON WRITTEN AND VERBAL DISCHARGE INSTRUCTIONS AND HOME GOING PRESCRIPTIONS. PT EDUCATED ON SIDE EFFECTS OF NARCOTICS AND NOT TO DRIVE WHEN TAKING THEM. PT AND FAMILY VERBALIZES UNDERSTANDING AND DENIES ANY FURTHER QUESTIONS.
== END 2021-11-02 16:07 | disposition home or self-care (01) ==
LOC: ED 15:49
PROVIDERS: Emergency Provider Emergency Medicine; PCP Family Medicine; Visit Provider Emergency Medicine
DX: B02.9 Zoster without complications (principal); Z87.891 Personal history of nicotine dependence
CPT/HCPCS: 99282

== ENCOUNTER 2021-11-06 16:15 | Observation (INO) | payer MEDICARE, OTHER, SELFPAY ==
[2021-11-06] VITALS (10 sets, daily range): BP systolic 153–192; BP diastolic 60–85; PULSE 75–92; RESP 16–21; TEMP 36.6–36.8; O2SAT 97–99; BMI 20.5; BMI 24.5
--- NOTE | 2021-11-06 16:53 | EKG12_ITS ---
Test Reason : CP Blood Pressure : / mmHG Vent. Rate : 082 BPM Atrial Rate : 082 BPM P-R Int : 114 ms QRS Dur : 068 ms QT Int : 346 ms P-R-T Axes : 055 -01 021 degrees QTc Int : 404 ms Normal sinus rhythm Normal ECG Confirmed by RICK JORDAN, BABITA ([id number]), primer expeditor and drier PATIENCE PRETTY ([id number]) on 11/08/2021 11:17:32 AM Referred By: Confirmed By:BABITA CABRERA MD
--- NOTE | 2021-11-06 16:54 | ED.VIS.CHEST ---
HPI History of Present Illness Chief Complaint: Chest Pain Informant: patient and family Onset/Context/Timing Onset: Days (2-3) Timing: Intermittent and Lasts (15-20 min) Quality: Positive for - (unknown; can't remember quality of discomfort) Location: Substernal Current Severity: Gone Maximum Severity: 5/10 Worsened By: Nothing (Has occurred when lying down and also with walking around/light exertion) Relieved By: Nothing Associated Symptoms: Positive for - (fatigue); Negative for Nausea, Vomiting, Diaphoresis, Dyspnea, Cough, Fever and Lightheadedness Narrative Narrative: Intermittent chest discomfort for the last couple days, not currently present. Just prior to this patient was seen here diagnosed with shingles in the left side of her face, for which she was prescribed hydrocodone, famciclovir, and prednisone. No history of heart disease that she knows of. Lives alone, diabetic. No other recent illnesses. Prior Similar Symptoms: No [facility] Medical History (Updated 11/06/21 @ 19:[address] Robert Frazier MD) Cancer COPD (chronic obstructive pulmonary disease) Diabetes Former smoker Hearing loss, left Hearing loss, right HTN (hypertension) Hyperlipidemia Hypertension Kidney disease Home Medications atenolol 25 mg PO DAILY 09/27/17 [History Last Taken 10/27/20] simvastatin 20 mg PO DAILY 09/27/17 [History Last Taken 10/27/20] aspirin [Josue Low Dose Aspirin] 81 mg PO DAILY 10/28/20 [History Last Taken 10/26/20] cholecalciferol (vitamin D3) 50 mcg PO TU 10/28/20 [History Last Taken 10/27/20] wjvlgirmywco-Wd-vigc-minerals 1 tab PO DAILY 10/28/20 [History Last Taken 10/27/20] insulin glargine [Lantus U-100 Insulin] 35 unit SQ QHS #0 ml 10/30/20 [Rx Last Taken 10/27/20] amlodipine 5 mg PO/SL DAILY 03/19/21 [History Last Taken Unknown] glipizide 5 mg PO/SL DAILY 03/19/21 [History Last Taken Unknown] famciclovir 500 mg PO Q8H 5 Days #15 tab 11/02/21 [Rx Last Taken Unknown] hydrocodone-acetaminophen 1 tab PO Q4H PRN PRN 2 Days #10 tablet 11/02/21 [Rx Last Taken Unknown] prednisone 20 mg PO BID #10 tab 11/02/21 [Rx Last Taken Unknown] Allergy/AdvReac Type Severity Reaction Status Date / Time penicillin Allergy Rash Verified 11/06/21 16:16 Family History Mother Hypertension Diabetes Surgical History Hx of cataract surgery S/P breast lumpectomy Social History [facility] members: [facility] Smoking Status: Former smoker how long ago did patient quit smoking: Patient quit cigarette tobacco use in the 1970s, started age [age]. alcohol intake: never substance use type: does not use ROS ROS ED Constitutional Constitutional ED: Reports fatigue; Denies body ache(s), chills or fever(s) Eyes Eyes: Denies change in vision or diplopia ENT ENT ED: Denies rhinorrhea or sore throat Cardiovascular Cardiovascular: Reports chest pain; Denies palpitations Respiratory/Chest Respiratory/Chest: Denies cough or dyspnea Gastrointestinal Gastrointestinal: Denies abdominal pain, diarrhea, nausea or vomiting Genitourinary Genitourinary ED: Denies dysuria or hematuria Musculoskeletal Musculoskeletal: Denies back pain or neck pain Integumentary Reports rash; Denies abscess Neurologic Neurologic: Denies headache(s), paresthesias or weakness Psychiatric Psychiatric: Denies anxiety or suicidal thoughts EXAM Physical Exam Const Vital Signs: 11/06/21 16:17 11/06/21 16:39 11/06/21 17:02 Temperature 98.3 F Temperature Source Temporal Pulse Rate 83 Respiratory Rate 16 Respiratory Effort Normal Non-Labored Blood Pressure 153/66 H Blood Pressure Mean 95 Pulse Ox 98 Oxygen Delivery Method Room Air Room Air 11/06/21 17:39 11/06/21 17:46 Temperature Temperature Source Pulse Rate 78 75 Respiratory Rate 21 H 20 H Respiratory Effort Blood Pressure 181/74 H 176/70 H Blood Pressure Mean 109 105 Pulse Ox 97 97 Oxygen Delivery Method Room Air Room Air Positive well nourished and well developed General Appearance ED: well developed and NAD HEENT Reports moist mucous membranes normocephalic and atraumatic Eyes PERRL and EOMs intact bilaterally Neck full ROM and supple Resp normal respiratory effort and clear to auscultation bilaterally Effort and Inspection: able to speak in complete sentences Cardio regular rate, regular rhythm and no murmurs Rate: Negative for tachycardic GI non-tender and non-distended Auscultation: normoactive bowel sounds Palpation: soft Back/Spine no CVA tenderness General Back: other FROM Extremity normal to inspection General Extremety ED: Negative for edema, pulses abnormal or tenderness General Extremity: Negative for edema or pulses abnormal Neuro oriented x3, CN's II-XII intact bilaterally and no sensory deficits noted Sensorium / Orientation: awake and alert Motor Exam: strength 5/5 throughout Skin no wounds Skin Narrative: Mildly erythematous mildly tender rash left forehead. No signs of abscess or drainage. Heart Score History: Moderately Suspicious ECG: Normal Age: >/= 65 years Risk Factors: >/= 3 Risk Factors or History of CAD Troponin: </= Normal Limit Score: 5 MDM MDM MDM Narrative Medical decision making narrative: During observation patient had elevated blood pressures but did not have any recurrent chest discomfort. Her initial troponin is 7 and a repeat is 8, this was within normal limits, my concern more is her intermittent symptoms, she is an elderly diabetic, and she has not had a recent stress test. I would ideally admit her for observation and stress test but being Monday she will not likely have it tomorrow and probably Monday, family is okay with that because none of them are local and the patient lives alone. I think that would be the best course. Also, her potassium was 5.8 but had hemolysis so I had it repeated and it is 5.7. This is in context with what appears to be chronic renal insufficiency, it may be a little worse than before but she has been higher with regards to her creatinine. I am giving her a dose of Kayexalate she has no EKG changes of this, and is clinically and hemodynamically stable otherwise. Lab Data Attestation: I reviewed the patient's lab results. Labs: Laboratory Results - last 24 hr 11/06/21 11/06/21 11/06/21 16:30 16:30 18:45 WBC 10.1 RBC 4.26 Hgb 11.7 L Hct 36.4 L MCV 85.4 MCH 27.5 MCHC 32.1 RDW Std Deviation 41.5 RDW Coeff of Abhinav 13.4 Plt Count 262 MPV 12.5 H Immature Gran % (Auto) 0.800 Neut % (Auto) 88.3 H Lymph % (Auto) 8.5 L [place] % (Auto) 2.2 Eos % (Auto) 0.1 Baso % (Auto) 0.1 Absolute Neuts (auto) 8.9 H Absolute Lymphs (auto) 0.86 Nucleated RBC % 0 Sodium 136 Potassium 5.8 H 5.7 H Chloride 107 Carbon Dioxide 23.0 Anion Gap 6 BUN 56 H Creatinine 2.03 H Estim Creat Clear Calc 14.53 Est GFR (MDRD) Af Amer 30 L Est GFR (MDRD) Non-Af 25 L BUN/Creatinine Ratio 27.6 H Glucose 387 H Calcium 9.6 Troponin I High Sens 7 11/06/21 18:45 WBC RBC Hgb Hct MCV MCH MCHC RDW Std Deviation RDW Coeff of Abhinav Plt Count MPV Immature Gran % (Auto) Neut % (Auto) Lymph % (Auto) [place] % (Auto) Eos % (Auto) Baso % (Auto) Absolute Neuts (auto) Absolute Lymphs (auto) Nucleated RBC % Sodium Potassium Chloride Carbon Dioxide Anion Gap BUN Creatinine Estim Creat Clear Calc Est GFR (MDRD) Af Amer Est GFR (MDRD) Non-Af BUN/Creatinine Ratio Glucose Calcium Troponin I High Sens 8 Radiography Chest X-Ray - ED: 1 View, Read by ED Physician, No Acute Disease and Chronic Changes Diagnostic Testing: Clinical Impression(s) from Imaging Studies Chest X-Ray 11/06/21 17:04 IMPRESSION: 1. Mild cardiomegaly without heart failure. 2. No other evidence of active cardiopulmonary disease. 3. Mild demineralization. 1. Mild thoracic dextroscoliosis. Electronically Signed: Nba Dias MD at 18:26 EDT , Rhythm Strip Rhythm Strip: Sinus Rhythm Rate: 80 Ectopy: None EKG Initial EKG: Attestation: I personally reviewed and interpreted this EKG as follows: Interpretation: Sinus Rhythm and No Acute Injury Pattern Comments: Normal axis, normal EKG Discharge Plan Dx/Rx/DC Orders Clinical Impression: Intermittent chest pain, Chronic renal insufficiency, Hyperkalemia Disposition Disposition: Acute Care Hospital [facility]
[2021-11-06] MEDS: Aspirin 81 MG TAB.CHEW 324 MG PO (16:57)
--- NOTE | 2021-11-06 17:04 | RAD_ITS ---
STUDY: PORTABLE AP UPRIGHT CHEST X-RAY OF 1703 HOURS ON 11/06/2021 REASON FOR EXAM: 81-year-old female with chest pain. TECHNIQUE: A single view portable AP upright chest x-ray was performed per protocol. COMPARISON: 03/20/2021. FINDINGS: Mild demineralization. Mild thoracic dextroscoliosis. No rib abnormalities. Mild cardiomegaly without heart failure. Mildly tortuous thoracic aorta. No pulmonary infiltrates, atelectasis, effusion, or pulmonary mass lesions. RAD/Chest 1 View (Portable) IMPRESSION: 1. Mild cardiomegaly without heart failure. 2. No other evidence of active cardiopulmonary disease. 3. Mild demineralization. 1. Mild thoracic dextroscoliosis. Electronically Signed: Nba Dias MD at 18:26 EDT ,
[2021-11-06 17:05] LABS: Absolute Lymphocyte Count 0.86 X10^3/uL (0.83-4.51); Absolute Neutrophil Count 8.9 X10^3/uL (2.0-7.7); Basophil# 0.01 X10^3/uL; Basophil% 0.1 % (0-1); Eosinophil# 0.01 X10^3/uL; Eosinophils% 0.1 % (0-5); Hematocrit 36.4 % (37-47); Hemoglobin 11.7 g/dL (12.0-15.0); Lymphocyte # 0.86 X10^3/ul (0.83-4.51); Lymphocyte % 8.5 % (19-41); Mean Corp Hgb Conc 32.1 g/dL (32-36); Mean Corpuscular Hgb 27.5 pg (27.0-32.0); Mean Corpuscular Volume 85.4 fL (81-99); Mean Platelet Vol. 12.5 fl (6.2-12.0); Monocyte# 0.22 X10^3/uL; Monocyte% 2.2 % (0-10); NRBC Flagged by Analyzer 0 % (0-5); Neutrophil # 8.89 X10^3/uL (2.7-7.7); Neutrophil % 88.3 % (47-70); Platelet Count 262 K/mm3 (150-450); RBC Distribution Width CV 13.4 % (11.6-14.6); RBC Distribution Width SD 41.5 fl (35.1-43.9); Red Blood Count 4.26 M/mm3 (4.2-5.4); White Blood Count 10.1 K/mm3 (4.4-11.0)
[2021-11-06 18:07] LABS: Anion Gap 6 (5-15); BUN 56 mg/dL (7-18); BUN/Creat Ratio 27.6 RATIO (10-20); Calcium,Total 9.6 mg/dL (8.5-10.1); Chloride 107 mmol/L (98-107); Creatinine, Serum 2.03 mg/dL (0.55-1.02); EST Glomerular Filtration Rate 25 mL/min (>60); Est Glom Filt Rate - Afr Amer 30 mL/min (>60); Estimated Creatinine Clearance 14.53 ml/min; Glucose 387 mg/dL (74-106); Potassium 5.8 mmol/L (3.5-5.1); Sodium Level 136 mmol/L (136-145); Troponin-I HS (w/2H Reflex) 7 pg/mL (3.0-54.0)
[2021-11-06 18:35] LABS: Reflex Troponin-HS? (from REC) Y
[2021-11-06 19:02] LABS: Potassium 5.7 mmol/L (3.5-5.1)
[2021-11-06 19:15] LABS: Troponin-I HS 8 pg/mL (3.0-54.0)
[2021-11-06] MEDS: Sodium Polystyrene Sulfonate 15 GM/60 ML UDC PO (19:43)
--- NOTE | 2021-11-06 19:51 | HP.PCM.HOS_ITS ---
HPI - General General Date of Admission: 11/06/21 HPI Narrative ÁNGEL MARVIN, is a 81 F with a significant history of hypertension and diabetes mellitus who is on a current treatment for shingles that started few days ago presents emergency department with intermittent substernal chest pain that lasted for about 15 to 20 minutes per time. Had symptoms started about 2 to 3 days ago. She described pain as dull and aching. Patient is a poor informant and is unable to state whether anything aggravates or ameliorated pain. Her chest pain is nonradiating. The severity of the pain is 4-5 on a scale of 1-10. Patient was at emergency department on 11/02/2021 and was diagnosed with s [place]. She is on acyclovir; [place] and prednisone for the shingles. [facility] Medical History Cancer COPD (chronic obstructive pulmonary disease) Diabetes Former smoker Hearing loss, left Hearing loss, right HTN (hypertension) Hyperlipidemia Hypertension Kidney disease Home Medications atenolol 25 mg PO DAILY 09/27/17 [History Last Taken 10/27/20] simvastatin 20 mg PO DAILY 09/27/17 [History Last Taken 10/27/20] aspirin [Josue Low Dose Aspirin] 81 mg PO DAILY 10/28/20 [History Last Taken 10/26/20] cholecalciferol (vitamin D3) 50 mcg PO TU 10/28/20 [History Last Taken 10/27/20] fqksjnnvvslw-Gf-opwv-minerals 1 tab PO DAILY 10/28/20 [History Last Taken 10/27/20] insulin glargine [Lantus U-100 Insulin] 35 unit SQ QHS #0 ml 10/30/20 [Rx Last Taken 10/27/20] amlodipine 5 mg PO/SL DAILY 03/19/21 [History Last Taken Unknown] glipizide 5 mg PO/SL DAILY 03/19/21 [History Last Taken Unknown] famciclovir 500 mg PO Q8H 5 Days #15 tab 11/02/21 [Rx Last Taken Unknown] hydrocodone-acetaminophen 1 tab PO Q4H PRN PRN 2 Days #10 tablet 11/02/21 [Rx Last Taken Unknown] prednisone 20 mg PO BID #10 tab 11/02/21 [Rx Last Taken Unknown] Allergy/AdvReac Type Severity Reaction Status Date / Time penicillin Allergy Rash Verified 11/06/21 16:16 Family History Mother Hypertension Diabetes Surgical History Hx of cataract surgery S/P breast lumpectomy Social History [facility] Smoking Status: Former smoker how long ago did patient quit smoking: Patient quit cigarette tobacco use in the 1970s, started age [age]. alcohol intake: never substance use type: does not use ROS ROS Narrative Pertinent positives and pertinent negatives as noted in HPI. All other systems were reviewed and are negative or could not be obtained because patient is a poor informant. Vital Signs Vital Signs Vital Signs: 11/06/21 16:17 11/06/21 16:39 11/06/21 17:02 Temperature 98.3 F Temperature Source Temporal Pulse Rate 83 Respiratory Rate 16 Respiratory Effort Normal Non-Labored Blood Pressure 153/66 H Blood Pressure Mean 95 Pulse Ox 98 Oxygen Delivery Method Room Air Room Air 11/06/21 17:39 11/06/21 17:46 Temperature Temperature Source Pulse Rate 78 75 Respiratory Rate 21 H 20 H Respiratory Effort Blood Pressure 181/74 H 176/70 H Blood Pressure Mean 109 105 Pulse Ox 97 97 Oxygen Delivery Method Room Air Room Air Weight Weight: 43.091 kg Body Mass Index (BMI) 20.5 Physical Exam Narrative Physical exam: General: Well-nourished, well-developed. Head: Normocephalic, atraumatic, no tenderness Eyes: Vision is grossly intact. EOMI ENT, no trauma, moist mucous membranes, no rhinorrhea Neck: Nontender, full range of motion CVS: Regular rate and rhythm. S1-S2 present. No murmur, gallop or rub. Respiratory : clear to auscultation bilaterally, chest wall nontender, no wheezing Abdomen: Soft, nontender, nondistended, normal bowel sounds, no masses : Deferred Back: Nontender, no CVA tenderness, no midline spinal tenderness, deformities, step-offs Extremities: Nontender full range of motion, no trauma Skin: Excoriation on left supra orbital area. Dry skin on legs. Neuro: Alert, oriented, cranial nerves II through XII grossly intact. Tremors (reported chronic) Psychiatry: Normal mood. Normal affect. Not depressed. Not anxious. Results Lab / Micro Data Result Diagrams: 11/06/21 16:30 11/06/21 18:45 Labs: Laboratory Results - last 24 hr 11/06/21 16:30: WBC 10.1, RBC 4.26, Hgb 11.7 L, Hct 36.4 L, MCV 85.4, MCH 27.5, MCHC 32.1, RDW Std Deviation 41.5, RDW Coeff of Abhinav 13.4, Plt Count 262, MPV 12.5 H, Immature Gran % (Auto) 0.800, Neut % (Auto) 88.3 H, Lymph % (Auto) 8.5 L , [place] % (Auto) 2.2, Eos % (Auto) 0.1, Baso % (Auto) 0.1, Absolute Neuts (auto) 8.9 H, Absolute Lymphs (auto) 0.86, Nucleated RBC % 0 11/06/21 16:30: Sodium 136, Potassium 5.8 H, Chloride 107, Carbon Dioxide 23.0, Anion Gap 6, BUN 56 H, Creatinine 2.03 H, Estim Creat Clear Calc 14.53, Est GFR (MDRD) Af Amer 30 L, Est GFR (MDRD) Non-Af 25 L, BUN/Creatinine Ratio 27.6 H, Glucose 387 H, Calcium 9.6, Troponin I High Sens 7 11/06/21 18:45: Potassium 5.7 H 11/06/21 18:45: Troponin I High Sens 8 Rhythm Strip Rhythm Strip: Sinus Rhythm Rate: 80 Ectopy: None Radiology Impression Chest X-Ray 11/06/21 17:04 IMPRESSION: 1. Mild cardiomegaly without heart failure. 2. No other evidence of active cardiopulmonary disease. 3. Mild demineralization. 1. Mild thoracic dextroscoliosis. Electronically Signed: Nba Dias MD at 18:26 EDT , Assessment & Plan Assessment/Plan (1) Intermittent chest pain: (2) Hyperkalemia: (3) Shingles: QUALIFIERS: Herpes zoster complications: without complications Qualified Code(s): B02.9 - Zoster without complications PLAN: Chest Pain Place on a monitored bed at PCU Actual CXR image was independently visualized. No acute cardiopulmonary process was noted. I agree with radiology interpretation above Actual EKG tracing was independently visualized. EKG tracing showed normal ST waves with no ST depression flattened. Noted is a tall T waves. ASA 81 mg p.o. daily continued SL NTG 0.4 mg prn as needed for chest pain ordered Home simvastatin continued We will check lipid panel. High sensitive troponin x2 was unremarkable. Serial cardiac enzymes ordered Stat EKG as needed for chest pain Chemical stress test ordered for 11/08/2021 if cardiac enzymes remain negative Diabetes mellitus Patient with hyperglycemia on presentation Home glipizide and basal insulin continued. Accu-Chek QA CHS with correction scale insulin ordered. Hyperkalemia Initial potassium presentation was 5.8. Because of hemolysis repeat was ordered. Repeat potassium was 5.7. Kayexalate ordered emergency department. M iraLAX ordered. Trend BMP. CKD stage IIIb Stable Trend BMP Hypertensive urgency Documented systolic blood pressure of 181 on presentation. And while in patient's room patient blood pressure was 200. Home atenolol and amlodipine will be continued. As needed hydralazine ordered. Trend blood pressure and adjust blood pressure medications as necessary. DVT prophylaxis: Subcutaneous heparin ordered. Charges/Coding Visit Charges OBSV E&M: 64312 Initial observation care L3
--- NOTE | 2021-11-06 20:22 | EKG12_ITS ---
Test Reason : CP ADMIT Blood Pressure : / mmHG Vent. Rate : 078 BPM Atrial Rate : 078 BPM P-R Int : 114 ms QRS Dur : 070 ms QT Int : 354 ms P-R-T Axes : 050 -11 018 degrees QTc Int : 403 ms Normal sinus rhythm Normal ECG When compared with ECG of 06-NOV-2021 16:24, MANUAL COMPARISON REQUIRED, DATA IS UNCONFIRMED Confirmed by RICK JORDAN, BABITA ([id number]), rewrite editor PATIENCE PRETTY ([id number]) on 11/08/2021 1:05:02 PM Referred By: DR MORTON Confirmed By:BABITA CABRERA MD
[2021-11-06 22:26] LABS: Bedside Glucose 332 mg/dL (74-106)
[2021-11-06] MEDS: predniSONE 20 MG Tablet PO (22:28)
[2021-11-06] MEDS: Acyclovir 800 MG Tablet PO (22:28)
[2021-11-06] MEDS: Insulin Lispro 100 UNIT/ML INSULN.PEN SC (22:29)
[2021-11-06] MEDS: Heparin Injection (Vial) 5,000 UNIT/ML VIAL 5000 UNIT SC (22:30)
[2021-11-06] MEDS: Polyethylene Glycol 3350 17 GM PACKET PO (22:30)
[2021-11-06] MEDS: Atorvastatin Calcium 10 MG Tablet PO (22:30)
[2021-11-06] MEDS: 0.9% Saline Lock 10 ML Syringe IV ×2 (22:30→22:51)
[2021-11-06] MEDS: Insulin Glargine-YFGN 100 UNIT/ML Pen 35 UNIT SC (22:30)
[2021-11-06] MEDS: hydrALAZINE 20 MG/ML Vial 10 MG IV (22:51)
[2021-11-06 23:12] LABS: Troponin-I HS 10 pg/mL (3.0-54.0)
[2021-11-07] VITALS (12 sets, daily range): BP systolic 156–177; BP diastolic 67–72; PULSE 86–96; RESP 16–20; TEMP 36.5–37.1; O2SAT 98–100
[2021-11-07] MEDS: hydrALAZINE 20 MG/ML Vial 10 MG IV ×2 (04:43→22:51)
[2021-11-07] MEDS: Acetaminophen 325 MG Tablet 650 MG PO ×2 (04:43→11:42)
[2021-11-07] MEDS: 0.9% Saline Lock 10 ML Syringe IV (04:44)
[2021-11-07] MEDS: Insulin Lispro 100 UNIT/ML INSULN.PEN SC ×6 (06:35→22:50)
[2021-11-07] MEDS: Acyclovir 800 MG Tablet PO ×3 (06:36→22:54)
[2021-11-07 06:39] LABS: Anion Gap 6 (5-15); BUN 55 mg/dL (7-18); BUN/Creat Ratio 32.4 RATIO (10-20); Calcium,Total 9.2 mg/dL (8.5-10.1); Chloride 110 mmol/L (98-107); Cholesterol 135 mg/dL (200); EST Glomerular Filtration Rate 31 mL/min (>60); Est Glom Filt Rate - Afr Amer 37 mL/min (>60); Estimated Creatinine Clearance 22.19 ml/min; Glucose 253 mg/dL (74-106); High Density Lipoprotein 42 mg/dL; Potassium 4.8 mmol/L (3.5-5.1); Sodium Level 139 mmol/L (136-145); Triglycerides 151 mg/dL; Very Low Density Lipoprotein 30 mg/dL (5-40)
[2021-11-07 06:50] LABS: Bedside Glucose 255 mg/dL (74-106)
--- NOTE | 2021-11-07 09:14 | PCM.PN.HOSP ---
Subjective Subjective Doing well, no issues overnight. Chest pain has resolved and troponins have remained negative. She still has discomfort on her forehead from shingles Objective Data Objective Data Vital Signs: Vital Signs Temp Pulse Resp BP Pulse Ox 98.8 F 95 18 156/68 H 98 11/07/21 04:34 11/07/21 07:01 11/07/21 04:34 11/07/21 06:41 11/07/21 04:34 Oxygen Delivery Method Room Air Weight: 121 lb 7.595 oz Body Mass Index (BMI) 24.5 Lab / Micro Data Result Diagrams: 11/06/21 16:30 11/07/21 05:50 Labs: Laboratory Results - last 24 hr 11/06/21 16:30: WBC 10.1, RBC 4.26, Hgb 11.7 L, Hct 36.4 L, MCV 85.4, MCH 27.5, MCHC 32.1, RDW Std Deviation 41.5, RDW Coeff of Abhinav 13.4, Plt Count 262, MPV 12.5 H, Immature Gran % (Auto) 0.800, Neut % (Auto) 88.3 H, Lymph % (Auto) 8.5 L, [place] % (Auto) 2.2, Eos % (Auto) 0.1, Baso % (Auto) 0.1, Absolute Neuts (auto) 8.9 H, Absolute Lymphs (auto) 0.86, Nucleated RBC % 0 11/06/21 16:30: Sodium 136, Potassium 5.8 H, Chloride 107, Carbon Dioxide 23.0, Anion Gap 6, BUN 56 H, Creatinine 2.03 H, Estim Creat Clear Calc 14.53, Est GFR (MDRD) Af Amer 30 L, Est GFR (MDRD) Non-Af 25 L, BUN/Creatinine Ratio 27.6 H, Glucose 387 H, Calcium 9.6, Troponin I High Sens 7 11/06/21 18:45: Potassium 5.7 H 11/06/21 18:45: Troponin I High Sens 8 11/06/21 20:45: POC Glucose 332 H 11/06/21 22:40: Troponin I High Sens 10 11/07/21 05:50: Sodium 139, Potassium 4.8, Chloride 110 H, Carbon Dioxide 23.0, Anion Gap 6, BUN 55 H, Creatinine 1.70 H, Estim Creat Clear Calc 22.19, Est GFR (MDRD) Af Amer 37 L, Est GFR (MDRD) Non-Af 31 L, BUN/Creatinine Ratio 32.4 H, Glucose 253 H, Calcium 9.2, Triglycerides 151, Cholesterol 135, LDL Cholesterol 63, VLDL Cholesterol 30, HDL Cholesterol 42 11/07/21 06:34: POC Glucose 255 H Radiography Diagnostic Testing: Radiology Impression Chest X-Ray 11/06/21 17:04 IMPRESSION: 1. Mild cardiomegaly without heart failure. 2. No other evidence of active cardiopulmonary disease. 3. Mild demineralization. 1. Mild thoracic dextroscoliosis. Electronically Signed: Nba Dias MD at 18:26 EDT , Rhythm Strip Rhythm Strip: Sinus Rhythm Rate: 80 Ectopy: None Physical Exam Const alert, oriented x3 and no apparent distress General Appearance: cooperative HEENT normocephalic and moist oral mucous membranes Eyes PERRL, EOMs intact bilaterally and conjunctivae normal Neck supple and no JVD Resp normal respiratory effort, no retractions, no use of accessory muscles and clear to auscultation bilaterally Auscultation: Negative for crackles, rales, rhonchi or wheezes Cardio regular rate, regular rhythm, S1 normal heart sound, S2 normal heart sound and no murmurs GI soft to palpation, non-tender and non-distended; Negative for hepatosplenomegaly Extremity no clubbing, cyanosis or edema Skin Skin Narrative: Shingles rash on her forehead currently dressed Neuro no focal motor deficits and no sensory deficits noted Psych affect normal Appearance: appropriate Assessment & Plan Assessment/Plan (1) Intermittent chest pain: (2) Hyperkalemia: (3) Shingles: QUALIFIERS: Herpes zoster complications: without complications Qualified Code(s): B02.9 - Zoster without complications PLAN: 1. Chest Pain/HTN with hypertensive urgency/HLD ? Troponins are negative proceed with stress test in the morning ? Blood pressures are currently stable however they were up into the 190s on admission ? We will continue with her home medications ? Continue with statin 2. DM2 with CKD 3B ? We will hold her home oral medications ? Continue with Accu-Cheks AC at bedtime ? Sliding scale insulin as well as long-acting insulin ? We will make adjustments as necessary ? Renal function appears to be at baseline 3. Shingles rash on her forehead ? She is still having pain we will continue with her prednisone and [place] ? She was given 5 days of famciclovir on 11/02/2021 ? Continue with contact precautions DVT: Heparin Charges/Coding Visit Charges OBSV E&M: 21654 Subsequent observation care L2
[2021-11-07] MEDS: Multivitamins,Ther W-Minerals Tablet 1 TABLET PO (10:37)
[2021-11-07] MEDS: Aspirin E.C. 81 MG Tablet PO (10:37)
[2021-11-07] MEDS: Heparin Injection (Vial) 5,000 UNIT/ML VIAL 5000 UNIT SC ×2 (10:37→22:52)
[2021-11-07] MEDS: Atenolol 25 MG Tablet PO (10:37)
[2021-11-07] MEDS: amLODIPine 5 MG Tablet PO (10:37)
[2021-11-07 11:41] LABS: Bedside Glucose 429 mg/dL (74-106)
[2021-11-07 17:01] LABS: Bedside Glucose 267 mg/dL (74-106)
[2021-11-07] MEDS: Insulin Glargine-YFGN 100 UNIT/ML Pen 35 UNIT SC (22:50)
[2021-11-07] MEDS: Atorvastatin Calcium 10 MG Tablet PO (22:54)
[2021-11-07 23:11] LABS: Bedside Glucose 175 mg/dL (74-106)
[2021-11-08] VITALS (7 sets, daily range): BP systolic 134–160; BP diastolic 71–90; PULSE 90–97; RESP 16–18; TEMP 36.4–37.1; O2SAT 95–98
[2021-11-08 05:02] LABS: Absolute Lymphocyte Count 2.28 X10^3/uL (0.83-4.51); Absolute Neutrophil Count 8.8 X10^3/uL (2.0-7.7); Basophil# 0.01 X10^3/uL; Basophil% 0.1 % (0-1); Eosinophil# 0.32 X10^3/uL; Eosinophils% 2.6 % (0-5); Hematocrit 36.3 % (37-47); Lymphocyte # 2.28 X10^3/ul (0.83-4.51); Lymphocyte % 18.7 % (19-41); Mean Corp Hgb Conc 33.1 g/dL (32-36); Mean Corpuscular Hgb 27.7 pg (27.0-32.0); Mean Corpuscular Volume 83.8 fL (81-99); Mean Platelet Vol. 12.9 fl (6.2-12.0); Monocyte# 0.61 X10^3/uL; NRBC Flagged by Analyzer 0 % (0-5); Neutrophil # 8.79 X10^3/uL (2.7-7.7); Neutrophil % 72.3 % (47-70); Platelet Count 232 K/mm3 (150-450); RBC Distribution Width CV 13.6 % (11.6-14.6); RBC Distribution Width SD 41.3 fl (35.1-43.9); Red Blood Count 4.33 M/mm3 (4.2-5.4); White Blood Count 12.2 K/mm3 (4.4-11.0)
[2021-11-08 05:38] LABS: Anion Gap 6 (5-15); BUN 58 mg/dL (7-18); BUN/Creat Ratio 36.7 RATIO (10-20); Calcium,Total 9.3 mg/dL (8.5-10.1); Chloride 111 mmol/L (98-107); Creatinine, Serum 1.58 mg/dL (0.55-1.02); EST Glomerular Filtration Rate 33 mL/min (>60); Est Glom Filt Rate - Afr Amer 40 mL/min (>60); Estimated Creatinine Clearance 23.88 ml/min; Glucose 105 mg/dL (74-106); Potassium 3.7 mmol/L (3.5-5.1); Sodium Level 142 mmol/L (136-145)
--- NOTE | 2021-11-08 05:55 | EKG12_ITS ---
Test Reason : AM EKG Blood Pressure : / mmHG Vent. Rate : 093 BPM Atrial Rate : 093 BPM P-R Int : 086 ms QRS Dur : 090 ms QT Int : 362 ms P-R-T Axes : 077 011 041 degrees QTc Int : 450 ms Sinus rhythm with short NE Otherwise normal ECG When compared with ECG of 06-NOV-2021 20:43, MANUAL COMPARISON REQUIRED, DATA IS UNCONFIRMED Confirmed by RICK JORDAN, BABITA ([id number]), school photograph editor PATIENCE PRETTY ([id number]) on 11/08/2021 1:04:36 PM Referred By: MERE Confirmed By:BABITA CABRERA MD
[2021-11-08] MEDS: Acyclovir 800 MG Tablet PO ×2 (06:49→13:10)
[2021-11-08] MEDS: Aspirin E.C. 81 MG Tablet PO (06:49)
[2021-11-08] MEDS: amLODIPine 5 MG Tablet PO (08:12)
--- NOTE | 2021-11-08 08:20 | PCM.PN.HOSP ---
Subjective Subjective Patient is an 82-year-old lady admitted with chest pain currently undergoing evaluation on a monitored bed including stress test Objective Data Objective Data Vital Signs: Vital Signs Temp Pulse Resp BP Pulse Ox 98.1 F 93 16 160/71 H 98 11/08/21 07:58 11/08/21 07:58 11/08/21 07:58 11/08/21 07:58 11/08/21 07:58 Oxygen Delivery Method Room Air Weight: 55.1 kg Body Mass Index (BMI) 24.5 Intake & Output: Intake and Output for Last 24 Hours 11/06/21 11/07/21 11/08/21 23:59 23:59 23:59 Intake Total 600 / 600 Balance 600 / 600 Lab / Micro Data Result Diagrams: 11/08/21 04:23 11/08/21 04:23 Labs: Laboratory Results - last 24 hr 11/07/21 11:22: POC Glucose 429 H 11/07/21 16:47: POC Glucose 267 H 11/07/21 22:48: POC Glucose 175 H 11/08/21 04:23: WBC 12.2 H, RBC 4.33, Hgb 12.0, Hct 36.3 L, MCV 83.8, MCH 27.7, MCHC 33.1, RDW Std Deviation 41.3, RDW Coeff of Abhinav 13.6, Plt Count 232, MPV 12.9 H, Immature Gran % (Auto) 1.300 H, Neut % (Auto) 72.3 H, Lymph % (Auto) 18.7 L, [place] % (Auto) 5.0, Eos % (Auto) 2.6, Baso % (Auto) 0.1, Absolute Neuts (auto) 8.8 H, Absolute Lymphs (auto) 2.28, Nucleated RBC % 0 11/08/21 04:23: Sodium 142, Potassium 3.7, Chloride 111 H, Carbon Dioxide 25.0, Anion Gap 6, BUN 58 H, Creatinine 1.58 H, Estim Creat Clear Calc 23.88, Est GFR (MDRD) Af Amer 40 L, Est GFR (MDRD) Non-Af 33 L, BUN/Creatinine Ratio 36.7 H, Glucose 105, Calcium 9.3 Rhythm Strip Rhythm Strip: Sinus Rhythm Rate: 80 Ectopy: None Physical Exam Narrative GENERAL: cooperative HEENT: Atraumatic; EYES; Anicteric, Normal Conjunctiva NECK; supple, normal thyroid, RESPIRATORY: Diminished to auscultation CARDIOVASCULAR: Regular S1 S2, GI: soft, normoactive bowel sounds, : No Renal angle tenderness; EXTREMITIES: No edema, no clubbing, MUSCULOSKELETAL: no muscle wasting NEURO: Awake; no lateralizing signs. PSYCH; Flat affect Assessment & Plan Assessment/Plan (1) Intermittent chest pain: (2) Hyperkalemia: (3) Shingles: QUALIFIERS: Herpes zoster complications: without complications Qualified Code(s): B02.9 - Zoster without complications PLAN: Patient is an 82-year-old lady admitted with chest pain 1. Chest pain ? Patient has been admitted to regular nursing floor ID has been ruled out with serial cardiac enzymes patient to undergo subsequent evaluation with a stress test 2. Acute hypertensive urgency ? Adjusted patient antihypertensive regimen 3. Dyslipidemia -Patient is on statin therapy, continued at home dose 4. Diabetes mellitus type II -patient's oral hypoglycemics held. Placed on long acting insulin, Accu-Cheks a.c. and at bedtime and covered with sliding scale insulin 5. Chronic kidney disease stage IIIb ? Kidney function at baseline 6. Varicella zoster infection Patient is on famciclovir. She is also on prednisone and [place] for pain 6. DVT prophylaxis ? Heparin Charges/Coding Visit Charges OBSV E&M: 92412 Subsequent observation care L2
[2021-11-08 09:11] LABS: Bedside Glucose 99 mg/dL (74-106)
--- NOTE | 2021-11-08 09:35 | CASEMGMT ---
RN CARLOS NOTE: Intro role of CM to patient and [employer] form explained re: Observation status for treatment of chest pain. Explained hospitalization will be paid per her insurance policy for Outpatient billing and condition will continue to be evaluated for Inpt necessity. Also let pt know that [facility] sends paper in the billing packet with their phone number if questions arise. Discussed Pharmacy section of [employer] form and self administered medication guideline. Pt verbalizes understanding and denies having questions. Form signed, copy made and placed in chart, and original given to pt. Jarocho WINSLOW RN CM
--- NOTE | 2021-11-08 11:55 | STRESSREP ---
Stress Test Report Pharmacologic myocardial perfusion stress test. 81-year-old lady with a history of chest pain. Stress protocol: Resting EKG demonstrates normal sinus rhythm with a rate of 95 bpm normal intervals are noted resting blood pressure is 130/78 mmHg. 0.4 mg of regadenoson was infused per usual protocol followed by rapid intravenous saline flush injection continuous EKG monitoring was performed. The maximum heart rate attained was 108 bpm which was 78% of max impacted heart rate and the maximum workload was 1 metabolic equivalent. At rest there were no ST or T wave changes noted to suggest ischemia and at peak infusion nonspecific ST changes were noted with did not meet the criteria for ischemia. No clinical angina was noted. The final blood pressure is 122/70 mmHg. Myocardial perfusion protocol. 12.0 mCi of technetium 99m sestamibi was injected at rest. 0.4 mg of regadenoson was infused per usual protocol. At peak infusion 36.0 mCi of technetium 99m sestamibi was injected stress images were obtained stress and rest images were reconstructed and compared in the short axis vertical long and horizontal long axis. Gated images were also obtained. Perfusion SPECT analysis: Review of the stress images demonstrate normal uptake of tracer noted in all areas of the myocardium. The resting images similar demonstrate normal uptake of tracer noted in all areas of the myocardium. No areas of reversibility are noted to suggest ischemia and no previous infarct is noted. Gated SPECT analysis: The gated ejection fraction is 69%. Conclusion: Normal pharmacologic myocardial perfusion stress test. Preserved ejection fraction.
[2021-11-08] MEDS: Atenolol 25 MG Tablet PO (11:56)
[2021-11-08 12:06] LABS: Bedside Glucose 131 mg/dL (74-106)
--- NOTE | 2021-11-08 13:46 | PCM.DC.SUM ---
Providers Date of Admission: 11/06/21 Primary Care Physician: Dr. Becky Lassiter DO Reason For Visit: CHEST PAIN Diagnosis Discharge Diagnosis (1) Intermittent chest pain: Status: Acute Code(s): R07.9 - Chest pain, unspecified (2) Hyperkalemia: Status: Acute Code(s): E87.5 - Hyperkalemia (3) Shingles: Status: Acute Code(s): B02.9 - Zoster without complications Qualifiers: Herpes zoster complications: without complications Qualified Code(s): B02.9 - Zoster without complications Medications at Discharge Home Medications atenolol 25 mg PO DAILY 09/27/17 simvastatin 20 mg PO DAILY 09/27/17 aspirin [Josue Low Dose Aspirin] 81 mg PO DAILY 10/28/20 cholecalciferol (vitamin D3) 50 mcg PO TU 10/28/20 fvwgxbllnuod-Yp-lbsb-minerals 1 tab PO DAILY 10/28/20 insulin glargine [Lantus U-100 Insulin] 35 unit SQ QHS #0 ml 10/30/20 amlodipine 5 mg PO/SL DAILY 03/19/21 glipizide 5 mg PO/SL DAILY 03/19/21 famciclovir 500 mg PO Q8H 5 Days #15 tab 11/02/21 hydrocodone-acetaminophen 1 tab PO Q4H PRN PRN 2 Days #10 tablet 11/02/21 prednisone 20 mg PO BID #10 tab 11/02/21 Hospital Course Summary of Care Provided Minutes Spent on Discharge: 35 Hospital Course: Patient is an 82-year-old lady admitted with chest pain 1. Chest pain ? Patient has been admitted to regular nursing floor ID has been ruled out with serial cardiac enzymes patient to undergo subsequent evaluation with a stress test - Nuclear stress came back that 2. Acute hypertensive urgency ? Adjusted patient antihypertensive regimen 3. Dyslipidemia -Patient is on statin therapy, continued at home dose 4. Diabetes mellitus type II -patient's oral hypoglycemics held. Placed on long acting insulin, Accu-Cheks a.c. and at bedtime and covered with sliding scale insulin 5. Chronic kidney disease stage IIIb ? Kidney function at baseline 6. Varicella zoster infection Patient is on famciclovir. She is also on prednisone and [place] for pain 6. DVT prophylaxis ? Heparin Physical Exam Narrative GENERAL: cooperative HEENT: Atraumatic; EYES; Anicteric, Normal Conjunctiva NECK; supple, normal thyroid, RESPIRATORY: Diminished to auscultation CARDIOVASCULAR: Regular S1 S2, GI: soft, normoactive bowel sounds, : No Renal angle tenderness; EXTREMITIES: No edema, no clubbing, MUSCULOSKELETAL: no muscle wasting NEURO: Awake; no lateralizing signs. PSYCH; Flat affect Weight / BMI Weight Weight: 55.1 kg Body Mass Index (BMI) 24.5 ABG / Lab / Microbiology Data Result Diagrams: 11/08/21 04:23 11/08/21 04:23 Laboratory: Laboratory Results - last 24 hr 11/07/21 16:47: POC Glucose 267 H 11/07/21 22:48: POC Glucose 175 H 11/08/21 04:23: WBC 12.2 H, RBC 4.33, Hgb 12.0, Hct 36.3 L, MCV 83.8, MCH 27.7, MCHC 33.1, RDW Std Deviation 41.3, RDW Coeff of Abhinav 13.6, Plt Count 232, MPV 12.9 H, Immature Gran % (Auto) 1.300 H, Neut % (Auto) 72.3 H, Lymph % (Auto) 18.7 L, [place] % (Auto) 5.0, Eos % (Auto) 2.6, Baso % (Auto) 0.1, Absolute Neuts (auto) 8.8 H, Absolute Lymphs (auto) 2.28, Nucleated RBC % 0 11/08/21 04:23: Sodium 142, Potassium 3.7, Chloride 111 H, Carbon Dioxide 25.0, Anion Gap 6, BUN 58 H, Creatinine 1.58 H, Estim Creat Clear Calc 23.88, Est GFR (MDRD) Af Amer 40 L, Est GFR (MDRD) Non-Af 33 L, BUN/Creatinine Ratio 36.7 H, Glucose 105, Calcium 9.3 11/08/21 07:55: POC Glucose 99 11/08/21 11:52: POC Glucose 131 H D/C Instructions Discharge Diet: No restrictions Discharge Activity: Return to Normal Activity Call your doctor if you observe: Fever of 101 or Higher, Shortness of breath, Fainting spells and Chest pain Meaningful Use Info Meaningful Use Diagnoses (Choose all that apply): None applicable Discharge Plan Admission Admit Date/Time: 06/11/22 19:36 Attending Provider: Rafi Lorenzo Primary Care Provider: Becky Lassiter Consulting Providers: Axel Elaine ; Dwight Brown Discharge Orders/Prescriptions Prescriptions: Continued atenolol 25 MG tablet 25 mg PO DAILY RF: 0 simvastatin 20 MG tablet 20 mg PO DAILY RF: 0 aspirin [Josue Low Dose Aspirin] 81 mg Tablet,Delayed Release (Dr/Ec) 81 mg PO DAILY RF: 0 fisosytwelbq-Dm-ljgv-minerals 18-0.4 mg Tablet 1 tab PO DAILY RF: 0 cholecalciferol (vitamin D3) 50 mcg (2,000 unit) Capsule 50 mcg PO TU RF: 0 insulin glargine [Lantus U-100 Insulin] 100 UNIT/ML solution 35 unit SQ QHS Qty: 0 RF: 0 amlodipine 5 mg tablet 5 mg PO/SL DAILY RF: 0 glipizide 5 mg tablet 5 mg PO/SL DAILY RF: 0 prednisone 20 mg tablet 20 mg PO BID Qty: 10 RF: 0 famciclovir 500 mg tablet 500 mg PO Q8H 5 Days Qty: 15 RF: 0 hydrocodone-acetaminophen 1 TABLET tablet 1 tab PO Q4H PRN PRN (Reason: Pain) 2 Days Qty: 10 RF: 0 Referrals / Follow Up: Becky Lassiter DO [Primary Care Provider] - Disposition Disposition (needs filled in before D/C Order can be placed): Home, Self Care Charges/Coding Visit Charges OBSV E&M: 23663 Observation care discharge
== END 2021-11-08 13:46 | disposition home or self-care (01) ==
LOC: ED 19:31 → PCU 20:07
PROVIDERS: Family Medicine; Admitting Provider Hospitalist; Emergency Provider Emergency Medicine; PCP Family Medicine; Visit Provider Internal Medicine
DX: R07.89 Other chest pain (principal); J44.9 Chronic obstructive pulmonary disease, unspecified; E11.22 Type 2 diabetes mellitus with diabetic chronic kidney disease; Z79.4 Long term (current) use of insulin; N18.32 Chronic kidney disease, stage 3b; Z87.891 Personal history of nicotine dependence; E78.5 Hyperlipidemia, unspecified; I16.0 Hypertensive urgency; E87.5 Hyperkalemia; B02.9 Zoster without complications; I12.9 Hypertensive chronic kidney disease with stage 1 through stage 4 chronic kidney disease, or unspecified chronic kidney disease; Z79.82 Long term (current) use of aspirin; Z79.899 Other long term (current) drug therapy
CPT/HCPCS: 36415; 71045; 78452; 80048; 80061; 82962; 84132; 84484; 85025; 93005; 93017; 96372; 96374; 96376; 99218; 99285; A9500; A4216; G0378; J2785

== ENCOUNTER → 2021-11-15 | Outpatient (CLI) | payer MEDICARE, OTHER, SELFPAY ==
[2021-11-15 11:56] LABS: ALB/GLOB Ratio 0.8 RATIO (0.9-2.4); AST(SGOT) 12 U/L (15-37); Alanine Aminotransfer ALT/SGPT 21 U/L (13-56); Alkaline Phosphatase 57 U/L (45-117); Anion Gap 4 (5-15); BUN 36 mg/dL (7-18); BUN/Creat Ratio 22.1 RATIO (10-20); Calcium,Total 9.4 mg/dL (8.5-10.1); Chloride 110 mmol/L (98-107); Creatinine, Serum 1.63 mg/dL (0.55-1.02); EST Glomerular Filtration Rate 32 mL/min (>60); Est Glom Filt Rate - Afr Amer 39 mL/min (>60); Globulin 3.8 g/dL (2.2-4.2); Glucose 255 mg/dL (74-106); Protein, Total 6.8 g/dL (6.4-8.2); Sodium Level 137 mmol/L (136-145)
== END | disposition home or self-care (01) ==
PROVIDERS: PCP Family Medicine; Referring Provider Family Medicine; Visit Provider Family Medicine
DX: E11.22 Type 2 diabetes mellitus with diabetic chronic kidney disease (principal); N18.32 Chronic kidney disease, stage 3b
CPT/HCPCS: 36415; 80053

== ENCOUNTER → 2022-03-14 | Outpatient (CLI) | payer MEDICARE, OTHER, SELFPAY ==
[2022-03-14 17:54] LABS: Absolute Lymphocyte Count 1.23 X10^3/uL (0.83-4.51); Absolute Neutrophil Count 7.3 X10^3/uL (2.0-7.7); Basophil# 0.04 X10^3/uL; Basophil% 0.4 % (0-1); Eosinophil# 0.36 X10^3/uL; Eosinophils% 3.8 % (0-5); Hematocrit 32.2 % (37-47); Hemoglobin 10.2 g/dL (12.0-15.0); Lymphocyte # 1.23 X10^3/ul (0.83-4.51); Lymphocyte % 12.9 % (19-41); Mean Corp Hgb Conc 31.7 g/dL (32-36); Mean Corpuscular Hgb 26.8 pg (27.0-32.0); Mean Corpuscular Volume 84.7 fL (81-99); Mean Platelet Vol. 12.8 fl (6.2-12.0); Monocyte# 0.57 X10^3/uL; NRBC Flagged by Analyzer 0 % (0-5); Neutrophil % 76.3 % (47-70); Platelet Count 319 K/mm3 (150-450); RBC Distribution Width CV 14.1 % (11.6-14.6); RBC Distribution Width SD 43.3 fl (35.1-43.9); White Blood Count 9.6 K/mm3 (4.4-11.0)
[2022-03-14 18:31] LABS: BNP,B-Type NATRIURETIC PEPTIDE 65.3 pg/mL (0-100)
[2022-03-14 18:52] LABS: ALB/GLOB Ratio 0.6 RATIO (0.9-2.4); AST(SGOT) 17 U/L (15-37); Alanine Aminotransfer ALT/SGPT 17 U/L (13-56); Albumin, Serum 2.9 g/dL (3.2-5.0); Alkaline Phosphatase 75 U/L (45-117); Anion Gap 6 (5-15); BUN 33 mg/dL (7-18); BUN/Creat Ratio 15.3 RATIO (10-20); Chloride 106 mmol/L (98-107); Creatinine, Serum 2.15 mg/dL (0.55-1.02); EST Glomerular Filtration Rate 23 mL/min (>60); Est Glom Filt Rate - Afr Amer 28 mL/min (>60); Globulin 4.7 g/dL (2.2-4.2); Glucose 118 mg/dL (74-106); Potassium 4.4 mmol/L (3.5-5.1); Protein, Total 7.6 g/dL (6.4-8.2); Sodium Level 137 mmol/L (136-145)
== END | disposition home or self-care (01) ==
LOC: BFHLAB 16:38
PROVIDERS: PCP Family Medicine; Visit Provider Family Medicine
DX: I50.33 Acute on chronic diastolic (congestive) heart failure (principal); E11.22 Type 2 diabetes mellitus with diabetic chronic kidney disease; Z51.81 Encounter for therapeutic drug level monitoring
CPT/HCPCS: 36415; 80053; 83880; 85025

== ENCOUNTER 2022-03-15 23:35 | Emergency (ER) | payer MEDICARE, OTHER, SELFPAY ==
[2022-03-15 23:37] VITALS: BP 163/76; PULSE 93; RESP 18; TEMP 36.9; O2SAT 96; BMI 22.7
--- NOTE | 2022-03-16 00:24 | CT_ITS ---
INDICATION: confusion EXAMINATION: CT BRAIN - CT Head or Brain W/O Contrast Injection TECHNIQUE: Multiple axial images were obtained of the head without intravenous contrast. A radiation dose optimization technique was used for this scan. IV Contrast dosage and agent: None. COMPARISON: January 28, 2013 FINDINGS: BRAIN PARENCHYMA: No intra- or extra-axial hemorrhage. No evidence of acute infarct. No intracranial mass or mass effect. Mild periventricular and subcortical white matter hypodense chronic small vessel white matter ischemic change. There is preservation of the [place]/white matter interface. Posterior fossa structures are unremarkable. Carotid and posterior elements atherosclerosis. Bilateral basal ganglia mineralization. CSF SPACES: Mild global cerebral volume loss. No hydrocephalus. Basal cisterns are patent. CALVARIUM, SKULL BASE, PARANASAL SINUSES AND MASTOID AIR CELLS: No acute osseous finding. Hyperdense right maxillary sinus opacification, with small maxillary sinus and thickened wall. Mastoid air cells are clear. ORBITS: Both globes, extraocular muscles, optic nerves and retrobulbar fat appear unremarkable. ASPECTS Score for Acute Strokes: 10 CT/Brain/Head without Contrast IMPRESSION: No CT evidence of acute intracranial hemorrhage or injury. Senescent changes and atherosclerosis. Chronic right maxillary sinus disease with inspissated mucus or chronic allergic fungal disease. Electronically Signed: Mac Juan MD at 1:15 EDT ,
--- NOTE | 2022-03-16 00:24 | RAD_ITS ---
INDICATION: confusion EXAMINATION/TECHNIQUE: X-RAY - XR Chest 1 View COMPARISON: November 06, 2021. FINDINGS: LINES/DEVICES: None. LUNGS: No consolidation, edema or effusion. No pneumothorax. MEDIASTINUM AND CARDIOVASCULAR STRUCTURES: Cardiac silhouette not enlarged. BONES AND SOFT TISSUES: Right upper quadrant surgical clips are present. Right lateral chest wall surgical clips.. RAD/Chest 1 View (Portable) IMPRESSION: No radiographic evidence of acute cardiopulmonary disease. Electronically Signed: Mac Juan MD at 1:11 EDT ,
[2022-03-16 00:52] LABS: Absolute Lymphocyte Count 1.15 X10^3/uL (0.83-4.51); Absolute Neutrophil Count 8.3 X10^3/uL (2.0-7.7); Basophil# 0.01 X10^3/uL; Basophil% 0.1 % (0-1); Eosinophil# 0.02 X10^3/uL; Eosinophils% 0.2 % (0-5); Hematocrit 32.5 % (37-47); Hemoglobin 10.5 g/dL (12.0-15.0); Lymphocyte # 1.15 X10^3/ul (0.83-4.51); Lymphocyte % 11.5 % (19-41); Mean Corp Hgb Conc 32.3 g/dL (32-36); Mean Corpuscular Hgb 27.1 pg (27.0-32.0); Mean Platelet Vol. 11.9 fl (6.2-12.0); Monocyte# 0.54 X10^3/uL; Monocyte% 5.4 % (0-10); NRBC Flagged by Analyzer 0 % (0-5); Neutrophil # 8.28 X10^3/uL (2.7-7.7); Neutrophil % 82.4 % (47-70); Platelet Count 307 K/mm3 (150-450); RBC Distribution Width SD 42.7 fl (35.1-43.9); Red Blood Count 3.87 M/mm3 (4.2-5.4)
[2022-03-16 01:13] LABS: BNP,B-Type NATRIURETIC PEPTIDE 114.2 pg/mL (0-100)
[2022-03-16 01:32] LABS: AST(SGOT) 18 U/L (15-37); Alanine Aminotransfer ALT/SGPT 18 U/L (13-56); Albumin, Serum 2.9 g/dL (3.2-5.0); Alkaline Phosphatase 70 U/L (45-117); Anion Gap 8 (5-15); BUN 33 mg/dL (7-18); BUN/Creat Ratio 17.1 RATIO (10-20); Bilirubin, Direct 0.12 mg/dL (0.00-0.30); Chloride 108 mmol/L (98-107); Creatinine, Serum 1.93 mg/dL (0.55-1.02); EST Glomerular Filtration Rate 26 mL/min (>60); Est Glom Filt Rate - Afr Amer 32 mL/min (>60); Estimated Creatinine Clearance 16.14 ml/min; Globulin 4.6 g/dL (2.2-4.2); Glucose 111 mg/dL (74-106); Potassium 4.4 mmol/L (3.5-5.1); Protein, Total 7.5 g/dL (6.4-8.2); Sodium Level 141 mmol/L (136-145)
[2022-03-16 01:35] LABS: Alcohol, Blood (Medical)-Serum < 3.0 mg/dL
[2022-03-16 01:42] LABS: Ammonia < 10.0 umol/L (11-32)
[2022-03-16 01:50] VITALS: RESP 16
[2022-03-16 02:15] LABS: Color, Urine Yellow (Yellow); Glucose, Dipstick Normal (Normal); Ketone-Dipstick Negative (Negative); Leukocyte Esterase-Dipstick 500 /ul (Negative); Mucous, Urine 0 SEEN /hpf (<or=2+); Nitrite-Dipstick Negative (Negative); Occult Blood-Urine 25 /ul (Negative); Protein-Dipstick 500 mg/dl (Negative); Red Blood Cells-Urine 0 SEEN /hpf (0-5); Specific Gravity, Urine 1.015 (1.002-1.030); Urine Bilirubin Dipstick Negative (Negative); Urine Clarity Clear (Clear); Urine Urobilinogen Normal (Normal)
--- NOTE | 2022-03-16 02:15 | EDS_ITS ---
HPI History of Present Illness Chief Complaint: General Illness Narrative Narrative: Patient is an 81-year-old female from home with past medical history of hypertension hyperlipidemia and diabetes currently on insulin. She lives by herself but family states they check on her daily. She recently went to her family doctor for her yearly checkup and at that time had her insulin reduced as she was running low for her blood sugars. Daughter went over today and reports the patient is more confused than her baseline. She states that there is no known or documented history of dementia but she has been concerned about this. She states that with the recent change in medication she is concerned her blood sugar may have continued to drop especially as she has increased confusion and therefore brought her in for evaluation [facility] Medical History Cancer COPD (chronic obstructive pulmonary disease) Diabetes Former smoker Hearing loss, left Hearing loss, right HTN (hypertension) Hyperlipidemia Hypertension Kidney disease Home Medications atenolol 25 mg tablet 25 mg PO DAILY blood pressure 09/27/17 [History Last Taken 10/27/20] simvastatin 20 mg tablet 20 mg PO DAILY cholesterol lowering 09/27/17 [History Last Taken 10/27/20] aspirin 81 mg tablet,delayed release (Josue Low Dose Aspirin) 81 mg PO DAILY HEALTH MAINTENANCE 10/28/20 [History Last Taken 10/26/20] cholecalciferol (vitamin D3) 50 mcg (2,000 unit) capsule 50 mcg PO TU SUPPLEMENT 10/28/20 [History Last Taken 10/27/20] [id number]-Ib-ejhh-minerals 18 mg-0.4 mg tablet 1 tab PO DAILY SUPPLEMENT 10/28/20 [History Last Taken 10/27/20] amlodipine 5 mg PO/SL DAILY blood pressure 03/19/21 [History Last Taken Unknown] insulin glargine 100 unit/mL subcutaneous solution (Lantus U-100 Insulin) 12 unit SQ QHS blood sugar 03/15/22 [History Last Taken Unknown] linagliptin 5 mg tablet (Tradjenta) 5 mg PO DAILY 03/15/22 [History Last Taken Unknown] Allergy/AdvReac Type Severity Reaction Status Date / Time penicillin Allergy Rash Verified 03/16/22 05:55 Family History Mother Hypertension Diabetes Surgical History Hx of cataract surgery S/P breast lumpectomy Social History household members: none housing: condominium Smoking Status: Former smoker how long ago did patient quit smoking: Patient quit cigarette tobacco use in the 1970s, started age 21-22. alcohol intake: never substance use type: does not use ROS ROS ED Constitutional Constitutional ED: Denies chills or fever(s) ENT ENT ED: Denies sore throat Cardiovascular Cardiovascular: Denies chest pain Respiratory/Chest Respiratory/Chest: Denies cough or dyspnea Gastrointestinal Gastrointestinal: Denies abdominal pain, diarrhea, nausea or vomiting Genitourinary Genitourinary ED: Denies dysuria Musculoskeletal Musculoskeletal: Denies myalgias Integumentary Denies rash Neurologic Neurologic: Denies headache(s) Hematologic/Lymphatic Hematologic/Lymphatic: Denies easy bleeding or easy bruising EXAM Physical Exam Const Vital Signs: 03/15/22 23:37 03/15/22 23:42 03/16/22 01:50 Temperature 98.5 F Temperature Source Temporal Pulse Rate 93 Respiratory Rate 18 16 Respiratory Pattern Normal Blood Pressure 163/76 H Blood Pressure Mean 105 Pulse Ox 96 Oxygen Delivery Method Room Air Room Air Positive well nourished and well developed General Appearance ED: well developed HEENT Reports moist mucous membranes HEENT Narrative: No signs of infection noted in the posterior pharynx Eyes PERRL and EOMs intact bilaterally Neck supple and no JVD Resp normal respiratory effort and clear to auscultation bilaterally Cardio regular rate and regular rhythm Rate: other Other Details: Radial pulses are +2-4 bilaterally are equal and symmetric Carotid pulses are equal and symmetric as well GI normal to inspection, nondistended, normoactive bowel sounds, non-tender and non -distended GI Narrative: No voluntary guarding or rigidity no pulsatile mass Auscultation: normoactive bowel sounds Palpation: soft Extremity normal to inspection Extremity Narrative: No asymmetric edema no pitting edema negative Homans' sign bilaterally Neuro CN's II-XII intact bilaterally Neuro Narrative: Patient is awake and alert to person and place she is disoriented to time. Cranial nerves II through XII are grossly intact there is no focal neurologic deficit Sensorium / Orientation: alert Psych Psych Narrative: Patient has a flat affect Skin no rashes or lesions noted MDM MDM MDM Narrative Medical decision making narrative: Patient presented to the ER hypertensive but has a history of this and otherwise with stable vitals. She was alert to person and place but disoriented to time but otherwise had no focal findings to suggest acute neurologic deficit. In order to assess for a possible cause of the mild change in mental status basic work-up was obtained. Labs revealed elevated kidney function with creatinine 1.93 but chart review reveals this is near her baseline. Her hemoglobin is also slightly low at 10.5 but this is also chronic in nature. The patient's chest x- ray revealed no obvious pneumonia her urine sample did not show any obvious urinary tract infection and her head CT revealed age-related changes without acute mass or bleed. At this time as the patient's work-up is negative for acute infectious process or signs of hepatic encephalopathy I do not feel there is need for admission. Her blood pressure is elevated but it is not significantly so and therefore do not feel is contributing to any type of hypertensive encephalopathy. Patient will be discharged home at this time as her work-up and exam is most consistent with developing dementia. Daughter does states she feels comfort taking the patient home and will discuss further care options with patient and family Lab Data Attestation: I reviewed the patient's lab results. Labs: Laboratory Results - last 24 hr 03/16/22 03/16/22 03/16/22 00:42 00:42 00:42 WBC 10.0 RBC 3.87 L Hgb 10.5 L Hct 32.5 L MCV 84.0 MCH 27.1 MCHC 32.3 RDW Std Deviation 42.7 RDW Coeff of Abhinav 14.0 Plt Count 307 MPV 11.9 Immature Gran % (Auto) 0.400 Neut % (Auto) 82.4 H Lymph % (Auto) 11.5 L Yancey % (Auto) 5.4 Eos % (Auto) 0.2 Baso % (Auto) 0.1 Absolute Neuts (auto) 8.3 H Absolute Lymphs (auto) 1.15 Nucleated RBC % 0 Sodium 141 Potassium 4.4 Chloride 108 H Carbon Dioxide 25.0 Anion Gap 8 BUN 33 H Creatinine 1.93 H Estim Creat Clear Calc 16.14 Est GFR (MDRD) Af Amer 32 L Est GFR (MDRD) Non-Af 26 L BUN/Creatinine Ratio 17.1 Glucose 111 H Calcium 10.0 Total Bilirubin 0.40 Direct Bilirubin 0.12 AST 18 ALT 18 Alkaline Phosphatase 70 Ammonia B-Natriuretic Peptide Total Protein 7.5 Albumin 2.9 L Globulin 4.6 H TSH 1.70 Urine Color Urine Clarity Urine pH Ur Specific [place] Urine Protein Urine Glucose (UA) Urine Ketones Urine Occult Blood Urine Nitrite Urine Bilirubin Urine Urobilinogen Ur Leukocyte Esterase Urine RBC Urine WBC Ur Squamous Epith Cells Urine Bacteria Urine Mucus Urine Opiates Screen Urine Methadone Screen Ur Barbiturates Screen Ur Phencyclidine Scrn Ur Amphetamines Screen MDMA (Ecstasy) Screen U Benzodiazepines Scrn Urine Cocaine Screen U Cannabinoids Screen Ur Drug Screen Comment Ethyl Alcohol < 3.0 03/16/22 03/16/22 03/16/22 00:42 00:42 02:10 WBC RBC Hgb Hct MCV MCH MCHC RDW Std Deviation RDW Coeff of Abhinav Plt Count MPV Immature Gran % (Auto) Neut % (Auto) Lymph % (Auto) Yancey % (Auto) Eos % (Auto) Baso % (Auto) Absolute Neuts (auto) Absolute Lymphs (auto) Nucleated RBC % Sodium Potassium Chloride Carbon Dioxide Anion Gap BUN Creatinine Estim Creat Clear Calc Est GFR (MDRD) Af Amer Est GFR (MDRD) Non-Af BUN/Creatinine Ratio Glucose Calcium Total Bilirubin Direct Bilirubin AST ALT Alkaline Phosphatase Ammonia < 10.0 L B-Natriuretic Peptide Cancelled 114.2 H Total Protein Albumin Globulin TSH Urine Color Urine Clarity Urine pH Ur Specific [place] Urine Protein Urine Glucose (UA) Urine Ketones Urine Occult Blood Urine Nitrite Urine Bilirubin Urine Urobilinogen Ur Leukocyte Esterase Urine RBC Urine WBC Ur Squamous Epith Cells Urine Bacteria Urine Mucus Urine Opiates Screen NEGATIVE Urine Methadone Screen NEGATIVE Ur Barbiturates Screen NEGATIVE Ur Phencyclidine Scrn NEGATIVE Ur Amphetamines Screen NEGATIVE MDMA (Ecstasy) Screen NEGATIVE U Benzodiazepines Scrn NEGATIVE Urine Cocaine Screen NEGATIVE U Cannabinoids Screen NEGATIVE Ur Drug Screen Comment Ethyl Alcohol 03/16/22 02:10 WBC RBC Hgb Hct MCV MCH MCHC RDW Std Deviation RDW Coeff of Abhinav Plt Count MPV Immature Gran % (Auto) Neut % (Auto) Lymph % (Auto) Yancey % (Auto) Eos % (Auto) Baso % (Auto) Absolute Neuts (auto) Absolute Lymphs (auto) Nucleated RBC % Sodium Potassium Chloride Carbon Dioxide Anion Gap BUN Creatinine Estim Creat Clear Calc Est GFR (MDRD) Af Amer Est GFR (MDRD) Non-Af BUN/Creatinine Ratio Glucose Calcium Total Bilirubin Direct Bilirubin AST ALT Alkaline Phosphatase Ammonia B-Natriuretic Peptide Total Protein Albumin Globulin TSH Urine Color Yellow Urine Clarity Clear Urine pH 6.0 Ur Specific [place] 1.015 Urine Protein 500 H Urine Glucose (UA) Normal Urine Ketones Negative Urine Occult Blood 25 H Urine Nitrite Negative Urine Bilirubin Negative Urine Urobilinogen Normal Ur Leukocyte Esterase 500 H Urine RBC 0 SEEN Urine WBC 5-10 SEEN Ur Squamous Epith Cells 0-5 SEEN Urine Bacteria RARE Urine Mucus 0 SEEN Urine Opiates Screen Urine Methadone Screen Ur Barbiturates Screen Ur Phencyclidine Scrn Ur Amphetamines Screen MDMA (Ecstasy) Screen U Benzodiazepines Scrn Urine Cocaine Screen U Cannabinoids Screen Ur Drug Screen Comment Ethyl Alcohol Radiography Diagnostic Testing: Clinical Impression(s) from Imaging Studies Brain CT 03/16/22 00:24 IMPRESSION: No CT evidence of acute intracranial hemorrhage or injury. Senescent changes and atherosclerosis. Chronic right maxillary sinus disease with inspissated mucus or chronic allergic fungal disease. Electronically Signed: Mac Juan MD at 1:15 EDT , Chest X-Ray 03/16/22 00:24 IMPRESSION: No radiographic evidence of acute cardiopulmonary disease. Electronically Signed: Mac Juan MD at 1:11 EDT , Chest x-ray as interpreted by the emergency medicine physician reveals no acute infiltrate pneumothorax or pleural effusion Discharge Plan Triage Chief Complaint: General Illness ED Provider: Malik Oliver Dx/Rx/DC Orders Clinical Impression: Dementia, Chronic renal insufficiency Instructions: Dementia Caregivers Plan Future, Delirium and Dementia Prescriptions: No Action atenolol 25 MG tablet 25 mg PO DAILY Label Comments: simvastatin 20 MG tablet 20 mg PO DAILY aspirin [Josue Low Dose Aspirin] 81 mg Tablet,Delayed Release (Dr/Ec) 81 mg PO DAILY [id number]-Fi-pdsk-minerals 18-0.4 mg Tablet 1 tab PO DAILY cholecalciferol (vitamin D3) 50 mcg (2,000 unit) Capsule 50 mcg PO TU amlodipine 5 mg tablet 5 mg PO/SL DAILY Tradjenta 5 mg tablet 5 mg PO DAILY insulin glargine [Lantus U-100 Insulin] 100 UNIT/ML solution 12 unit SQ QHS Primary Care Provider: Becky Lassiter Referrals: Becky Lassiter DO [Primary Care Provider] - Activity Restrictions/Additional Instructions: If you have any further concerns or worsening of symptoms please return to the ER for repeat evaluation Disposition Disposition: Home, Self Care Discharge Date/Time: 03/16/22 05:04
[2022-03-16 02:22] LABS: Bacteria RARE /hpf (None Seen); Squamous Epithelial Cells - UA 0-5 SEEN /hpf (5-10); White Blood Cells 5-10 SEEN /hpf (0-5)
[2022-03-16 02:42] LABS: Amphetamine Urine VISTA NEGATIVE (<1000 ng/mL); Barbiturate Urine VISTA NEGATIVE (< 200 ng/mL); Benzodiazepine Urine VISTA NEGATIVE (< 200 ng/mL); Cocaine Urine VISTA NEGATIVE (< 300 ng/mL); Ecstacy Urine VISTA NEGATIVE (< 500 ng/mL); Methadone Urine VISTA NEGATIVE (< 300 ng/mL); PCP Urine VISTA NEGATIVE (< 25 ng/mL); THC Urine VISTA NEGATIVE (< 50 ng/mL); Vista UDS pH Range 6
== END 2022-03-16 05:04 | disposition home or self-care (01) ==
PROVIDERS: Emergency Provider Emergency Medicine; PCP Family Medicine; Visit Provider Emergency Medicine
DX: F03.90 Unspecified dementia, unspecified severity, without behavioral disturbance, psychotic disturbance, mood disturbance, and anxiety (principal); J44.9 Chronic obstructive pulmonary disease, unspecified; E11.22 Type 2 diabetes mellitus with diabetic chronic kidney disease; Z79.4 Long term (current) use of insulin; E78.5 Hyperlipidemia, unspecified; N18.9 Chronic kidney disease, unspecified; I12.9 Hypertensive chronic kidney disease with stage 1 through stage 4 chronic kidney disease, or unspecified chronic kidney disease; Z87.891 Personal history of nicotine dependence; Z79.899 Other long term (current) drug therapy; Z79.82 Long term (current) use of aspirin
CPT/HCPCS: 70450; 71045; 80048; 80076; 80307; 81001; 82077; 82140; 83880; 84443; 85025; 87086; 87088; 99283

== ENCOUNTER 2022-03-16 05:47 | Emergency (ER) | payer OTHER, MEDICARE, SELFPAY ==
[2022-03-16 05:49] VITALS: BP 151/99; PULSE 95; RESP 18; TEMP 36.4; O2SAT 94; BMI 24.5
--- NOTE | 2022-03-16 06:24 | CT_ITS ---
INDICATION: head injury EXAMINATION: CT BRAIN - CT Head or Brain W/O Contrast Injection TECHNIQUE: Multiple axial images were obtained of the head without intravenous contrast. A radiation dose optimization technique was used for this scan. IV Contrast dosage and agent: None. COMPARISON: March 16, 2022 FINDINGS: BRAIN PARENCHYMA: No intra- or extra-axial hemorrhage. No evidence of acute infarct. No intracranial mass or mass effect. Mild periventricular and subcortical white matter hypodense chronic small vessel white matter ischemic change. There is preservation of the huertas/white matter interface. Posterior fossa structures are unremarkable. CSF SPACES: Mild global cerebral volume loss. No hydrocephalus. Basal cisterns are patent. Nonspecific partially empty sella. CALVARIUM, SKULL BASE, PARANASAL SINUSES AND MASTOID AIR CELLS: No acute osseous finding. Right ethmoid and maxillary sinus mucoperiosteal thickening with chronic wall thickening. Mastoid air cells are clear. ORBITS: Both globes, extraocular muscles, optic nerves and retrobulbar fat appear unremarkable. ASPECTS Score for Acute Strokes: 10 CT/Brain/Head without Contrast IMPRESSION: No evidence of acute intracranial hemorrhage or injury. Electronically Signed: Mac Juan MD at 7:17 EDT ,
--- NOTE | 2022-03-16 06:24 | CT_ITS ---
INDICATION: neck pain EXAMINATION: CT CERVICAL SPINE - CT Spine Cervical W/O Contrast Injection TECHNIQUE: Helically acquired images were obtained of the cervical spine. 2D reformatted images were reviewed. A radiation dose optimization technique was used for this scan. IV Contrast dosage and agent: None. COMPARISON: None. FINDINGS: VERTEBRAE: No fracture or traumatic subluxation. No discrete lytic or blastic abnormality. Normal alignment. Normal craniocervical junction and cervicothoracic junction. DISCS and SPINAL CANAL: Mild mid to lower cervical disc height loss with small posterior disc osteophyte complex most prominent C5-C6 with mild spinal canal and right neuroforaminal narrowing. No critical stenosis. NECK SOFT TISSUES: No prevertebral soft tissue swelling. There is no cervical adenopathy. Mild carotid atherosclerosis. LUNG APICES: Clear. CT/Spine Cervical without Contras IMPRESSION: No evidence of acute cervical spinal fracture or spondylolisthesis. Electronically Signed: Mac Juan MD at 7:27 EDT ,
--- NOTE | 2022-03-16 06:24 | CT_ITS ---
INDICATION: back pain EXAMINATION: CT THORACIC SPINE - CT Spine Thoracic W/O Contrast Injection TECHNIQUE: Helically acquired images were obtained of the thoracic spine. 2D reformats were reviewed. A radiation dose optimization technique was used for this scan. IV Contrast dosage and agent: None. COMPARISON: December 17, 2018. FINDINGS: VERTEBRAE: No fracture or acute compression deformity. No discrete lytic or blastic abnormality observed. VERTEBRAL ALIGNMENT: Mildly exaggerated thoracic kyphosis with chronic anterior vertebral height loss in the mid thoracic spine. Mild diffuse endplate osteophyte formation. No listhesis. DISCS: Disc heights are preserved. VISUALIZED THORAX: Visualized thoracic aorta is nondilated. Lung rodríguez are clear. Three-vessel severe coronary atherosclerosis. CT/Spine Thoracic without Contras IMPRESSION: No evidence of acute thoracic spinal fracture or spondylolisthesis. Mild spondylosis with chronic anterior vertebral height loss in the mid thoracic spine, with exaggerated kyphosis, similar to December 17, 2018. Electronically Signed: Mac Juan MD at 7:31 EDT ,
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
== END 2022-03-16 08:35 | disposition home or self-care (01) ==
PROVIDERS: Emergency Provider Emergency Medicine; PCP Family Medicine; Visit Provider Emergency Medicine
DX: S29.019A Strain of muscle and tendon of unspecified wall of thorax, initial encounter (principal); F03.90 Unspecified dementia, unspecified severity, without behavioral disturbance, psychotic disturbance, mood disturbance, and anxiety; J44.9 Chronic obstructive pulmonary disease, unspecified; E11.22 Type 2 diabetes mellitus with diabetic chronic kidney disease; Z79.4 Long term (current) use of insulin; Z87.891 Personal history of nicotine dependence; N18.9 Chronic kidney disease, unspecified; E78.5 Hyperlipidemia, unspecified; I12.9 Hypertensive chronic kidney disease with stage 1 through stage 4 chronic kidney disease, or unspecified chronic kidney disease; V43.62XA Car passenger injured in collision with other type car in traffic accident, initial encounter
CPT/HCPCS: 70450; 72125; 72128; 74176; 96360; 96361; 99284; J7040

== ENCOUNTER → 2022-03-29 | Outpatient (CLI) | payer MEDICARE, OTHER, SELFPAY ==
[2022-03-29 17:38] LABS: Anion Gap 6 (5-15); BUN 41 mg/dL (7-18); BUN/Creat Ratio 17.7 RATIO (10-20); Calcium,Total 9.8 mg/dL (8.5-10.1); Chloride 106 mmol/L (98-107); Creatinine, Serum 2.32 mg/dL (0.55-1.02); EST Glomerular Filtration Rate 21 mL/min (>60); Est Glom Filt Rate - Afr Amer 26 mL/min (>60); Glucose 174 mg/dL (74-106); Potassium 3.9 mmol/L (3.5-5.1); Sodium Level 138 mmol/L (136-145)
== END | disposition home or self-care (01) ==
LOC: LAB 16:52
PROVIDERS: PCP Family Medicine; Visit Provider Family Medicine
DX: N18.30 Chronic kidney disease, stage 3 unspecified (principal)
CPT/HCPCS: 36415; 80048

== ENCOUNTER → 2022-04-06 | Outpatient (CLI) | payer MEDICARE, OTHER, SELFPAY ==
--- NOTE | 2022-04-06 15:21 | US_ITS ---
STUDY: ULTRASOUND BREAST - LEFT REASON FOR EXAM: Female, 81 years old. Left breast lump/mass TECHNIQUE: Axial and longitudinal images of the LEFT breast were performed with a high resolution ultrasound transducer. # OF IMAGES: 12 COMPARISON: Comparison is made with prior mammogram done earlier in the day. FINDINGS: LEFT Breast: The palpable abnormality corresponds to a 3 cm x 2.7 cm x 2.4 cm heterogeneous solid irregular mass with increased vascularity in the retro areolar region of the breast. Biopsy recommended. US/Breast Limited Unilateral IMPRESSION: 3 cm x 2.7 cm x 2.4 some heterogeneous solid irregular mass with increased vascularity in the retroareolar region of the breast. Biopsy recommended. ASSESSMENT CATEGORY: BIRADS Category 5: Highly Suggestive of Malignancy - Appropriate Action Should Be Taken. A letter regarding these results will be sent to the patient by the facility within 30 days. Electronically Signed: Parag Bell MD at 8:06 EST ,
--- NOTE | 2022-04-06 15:21 | BI_ITS ---
MAMMOGRAPHY - BILATERAL DIAGNOSTIC REASON FOR EXAM: Female, 81 years old. Left breast lump. PERTINENT HISTORY: Personal history of breast cancer. Prior right lumpectomy. TECHNIQUE: Digital bilateral breast alicia (3D mammographic acquisition) in the CC and MLO projections. 2-D mediolateral oblique (MLO) and craniocaudad (CC) views of both breasts were obtained. CAD: Full Field Digital Mammography with Computer Added Detection was performed. COMPARISON: Comparison is made with prior examination dated 10/03/2016 and 06/05/2015. FINDINGS: Breast Composition: The breasts are almost entirely fatty. The palpable abnormality corresponds to a 3.4 cm x 2.4 cm lobulated mass in the inferior medial retroareolar region of the left breast. The patient is status post lumpectomy in the deep upper lateral aspect of the right breast with resultant postoperative architectural distortion and calcification. This is unchanged. No other significant abnormalities are identified. BI/DIAG MAMM W/CAD, BILAT IMPRESSION: 3.4 cm x 2.4 cm lobulated mass in the inferior medial retroareolar region of the left breast as described. Correlation with ultrasound is recommended. ASSESSMENT CATEGORY: BIRADS Category 0: Incomplete. Need additional imaging evaluation. A letter regarding these results will be sent to the patient by the facility within 30 days. Approximately 10% of breast cancers are not detected by mammography. A normal mammogram should not delay biopsy of a clinically suspicious abnormality. Electronically Signed: Parag Bell MD at 8:04 EST ,
== END | disposition home or self-care (01) ==
PROVIDERS: PCP Family Medicine; Visit Provider Family Medicine
DX: N63.20 Unspecified lump in the left breast, unspecified quadrant (principal); Z85.3 Personal history of malignant neoplasm of breast
CPT/HCPCS: 76642; 77062; 77066; G0279

== ENCOUNTER → 2022-04-08 | Outpatient (CLI) | payer MEDICARE, OTHER, SELFPAY ==
[2022-04-08 11:05] LABS: Absolute Lymphocyte Count 1.31 X10^3/uL (0.83-4.51); Absolute Neutrophil Count 6.4 X10^3/uL (2.0-7.7); Basophil# 0.04 X10^3/uL; Basophil% 0.4 % (0-1); Eosinophil# 0.52 X10^3/uL; Eosinophils% 5.7 % (0-5); Hematocrit 32.7 % (37-47); Hemoglobin 10.2 g/dL (12.0-15.0); Lymphocyte # 1.31 X10^3/ul (0.83-4.51); Lymphocyte % 14.4 % (19-41); Mean Corp Hgb Conc 31.2 g/dL (32-36); Mean Corpuscular Hgb 26.4 pg (27.0-32.0); Mean Corpuscular Volume 84.5 fL (81-99); Mean Platelet Vol. 12.6 fl (6.2-12.0); Monocyte# 0.75 X10^3/uL; Monocyte% 8.2 % (0-10); NRBC Flagged by Analyzer 0 % (0-5); Neutrophil # 6.43 X10^3/uL (2.7-7.7); Neutrophil % 70.5 % (47-70); Platelet Count 332 K/mm3 (150-450); RBC Distribution Width CV 14.3 % (11.6-14.6); RBC Distribution Width SD 43.8 fl (35.1-43.9); Red Blood Count 3.87 M/mm3 (4.2-5.4); White Blood Count 9.1 K/mm3 (4.4-11.0)
[2022-04-08 13:32] LABS: Anion Gap 6 (5-15); BUN 35 mg/dL (7-18); BUN/Creat Ratio 14.2 RATIO (10-20); Calcium,Total 10.2 mg/dL (8.5-10.1); Chloride 109 mmol/L (98-107); Creatinine, Serum 2.46 mg/dL (0.55-1.02); EST Glomerular Filtration Rate 20 mL/min (>60); Est Glom Filt Rate - Afr Amer 24 mL/min (>60); Glucose 30 mg/dL (74-106); Potassium 4.5 mmol/L (3.5-5.1); Sodium Level 142 mmol/L (136-145)
== END | disposition home or self-care (01) ==
PROVIDERS: PCP Family Medicine; Referring Provider Family Medicine; Visit Provider Family Medicine
DX: I50.43 Acute on chronic combined systolic (congestive) and diastolic (congestive) heart failure (principal); N17.9 Acute kidney failure, unspecified; E11.22 Type 2 diabetes mellitus with diabetic chronic kidney disease; N18.9 Chronic kidney disease, unspecified; Z51.81 Encounter for therapeutic drug level monitoring
CPT/HCPCS: 36415; 80048; 83880; 85025

== ENCOUNTER → 2022-04-15 | Outpatient (CLI) | payer MEDICARE, OTHER, SELFPAY ==
[2022-04-15 16:21] LABS: BNP,B-Type NATRIURETIC PEPTIDE 92.4 pg/mL (0-100)
[2022-04-15 16:49] LABS: ALB/GLOB Ratio 0.6 RATIO (0.9-2.4); AST(SGOT) 10 U/L (15-37); Alanine Aminotransfer ALT/SGPT 14 U/L (13-56); Albumin, Serum 2.7 g/dL (3.2-5.0); Alkaline Phosphatase 63 U/L (45-117); Anion Gap 3 (5-15); BUN 32 mg/dL (7-18); BUN/Creat Ratio 14.6 RATIO (10-20); Calcium,Total 9.1 mg/dL (8.5-10.1); Chloride 112 mmol/L (98-107); Creatinine, Serum 2.19 mg/dL (0.55-1.02); EST Glomerular Filtration Rate 23 mL/min (>60); Est Glom Filt Rate - Afr Amer 28 mL/min (>60); Globulin 4.2 g/dL (2.2-4.2); Glucose 263 mg/dL (74-106); Potassium 4.2 mmol/L (3.5-5.1); Protein, Total 6.9 g/dL (6.4-8.2); Sodium Level 142 mmol/L (136-145)
== END | disposition home or self-care (01) ==
LOC: LAB 15:28
PROVIDERS: PCP Family Medicine; Visit Provider Family Medicine
DX: I50.82 Biventricular heart failure (principal); I50.33 Acute on chronic diastolic (congestive) heart failure; N18.32 Chronic kidney disease, stage 3b
CPT/HCPCS: 36415; 80053; 83880

== ENCOUNTER 2022-06-19 10:45 | Emergency (ER) | payer MEDICARE, OTHER, SELFPAY ==
[2022-06-19 10:48] VITALS: BP 145/68; PULSE 95; RESP 14; TEMP 36.1; O2SAT 100; BMI 22.4
--- NOTE | 2022-06-19 11:33 | EDS_ITS ---
HPI History of Present Illness Chief Complaint: Complaint Informant: patient and family Onset/Context/Timing Onset: Days Context: Gradual Onset Timing: Continuous Worsened by: Nothing Relieved by: Tylenol Narrative Narrative: Patient presents with urinary frequency that has been getting worse over the past few days. Patient states it came on gradually. Patient states that it has been constant for the past few days. Patient took Tylenol today which seemed to help. Patient states nothing makes it worse. Patient denies any dysuria. Patient denies any hematuria. Patient denies any flank or back pain. Patient denies any nausea or vomiting. Patient denies any fevers or chills. [facility] Medical History Cancer COPD (chronic obstructive pulmonary disease) Dementia Diabetes Former smoker Hearing loss, left Hearing loss, right HTN (hypertension) Hyperlipidemia Hypertension Kidney disease Home Medications atenolol 25 mg tablet 25 mg PO DAILY blood pressure 09/27/17 [History Last Taken 10/27/20] simvastatin 20 mg tablet 20 mg PO DAILY cholesterol lowering 09/27/17 [History Last Taken 10/27/20] aspirin 81 mg tablet,delayed release (Josue Low Dose Aspirin) 81 mg PO DAILY HEALTH MAINTENANCE 10/28/20 [History Last Taken 10/26/20] cholecalciferol (vitamin D3) 50 mcg (2,000 unit) capsule 50 mcg PO TU SUPPLEMENT 10/28/20 [History Last Taken 10/27/20] junrerceyged-Hg-zpwk-minerals 18 mg-0.4 mg tablet 1 tab PO DAILY SUPPLEMENT 10/28/20 [History Last Taken 10/27/20] amlodipine 5 mg PO/SL DAILY blood pressure 03/19/21 [History Last Taken Unknown] insulin glargine 100 unit/mL subcutaneous solution (Lantus U-100 Insulin) 12 unit SQ QHS blood sugar 03/15/22 [History Last Taken Unknown] linagliptin 5 mg tablet (Tradjenta) 5 mg PO DAILY 03/15/22 [History Last Taken Unknown] oxybutynin chloride 5 mg tablet,extended release 24 hr 5 mg PO QHS 03/22/22 [History Last Taken Unknown] Allergy/AdvReac Type Severity Reaction Status Date / Time penicillin Allergy Rash Verified 06/19/22 10:47 Family History Mother Hypertension Diabetes Other Breast cancer Cancer Seizures Thyroid disorder Surgical History Hx of cataract surgery S/P breast lumpectomy Social History household members: [facility] Smoking Status: Former smoker how long ago did patient quit smoking: Patient quit cigarette tobacco use in the 1970s, started age 20-22. alcohol intake: never substance use type: does not use ROS ROS ED Constitutional Constitutional ED: Denies chills or fever(s) Eyes Eyes: Denies blurry vision or change in vision ENT ENT ED: Denies rhinorrhea or sore throat Cardiovascular Cardiovascular: Denies chest pain or palpitations Respiratory/Chest Respiratory/Chest: Denies cough or dyspnea Gastrointestinal Gastrointestinal: Denies nausea or vomiting Genitourinary Genitourinary ED: Reports urinary frequency; Denies dysuria or hematuria Musculoskeletal Musculoskeletal: Denies back pain or neck pain Integumentary Denies abscess or rash Neurologic Neurologic: Denies headache(s) or weakness Allergic/Immunologic Allergic/Immunologic ED: Denies mouth swelling or urticaria EXAM Physical Exam Const Vital Signs: 06/19/22 10:48 06/19/22 12:57 06/19/22 13:19 Temperature 97 F L Temperature Source Temporal Pulse Rate 95 Respiratory Rate 14 19 H 18 Blood Pressure 145/68 H Blood Pressure Mean 93 Pulse Ox 100 Oxygen Delivery Method Room Air Room Air Positive well nourished and well developed General Appearance ED: well developed and NAD HEENT Reports moist mucous membranes Neck supple and no JVD Resp normal respiratory effort and clear to auscultation bilaterally Cardio regular rate, regular rhythm and no murmurs GI normal to inspection, nondistended, normoactive bowel sounds and non-tender Palpation: soft Extremity normal to inspection General Extremety ED: Negative for edema or tenderness General Extremity: Negative for edema Neuro oriented x3, CN's II-XII intact bilaterally and no sensory deficits noted Sensorium / Orientation: alert Motor Exam: strength 5/5 throughout Psych mental status grossly normal Skin no rashes or lesions noted MDM MDM MDM Narrative Medical decision making narrative: Differential diagnosis includes urinary tract infection, electrolyte abnormality, and hyperglycemia. Will obtain a urinalysis to assess for urinary tract infection. Lab Data Labs: Laboratory Results - last 24 hr 06/19/22 12:54 POC Glucose 233 H Treatment and Re-Evaluation Narrative: Patient was unable to produce a urine specimen here in the emergency department. Fingerstick glucose was obtained and was 233. Patient and son want to go home without producing urine specimen. Son states the patient will follow-up with her primary care physician for further evaluation. Patient and son are agreeable with the plan. All questions were answered. Discharge Plan Triage Chief Complaint: Complaint ED Provider: [place] Dx/Rx/DC Orders Clinical Impression: Urinary frequency, Benign essential hypertension Prescriptions: No Action atenolol 25 MG tablet 25 mg PO DAILY Label Comments: simvastatin 20 MG tablet 20 mg PO DAILY aspirin [Josue Low Dose Aspirin] 81 mg Tablet,Delayed Release (Dr/Ec) 81 mg PO DAILY eewkkchfghmh-Aa-xlhj-minerals 18-0.4 mg Tablet 1 tab PO DAILY cholecalciferol (vitamin D3) 50 mcg (2,000 unit) Capsule 50 mcg PO TU amlodipine 5 mg tablet 5 mg PO/SL DAILY oxybutynin chloride 5 mg Tablet Extended Release 24hr 5 mg PO QHS Tradjenta 5 mg tablet 5 mg PO DAILY insulin glargine [Lantus U-100 Insulin] 100 UNIT/ML solution 12 unit SQ QHS Primary Care Provider: Becky Lassiter Referrals: Becky Lassiter DO [Primary Care Provider] - 3-5 Days Disposition Disposition: Home, Self Care Discharge Date/Time: 06/19/22 13:25
[2022-06-19 12:57] VITALS: RESP 19
--- NOTE | 2022-06-19 12:58 | ED.RN ---
PT AND PT SON REFUSED STRAIGHT CATH. PT AND PT'S SON STATE THERE IS NO BURNING WHEN PEEING WE ARE JUST TRYING TO STAY PROACTIVE AND WANT TO CALL IT A DAY. PT SON STATES I WILL LET NURSES [facility] KNOW TO LOOK FOR FURTHER SIGNS AND SYMPTOMS OF A UTI. DR. JIMENEZ AWARE. NO FURTHER ORDERS.
[2022-06-19 13:15] LABS: Bedside Glucose 233 mg/dL (74-106)
[2022-06-19 13:19] VITALS: RESP 18
--- NOTE | 2022-06-19 16:29 | ED.RN ---
THIS RN CALLED REPORT TO [facility]. REPORT TAKEN BY
== END 2022-06-19 13:25 | disposition home or self-care (01) ==
PROVIDERS: Emergency Provider Emergency Medicine; PCP Family Medicine; Visit Provider Emergency Medicine
DX: R35.0 Frequency of micturition (principal); J44.9 Chronic obstructive pulmonary disease, unspecified; E11.9 Type 2 diabetes mellitus without complications; I10 Essential (primary) hypertension; E78.5 Hyperlipidemia, unspecified; Z87.891 Personal history of nicotine dependence
CPT/HCPCS: 82962; 99282

== ENCOUNTER 2022-06-21 19:16 | Emergency (ER) | payer MEDICARE, OTHER, SELFPAY ==
[2022-06-21 19:18] VITALS: BP 173/69; PULSE 88; RESP 18; TEMP 36; O2SAT 97; BMI 25.2
[2022-06-21] MEDS: 0.9% Normal Saline 1,000 ML 1000 ML IV (19:48)
[2022-06-21 19:51] LABS: Bedside Glucose 478 mg/dL (74-106)
[2022-06-21 19:53] LABS: Absolute Lymphocyte Count 1.15 X10^3/uL (0.83-4.51); Absolute Neutrophil Count 5.3 X10^3/uL (2.0-7.7); Basophil# 0.03 X10^3/uL; Basophil% 0.4 % (0-1); Hematocrit 30.3 % (37-47); Hemoglobin 9.8 g/dL (12.0-15.0); Lymphocyte # 1.15 X10^3/ul (0.83-4.51); Lymphocyte % 15.4 % (19-41); Mean Corp Hgb Conc 32.3 g/dL (32-36); Mean Corpuscular Hgb 26.3 pg (27.0-32.0); Mean Corpuscular Volume 81.2 fL (81-99); Mean Platelet Vol. 12.2 fl (6.2-12.0); Monocyte# 0.72 X10^3/uL; Monocyte% 9.6 % (0-10); NRBC Flagged by Analyzer 0 % (0-5); Neutrophil # 5.25 X10^3/uL (2.7-7.7); Neutrophil % 70.3 % (47-70); Platelet Count 271 K/mm3 (150-450); RBC Distribution Width CV 13.6 % (11.6-14.6); RBC Distribution Width SD 40.4 fl (35.1-43.9); Red Blood Count 3.73 M/mm3 (4.2-5.4); White Blood Count 7.5 K/mm3 (4.4-11.0)
[2022-06-21 20:06] LABS: Mucous, Urine 0 SEEN /hpf (<or=2+); Red Blood Cells-Urine 0 SEEN /hpf (0-5)
[2022-06-21 20:07] LABS: Color, Urine Yellow (Yellow); Glucose, Dipstick 1000 mg/dl (Normal); Ketone-Dipstick Negative (Negative); Leukocyte Esterase-Dipstick 500 /ul (Negative); Nitrite-Dipstick Negative (Negative); Occult Blood-Urine 25 /ul (Negative); Protein-Dipstick 500 mg/dl (Negative); Urine Bilirubin Dipstick Negative (Negative); Urine Clarity Cloudy (Clear); Urine Urobilinogen Normal (Normal)
[2022-06-21 20:16] LABS: Anion Gap 7 (5-15); BUN 37 mg/dL (7-18); BUN/Creat Ratio 14.9 RATIO (10-20); Calcium,Total 9.5 mg/dL (8.5-10.1); Chloride 104 mmol/L (98-107); Creatinine, Serum 2.48 mg/dL (0.55-1.02); EST Glomerular Filtration Rate 20 mL/min (>60); Est Glom Filt Rate - Afr Amer 24 mL/min (>60); Estimated Creatinine Clearance 15.38 ml/min; Glucose 454 mg/dL (74-106); Potassium 4.3 mmol/L (3.5-5.1); Sodium Level 136 mmol/L (136-145)
[2022-06-21 20:20] LABS: Bacteria 1+ /hpf (None Seen); Squamous Epithelial Cells - UA 0-5 SEEN /hpf (5-10); White Blood Cells >100 SEEN /hpf (0-5)
[2022-06-21] MEDS: Insulin Lispro 100 UNIT/ML INSULN.PEN 8 UNIT SC (20:37)
[2022-06-21 21:10] LABS: Bedside Glucose 420 mg/dL (74-106)
--- NOTE | 2022-06-21 21:12 | EX.ED.DYSGE1 ---
HPI History of Present Illness Chief Complaint: Hyperglycemia Detail of Chief Complaint: Hyperglycemia, thirst, increased urination Informant: patient, family and SNF Onset/Context/Timing Onset: Days (2 to 3 days per family member) Context: Sudden Onset Timing: Continuous Quality: Symptoms of hyperglycemia Location: Not applicable Current Severity: Moderate Maximum Severity: Moderate Worsened by: Patient has not received insulin this evening. Last dose last evening Relieved by: Nothing Associated Symptoms Associated Symptoms: Polyuria, polydipsia and dry mouth Narrative Narrative: Patient is an elderly woman with history of type 1 diabetes, chronic renal insufficiency, benign essential hypertension, rheumatoid arthritis and left breast mass. Patient was seen yesterday for hyperglycemia. The family were states she did not receive her dose of insulin because the nurse was sending her to the emergency department. Patient denies shortness of breath, cough, orthopnea or PND. Patient denies chest discomfort of any type. Patient denies nausea, vomiting diarrhea. Patient denies dysuria or hematuria. She does report frequency. Daughter is concerned because her feet and ankles are swollen. She apparently is been sitting more than normal. She is at a assisted living facility. She denies headache, visual, ocular auditory symptoms. She denies paresthesia, anesthesia or motor weakness. Prior similar symptoms: Yes Recent Illness/Hospitalization: Yes [facility] Medical History Cancer COPD (chronic obstructive pulmonary disease) Dementia Diabetes Former smoker Hearing loss, left Hearing loss, right HTN (hypertension) Hyperlipidemia Hypertension Kidney disease Home Medications atenolol 25 mg tablet 25 mg PO DAILY blood pressure 09/27/17 [History Last Taken 10/27/20] simvastatin 20 mg tablet 20 mg PO DAILY cholesterol lowering 09/27/17 [History Last Taken 10/27/20] aspirin 81 mg tablet,delayed release (Josue Low Dose Aspirin) 81 mg PO DAILY HEALTH MAINTENANCE 10/28/20 [History Last Taken 10/26/20] cholecalciferol (vitamin D3) 50 mcg (2,000 unit) capsule 50 mcg PO TU SUPPLEMENT 10/28/20 [History Last Taken 10/27/20] nzahsctsklom-Jo-yhya-minerals 18 mg-0.4 mg tablet 1 tab PO DAILY SUPPLEMENT 10/28/20 [History Last Taken 10/27/20] amlodipine 5 mg PO/SL DAILY blood pressure 03/19/21 [History Last Taken Unknown] insulin glargine 100 unit/mL subcutaneous solution (Lantus U-100 Insulin) 12 unit SQ QHS blood sugar 03/15/22 [History Last Taken Unknown] linagliptin 5 mg tablet (Tradjenta) 5 mg PO DAILY 03/15/22 [History Last Taken Unknown] oxybutynin chloride 5 mg tablet,extended release 24 hr 5 mg PO QHS 03/22/22 [History Last Taken Unknown] cefdinir 300 mg capsule 300 mg PO DAILY #7 caps 06/21/22 [Rx Last Taken Unknown] Allergy/AdvReac Type Severity Reaction Status Date / Time penicillin Allergy Rash Verified 06/21/22 19:20 Family History Mother Hypertension Diabetes Other Breast cancer Cancer Seizures Thyroid disorder Surgical History Hx of cataract surgery S/P breast lumpectomy Social History household members: none housing: condominium Smoking Status: Former smoker how long ago did patient quit smoking: Patient quit cigarette tobacco use in the 1970s, started age 20-22. alcohol intake: never substance use type: does not use ROS ROS ED Constitutional Constitutional ED: Denies chills, fever(s) or subjective Eyes Eyes: Denies blurry vision, change in vision or diplopia ENT ENT ED: Reports other Details: Positive dry mouth ; Denies ear pain, rhinorrhea or sore throat Cardiovascular Cardiovascular: Denies chest pain, orthopnea, palpitations, paroxysmal nocturnal dyspnea or racing heartbeat Respiratory/Chest Respiratory/Chest: Denies cough, dyspnea, dyspnea on exertion, orthopnea or paroxysmal nocturnal dyspnea Gastrointestinal Gastrointestinal: Denies abdominal pain, constipation, diarrhea, melena, nausea or vomiting Genitourinary Genitourinary ED: Reports other Details: Positive frequency. ; Denies dysuria, hematuria or urinary frequency Musculoskeletal Musculoskeletal: Denies arthralgias, back pain or myalgias Integumentary Denies rash Neurologic Neurologic: Denies headache(s), paresthesias or weakness Psychiatric Psychiatric: Denies anxiety or depression Endocrine Endocrinology: Reports polydipsia and polyuria Hematologic/Lymphatic Hematologic/Lymphatic: Reports systems reviewed and no addt'l complaints, except as documented; Denies easy bleeding or easy bruising EXAM Physical Exam Const Vital Signs: 06/21/22 19:18 06/21/22 21:21 Temperature 96.8 F L Temperature Source Temporal Pulse Rate 88 86 Respiratory Rate 18 28 H Blood Pressure 173/69 H 173/69 H Blood Pressure Mean 103 103 Pulse Ox 97 97 Oxygen Delivery Method Room Air Room Air Positive well nourished and well developed General Appearance ED: well developed and NAD; Negative for pallor HEENT Reports dry mucous membranes HEENT Narrative: Head is atraumatic normocephalic. Ears are normal. Nares are patent. Uvula midline. No deviation of protrusion. No erythema or exudate the posterior pharynx. Mouth ED: Yes dry mucous membranes Mouth: dry mucous membranes Eyes PERRL and EOMs intact bilaterally General Eye ED: Negative for pale conjunctiva or scleral icterus Neck no lymphadenopathy, supple and no JVD Chest Wall inspection of chest normal and palpation of chest normal Resp normal respiratory effort and clear to auscultation bilaterally Cardio regular rate, regular rhythm, S1 normal heart sound, S2 normal heart sound and no murmurs GI normal to inspection, nondistended, normoactive bowel sounds, non-tender, non-distended and no masses; Negative for hepatosplenomegaly Back/Spine no CVA tenderness Extremity normal to inspection General Extremety ED: Yes edema; Negative for tenderness General Extremity: edema Neuro oriented x3, CN's II-XII intact bilaterally and no sensory deficits noted Sensorium / Orientation: alert Psych mental status grossly normal Skin no rashes or lesions noted, no wounds and No skin turgor normal General Skin Exam: Negative for elasticity normal, jaundice or pallor MDM MDM MDM Narrative Medical decision making narrative: She has symptoms of hyperglycemia. We will obtain CBC to rule out infectious cause. BMP was obtained to assess glucose, CO2 anion gap and assess renal function since she has history of chronic renal disease. UA obtained to rule out infection as well. Records from yesterday were reviewed. Patient's white count is normal. Patient has chronic anemia. Base Veronica panel is marked for a BUN of 37 and creatinine at 2.48 with a GFR of 20. Urine is with infection. Urine culture was sent. Since patient only documents rash to penicillin she was treated with Rocephin IV piggyback. Culture was sent. Patient's blood sugar is probably poorly controlled because of urinary tract infection. Patient's blood sugar after 8 units of insulin was 308. More importantly CO2 and anion gap were normal. Patient does not have DKA. Because of her chronic renal dysfunction will place on Omnicef which is a third-generation cephalosporin and reduced dose. He is on creatinine clearance patient dose was 300 mg once a day for 7 days. Lab Data Attestation: I reviewed the patient's lab results. Labs: Laboratory Results - last 24 hr 06/21/22 06/21/22 06/21/22 19:25 19:48 19:48 WBC 7.5 RBC 3.73 L Hgb 9.8 L Hct 30.3 L MCV 81.2 MCH 26.3 L MCHC 32.3 RDW Std Deviation 40.4 RDW Coeff of Abhinav 13.6 Plt Count 271 MPV 12.2 H Immature Gran % (Auto) 0.300 Neut % (Auto) 70.3 H Lymph % (Auto) 15.4 L [place] % (Auto) 9.6 Eos % (Auto) 4.0 Baso % (Auto) 0.4 Absolute Neuts (auto) 5.3 Absolute Lymphs (auto) 1.15 Nucleated RBC % 0 Sodium 136 Potassium 4.3 Chloride 104 Carbon Dioxide 25.0 Anion Gap 7 BUN 37 H Creatinine 2.48 H Estim Creat Clear Calc 15.38 Est GFR (MDRD) Af Amer 24 L Est GFR (MDRD) Non-Af 20 L BUN/Creatinine Ratio 14.9 Glucose 454 H* Calcium 9.5 Urine Color Urine Clarity Urine pH Ur Specific [place] Urine Protein Urine Glucose (UA) Urine Ketones Urine Occult Blood Urine Nitrite Urine Bilirubin Urine Urobilinogen Ur Leukocyte Esterase Urine RBC Urine WBC Ur Squamous Epith Cells Urine Bacteria Urine Mucus POC Glucose 478 H* 06/21/22 06/21/22 06/21/22 19:57 20:51 21:41 WBC RBC Hgb Hct MCV MCH MCHC RDW Std Deviation RDW Coeff of Abhinav Plt Count MPV Immature Gran % (Auto) Neut % (Auto) Lymph % (Auto) [place] % (Auto) Eos % (Auto) Baso % (Auto) Absolute Neuts (auto) Absolute Lymphs (auto) Nucleated RBC % Sodium Potassium Chloride Carbon Dioxide Anion Gap BUN Creatinine Estim Creat Clear Calc Est GFR (MDRD) Af Amer Est GFR (MDRD) Non-Af BUN/Creatinine Ratio Glucose Calcium Urine Color Yellow Urine Clarity Cloudy Urine pH 5.0 Ur Specific [place] 1.020 Urine Protein 500 H Urine Glucose (UA) 1000 H Urine Ketones Negative Urine Occult Blood 25 H Urine Nitrite Negative Urine Bilirubin Negative Urine Urobilinogen Normal Ur Leukocyte Esterase 500 H Urine RBC 0 SEEN Urine WBC >100 SEEN Ur Squamous Epith Cells 0-5 SEEN Urine Bacteria 1+ Urine Mucus 0 SEEN POC Glucose 420 H 307 H Discharge Plan Triage Chief Complaint: Hyperglycemia ED Provider: Diego Jackson Dx/Rx/DC Orders Clinical Impression: Urinary tract infection, Benign essential hypertension, Rheumatoid arthritis, Hyperglycemia due to type 1 diabetes mellitus, Chronic kidney disease (CKD), stage IV (severe), Dependent edema Instructions: ED Diabetic Hyperglycemia, ED Cystitis Female Adult Prescriptions: New cefdinir 300 mg capsule 300 mg PO DAILY Qty: 7 0RF No Action atenolol 25 MG tablet 25 mg PO DAILY Label Comments: simvastatin 20 MG tablet 20 mg PO DAILY aspirin [Josue Low Dose Aspirin] 81 mg Tablet,Delayed Release (Dr/Ec) 81 mg PO DAILY gvelfpifozoi-Tx-stid-minerals 18-0.4 mg Tablet 1 tab PO DAILY cholecalciferol (vitamin D3) 50 mcg (2,000 unit) Capsule 50 mcg PO TU amlodipine 5 mg tablet 5 mg PO/SL DAILY oxybutynin chloride 5 mg Tablet Extended Release 24hr 5 mg PO QHS Tradjenta 5 mg tablet 5 mg PO DAILY insulin glargine [Lantus U-100 Insulin] 100 UNIT/ML solution 12 unit SQ QHS Primary Care Provider: Becky Lassiter Referrals: Becky Lassiter DO [Primary Care Provider] - 3-5 Days if not improving Disposition Disposition: Home, Self Care
[2022-06-21 21:21] VITALS: BP 173/69; PULSE 86; RESP 28; O2SAT 97
[2022-06-21] MEDS: Ceftriaxone 1 GM/50 ML BAG IV (21:52)
[2022-06-21 22:00] LABS: Bedside Glucose 307 mg/dL (74-106)
[2022-06-21 22:55] VITALS: BP 151/77; PULSE 84; RESP 21; O2SAT 98
== END 2022-06-21 23:07 | disposition home or self-care (01) ==
PROVIDERS: Emergency Provider Emergency Medicine; PCP Family Medicine; Visit Provider Emergency Medicine
DX: N39.0 Urinary tract infection, site not specified (principal); M06.9 Rheumatoid arthritis, unspecified; J44.9 Chronic obstructive pulmonary disease, unspecified; E10.22 Type 1 diabetes mellitus with diabetic chronic kidney disease; E10.65 Type 1 diabetes mellitus with hyperglycemia; N18.4 Chronic kidney disease, stage 4 (severe); E78.5 Hyperlipidemia, unspecified; Z87.891 Personal history of nicotine dependence; R60.9 Edema, unspecified; I12.9 Hypertensive chronic kidney disease with stage 1 through stage 4 chronic kidney disease, or unspecified chronic kidney disease; D64.9 Anemia, unspecified
CPT/HCPCS: 80048; 81001; 82962; 85025; 87077; 87086; 87088; 87186; 96361; 96365; 99284; J7030; A4216

== ENCOUNTER → 2022-11-03 | Outpatient (CLI) | payer MEDICARE, OTHER, SELFPAY ==
--- NOTE | 2022-11-03 14:23 | RAD_ITS ---
INDICATION: SHORTNESS OF BREATH EXAMINATION: Frontal and lateral views of the chest. COMPARISON: Chest x-ray March 16, 2022. FINDINGS: Frontal and lateral views of the chest were obtained. Suboptimal inspiration which crowds the bronchovascular markings. The cardiac silhouette is mildly enlarged. Small to moderate bilateral pleural effusions are identified with associated atelectasis. Interstitial markings are mildly increased bilaterally. No pneumothorax. RAD/Chest PA and Lateral IMPRESSION: Small to moderate bilateral pleural effusions with associated atelectasis. Possible slight pulmonary vascular congestion. Electronically Signed: Manuel Matias MD at 7:00 EDT ,
[2022-11-03 17:46] LABS: Absolute Lymphocyte Count 1.79 X10^3/uL (0.83-4.51); Absolute Neutrophil Count 7.2 X10^3/uL (2.0-7.7); Basophil# 0.03 X10^3/uL; Basophil% 0.3 % (0-1); Eosinophil# 0.32 X10^3/uL; Eosinophils% 3.2 % (0-5); Hematocrit 28.3 % (37-47); Hemoglobin 8.8 g/dL (12.0-15.0); Lymphocyte # 1.79 X10^3/ul (0.83-4.51); Lymphocyte % 17.8 % (19-41); Mean Corp Hgb Conc 31.1 g/dL (32-36); Mean Corpuscular Hgb 27.3 pg (27.0-32.0); Mean Corpuscular Volume 87.9 fL (81-99); Mean Platelet Vol. 13.4 fl (6.2-12.0); Monocyte# 0.69 X10^3/uL; Monocyte% 6.9 % (0-10); NRBC Flagged by Analyzer 0 % (0-5); Neutrophil # 7.16 X10^3/uL (2.7-7.7); Neutrophil % 71.4 % (47-70); POSITIVE MORPHOLOGY YES; Platelet Count 299 K/mm3 (150-450); RBC Distribution Width CV 14.6 % (11.6-14.6); RBC Distribution Width SD 46.7 fl (35.1-43.9); Red Blood Count 3.22 M/mm3 (4.2-5.4)
[2022-11-03 17:53] LABS: Differential Indicated SCAN CRITERIA MET
[2022-11-03 18:17] LABS: Hemoglobin A1c 5.8 % (3.8-5.6)
[2022-11-03 18:44] LABS: Differential Comment SCANNED; Ovalocyte 2+; Poikilocytosis 2+
[2022-11-03 19:01] LABS: ALB/GLOB Ratio 0.5 RATIO (0.9-2.4); AST(SGOT) 25 U/L (15-37); Alanine Aminotransfer ALT/SGPT 25 U/L (13-56); Albumin, Serum 2.5 g/dL (3.2-5.0); Alkaline Phosphatase 83 U/L (45-117); Anion Gap 8 (5-15); BUN 61 mg/dL (7-18); BUN/Creat Ratio 16.5 RATIO (10-20); Calcium,Total 8.7 mg/dL (8.5-10.1); Chloride 110 mmol/L (98-107); EST Glomerular Filtration Rate 12 mL/min (>60); Est Glom Filt Rate - Afr Amer 15 mL/min (>60); Globulin 5.1 g/dL (2.2-4.2); Glucose 167 mg/dL (74-106); Potassium 4.7 mmol/L (3.5-5.1); Protein, Total 7.6 g/dL (6.4-8.2); Sodium Level 136 mmol/L (136-145); Thyroid Stim Hormone (TSH) 4.29 uIU/mL (0.358-3.74); Troponin-I HS 278 pg/mL (3.0-54.0)
== END | disposition home or self-care (01) ==
PROVIDERS: PCP Family Medicine; Referring Provider Family Medicine; Visit Provider Family Medicine
DX: E78.00 Pure hypercholesterolemia, unspecified (principal); E11.22 Type 2 diabetes mellitus with diabetic chronic kidney disease; N18.4 Chronic kidney disease, stage 4 (severe); R60.9 Edema, unspecified; Z51.81 Encounter for therapeutic drug level monitoring; R06.00 Dyspnea, unspecified; R09.02 Hypoxemia
CPT/HCPCS: 36415; 71046; 80053; 83036; 83880; 84443; 84484; 85025

== ENCOUNTER 2022-11-04 11:49 | Inpatient (IN) | payer MEDICARE, OTHER, SELFPAY ==
[2022-11-04] VITALS (10 sets, daily range): BP systolic 142–165; BP diastolic 68–106; PULSE 76–92; RESP 16–28; TEMP 35.7–36.6; O2SAT 88–100; BMI 22.8; BMI 22.4
--- NOTE | 2022-11-04 13:01 | EKG12_ITS ---
Test Reason : SOB Blood Pressure : / mmHG Vent. Rate : 088 BPM Atrial Rate : 088 BPM P-R Int : 114 ms QRS Dur : 072 ms QT Int : 362 ms P-R-T Axes : 034 -03 261 degrees QTc Int : 438 ms Normal sinus rhythm ST & T wave abnormality, consider anterolateral ischemia Abnormal ECG Confirmed by RICK JORDAN, BABIAT ([id number]), food editor PATIENCE PRETTY ([id number]) on 11/07/2022 1:36:04 PM Referred By: SANDHYA Confirmed By:BABITA CABRERA MD
--- NOTE | 2022-11-04 13:03 | EDS_ITS ---
HPI History of Present Illness Chief Complaint: Shortness of Breath Informant: patient and family (Son) Narrative Narrative: Patient is in assisted living and has been having leg swelling for several weeks, shortness of breath for the past week or so, it has been worsening. Son said that she was seen here yesterday and discharged but she is worse today but after reviewing records, it seems that she had outpatient labs because she has not been seen here at this hospital/ED since May. She does not have a history of heart failure or COPD that she knows of although it appears to be suspected that she has COPD based on chart review. [facility] Medical History Cancer COPD (chronic obstructive pulmonary disease) Dementia Diabetes Former smoker Hearing loss, left Hearing loss, right HTN (hypertension) Hyperlipidemia Hypertension Kidney disease Home Medications atenolol 25 mg tablet 25 mg PO DAILY blood pressure 09/27/17 [History Last Taken 10/27/20] simvastatin 20 mg tablet 20 mg PO QHS cholesterol lowering 09/27/17 [History Last Taken 10/27/20] aspirin 81 mg tablet,delayed release (Josue Low Dose Aspirin) 81 mg PO DAILY HEALTH MAINTENANCE 10/28/20 [History Last Taken 10/26/20] cholecalciferol (vitamin D3) 50 mcg (2,000 unit) capsule 50 mcg PO TU SUPPLEMENT 10/28/20 [History Last Taken 10/27/20] insulin glargine 100 unit/mL subcutaneous solution (Lantus U-100 Insulin) 20 unit SQ QHS blood sugar 03/15/22 [History Last Taken Unknown] linagliptin 5 mg tablet (Tradjenta) 5 mg PO DAILY 03/15/22 [History Last Taken Unknown] oxybutynin chloride 5 mg tablet,extended release 24 hr 5 mg PO QHS 03/22/22 [History Last Taken Unknown] amlodipine 5 mg tablet 5 mg PO DAILY HTN 11/04/22 [History Last Taken Unknown] bimatoprost 0.01 % eye drops (Lumigan) 1 drp EACH EYE DAILY GLAUCOMA 11/04/22 [History Last Taken Unknown] brimonidine 0.2 %-timolol 0.5 % eye drops (Combigan) 1 drp EACH EYE Q12H GLAUCOMA 11/04/22 [History Last Taken Unknown] furosemide 40 mg tablet 40 mg PO BID PNEUMONIA WITH HEART FAILURE 11/04/22 [History Last Taken Unknown] omeprazole 40 mg capsule,delayed release 40 mg PO QHS GERD 11/04/22 [History Last Taken Unknown] tramadol 50 mg tablet 50 mg PO BID PRN ARTHRITIS PAIN 11/04/22 [History Last Taken Unknown] Allergy/AdvReac Type Severity Reaction Status Date / Time penicillin Allergy Rash Verified 11/04/22 11:51 Family History Mother Hypertension Diabetes Other Breast cancer Cancer Seizures Thyroid disorder Surgical History Hx of cataract surgery S/P breast lumpectomy Social History household members: none housing: condominium Smoking Status: Former smoker how long ago did patient quit smoking: Patient quit cigarette tobacco use in the 1970s, started age 20-22. alcohol intake: never substance use type: does not use ROS ROS ED Constitutional Constitutional ED: Denies chills or fever(s) Eyes Eyes: Denies change in vision or diplopia ENT ENT ED: Denies rhinorrhea or sore throat Cardiovascular Cardiovascular: Reports leg edema; Denies chest pain or palpitations Respiratory/Chest Respiratory/Chest: Reports cough and dyspnea; Denies sputum Gastrointestinal Gastrointestinal: Denies abdominal pain, diarrhea, nausea or vomiting Genitourinary Genitourinary ED: Denies dysuria or hematuria Musculoskeletal Musculoskeletal: Denies back pain or neck pain Integumentary Denies abscess or rash Neurologic Neurologic: Denies headache(s), paresthesias or weakness Psychiatric Psychiatric: Denies anxiety or suicidal thoughts EXAM Physical Exam Const Vital Signs: 11/04/22 11:50 11/04/22 12:12 11/04/22 13:27 Temperature 98 F Temperature Source Temporal Pulse Rate 80 79 Respiratory Rate 16 24 H Respiratory Depth Shallow Respiratory Pattern Tachypnea Blood Pressure 142/106 H Blood Pressure Mean 118 Pulse Ox 97 Oxygen Delivery Method Room Air Room Air Oxygen Flow Rate (L/min) 11/04/22 13:31 11/04/22 13:35 Temperature Temperature Source Pulse Rate 77 Respiratory Rate 20 H Respiratory Depth Respiratory Pattern Blood Pressure 147/68 H Blood Pressure Mean 94 Pulse Ox 88 93 Oxygen Delivery Method Room Air Nasal Cannula Oxygen Flow Rate (L/min) 2 Positive well nourished and well developed General Appearance ED: well developed and NAD HEENT Reports moist mucous membranes normocephalic and atraumatic Eyes PERRL and EOMs intact bilaterally Neck full ROM and supple Neck Narrative: + JVD Resp Resp Narrative: Mild tachypnea but no respiratory distress. Bibasilar rhonchi and expiratory wheezes diffusely equal breath sounds bilaterally. Trachea midline. Cardio regular rate, regular rhythm and no murmurs GI non-tender and non-distended Auscultation: normoactive bowel sounds Palpation: soft Back/Spine no CVA tenderness General Back: other FROM Extremity normal to inspection General Extremety ED: Yes edema; Negative for pulses abnormal or tenderness General Extremity: edema bilateral lower extremity Details: mild; Negative for pulses abnormal Neuro oriented x3, CN's II-XII intact bilaterally and no sensory deficits noted Sensorium / Orientation: awake and alert Motor Exam: strength 5/5 throughout Skin no rashes or lesions noted and no wounds MDM MDM MDM Narrative Medical decision making narrative: I reviewed outpatient labs from yesterday, and repeated some of them, she does have renal failure that is new, and elevated troponin that is not as high today, non-injurious EKG, and a chest x-ray 2 views on my interpretation that shows bilateral pleural effusions and consistent with acute CHF, similar to x-ray that was done yesterday which I also reviewed. I did give her dose of Lasix as well as a nebulizer treatment to help with her breathing which helped a little, she did drop her oxygen saturations prior to this to 88% room air so she was placed on 2 L nasal cannula which she is 93%, and stable to be admitted to PCU. I reviewed old records she does not have an old echocardiogram in our system for me to review, nor prior diagnosis of congestive heart failure which she appears to be in now. She did have a prior stress test that appeared to be a Lexiscan that was unremarkable last year. History & Record Review Additional record(s) reviewed:: Prior labs (And records) Lab Data Attestation: I reviewed the patient's lab results. Labs: Laboratory Results - last 24 hr 11/04/22 11/04/22 13:20 13:20 WBC 9.9 RBC 3.16 L Hgb 8.5 L Hct 27.7 L MCV 87.7 MCH 26.9 L MCHC 30.7 L RDW Std Deviation 47.0 H RDW Coeff of Abhinav 14.7 H Plt Count 347 MPV 12.7 H Immature Gran % (Auto) 0.600 Neut % (Auto) 69.9 Lymph % (Auto) 17.6 L [place] % (Auto) 7.7 Eos % (Auto) 3.8 Baso % (Auto) 0.4 Absolute Neuts (auto) 6.9 Absolute Lymphs (auto) 1.74 Nucleated RBC % 0 Sodium 138 Potassium 4.7 Chloride 110 H Carbon Dioxide 20.0 L Anion Gap 8 BUN 62 H Creatinine 3.72 H Estim Creat Clear Calc 9.26 Est GFR (MDRD) Af Amer 15 L Est GFR (MDRD) Non-Af 12 L BUN/Creatinine Ratio 16.7 Glucose 166 H Calcium 8.9 Troponin I High Sens 221 H* Radiography Diagnostic Testing: Clinical Impression(s) from Imaging Studies Chest X-Ray 11/04/22 13:55 IMPRESSION: Essentially stable small bilateral pleural effusions with bibasilar atelectasis worse at the left lung base superimposed on CHF. Electronically Signed: Parag Bell MD at 14:19 EDT , Rhythm Strip Rhythm Strip: Sinus Rhythm Rate: 85 Ectopy: None EKG Initial EKG: Attestation: I personally reviewed and interpreted this EKG as follows: Interpretation: Sinus Rhythm, No Acute Injury Pattern and Inverted T-Waves (Septal-laterally) Prior EKG tracings: available for review Prior: Changed Management Discussion w/another healthcare provider: Hospitalist Discharge Plan Dx/Rx/DC Orders Clinical Impression: Acute CHF (congestive heart failure), Elevated troponin, Acute renal failure (ARF), Hypoxemia Disposition Disposition: [facility]
[2022-11-04] MEDS: Ipratropium/Albuterol Sulfate 3 ML AMPUL.NEB INHALATION (13:26)
[2022-11-04] MEDS: Furosemide 40 MG/4 ML Vial IV (13:30)
[2022-11-04 13:42] LABS: Absolute Lymphocyte Count 1.74 X10^3/uL (0.83-4.51); Absolute Neutrophil Count 6.9 X10^3/uL (2.0-7.7); Basophil# 0.04 X10^3/uL; Basophil% 0.4 % (0-1); Eosinophil# 0.38 X10^3/uL; Eosinophils% 3.8 % (0-5); Hematocrit 27.7 % (37-47); Hemoglobin 8.5 g/dL (12.0-15.0); Lymphocyte # 1.74 X10^3/ul (0.83-4.51); Lymphocyte % 17.6 % (19-41); Mean Corp Hgb Conc 30.7 g/dL (32-36); Mean Corpuscular Hgb 26.9 pg (27.0-32.0); Mean Corpuscular Volume 87.7 fL (81-99); Mean Platelet Vol. 12.7 fl (6.2-12.0); Monocyte# 0.76 X10^3/uL; Monocyte% 7.7 % (0-10); NRBC Flagged by Analyzer 0 % (0-5); Neutrophil # 6.93 X10^3/uL (2.7-7.7); Neutrophil % 69.9 % (47-70); Platelet Count 347 K/mm3 (150-450); RBC Distribution Width CV 14.7 % (11.6-14.6); Red Blood Count 3.16 M/mm3 (4.2-5.4); White Blood Count 9.9 K/mm3 (4.4-11.0)
--- NOTE | 2022-11-04 13:55 | RAD_ITS ---
STUDY: X-RAY CHEST REASON FOR EXAM: Female, 82 years old. Dyspnea TECHNIQUE: AP and lateral views of the chest. COMPARISON: Comparison is made with prior study dated November 03, 2022. FINDINGS: EKG electrodes are seen. Surgical clips are seen in the right axilla. Stable small bilateral pleural effusions with bibasilar atelectasis. Vascular congestion and mild degree of CHF. Normal size heart. Normal mediastinum and riki. Normal visualized pulmonary arteries. There is atherosclerotic tortuosity of the aortic arch and descending thoracic aorta. Normal visualized thoracic spine. Normal visualized ribs, clavicles, and shoulders. There is no demonstrated abnormality of the visualized soft tissue structures of the upper abdomen. RAD/Chest PA and Lateral IMPRESSION: Essentially stable small bilateral pleural effusions with bibasilar atelectasis worse at the left lung base superimposed on CHF. Electronically Signed: Parag Bell MD at 14:19 EDT ,
[2022-11-04 14:30] LABS: Anion Gap 8 (5-15); BUN 62 mg/dL (7-18); BUN/Creat Ratio 16.7 RATIO (10-20); Calcium,Total 8.9 mg/dL (8.5-10.1); Chloride 110 mmol/L (98-107); Creatinine, Serum 3.72 mg/dL (0.55-1.02); EST Glomerular Filtration Rate 12 mL/min (>60); Est Glom Filt Rate - Afr Amer 15 mL/min (>60); Estimated Creatinine Clearance 9.26 ml/min; Glucose 166 mg/dL (74-106); Potassium 4.7 mmol/L (3.5-5.1); Sodium Level 138 mmol/L (136-145); Troponin-I HS 221 pg/mL (3.0-54.0)
[2022-11-04] MEDS: Aspirin 81 MG TAB.CHEW 162 MG PO (15:26)
--- NOTE | 2022-11-04 15:37 | ED.RN ---
spoke with RN at [facility]. informed of pt's admission.
[2022-11-04 15:57] LABS: Magnesium 2.1 mg/dL (1.6-2.6); Phosphorus 4.2 mg/dL (2.5-4.9)
--- NOTE | 2022-11-04 16:36 | ECHOD_ITS ---
Reason For Study: Heart Failure Procedure This was a 2D Doppler, Color Flow transthoracic echocardiogram. Exam performed portable in patient room. Left Ventricle Normal LV size. The estimated ejection fraction is 30 %. Moderately severe segmental systolic dysfunction (see wall motion). [place] : Akinetic. Mid-Anterior : Severely Hypokinetic. Infero-Basal: Normal. Posterior-Basal: Normal. Mid-Inferior: Hypokinetic. Mid-Posterior: Hypokinetic. Right Ventricle Normal RV size. Normal systolic function. Atria The left atrium is mildly enlarged. Normal right atrium. Mitral Valve [place]aflet diffuse mitral valve thickening. Moderate (2+) eccentric mitral valve insufficiency. Tricuspid Valve Normal tricuspid valve. Moderate (2+) tricuspid valve insufficiency. Pulmonary artery systolic pressure is 68 mmHg. Aortic Valve Trisinus/trileaflet aortic valve. Mild diffuse aortic valve thickening. Mild (1+) eccentric aortic valve insufficiency. Pulmonic Valve Normal pulmonic valve. Great Vessels Normal aortic root. The pulmonary artery is normal size. Normal inferior vena cava. Pericardium/Pleural No pericardial effusion. MMode/2D Measurements & Calculations LVIDd: 4.3 cm IVSd: 0.96 cm LA dimension: 3.5 cm LVIDs: 3.5 cm LVPWd: 1.0 cm RVDd: 3.1 cm FS: 18.8 % LAV(MOD-bp): 60.6 ml LVAd ap4: 25.6 cm2 SV(MOD-sp4): 24.1 ml LAV(MOD-bp) Indexed: 42.2 ml/m2 LVLd ap4: 7.4 cm LAV(MOD-sp2): 57.3 ml EDV(MOD-sp4): 74.0 ml LAV(MOD-sp4): 59.6 ml EDV(sp4-el): 75.0 ml LVAs ap4: 20.1 cm2 LVLs ap4: 6.7 cm ESV(MOD-sp4): 49.9 ml ESV(sp4-el): 51.1 ml EF(MOD-sp4): 32.6 % EF(sp4-el): 31.9 % SV(sp4-el): 23.9 ml LA A4 area: 20.4 cm2 RA A4 area: 9.9 cm2 Time Measurements MV dec time: 0.19 sec Doppler Measurements & Calculations MV E max tong: 108.4 cm/sec Lat Peak E' Tong: 5.9 cm/sec Med Peak E' Tong: 4.3 cm/sec MV A max tong: 59.6 cm/sec E/E' lat: 18.4 E/E' med: 25.4 MV E/A: 1.8 MV V2 max: 113.5 cm/sec MV P1/2t max tong: 113.8 cm/sec Ao V2 max: 87.4 cm/sec MV max P.2 mmHg MV P1/2t: 66.9 msec Ao max P.1 mmHg MV V2 mean: 55.1 cm/sec Ao V2 mean: 63.1 cm/sec MV mean P.5 mmHg MV dec slope: 498.3 cm/sec2 Ao mean P.7 mmHg MV V2 VTI: 29.8 cm MVA(P1/2t): 3.3 cm2 Ao V2 VTI: 22.4 cm AV (velocity ratio): 0.66 AI max tong: 336.0 cm/sec LV V1 max: 62.3 cm/sec MR max tong: 531.2 cm/sec AI max P.3 mmHg LV V1 max P.6 mmHg MR max P.9 mmHg AI dec slope: 213.4 cm/sec2 LV V1 mean P.88 mmHg MR mean tong: 404.9 cm/sec AI P1/2t: 461.2 msec LV V1 mean: 44.9 cm/sec MR mean P.2 mmHg LV V1 VTI: 14.7 cm MR VTI: 208.1 cm PA V2 max: 72.2 cm/sec TR max tong: 394.0 cm/sec TR max P.1 mmHg ECHO/Echo Complete Interpretation Summary Normal LV size. The estimated ejection fraction is 30 %. Moderately severe segmental systolic dysfunction (see wall motion). The left atrium is mildly enlarged. Ordering Physician: Bimal Sparks Referring Physician: Becky Lassiter Performed By: Azael Boone RCS
--- NOTE | 2022-11-04 16:40 | PCM.HP.STD ---
HPI - General General Date of Admission: 11/04/22 Date of Service: 11/04/22 Chief Complaint: She is breath worse for last 2?3 days. HPI Narrative ÁNGEL MARVIN, is a 82 F to ED from [facility] living [place] for increased leg swelling for 2 to 3 weeks and shortness of breath for past 2 to 3 days overall it seems from history that patient has shortness of breath on exertion for last 1 week but for last 2 to 3 weeks she is short of breath even at rest as per the son near the bedside. She denies any chest pain pressure or tightness. She is a poor historian and hearing impairment. Sometimes he states he feels chest congestion over right and left subclavicular region, unclear of its significance. Denies fever chills URI or sore throat. Patient also has history of COPD but I do not think patient is COPD exacerbation with no wheezing. In ED, vitals shows patient is tachypneic with shallow breathing respiratory rate 24/min. Mild hypoxia pulse ox 88% on room air 93% on 2 L of oxygen. Heart rate and blood pressure in normal range . Twelve-lead EKG shows normal sinus rhythm 88 bpm, QTc 438 ms. QRS 72 ms. Chest x-ray newly reviewed and shows small bilateral pleural effusion with bibasilar atelectasis worse on the left side, with pulmonary vascular congestion worse than yesterday. Patient given Lasix 40 mg in ED and further admitted [facility] Medical History Cancer COPD (chronic obstructive pulmonary disease) Dementia Diabetes Former smoker Hearing loss, left Hearing loss, right HTN (hypertension) Hyperlipidemia Hypertension Kidney disease Home Medications atenolol 25 mg tablet 25 mg PO DAILY blood pressure 09/27/17 [History Last Taken 10/27/20] simvastatin 20 mg tablet 20 mg PO QHS cholesterol lowering 09/27/17 [History Last Taken 10/27/20] aspirin 81 mg tablet,delayed release (Josue Low Dose Aspirin) 81 mg PO DAILY HEALTH MAINTENANCE 10/28/20 [History Last Taken 10/26/20] cholecalciferol (vitamin D3) 50 mcg (2,000 unit) capsule 50 mcg PO TU SUPPLEMENT 10/28/20 [History Last Taken 10/27/20] insulin glargine 100 unit/mL subcutaneous solution (Lantus U-100 Insulin) 20 unit SQ QHS blood sugar 03/15/22 [History Last Taken Unknown] linagliptin 5 mg tablet (Tradjenta) 5 mg PO DAILY 03/15/22 [History Last Taken Unknown] oxybutynin chloride 5 mg tablet,extended release 24 hr 5 mg PO QHS 03/22/22 [History Last Taken Unknown] amlodipine 5 mg tablet 5 mg PO DAILY HTN 11/04/22 [History Last Taken Unknown] bimatoprost 0.01 % eye drops (Lumigan) 1 drp EACH EYE DAILY GLAUCOMA 11/04/22 [History Last Taken Unknown] brimonidine 0.2 %-timolol 0.5 % eye drops (Combigan) 1 drp EACH EYE Q12H GLAUCOMA 11/04/22 [History Last Taken Unknown] furosemide 40 mg tablet 40 mg PO BID PNEUMONIA WITH HEART FAILURE 11/04/22 [History Last Taken Unknown] omeprazole 40 mg capsule,delayed release 40 mg PO QHS GERD 11/04/22 [History Last Taken Unknown] tramadol 50 mg tablet 50 mg PO BID PRN ARTHRITIS PAIN 11/04/22 [History Last Taken Unknown] Allergy/AdvReac Type Severity Reaction Status Date / Time penicillin Allergy Rash Verified 11/04/22 11:51 Family History Mother Hypertension Diabetes Other Breast cancer Cancer Seizures Thyroid disorder Surgical History Hx of cataract surgery S/P breast lumpectomy Social History household members: none housing: condominium Smoking Status: Former smoker how long ago did patient quit smoking: Patient quit cigarette tobacco use in the 1970s, started age 21-22. alcohol intake: never substance use type: does not use ROS ROS Narrative Patient is a poor historian with bilateral hearing impairment on hearing aids. 14 system ROS is difficult and taken mainly from patient's son near the bedside. Constitutional: Reports fatigue and weakness. No fever. HEENT: Reports systems reviewed and no addt'l complaints, except as documented Respiratory/Chest: As described in HPI. No wheezing. CVS: No chest pain or tightness or pressure. Bilateral leg swelling. Gastrointestinal: Denies coffee ground emesis, hematemesis or vomiting Genitourinary: Denies burning urination or new urinary tract symptoms Musculoskeletal: Denies acute joint pain or limited range of motion. No acute injury Neurologic: Denies seizure-like symptoms. skin: No ulcer. No rash Endocrinology: Reports systems reviewed and no addt'l complaints, except as documented Hematologic/Lymphatic: Reports systems reviewed and no addt'l complaints, except as documented Rest 14 ROS are negative except as mentioned in HPI Vital Signs Vital Signs Vital Signs: 11/04/22 11:50 11/04/22 12:12 11/04/22 13:27 Temperature 98 F Temperature Source Temporal Pulse Rate 80 79 Respiratory Rate 16 24 H Respiratory Depth Shallow Respiratory Pattern Tachypnea Blood Pressure 142/106 H Blood Pressure Mean 118 Blood Pressure Source Blood Pressure Position Blood Pressure Location Pulse Ox 97 Oxygen Delivery Method Room Air Room Air Oxygen Flow Rate (L/min) 11/04/22 13:31 11/04/22 13:35 11/04/22 15:13 Temperature 96.2 F L Temperature Source Temporal Pulse Rate 77 76 Respiratory Rate 20 H 18 Respiratory Depth Respiratory Pattern Blood Pressure 147/68 H 154/74 H Blood Pressure Mean 94 100 Blood Pressure Source Blood Pressure Position Blood Pressure Location Pulse Ox 88 93 100 Oxygen Delivery Method Room Air Nasal Cannula Nasal Cannula Oxygen Flow Rate (L/min) 2 2 11/04/22 16:22 Temperature 97.2 F L Temperature Source Temporal Pulse Rate 83 Respiratory Rate 24 H Respiratory Depth Respiratory Pattern Blood Pressure 158/80 H Blood Pressure Mean 106 Blood Pressure Source Monitor Blood Pressure Position Semi-Fowlers Blood Pressure Location Right Forearm Pulse Ox 98 Oxygen Delivery Method Nasal Cannula Oxygen Flow Rate (L/min) 2 Weight Weight: 111 lb 5 oz Body Mass Index (BMI) 22.4 Physical Exam Narrative General: Alert, Oriented x3, Cooperative HEENT: Bilateral hearing impairment. Uses hearing aid. Atraumatic, PERRLA, EOMI, Normocephalic Oral: Oral mucosa dry. Edentulous. No Gingival or Mucosal Lesions/ Ulcerations Neck: Supple, No JVD, Negative Carotid Bruits Lungs: Air entry diminished in bilateral lung bases. Bilateral coarse crepitations. Cardiovascular: Regular rate, Regular Rhythm, Normal S1, Normal S2, No murmurs Abdomen: Bowel Sounds Present, Soft, Non Tender, Non-Distended : No renal angle tenderness. No suprapubic tenderness. Extremities: Bilateral 2+ pitting edema in lower legs below knee, Capillary Refill Less than 3 Seconds Skin: No rashes, No breakdown Musculoskeletal: No Tenderness to Palpation of Joints or Extremities. ROM restricted. Muscle strength 4+/5 at knees and hip joints. Neurological: Cranial nerves II-XII grossly intact, DTR 2+/4 and Symmetrical, Neuro grossly intact Psych/Mental Status: Flat affect. Poor memory/amnesia. Results Lab / Micro Data Result Diagrams: 11/04/22 13:20 11/04/22 13:20 Labs: Laboratory Results - last 24 hr 11/04/22 13:20: WBC 9.9, RBC 3.16 L, Hgb 8.5 L, Hct 27.7 L, MCV 87.7, MCH 26.9 L, MCHC 30.7 L, RDW Std Deviation 47.0 H, RDW Coeff of Abhinav 14.7 H, Plt Count 347, MPV 12.7 H, Immature Gran % (Auto) 0.600, Neut % (Auto) 69.9, Lymph % (Auto) 17.6 L, Davis % (Auto) 7.7, Eos % (Auto) 3.8, Baso % (Auto) 0.4, Absolute Neuts (auto) 6.9, Absolute Lymphs (auto) 1.74, Nucleated RBC % 0 11/04/22 13:20: Sodium 138, Potassium 4.7, Chloride 110 H, Carbon Dioxide 20.0 L, Anion Gap 8, BUN 62 H, Creatinine 3.72 H, Estim Creat Clear Calc 9.26, Est GFR (MDRD) Af Amer 15 L, Est GFR (MDRD) Non-Af 12 L, BUN/Creatinine Ratio 16.7, Glucose 166 H, Calcium 8.9, Troponin I High Sens 221 H* 11/04/22 13:20: Phosphorus 4.2, Magnesium 2.1 11/04/22 13:20: B-Natriuretic Peptide 2465.3 H Rhythm Strip Rhythm Strip: Sinus Rhythm Rate: 85 Ectopy: None Radiology Impression Chest X-Ray 11/04/22 13:55 IMPRESSION: Essentially stable small bilateral pleural effusions with bibasilar atelectasis worse at the left lung base superimposed on CHF. Electronically Signed: Parag Bell MD at 14:19 EDT , Assessment & Plan Assessment/Plan (1) Acute on chronic heart failure with preserved ejection fraction (HFpEF): PLAN: Plan This is a 82-year-old female being admitted for worsening shortness of breath for 1 week along with leg swelling suggestive of acute on chronic heart failure. 1. Heart failure most likely acute on chronic HFpEF: Patient is being admitted in PCU. Patient does not have echo in our system. Last pharmacological nuclear stress test was in October 2021 reported normal with EF 69%. BNP high. Lasix 40 mg IV daily as patient has high creatinine. Titrate the dose as per hemodynamics and kidney function. Heart failure core measures including intake and output, fluid restriction less than 1500 mL, daily weight monitoring, kidney and electrolytes monitoring 2. Elevated troponin, of unclear significance possible from heart failure exacerbation: Patient denies chest pain pressure or tightness. Might have chest congestion. First troponin elevated 221. Cycle cardiac enzymes. Twelve-lead EKG did not show acute changes. Had negative stress to admission level. 3. SARA on CKD stage IIIb: Patient BUN/creatinine elevated. BUN 62 creatinine 3.72. Patient BUNs/creatinine was 41/2.32 in March 2022, 2.48 in May 2022. Budget Controller is consulted. 4. Anemia of chronic disease possible due to CKD: Heme: When baseline 9.8/30.3. Has decreased to 8.5/27.7 over the last 5 months. Anemia work-up ordered. 5. Diabetes mellitus type II: Patient on linagliptin continued. Long-acting insulin dose titrated. Placed on long acting insulin, Accu-Cheks a.c. and at bedtime and covered with sliding scale insulin 5.? Hypertension and dyslipidemia: Blood pressure within normal limit. Fasting profile tomorrow AM. 6.? DVT prophylaxis ? Heparin 5000 every 12 hourly. Living will/advanced directive/end of life care: Patient does not have living will or advanced directive. Patient's daughter is power of traffic law attorney for health. After discussion of benefits/risks procedures involved with full code, DNR CC arrest and DNR CC, the patient and her son near the bedside, they opted for full code. Patient does want artificial life support including intubation, tube feed, ventilator and/chest compression, central venous catheter, vasopressor and DC shock if needed Total time spent in [id number] encounter in discussion of advanced directive 17 minutes. Laboratory Results 11/04/22 13:20: WBC 9.9, RBC 3.16 L, Hgb 8.5 L, Hct 27.7 L, MCV 87.7, MCH 26.9 L, MCHC 30.7 L, RDW Std Deviation 47.0 H, RDW Coeff of Abhinav 14.7 H, Plt Count 347, MPV 12.7 H, Immature Gran % (Auto) 0.600, Neut % (Auto) 69.9, Lymph % (Auto) 17.6 L, Davis % (Auto) 7.7, Eos % (Auto) 3.8, Baso % (Auto) 0.4, Absolute Neuts (auto) 6.9, Absolute Lymphs (auto) 1.74, Nucleated RBC % 0 11/04/22 13:20: Sodium 138, Potassium 4.7, Chloride 110 H, Carbon Dioxide 20.0 L, Anion Gap 8, BUN 62 H, Creatinine 3.72 H, Estim Creat Clear Calc 9.26, Est GFR (MDRD) Af Amer 15 L, Est GFR (MDRD) Non-Af 12 L, BUN/Creatinine Ratio 16.7, Glucose 166 H, Calcium 8.9, Troponin I High Sens 221 H* 11/04/22 13:20: Phosphorus 4.2, Magnesium 2.1 11/04/22 13:20: B-Natriuretic Peptide 2465.3 H Charges/Coding Multi Select Codes Visit Charges Visit Charges: 26362 Init Hosp L3 Hospitalists' Procedures Procedures: 36691 Advncd Care Plan 30 Min
[2022-11-04 18:54] LABS: Troponin-I HS 191 pg/mL (3.0-54.0)
[2022-11-04 19:07] LABS: Bacteria 0 SEEN /hpf (None Seen); Mucous, Urine 0 SEEN /hpf (<or=2+); Red Blood Cells-Urine 0 SEEN /hpf (0-5)
[2022-11-04 19:09] LABS: Color, Urine Yellow (Yellow); Glucose, Dipstick 50 mg/dl (Normal); Ketone-Dipstick Negative (Negative); Leukocyte Esterase-Dipstick Negative /ul (Negative); Nitrite-Dipstick Negative (Negative); Occult Blood-Urine 10 /ul (Negative); Protein-Dipstick 100 mg/dl (Negative); Specific Gravity, Urine 1.015 (1.002-1.030); Urine Bilirubin Dipstick Negative (Negative); Urine Clarity Clear (Clear); Urine Urobilinogen Normal (Normal)
[2022-11-04 19:14] LABS: Squamous Epithelial Cells - UA 0-5 SEEN /hpf (5-10); White Blood Cells 0-5 SEEN /hpf (0-5)
[2022-11-04] MEDS: Heparin Injection (Vial) 5,000 UNIT/ML VIAL 5000 UNIT SC (20:35)
[2022-11-04] MEDS: Insulin Glargine-YFGN 100 UNIT/ML Pen 15 UNIT SC (20:36)
[2022-11-04] MEDS: Insulin Lispro 100 UNIT/ML INSULN.PEN SC (20:36)
[2022-11-04] MEDS: Pantoprazole Sodium 40 MG Tablet PO (20:36)
[2022-11-04] MEDS: Tolterodine Tartrate 2 MG CAP.SA PO (20:36)
[2022-11-04] MEDS: Timolol 0.5% 5ML OPTH.BTL 1 DRP OPHTHALMIC (20:41)
[2022-11-04] MEDS: Latanoprost 0.005% 1 Bottle 1 DRP EACH EYE (20:41)
[2022-11-04] MEDS: BRIMONIDINE 0.2% 5ML BOTTLE 1 DRP EACH EYE (20:41)
[2022-11-04 20:47] LABS: Troponin-I HS 181 pg/mL (3.0-54.0)
--- NOTE | 2022-11-04 21:37 | NURSING ---
Emergency Documentation in place 11/04 19:00
[2022-11-04] MEDS: Acetaminophen 325 MG Tablet 650 MG PO (21:59)
[2022-11-04 22:59] LABS: Bedside Glucose 202 mg/dL (74-106)
[2022-11-05] VITALS (10 sets, daily range): BP systolic 116–144; BP diastolic 58–76; PULSE 71–77; RESP 18–20; TEMP 35.1–36.5; O2SAT 77–99
[2022-11-05 06:58] LABS: Bedside Glucose 117 mg/dL (74-106)
[2022-11-05 06:59] LABS: Absolute Lymphocyte Count 0.95 X10^3/uL (0.83-4.51); Absolute Neutrophil Count 11.9 X10^3/uL (2.0-7.7); Basophil# 0.01 X10^3/uL; Basophil% 0.1 % (0-1); Eosinophil# 0.02 X10^3/uL; Eosinophils% 0.1 % (0-5); Hematocrit 28.7 % (37-47); Hemoglobin 8.6 g/dL (12.0-15.0); Lymphocyte # 0.95 X10^3/ul (0.83-4.51); Lymphocyte % 7.1 % (19-41); Mean Platelet Vol. 12.8 fl (6.2-12.0); Monocyte# 0.37 X10^3/uL; Monocyte% 2.8 % (0-10); NRBC Flagged by Analyzer 0 % (0-5); Neutrophil % 89.1 % (47-70); Platelet Count 336 K/mm3 (150-450); RBC Distribution Width CV 14.5 % (11.6-14.6); RBC Distribution Width SD 47.2 fl (35.1-43.9); Red Blood Count 3.19 M/mm3 (4.2-5.4); White Blood Count 13.4 K/mm3 (4.4-11.0)
[2022-11-05 07:40] LABS: Anion Gap 7 (5-15); BUN 66 mg/dL (7-18); BUN/Creat Ratio 18.5 RATIO (10-20); Calcium,Total 8.7 mg/dL (8.5-10.1); Chloride 113 mmol/L (98-107); Cholesterol 105 mg/dL (200); Creatinine, Serum 3.57 mg/dL (0.55-1.02); EST Glomerular Filtration Rate 13 mL/min (>60); Est Glom Filt Rate - Afr Amer 16 mL/min (>60); Estimated Creatinine Clearance 9.52 ml/min; Glucose 129 mg/dL (74-106); High Density Lipoprotein 52 mg/dL; Potassium 5.3 mmol/L (3.5-5.1); Sodium Level 140 mmol/L (136-145); Thyroid Stim Hormone (TSH) 2.57 uIU/mL (0.358-3.74); Triglycerides 61 mg/dL; Very Low Density Lipoprotein 12 mg/dL (5-40)
[2022-11-05] MEDS: Aspirin E.C. 81 MG Tablet PO (08:25)
[2022-11-05] MEDS: BRIMONIDINE 0.2% 5ML BOTTLE 1 DRP EACH EYE ×2 (08:25→22:01)
[2022-11-05] MEDS: Atenolol 25 MG Tablet PO (08:25)
[2022-11-05] MEDS: amLODIPine 5 MG Tablet PO (08:25)
[2022-11-05] MEDS: LINAGLIPTIN 5 MG TABLET PO (08:25)
[2022-11-05] MEDS: Timolol 0.5% 5ML OPTH.BTL 1 DRP OPHTHALMIC ×2 (08:25→22:04)
[2022-11-05] MEDS: Heparin Injection (Vial) 5,000 UNIT/ML VIAL 5000 UNIT SC ×2 (08:25→22:01)
--- NOTE | 2022-11-05 10:12 | PCM.PN.HOSP ---
Subjective Subjective Appears to be stable from overnight, she has made decent urine with her Lasix yesterday and her renal function has improved slightly Objective Data Objective Data Vital Signs: Vital Signs Temp Pulse Resp BP Pulse Ox O2 Del Method O2 Flow Rate 96.0 F L 72 20 H 116/62 94 Nasal Cannula 2 11/05/22 08:00 11/05/22 08:00 11/05/22 08:00 11/05/22 08:00 11/05/22 08:00 11/05/22 08:00 11/05/22 08:00 Oxygen Flow Rate (L/min) 2 Oxygen Delivery Method Nasal Cannula Weight: 111 lb 5 oz Body Mass Index (BMI) 22.4 Intake & Output: Intake and Output for Last 24 Hours 11/04/22 11/05/22 11/06/22 03:59 03:59 03:59 Output Total 350 / 350 Balance -350 / -350 Lab / Micro Data Result Diagrams: 11/05/22 06:49 11/05/22 06:49 Labs: Laboratory Results - last 24 hr 11/04/22 13:20: WBC 9.9, RBC 3.16 L, Hgb 8.5 L, Hct 27.7 L, MCV 87.7, MCH 26.9 L, MCHC 30.7 L, RDW Std Deviation 47.0 H, RDW Coeff of Abhinav 14.7 H, Plt Count 347, MPV 12.7 H, Immature Gran % (Auto) 0.600, Neut % (Auto) 69.9, Lymph % (Auto) 17.6 L, Cannon % (Auto) 7.7, Eos % (Auto) 3.8, Baso % (Auto) 0.4, Absolute Neuts (auto) 6.9, Absolute Lymphs (auto) 1.74, Nucleated RBC % 0 11/04/22 13:20: Sodium 138, Potassium 4.7, Chloride 110 H, Carbon Dioxide 20.0 L, Anion Gap 8, BUN 62 H, Creatinine 3.72 H, Estim Creat Clear Calc 9.26, Est GFR (MDRD) Af Amer 15 L, Est GFR (MDRD) Non-Af 12 L, BUN/Creatinine Ratio 16.7, Glucose 166 H, Calcium 8.9, Troponin I High Sens 221 H* 11/04/22 13:20: Phosphorus 4.2, Magnesium 2.1 11/04/22 13:20: B-Natriuretic Peptide 2465.3 H 11/04/22 17:43: Troponin I High Sens 191 H* 11/04/22 19:00: Urine Color Yellow, Urine Clarity Clear, Urine pH 5.0, Ur Specific [place] 1.015, Urine Protein 100 H, Urine Glucose (UA) 50 H, Urine Ketones Negative, Urine Occult Blood 10 H, Urine Nitrite Negative, Urine Bilirubin Negative, Urine Urobilinogen Normal, Ur Leukocyte Esterase Negative, Urine RBC 0 SEEN, Urine WBC 0-5 SEEN, Ur Squamous Epith Cells 0-5 SEEN, Urine Bacteria 0 SEEN, Urine Mucus 0 SEEN 11/04/22 19:20: Troponin I High Sens 181 H* 11/04/22 20:35: POC Glucose 202 H 11/05/22 06:27: POC Glucose 117 H 11/05/22 06:49: WBC 13.4 H, RBC 3.19 L, Hgb 8.6 L, Hct 28.7 L, MCV 90.0, MCH 27.0, MCHC 30.0 L, RDW Std Deviation 47.2 H, RDW Coeff of Abhinav 14.5, Plt Count 336, MPV 12.8 H, Immature Gran % (Auto) 0.800, Neut % (Auto) 89.1 H, Lymph % (Auto) 7.1 L, Cannon % (Auto) 2.8, Eos % (Auto) 0.1, Baso % (Auto) 0.1, Absolute Neuts (auto) 11.9 H, Absolute Lymphs (auto) 0.95, Nucleated RBC % 0 11/05/22 06:49: Sodium 140, Potassium 5.3 H, Chloride 113 H, Carbon Dioxide 20.0 L, Anion Gap 7, BUN 66 H, Creatinine 3.57 H, Estim Creat Clear Calc 9.52, Est GFR (MDRD) Af Amer 16 L, Est GFR (MDRD) Non-Af 13 L, BUN/Creatinine Ratio 18.5, Glucose 129 H, Calcium 8.7, Triglycerides 61, Cholesterol 105, LDL Cholesterol 41, VLDL Cholesterol 12, HDL Cholesterol 52, TSH 2.57 Radiography Diagnostic Testing: Radiology Impression Chest X-Ray 11/04/22 13:55 IMPRESSION: Essentially stable small bilateral pleural effusions with bibasilar atelectasis worse at the left lung base superimposed on CHF. Electronically Signed: Parag Bell MD at 14:19 EDT , Rhythm Strip Rhythm Strip: Sinus Rhythm Rate: 85 Ectopy: None Physical Exam Narrative General: Drowsy, cooperative, No apparent distress HEENT: Atraumatic, PERRLA, EOMI, Normocephalic, hard of hearing Oral: Moist Mucosa Neck: Supple, No JVD Lungs: Diminished, Normal air movement, coarse breath sounds Cardiovascular: Regular rate, Regular Rhythm, Normal S1, Normal S2, No murmurs Abdomen: Soft, Non Tender, Non-Distended, No Hepato-splenomegaly Extremities: Edema, Capillary Refill Less than 3 Seconds Skin: No rashes, No breakdown, lower extremities are wrapped Musculoskeletal: No Tenderness to Palpation of Joints or Extremities Neurological: Motor Exam 5/5 strength throughout, Sensory exam intact to light touch and pain Psych/Mental Status: Flat affect, unable to provide much history Assessment & Plan Assessment/Plan (1) Acute on chronic heart failure with preserved ejection fraction (HFpEF): PLAN: Plan 1. Acute on chronic diastolic CHF/elevated troponin secondary to demand ischemia/SARA on CKD 3B with anemia of chronic disease/HTN/HLD ? Continue with Lasix and monitor her renal function there has been some slight improvement ? Will continue with with her home blood pressure medications ? Continue with statin ? She did develop a little bit of a leukocytosis unclear as to the etiology, UA is negative for UTI and chest x-ray does not show consolidation to be consistent with pneumonia ? We will obtain a respiratory panel ? Appreciate nephrology's assistance ? Echo is pending 2. DM2 ? We will continue with insulin and make adjust as necessary ? Accu-Cheks ACHS 3. GERD ? Stable ? Continue with PPI DVT: Heparin Charges/Coding Visit Charges Inpatient E&M: 63276 Subs Hosp L2
[2022-11-05] MEDS: 0.9% Saline Lock 10 ML Syringe IV ×2 (10:23→22:07)
[2022-11-05] MEDS: Furosemide 40 MG/4 ML Vial IV (10:23)
[2022-11-05 11:46] LABS: Bedside Glucose 141 mg/dL (74-106)
--- NOTE | 2022-11-05 11:56 | CASEMGMT ---
Addendum entered by Fabi Avendaño 11/05/22 13:13: Social Work. Son Laura called back, confirmed plan will be for pt to return to [facility] at discharge, no list of other nursing homes in the area is needed. He states daughter Jackelin is the first contact, and he is second. OSMAR Ojeda Original Note: Social Work SW reviewed chart, pt is here from [facility]. From the paperwork it appears pt is there private pay. SW called both son and daughter, messages left. SW to speak w/family to see if the plan is for pt to return to [facility] at discharge. Pt is not alert and oriented at this time, as per RN. Updates sent in [facility]. SW will continue to follow, it is anticipated pt will be here through the weekend. OSMAR Ojeda
--- NOTE | 2022-11-05 16:25 | CASEMGMT ---
Social Work Pt is here from [facility], not SNF side. [facility] can accept receptionist secretary, need to make sure family in agreement with this. SW to follow up w/daughter Monday, as son indicated she is the decision maker and did not call SW back. OSMAR Ojeda
--- NOTE | 2022-11-05 16:52 | CASEMGMT ---
Social Work [facility] responded they can take state comptroller, she is actually from their [place]. SW will need to follow up w/family on Monday to make sure they are in agreement with this plan. SW spoke w/son earlier and he agreed to pt returning to [facility]. However [facility] indicated in [facility] pt appears to need skilled. SW will need to check w/family that they are okay w/[facility] for skilled. Daughter has not called SW back. SW to follow up w/family Monday to confirm plan. OSMAR Ojeda
[2022-11-05 17:15] LABS: Bedside Glucose 127 mg/dL (74-106)
--- NOTE | 2022-11-05 19:53 | CON.PCM.RE_ITS ---
Assessment & Plan Assessment/Plan (1) SARA (acute kidney injury): (2) Chronic kidney disease, stage 4 (severe): (3) Hyperkalemia: (4) Acute metabolic acidosis: PLAN: Plan Impression/Plan: The patient is a 82-year-old woman with history of type 2 diabetes mellitus, hypertension, dementia, COPD, and chronic kidney disease stage G4. The patient was admitted to the hospital on 11/04/2022 with acute hypoxic respiratory failure attributed to heart failure with preserved ejection fraction. The patient also presented with acute kidney injury on chronic kidney disease. Nephrology is following for SARA on CKD. Acute kidney injury on chronic kidney disease stage G4. Baseline serum creatinine is around 2.5 mg/dL. Suspect the patient has underlying CKD from diabetic kidney disease given persistent proteinuria on review of prior urinalysis. The patient presented to the hospital on 11/03/2022 with serum creatinine of 3.70 mg/dL. Creatinine increased to 3.72 mg/dL on 11/04/2022 but stabilized at 3.57 mg/dL today despite diuresis. Suspect patient has SARA from cardiorenal cause since renal function stabilized with diuresis. Continue current IV diuretic and recheck renal function again tomorrow. There is no need for kidney replacement therapy. I would not recommend dialysis in this patient given her comorbidities as it would not increase her quality of life. Hyperkalemia. Potassium level is 5.3 mmol/L today. Recheck potassium again tomorrow. If potassium level increases further, I will limit potassium in diet to less than 2 g/day. Further diuresis may help with controlling potassium. Acute metabolic acidosis. Serum bicarbonate level was 18 mmol/L on 11/03/2022. Overall, serum bicarbonate level has improved and is stable at 20 mmol/L today. Recheck serum bicarbonate level tomorrow. I may supplement with sodium bicarbonate if potassium increases further and if serum bicarbonate falls below 20 mmol/L. HPI Consult Data Date of Consult: 11/05/22 HPI Narrative Reason for Consultation: Acute kidney injury HPI Narrative: The patient is a 82-year-old woman with past history of type 2 diabetes mellitus, hypertension, dementia, COPD, and chronic kidney disease stage G4. The patient presented to the hospital on 11/03/2022 from assisted living with 2 weeks history of progressive dyspnea. He was admitted to the hospital for treatment of decompensated heart failure with IV furosemide. Nephrology is asked to see the patient because of SARA on CKD. Baseline serum creatinine appears to be around 2.5 mg/dL.Serum creatinine increased to 3.70 mg/dL on 11/03/2022. The patient was not on RAAS inhibitor or NSAIDs prior to admission. The patient is unable to give meaningful history due to encephalopathy. [facility] Medical History Cancer COPD (chronic obstructive pulmonary disease) Dementia Diabetes Former smoker Hearing loss, left Hearing loss, right HTN (hypertension) Hyperlipidemia Hypertension Kidney disease Home Medications atenolol 25 mg tablet 25 mg PO DAILY blood pressure 09/27/17 [History Last Taken 10/27/20] simvastatin 20 mg tablet 20 mg PO QHS cholesterol lowering 09/27/17 [History Last Taken 10/27/20] aspirin 81 mg tablet,delayed release (Josue Low Dose Aspirin) 81 mg PO DAILY H EALTH MAINTENANCE 10/28/20 [History Last Taken 10/26/20] cholecalciferol (vitamin D3) 50 mcg (2,000 unit) capsule 50 mcg PO TU SUPPLEMENT 10/28/20 [History Last Taken 10/27/20] insulin glargine 100 unit/mL subcutaneous solution (Lantus U-100 Insulin) 20 unit SQ QHS blood sugar 03/15/22 [History Last Taken Unknown] linagliptin 5 mg tablet (Tradjenta) 5 mg PO DAILY 03/15/22 [History Last Taken Unknown] oxybutynin chloride 5 mg tablet,extended release 24 hr 5 mg PO QHS 03/22/22 [History Last Taken Unknown] amlodipine 5 mg tablet 5 mg PO DAILY HTN 11/04/22 [History Last Taken Unknown] bimatoprost 0.01 % eye drops (Lumigan) 1 drp EACH EYE DAILY GLAUCOMA 11/04/22 [History Last Taken Unknown] brimonidine 0.2 %-timolol 0.5 % eye drops (Combigan) 1 drp EACH EYE Q12H GLAUCOMA 11/04/22 [History Last Taken Unknown] furosemide 40 mg tablet 40 mg PO BID PNEUMONIA WITH HEART FAILURE 11/04/22 [History Last Taken Unknown] omeprazole 40 mg capsule,delayed release 40 mg PO QHS GERD 11/04/22 [History Last Taken Unknown] tramadol 50 mg tablet 50 mg PO BID PRN ARTHRITIS PAIN 11/04/22 [History Last Taken Unknown] Allergy/AdvReac Type Severity Reaction Status Date / Time penicillin Allergy Rash Verified 11/04/22 11:51 Family History Mother Hypertension Diabetes Other Breast cancer Cancer Seizures Thyroid disorder Surgical History Hx of cataract surgery S/P breast lumpectomy Social History household members: none housing: [facility] Smoking Status: Former smoker how long ago did patient quit smoking: Patient quit cigarette tobacco use in the 1970s, started age 20-22. alcohol intake: never substance use type: does not use ROS ROS Narrative Unable to obtain ROS because of encephalopathy. Physical Exam Narrative General: Alert and oriented x0, NAD. HEENT: Normocephalic, atraumatic. Mucous membrane moist without erythema. PERRLA. Hearing is intact. Neck: Supple, no JVD. Trachea is midline. No thyromegaly or lymphadenopathy. Cardiovascular: Normal S1, S2. No rubs, murmurs, or gallops. Respiratory: Coarse breath sound anteriorly and decreased breath sound at bases. Abdomen: Normal bowel sounds, soft, nontender, no guarding or rebound, no organomegaly. Extremities: No clubbing or cyanosis. There is 1+ lower extremity edema. Lower extremities are wrapped in Mario bandage. Musculoskeletal: Full passive range of motion, no joint swelling. Psychiatric: Encephalopathic Skin: Warm and dry, no rash. Neurologic: Cranial nerve II to XII are grossly intact. No focal neurologic deficits. Lab / Micro Data Result Diagrams: 11/05/22 06:49 11/05/22 06:49 Labs: Laboratory Results - last 24 hr 11/04/22 19:20: Troponin I High Sens 181 H* 11/04/22 20:35: POC Glucose 202 H 11/05/22 06:27: POC Glucose 117 H 11/05/22 06:49: WBC 13.4 H, RBC 3.19 L, Hgb 8.6 L, Hct 28.7 L, MCV 90.0, MCH 27.0, MCHC 30.0 L, RDW Std Deviation 47.2 H, RDW Coeff of Abhinav 14.5, Plt Count 336, MPV 12.8 H, Immature Gran % (Auto) 0.800, Neut % (Auto) 89.1 H, Lymph % (Auto) 7.1 L, [place] % (Auto) 2.8, Eos % (Auto) 0.1, Baso % (Auto) 0.1, Absolute Neuts (auto) 11.9 H, Absolute Lymphs (auto) 0.95, Nucleated RBC % 0 11/05/22 06:49: Sodium 140, Potassium 5.3 H, Chloride 113 H, Carbon Dioxide 20.0 L, Anion Gap 7, BUN 66 H, Creatinine 3.57 H, Estim Creat Clear Calc 9.52, Est GFR (MDRD) Af Amer 16 L, Est GFR (MDRD) Non-Af 13 L, BUN/Creatinine Ratio 18.5, Glucose 129 H, Calcium 8.7, Triglycerides 61, Cholesterol 105, LDL Cholesterol 41, VLDL Cholesterol 12, HDL Cholesterol 52, TSH 2.57 11/05/22 11:25: POC Glucose 141 H 11/05/22 16:52: POC Glucose 127 H Micro: Microbiology 11/05/22 10:31 Mucosa - Nasopharyngeal Respiratory Panel (PCR) - Final Rhythm Strip Rhythm Strip: Sinus Rhythm Rate: 85 Ectopy: None Radiology Impression Echocardiogram 11/04/22 16:36 Interpretation Summary Normal LV size. The estimated ejection fraction is 30 %. Moderately severe segmental systolic dysfunction (see wall motion). The left atrium is mildly enlarged. Ordering Physician: Bimal Sparks Referring Physician: Becky Lassiter Performed By: Azael Boone RCS
[2022-11-05] MEDS: Tolterodine Tartrate 2 MG CAP.SA PO (22:01)
[2022-11-05] MEDS: Insulin Lispro 100 UNIT/ML INSULN.PEN SC (22:01)
[2022-11-05] MEDS: Insulin Glargine-YFGN 100 UNIT/ML Pen 15 UNIT SC (22:02)
[2022-11-05] MEDS: Pantoprazole Sodium 40 MG Tablet PO (22:03)
[2022-11-05] MEDS: Latanoprost 0.005% 1 Bottle 1 DRP EACH EYE (22:04)
[2022-11-05 22:29] LABS: Bedside Glucose 182 mg/dL (74-106)
--- NOTE | 2022-11-05 23:25 | RAD_ITS ---
EXAM: XR CHEST, 1 VIEW CLINICAL INDICATION: SOB TECHNIQUE: Frontal view of the chest. COMPARISON: 11/14/2022 FINDINGS: LUNGS AND PLEURAL SPACES: Right lower lobe airspace disease and small pleural effusion. No pneumothorax. HEART: Unremarkable. Cardiac silhouette not enlarged. MEDIASTINUM: Central airways and mediastinal contour are unremarkable. BONES/JOINTS: Unremarkable. SOFT TISSUES: Unremarkable. RAD/Chest 1 View (Portable) IMPRESSION: Right lower lobe airspace disease and small pleural effusion. Findings may indicate pneumonia. Electronically Signed: Pete Parker MD at 0:28 EDT ,
[2022-11-06] VITALS (7 sets, daily range): BP systolic 99–132; BP diastolic 62–72; PULSE 71–80; RESP 20–22; TEMP 36.1–36.6; O2SAT 94–99; BMI 22.4
--- NOTE | 2022-11-06 01:14 | PCM.PN.BLA ---
Progress Note Chest x-ray came back with right lower lobe disease. Nurse reported that patient complained of shortness of breath. Will start patient on ceftriaxone and azithromycin. We will check urine antigens and MRSA .
[2022-11-06] MEDS: Ceftriaxone 1 GM/50 ML BAG IV ×2 (01:40→22:00)
[2022-11-06 03:27] LABS: M R Staph aureus DNA By PCR Negative (Negative); Probe Check PASS; Specimen Processing Control PASS
[2022-11-06] MEDS: 0.9% Saline Lock 10 ML Syringe IV ×3 (04:51→21:57)
--- NOTE | 2022-11-06 05:55 | NURSING ---
This RN into patient's room for repetitive moaning. Pt stating that she is dying and taking O2 out of nose. Asked for this RN to call daughter. Called daughter, Jackelin and updated on situation and events through the night. Explained that patient is very restless and stating that she is dying. Jackelin states that she will be on her way and hopefully here by 8. Pt continues to pull O2 out of nose, stating that she doesn't want it. Also pulling off blankets and restless in bed.
[2022-11-06 05:59] LABS: Absolute Lymphocyte Count 1.13 X10^3/uL (0.83-4.51); Absolute Neutrophil Count 12.5 X10^3/uL (2.0-7.7); Basophil# 0.01 X10^3/uL; Basophil% 0.1 % (0-1); Hematocrit 26.4 % (37-47); Hemoglobin 8.2 g/dL (12.0-15.0); Lymphocyte # 1.13 X10^3/ul (0.83-4.51); Mean Corp Hgb Conc 31.1 g/dL (32-36); Mean Corpuscular Hgb 27.1 pg (27.0-32.0); Mean Corpuscular Volume 87.1 fL (81-99); Mean Platelet Vol. 12.5 fl (6.2-12.0); Monocyte# 0.48 X10^3/uL; Monocyte% 3.4 % (0-10); NRBC Flagged by Analyzer 0 % (0-5); Neutrophil # 12.51 X10^3/uL (2.7-7.7); Platelet Count 345 K/mm3 (150-450); RBC Distribution Width CV 14.6 % (11.6-14.6); RBC Distribution Width SD 46.3 fl (35.1-43.9); Red Blood Count 3.03 M/mm3 (4.2-5.4); White Blood Count 14.2 K/mm3 (4.4-11.0)
--- NOTE | 2022-11-06 06:06 | NURSING ---
pt remains restless in bed, continues to state that she wants to , this RN attempting to reorient, but pt continues to state 'I want to '
[2022-11-06 06:19] LABS: Anion Gap 11 (5-15); BUN 79 mg/dL (7-18); BUN/Creat Ratio 20.6 RATIO (10-20); Calcium,Total 8.4 mg/dL (8.5-10.1); Chloride 107 mmol/L (98-107); Creatinine, Serum 3.84 mg/dL (0.55-1.02); EST Glomerular Filtration Rate 12 mL/min (>60); Est Glom Filt Rate - Afr Amer 14 mL/min (>60); Estimated Creatinine Clearance 8.85 ml/min; Glucose 275 mg/dL (74-106); Potassium 5.3 mmol/L (3.5-5.1); Sodium Level 137 mmol/L (136-145)
[2022-11-06] MEDS: Insulin Lispro 100 UNIT/ML INSULN.PEN SC ×3 (06:35→16:32)
[2022-11-06 07:04] LABS: Bedside Glucose 177 mg/dL (74-106)
[2022-11-06] MEDS: Timolol 0.5% 5ML OPTH.BTL 1 DRP OPHTHALMIC ×2 (09:09→22:06)
[2022-11-06] MEDS: BRIMONIDINE 0.2% 5ML BOTTLE 1 DRP EACH EYE ×2 (09:10→22:04)
[2022-11-06] MEDS: Heparin Injection (Vial) 5,000 UNIT/ML VIAL 5000 UNIT SC ×2 (09:11→22:07)
[2022-11-06] MEDS: Atenolol 25 MG Tablet PO (09:14)
[2022-11-06] MEDS: LINAGLIPTIN 5 MG TABLET PO (09:14)
[2022-11-06] MEDS: Aspirin E.C. 81 MG Tablet PO (09:14)
[2022-11-06] MEDS: amLODIPine 5 MG Tablet PO (09:14)
--- NOTE | 2022-11-06 09:46 | PN.HOSP_ITS ---
Subjective Subjective Overnight started saying she wanted to . She has improved and her mentation as well as her verbalization. She did have a repeat chest x-ray which did show a better consolidation and was started on pneumonia antibiotics Objective Data Objective Data Vital Signs: Vital Signs Temp Pulse Resp BP Pulse Ox O2 Del Method O2 Flow Rate 97.8 F 77 22 H 131/63 H 97 Nasal Cannula 2 11/06/22 08:50 11/06/22 08:50 11/06/22 08:50 11/06/22 08:50 11/06/22 08:50 11/06/22 08:50 11/06/22 08:50 Oxygen Flow Rate (L/min) 2 Oxygen Delivery Method Nasal Cannula Weight: 111 lb 5.335 oz Body Mass Index (BMI) 22.4 Intake & Output: Intake and Output for Last 24 Hours 11/05/22 11/06/22 11/07/22 03:59 03:59 03:59 Intake Total 471.67 / 471.67 13.33 / 13.33 Output Total 350 / 350 400 / 400 Balance -350 / -350 471.67 / 471.67 -386.67 / -386.67 Lab / Micro Data Result Diagrams: 11/06/22 05:23 11/06/22 05:23 Labs: Laboratory Results - last 24 hr 11/05/22 11:25: POC Glucose 141 H 11/05/22 16:52: POC Glucose 127 H 11/05/22 21:59: POC Glucose 182 H 11/06/22 01:40: MRSA (PCR) Negative 11/06/22 05:23: WBC 14.2 H, RBC 3.03 L, Hgb 8.2 L, Hct 26.4 L, MCV 87.1, MCH 27.1, MCHC 31.1 L, RDW Std Deviation 46.3 H, RDW Coeff of Abhinav 14.6, Plt Count 345, MPV 12.5 H, Immature Gran % (Auto) 0.500, Neut % (Auto) 88.0 H, Lymph % (Auto) 8.0 L, [place] % (Auto) 3.4, Eos % (Auto) 0.0, Baso % (Auto) 0.1, Absolute Neuts (auto) 12.5 H, Absolute Lymphs (auto) 1.13, Nucleated RBC % 0 11/06/22 05:23: Sodium 137, Potassium 5.3 H, Chloride 107, Carbon Dioxide 19.0 L , Anion Gap 11, BUN 79 H, Creatinine 3.84 H, Estim Creat Clear Calc 8.85, Est GFR (MDRD) Af Amer 14 L, Est GFR (MDRD) Non-Af 12 L, BUN/Creatinine Ratio 20.6 H , Glucose 275 H, Calcium 8.4 L 11/06/22 06:34: POC Glucose 177 H Micro: Microbiology 11/04/22 13:18 Urine, Clean Catch Legionella Antigen - Final 11/04/22 13:18 Urine, Clean Catch Streptococcus pneumoniae Antigen (M - Final 11/05/22 10:31 Mucosa - Nasopharyngeal Respiratory Panel (PCR) - Final Radiography Diagnostic Testing: Radiology Impression Echocardiogram 11/04/22 16:36 Interpretation Summary Normal LV size. The estimated ejection fraction is 30 %. Moderately severe segmental systolic dysfunction (see wall motion). The left atrium is mildly enlarged. Ordering Physician: Bimal Sparks Referring Physician: Becky Lassiter Performed By: Azael Boone RCS Chest X-Ray 11/05/22 23:25 IMPRESSION: Right lower lobe airspace disease and small pleural effusion. Findings may indicate pneumonia. Electronically Signed: Pete Parker MD at 0:28 EDT , Rhythm Strip Rhythm Strip: Sinus Rhythm Rate: 85 Ectopy: None Physical Exam Narrative General: Alert, cooperative, No apparent distress HEENT: Atraumatic, PERRLA, EOMI, Normocephalic, hard of hearing Oral: Moist Mucosa Neck: Supple, No JVD Lungs: Diminished, Normal air movement, coarse breath sounds Cardiovascular: Regular rate, Regular Rhythm, Normal S1, Normal S2, No murmurs Abdomen: Soft, Non Tender, Non-Distended, No Hepato-splenomegaly Extremities: Edema, Capillary Refill Less than 3 Seconds Skin: No rashes, No breakdown, lower extremities are wrapped Musculoskeletal: No Tenderness to Palpation of Joints or Extremities Neurological: Motor Exam 5/5 strength throughout, Sensory exam intact to light touch and pain Psych/Mental Status: Flat affect Assessment & Plan Assessment/Plan (1) Acute on chronic heart failure with preserved ejection fraction (HFpEF): PLAN: Plan 1. Acute on chronic diastolic CHF/elevated troponin secondary to demand ischemia/SARA on CKD 3B with anemia of chronic disease/HTN/HLD ? Slight worsening in her creatinine today, will hold Lasix ? Will continue with with her home blood pressure medications ? Continue with statin ? She did develop a little bit of a leukocytosis we will obtain blood and urine cultures ? Continue with azithromycin and Rocephin secondary to pulmonary consolidation ? Appreciate nephrology's assistance ? Echo Echo with an EF of 30% 2. DM2 ? We will continue with insulin and make adjust as necessary ? Accu-Cheks ACHS 3. GERD ? Stable ? Continue with PPI DVT: Heparin Charges/Coding Visit Charges Inpatient E&M: 96057 Subs Hosp L2
--- NOTE | 2022-11-06 10:22 | NURSING ---
0935:Patient awake and alert. This nurse at bedside assisting patient with her breakfast. Patient fed self a spoonful of eggs and left them in her mouth. This RN instructed patient several times to chew her food and swallow without success. This RN completed a finger sweep to remove eggs. Patient able to follow command to drink from a straw. Swallows without difficulty. Meds given in and swallowed without difficulty. This RN fed patient a bite of pudding and then patient able to finish feeding herself pudding and fluids without requiring cues from nursing. Speech therapy on unit and made aware. Consult placed for ST to see patient.
[2022-11-06 11:30] LABS: Bedside Glucose 187 mg/dL (74-106)
[2022-11-06 16:50] LABS: Bedside Glucose 235 mg/dL (74-106)
[2022-11-06] MEDS: Tolterodine Tartrate 2 MG CAP.SA PO (22:04)
[2022-11-06] MEDS: Pantoprazole Sodium 40 MG Tablet PO (22:05)
[2022-11-06] MEDS: Insulin Glargine-YFGN 100 UNIT/ML Pen 15 UNIT SC (22:05)
[2022-11-06] MEDS: Latanoprost 0.005% 1 Bottle 1 DRP EACH EYE (22:06)
[2022-11-06] MEDS: Azithromycin 250 MG Tablet 500 MG PO (22:06)
[2022-11-06 22:31] LABS: Bedside Glucose 117 mg/dL (74-106)
[2022-11-07] VITALS (9 sets, daily range): BP systolic 101–118; BP diastolic 56–92; PULSE 71–80; RESP 14–22; TEMP 36.1–36.4; O2SAT 81–100; BMI 22.6
[2022-11-07 05:56] LABS: Absolute Neutrophil Count 14.4 X10^3/uL (2.0-7.7); Basophil# 0.02 X10^3/uL; Basophil% 0.1 % (0-1); Eosinophil# 0.01 X10^3/uL; Eosinophils% 0.1 % (0-5); Hematocrit 27.8 % (37-47); Hemoglobin 8.8 g/dL (12.0-15.0); Lymphocyte % 9.4 % (19-41); Mean Corp Hgb Conc 31.7 g/dL (32-36); Mean Corpuscular Hgb 27.2 pg (27.0-32.0); Mean Corpuscular Volume 85.8 fL (81-99); Mean Platelet Vol. 12.5 fl (6.2-12.0); Monocyte# 0.85 X10^3/uL; NRBC Flagged by Analyzer 0.2 % (0-5); Neutrophil % 84.6 % (47-70); Platelet Count 327 K/mm3 (150-450); RBC Distribution Width CV 14.7 % (11.6-14.6); RBC Distribution Width SD 45.9 fl (35.1-43.9); Red Blood Count 3.24 M/mm3 (4.2-5.4)
[2022-11-07 06:38] LABS: Anion Gap 12 (5-15); BUN 89 mg/dL (7-18); BUN/Creat Ratio 19.7 RATIO (10-20); Calcium,Total 8.3 mg/dL (8.5-10.1); Chloride 109 mmol/L (98-107); Creatinine, Serum 4.51 mg/dL (0.55-1.02); EST Glomerular Filtration Rate 10 mL/min (>60); Est Glom Filt Rate - Afr Amer 12 mL/min (>60); Estimated Creatinine Clearance 7.59 ml/min; Glucose 51 mg/dL (74-106); Potassium 5.6 mmol/L (3.5-5.1); Sodium Level 138 mmol/L (136-145)
[2022-11-07] MEDS: Dextrose 50%-Water 25 GM/50 ML DISP.SYRIN IV (06:54)
[2022-11-07] MEDS: 0.9% Saline Lock 10 ML Syringe IV (06:57)
[2022-11-07 07:31] LABS: Bedside Glucose 39 mg/dL (74-106)
[2022-11-07 07:31] LABS: Bedside Glucose 151 mg/dL (74-106)
[2022-11-07 07:31] LABS: Bedside Glucose 42 mg/dL (74-106)
[2022-11-07] MEDS: Azithromycin 250 MG Tablet 500 MG PO (09:13)
[2022-11-07] MEDS: LINAGLIPTIN 5 MG TABLET PO (09:13)
[2022-11-07] MEDS: Aspirin E.C. 81 MG Tablet PO (09:13)
[2022-11-07] MEDS: Timolol 0.5% 5ML OPTH.BTL 1 DRP OPHTHALMIC ×2 (09:13→22:46)
[2022-11-07] MEDS: Heparin Injection (Vial) 5,000 UNIT/ML VIAL 5000 UNIT SC ×2 (09:13→22:46)
[2022-11-07] MEDS: BRIMONIDINE 0.2% 5ML BOTTLE 1 DRP EACH EYE ×2 (09:13→22:46)
--- NOTE | 2022-11-07 09:14 | CASEMGMT ---
Nazia contacted patient's daughter to discuss discharge planning. Daughter states that it is first choice for patient to return to [facility] skilled. Sw informed daughter discharge date is not known at this time. Can keep her posted. Augusto De, STATISTICAL TECHNICIAN, RADIO STATION AUDIO ENGINEER
[2022-11-07] MEDS: Atenolol 25 MG Tablet PO (09:15)
--- NOTE | 2022-11-07 09:31 | PCM.PN.HOSP ---
Reason for Visit Reason for Visit: Diagnoses Acute metabolic acidosis (11/04/22) Hyperkalemia (11/04/22) Acute on chronic diastolic (congestive) heart failure (11/04/22) Acute kidney failure, unspecified (11/04/22) Chronic kidney disease, stage 4 (severe) (11/04/22) Subjective Subjective Denies SOB, chest pain, abdominal pain. Objective Data Objective Data Vital Signs: Vital Signs Temp Pulse Resp BP Pulse Ox O2 Del Method O2 Flow Rate 36.2 C L 73 20 H 101/56 L 96 Nasal Cannula 3 11/07/22 04:39 11/07/22 09:13 11/07/22 04:39 11/07/22 09:13 11/07/22 04:39 11/07/22 07:33 11/07/22 07:33 Oxygen Flow Rate (L/min) 3 Oxygen Delivery Method Nasal Cannula Weight: 50.9 kg Body Mass Index (BMI) 22.6 Intake & Output: Intake and Output for Last 24 Hours 11/05/22 11/06/22 11/07/22 23:59 23:59 23:59 Intake Total 180 / 180 795.00 / 795.00 240 / 240 Output Total 350 / 350 500 / 500 Balance -170 / -170 295.00 / 295.00 240 / 240 Lab / Micro Data Result Diagrams: 11/07/22 05:20 11/07/22 05:20 Labs: Laboratory Results - last 24 hr 11/06/22 11:07: POC Glucose 187 H 11/06/22 16:30: POC Glucose 235 H 11/06/22 22:01: POC Glucose 117 H 11/07/22 05:20: WBC 17.0 H, RBC 3.24 L, Hgb 8.8 L, Hct 27.8 L, MCV 85.8, MCH 27.2, MCHC 31.7 L, RDW Std Deviation 45.9 H, RDW Coeff of Abhinav 14.7 H, Plt Count 327, MPV 12.5 H, Immature Gran % (Auto) 0.800, Neut % (Auto) 84.6 H, Lymph % (Auto) 9.4 L, [place] % (Auto) 5.0, Eos % (Auto) 0.1, Baso % (Auto) 0.1, Absolute Neuts (auto) 14.4 H, Absolute Lymphs (auto) 1.60, Nucleated RBC % 0.2 11/07/22 05:20: Sodium 138, Potassium 5.6 H, Chloride 109 H, Carbon Dioxide 17.0 L, Anion Gap 12, BUN 89 H, Creatinine 4.51 H, Estim Creat Clear Calc 7.59, Est GFR (MDRD) Af Amer 12 L, Est GFR (MDRD) Non-Af 10 L, BUN/Creatinine Ratio 19.7, Glucose 51 L, Calcium 8.3 L 11/07/22 06:34: POC Glucose 39 L* 11/07/22 06:52: POC Glucose 42 L* 11/07/22 07:12: POC Glucose 151 H Micro: Microbiology 11/04/22 13:18 Urine, Clean Catch Legionella Antigen - Final 11/04/22 13:18 Urine, Clean Catch Streptococcus pneumoniae Antigen (M - Final 11/05/22 10:31 Mucosa - Nasopharyngeal Respiratory Panel (PCR) - Final Rhythm Strip Rhythm Strip: Sinus Rhythm Rate: 85 Ectopy: None Physical Exam Const alert and no apparent distress Constitutional Narrative: weak voice. nontoxic. Resp normal respiratory effort, no retractions, no use of accessory muscles and clear to auscultation bilaterally Cardio regular rate, regular rhythm, S1 normal heart sound and S2 normal heart sound GI normal to inspection, nondistended, normoactive bowel sounds, soft to palpation, non-tender and non-distended Extremity normal to inspection Psych affect normal Assessment & Plan Assessment/Plan (1) Acute HFrEF (heart failure with reduced ejection fraction): PLAN: Not a candidate for ACEi/ARB given SARA Furosemide held given worsening SARA change atenolol to carvedilol, start low given current BPs and uptitrate as BP allows. Echo with an EF of 30%. No prior echo available Consult cardiology (2) SARA (acute kidney injury): PLAN: Worse on CKD4 nephrology on consult. Feel pt may have cardiorenal syndrome No need for TELEPHONE EXCHANGE OPERATOR at this time. (3) Pneumonia: QUALIFIERS: Laterality: right Lung location: lower lobe of lung Pneumonia type: due to Pneumococcus Qualified Code(s): J13 - Pneumonia due to Streptococcus pneumoniae PLAN: RLL on CTX and azithromycin legionella and strep antigens negative pulmonary toilet (4) Debility: PLAN: PT OT from assisted living. PLAN: Plan chronic conditions: DM2? We will continue with insulin and make adjust as necessary Accu-Cheks ACHS GERD? Stable? Continue with PPI DVT: SQ Heparin Charges/Coding Visit Charges Inpatient E&M: 32459 Subs Hosp L2
--- NOTE | 2022-11-07 09:31 | CASEMGMT ---
Discharge Planning Patients family would like her to return skilled if possible. [facility] Erica Cameron, Discharge Planning Asst.
--- NOTE | 2022-11-07 10:02 | PN.RENAL_ITS ---
Subjective Subjective Following for SARA on CKD. The patient is encephalopathic/confused. She does not answer my questions verbally. However, she appears comfortable Objective Data Objective Data Vital Signs: Vital Signs Temp Pulse Resp BP Pulse Ox O2 Del Method O2 Flow Rate 97.1 F L 73 20 H 101/56 L 98 Nasal Cannula 3 11/07/22 04:39 11/07/22 09:13 11/07/22 04:39 11/07/22 09:13 11/07/22 07:28 11/07/22 07:33 11/07/22 07:33 Oxygen Flow Rate (L/min) 3 Oxygen Delivery Method Nasal Cannula Weight: 50.9 kg Body Mass Index (BMI) 22.6 Intake & Output: Intake and Output for Last 24 Hours 11/05/22 11/06/22 11/07/22 23:59 23:59 23:59 Intake Total 180 / 180 795.00 / 795.00 240 / 240 Output Total 350 / 350 500 / 500 Balance -170 / -170 295.00 / 295.00 240 / 240 Lab / Micro Data Result Diagrams: 11/07/22 05:20 11/07/22 05:20 Labs: Laboratory Results - last 24 hr 11/06/22 11:07: POC Glucose 187 H 11/06/22 16:30: POC Glucose 235 H 11/06/22 22:01: POC Glucose 117 H 11/07/22 05:20: WBC 17.0 H, RBC 3.24 L, Hgb 8.8 L, Hct 27.8 L, MCV 85.8, MCH 27.2, MCHC 31.7 L, RDW Std Deviation 45.9 H, RDW Coeff of Abhinav 14.7 H, Plt Count 327, MPV 12.5 H, Immature Gran % (Auto) 0.800, Neut % (Auto) 84.6 H, Lymph % (Auto) 9.4 L, [place] % (Auto) 5.0, Eos % (Auto) 0.1, Baso % (Auto) 0.1, Absolute Neuts (auto) 14.4 H, Absolute Lymphs (auto) 1.60, Nucleated RBC % 0.2 11/07/22 05:20: Sodium 138, Potassium 5.6 H, Chloride 109 H, Carbon Dioxide 17.0 L, Anion Gap 12, BUN 89 H, Creatinine 4.51 H, Estim Creat Clear Calc 7.59, Est GFR (MDRD) Af Amer 12 L, Est GFR (MDRD) Non-Af 10 L, BUN/Creatinine Ratio 19.7, Glucose 51 L, Calcium 8.3 L 11/07/22 06:34: POC Glucose 39 L* 11/07/22 06:52: POC Glucose 42 L* 11/07/22 07:12: POC Glucose 151 H Micro: Microbiology 11/04/22 13:18 Urine, Clean Catch Legionella Antigen - Final 11/04/22 13:18 Urine, Clean Catch Streptococcus pneumoniae Antigen (M - Rhiannon l 11/05/22 10:31 Mucosa - Nasopharyngeal Respiratory Panel (PCR) - Final Rhythm Strip Rhythm Strip: Sinus Rhythm Rate: 85 Ectopy: None Physical Exam Narrative General: Alert but oriented x0, NAD HEENT: Normocephalic, atraumatic. Mucous membrane moist. Cardiovascular: Normal S1, S2. No rubs or murmurs. Lungs: Clear to auscultation anteriorly. Abdomen: Normal bowel sound, soft, nontender, no guarding or rebound. Extremities: No clubbing, cyanosis, or edema. Assessment & Plan Assessment/Plan (1) SARA (acute kidney injury): (2) Chronic kidney disease, stage 4 (severe): (3) Hyperkalemia: (4) Acute metabolic acidosis: PLAN: Plan Impression/Plan: The patient is a 82-year-old woman with history of type 2 diabetes mellitus, hypertension, dementia, COPD, and chronic kidney disease stage G4. The patient was admitted to the hospital on 11/04/2022 with acute hypoxic respiratory failure attributed to heart failure with preserved ejection fraction. The patient also presented with acute kidney injury on chronic kidney disease. Nephrology is following for SARA on CKD. Acute kidney injury on chronic kidney disease stage G4. Baseline serum creatinine is around 2.5 mg/dL. Suspect the patient has underlying CKD from diabetic kidney disease given persistent proteinuria on review of prior urinalysis. The patient had been followed by Dr. Marquis in the office although she has not had recent office visit. The patient presented to the hospital on 11/03/2022 with serum creatinine of 3.70 mg/dL. Creatinine increased to 3.72 mg/dL on 11/04/2022 but stabilized at 3.57 mg/dL on 11/05/2022 despite diuresis. Unfortunately, renal function has declined in the last 2 days. Serum creatinine increased to 4.51 mg/dL today. We are likely seeing progression of CKD along with cardiorenal SARA at this point. Because of increasing serum creatinine, diuretic has been put on hold. Last dose of furosemide was given on 11/05/2022. There is no need for kidney replacement therapy. I would not recommend dialysis in this patient given her comorbidities as it would not increase her quality of life. We will discuss goals of care plan with primary service. If the patient/family chooses more palliative route, we can more aggressively diurese her for comfort to keep her out of the hospital. Hyperkalemia. Potassium level is 5.6 mmol/L today. I will start patient on sodium bicarbonate to see if we can help attenuate further rise in serum potassium. Limit potassium intake to 2 g/day Recheck potassium again tomorrow. Acute metabolic acidosis. Serum bicarbonate level was 18 mmol/L on 11/03/2022. Serum bicarbonate level initially improved but is lower again at 17 mmol/L today. This is likely due to SARA on CKD. I will start sodium bicarbonate supplementation today to help attenuate hyperkalemia. Recheck serum bicarbonate level tomorrow. Nephrology plan will be discussed with Dr. Soria.
[2022-11-07] MEDS: Insulin Lispro 100 UNIT/ML INSULN.PEN SC (11:50)
--- NOTE | 2022-11-07 12:18 | CHAPLAIN ---
Type of Pastoral Visit _x__ Initial Visit ___ Follow-up Visit ___ On-call Visit ___ General Patient Visit ___ Spiritual Assessment ___ Family Conference ___ Bereavement ___ Rapid Response ___ Code Blue ___ Other (describe below) Pastoral Care Referral From _x__ Patient _x__ Family ___ Nurse ___ Physician ___ Buy Boat Operator ___ Spring Fitter Helper ___ Other (describe below) Sacrament/Intervention _x__ Active listening ___ Anointing ___ Religion ___ Bereavement ___ Communion ___ Dawn exploration ___ ___ Life review _x__ Prayer ___ Reconciliation ___ Sacrament of Sick ___ Supportive presence ___ Wedding ___ Other (describe below) Pastoral Comments patient is able to answer questions but does not appear to have the strength to converse; pt states thank you over and over; pt welcomes prayer and scriptures recited with her; pt is member of [employer]; presence and calm given as well
[2022-11-07 12:21] LABS: Bedside Glucose 185 mg/dL (74-106)
--- NOTE | 2022-11-07 14:02 | CASEMGMT ---
Discharge Planning SNF list created for patient and sent to SW. Erica Cameron, Discharge Planinng Asst.
--- NOTE | 2022-11-07 14:10 | CASEMGMT ---
Avenue responded to questions regarding patients cognition. Per a nurse in [place], patient was able to converse, make plans and understand, slept ok, ambulated halls and dressed herself. Erica Cameron, Discharge Planning Asst.
[2022-11-07 17:35] LABS: Bedside Glucose 148 mg/dL (74-106)
--- NOTE | 2022-11-07 21:38 | CPS ---
Pt weak but we attempted to do PeP therapy. 5 times , the device barely made a sound. Pt gave good effort.
[2022-11-07] MEDS: Latanoprost 0.005% 1 Bottle 1 DRP EACH EYE (22:45)
[2022-11-07] MEDS: Tolterodine Tartrate 2 MG CAP.SA PO (22:45)
[2022-11-07] MEDS: Pantoprazole Sodium 40 MG Tablet PO (22:45)
[2022-11-07] MEDS: Insulin Glargine-YFGN 100 UNIT/ML Pen 15 UNIT SC (22:46)
[2022-11-07] MEDS: Ceftriaxone 1 GM/50 ML BAG IV (22:47)
[2022-11-07 23:14] LABS: Bedside Glucose 142 mg/dL (74-106)
[2022-11-08] VITALS: BP 127/85; PULSE 72; RESP 16; TEMP 36.4; O2SAT 96
[2022-11-08 02:45] VITALS: BP 127/85; PULSE 73; RESP 16; TEMP 36.4; O2SAT 94
[2022-11-08 03:51] VITALS: BMI 22.8
[2022-11-08 05:25] LABS: Absolute Lymphocyte Count 2.22 X10^3/uL (0.83-4.51); Absolute Neutrophil Count 13.5 X10^3/uL (2.0-7.7); Basophil# 0.01 X10^3/uL; Basophil% 0.1 % (0-1); Eosinophil# 0.06 X10^3/uL; Eosinophils% 0.3 % (0-5); Hematocrit 28.4 % (37-47); Hemoglobin 8.6 g/dL (12.0-15.0); Lymphocyte # 2.22 X10^3/ul (0.83-4.51); Lymphocyte % 12.6 % (19-41); Mean Corp Hgb Conc 30.3 g/dL (32-36); Mean Corpuscular Hgb 26.9 pg (27.0-32.0); Mean Corpuscular Volume 88.8 fL (81-99); Mean Platelet Vol. 12.9 fl (6.2-12.0); Monocyte# 1.27 X10^3/uL; Monocyte% 7.2 % (0-10); NRBC Flagged by Analyzer 0.3 % (0-5); Neutrophil # 13.48 X10^3/uL (2.7-7.7); Neutrophil % 76.9 % (47-70); Platelet Count 370 K/mm3 (150-450); RBC Distribution Width CV 14.8 % (11.6-14.6); RBC Distribution Width SD 47.5 fl (35.1-43.9); White Blood Count 17.6 K/mm3 (4.4-11.0)
[2022-11-08 05:55] LABS: Anion Gap 9 (5-15); BUN 99 mg/dL (7-18); BUN/Creat Ratio 19.3 RATIO (10-20); Calcium,Total 8.5 mg/dL (8.5-10.1); Chloride 106 mmol/L (98-107); Creatinine, Serum 5.14 mg/dL (0.55-1.02); EST Glomerular Filtration Rate 9 mL/min (>60); Est Glom Filt Rate - Afr Amer 10 mL/min (>60); Glucose 109 mg/dL (74-106); Potassium 5.9 mmol/L (3.5-5.1); Sodium Level 135 mmol/L (136-145)
[2022-11-08 06:44] LABS: Bedside Glucose 100 mg/dL (74-106)
--- NOTE | 2022-11-08 07:57 | PCM.PN.HOSP ---
Reason for Visit Reason for Visit: Diagnoses Acute metabolic acidosis (11/04/22) Hyperkalemia (11/04/22) Acute systolic (congestive) heart failure (11/04/22) Acute on chronic diastolic (congestive) heart failure (11/04/22) Pneumonia due to Streptococcus pneumoniae (11/04/22) Acute kidney failure, unspecified (11/04/22) Chronic kidney disease, stage 4 (severe) (11/04/22) Other malaise (11/04/22) Subjective Subjective Anuric. Lethargic. Objective Data Objective Data Vital Signs: Vital Signs Temp Pulse Resp BP Pulse Ox O2 Del Method O2 Flow Rate 36.4 C L 73 16 127/85 H 94 Nasal Cannula 5 11/08/22 02:45 11/08/22 02:45 11/08/22 02:45 11/08/22 02:45 11/08/22 02:45 11/08/22 02:45 11/07/22 22:41 Oxygen Flow Rate (L/min) 5 Oxygen Delivery Method Nasal Cannula Weight: 51.2 kg Body Mass Index (BMI) 22.8 Intake & Output: Intake and Output for Last 24 Hours 11/06/22 11/07/22 11/08/22 23:59 23:59 23:59 Intake Total 795.00 / 795.00 960 / 980 40 / 40 Output Total 500 / 500 Balance 295.00 / 295.00 960 / 980 40 / 40 Lab / Micro Data Result Diagrams: 11/08/22 04:35 11/08/22 04:35 Labs: Laboratory Results - last 24 hr 11/07/22 11:47: POC Glucose 185 H 11/07/22 17:16: POC Glucose 148 H 11/07/22 22:39: POC Glucose 142 H 11/08/22 04:35: WBC 17.6 H, RBC 3.20 L, Hgb 8.6 L, Hct 28.4 L, MCV 88.8, MCH 26.9 L, MCHC 30.3 L, RDW Std Deviation 47.5 H, RDW Coeff of Abhinav 14.8 H, Plt Count 370, MPV 12.9 H, Immature Gran % (Auto) 2.900 H, Neut % (Auto) 76.9 H, Lymph % (Auto) 12.6 L, [place] % (Auto) 7.2, Eos % (Auto) 0.3, Baso % (Auto) 0.1, Absolute Neuts (auto) 13.5 H, Absolute Lymphs (auto) 2.22, Nucleated RBC % 0.3 11/08/22 04:35: Sodium 135 L, Potassium 5.9 H, Chloride 106, Carbon Dioxide 20.0 L, Anion Gap 9, BUN 99 H, Creatinine 5.14 H, Estim Creat Clear Calc 6.70, Est GFR (MDRD) Af Amer 10 L, Est GFR (MDRD) Non-Af 9 L, BUN/Creatinine Ratio 19.3, Glucose 109 H, Calcium 8.5 11/08/22 06:25: POC Glucose 100 Micro: Microbiology 11/06/22 08:19 Blood Culture (Wb) - Right Hand Blood Culture - Preliminary No growth in 48 hours. 11/06/22 08:05 Blood Culture (Wb) - Left Hand Blood Culture - Preliminary No growth in 48 hours. 11/04/22 13:18 Urine, Clean Catch Legionella Antigen - Final 11/04/22 13:18 Urine, Clean Catch Streptococcus pneumoniae Antigen (M - Final 11/05/22 10:31 Mucosa - Nasopharyngeal Respiratory Panel (PCR) - Final Rhythm Strip Rhythm Strip: Sinus Rhythm Rate: 85 Ectopy: None Physical Exam Const no apparent distress Constitutional Narrative: groggy. confused. HEENT head/scalp atraumatic and moist oral mucous membranes Resp normal respiratory effort, no retractions, no use of accessory muscles and clear to auscultation bilaterally Cardio regular rate, regular rhythm, S1 normal heart sound and S2 normal heart sound GI normal to inspection, nondistended, normoactive bowel sounds, soft to palpation, non-tender and non-distended Extremity normal to inspection Neuro oriented x3 and CN's II-XII intact bilaterally Assessment & Plan Assessment/Plan (1) Acute HFrEF (heart failure with reduced ejection fraction): PLAN: Not a candidate for ACEi/ARB given SARA Furosemide held given worsening SARA change atenolol to carvedilol, start low given current BPs and uptitrate as BP allows. Echo with an EF of 30%. No prior echo available Consult cardiology (2) SARA (acute kidney injury): PLAN: Worse on CKD4 nephrology on consult. Feel pt may have cardiorenal syndrome No need for CEMENT CRUSHER OPERATOR at this time. anuric (3) Pneumonia: QUALIFIERS: Laterality: right Lung location: lower lobe of lung Pneumonia type: due to Pneumococcus Qualified Code(s): J13 - Pneumonia due to Streptococcus pneumoniae PLAN: RLL on CTX and azithromycin legionella and strep antigens negative pulmonary toilet (4) Debility: PLAN: PT OT from assisted living. PLAN: Plan chronic conditions: DM2? We will continue with insulin and make adjust as necessary Accu-Cheks ACHS GERD? Stable? Continue with PPI DVT: SQ Heparin Advanced care planning: Spent an additional 20 minutes DW pt's daughter, Heidi, explained my concern that the patient is worsening given her traumatic kidney failure, cardiomyopathy, hypothermia. She states that the patient had told her other sister that she felt that she was dying and would state that she would not want aggressive measures though not specifically dialysis. I recommended speaking with hospice and focus on symptom control for quality of life. She was agreeable to speaking with hospice though she is not ready to proceed with hospice measures just yet. Charges/Coding Visit Charges Inpatient E&M: 60309 Subs Hosp L2 Procedures Hospitalists Procedures: 26291 Critial Care Addl 30 Min
--- NOTE | 2022-11-08 07:58 | US_ITS ---
STUDY: RENAL ULTRASOUND - COMPLETE REASON FOR EXAM: Female, 82 years old. Elevated BUN/creatinine TECHNIQUE: Ultrasound evaluation of the kidneys was performed with real-time and static etienne-scale imaging. Study is limited due to patient condition and bowel gas COMPARISON: 05/26/2012 FINDINGS: RIGHT KIDNEY: Normal location of the right kidney, which is normal in size for age. The right kidney measures 8.0 x 4.3 x 3.7 cm. There is a normal cortex of the right kidney. The renal cortex measures 1.4 cm. There is no right renal mass or cyst. There are no right renal calculi. There is no right hydronephrosis. DISTAL RIGHT URETER: There is non-visualization of the distal right ureter. There is no demonstrated right ureterovesical junction calculus. There is a visualized right ureteral jet. LEFT KIDNEY: Normal location of the left kidney, which is normal in size for age. The left kidney measures 7.0 x 4.4 x 3.7 cm. There is a normal cortex of the left kidney. The renal cortex measures 1.2 cm. There is a simple 1.2 cm cyst. There are no left renal calculi. There is no left hydronephrosis. DISTAL LEFT URETER: There is non-visualization of the distal left ureter. There is no demonstrated left ureterovesical junction calculus. There is a visualized left ureteral jet. AORTA: There is no elongation or tortuosity of the abdominal aorta. I.V.C.: The IVC is patent. BLADDER: The distended urinary bladder has a volume of 363 ml. Patient did not void.. There is a normal wall thickness of the distended urinary bladder. There is no demonstrated mass within the urinary bladder. There are no demonstrated bladder calculi. US/Kidney and Bladder IMPRESSION: No obstructive uropathy, or suspicious solid renal lesion Simple left renal cyst, no specific follow-up needed Electronically Signed: Nasir Welsh MD at 13:03 EDT ,
[2022-11-08 08:29] VITALS: RESP 18
[2022-11-08 08:45] VITALS: BP 137/75; PULSE 74; RESP 16; TEMP 36.3; O2SAT 99
--- NOTE | 2022-11-08 08:53 | CASEMGMT ---
Addendum entered by Fabi Avendaño 11/08/22 13:14: Social Work SW received message back from halfway that they do not have POA papers on file. OSMAR Ojeda Original Note: Social Work Upon admission, pt did indicate she has POA papers and her son and daughter are her POAs. No documents are on file however. SW sent a message via [employer] requesting the halfway send the documents if they have them on file. OSMAR Ojeda
[2022-11-08] MEDS: amLODIPine 5 MG Tablet PO (09:08)
[2022-11-08] MEDS: Azithromycin 250 MG Tablet 500 MG PO (09:08)
[2022-11-08] MEDS: Aspirin E.C. 81 MG Tablet PO (09:08)
[2022-11-08] MEDS: LINAGLIPTIN 5 MG TABLET PO (09:08)
[2022-11-08] MEDS: Carvedilol 3.125 MG TABLET PO (09:09)
[2022-11-08] MEDS: BRIMONIDINE 0.2% 5ML BOTTLE 1 DRP EACH EYE (09:09)
[2022-11-08] MEDS: Timolol 0.5% 5ML OPTH.BTL 1 DRP OPHTHALMIC (09:09)
[2022-11-08] MEDS: Heparin Injection (Vial) 5,000 UNIT/ML VIAL 5000 UNIT SC (09:10)
--- NOTE | 2022-11-08 10:45 | PN.RENAL_ITS ---
Documented by User: DOROTHY Mccartney 11/08/22 10:56 Subjective Subjective Patient is resting quietly. Alert to name and place. No overnight events. Hard of hearing. Objective Data Objective Data Vital Signs: Vital Signs Temp Pulse Resp BP Pulse Ox O2 Del Method O2 Flow Rate 97.3 F L 74 16 137/75 H 99 Nasal Cannula 4 11/08/22 08:45 11/08/22 08:45 11/08/22 08:45 11/08/22 08:45 11/08/22 08:45 11/08/22 08:45 11/08/22 08:45 Oxygen Flow Rate (L/min) 4 Oxygen Delivery Method Nasal Cannula Weight: 51.2 kg Body Mass Index (BMI) 22.8 Intake & Output: Intake and Output for Last 24 Hours 11/06/22 11/07/22 11/08/22 23:59 23:59 23:59 Intake Total 795.00 / 795.00 960 / 980 90 / 90 Output Total 500 / 500 Balance 295.00 / 295.00 960 / 980 90 / 90 Lab / Micro Data Result Diagrams: 11/08/22 04:35 11/08/22 04:35 Labs: Laboratory Results - last 24 hr 11/07/22 11:47: POC Glucose 185 H 11/07/22 17:16: POC Glucose 148 H 11/07/22 22:39: POC Glucose 142 H 11/08/22 04:35: WBC 17.6 H, RBC 3.20 L, Hgb 8.6 L, Hct 28.4 L, MCV 88.8, MCH 2 6.9 L, MCHC 30.3 L, RDW Std Deviation 47.5 H, RDW Coeff of Abhinav 14.8 H, Plt Count 370, MPV 12.9 H, Immature Gran % (Auto) 2.900 H, Neut % (Auto) 76.9 H, Lymph % (Auto) 12.6 L, [place] % (Auto) 7.2, Eos % (Auto) 0.3, Baso % (Auto) 0.1, Absolute Neuts (auto) 13.5 H, Absolute Lymphs (auto) 2.22, Nucleated RBC % 0.3 11/08/22 04:35: Sodium 135 L, Potassium 5.9 H, Chloride 106, Carbon Dioxide 20.0 L, Anion Gap 9, BUN 99 H, Creatinine 5.14 H, Estim Creat Clear Calc 6.70, Est GFR (MDRD) Af Amer 10 L, Est GFR (MDRD) Non-Af 9 L, BUN/Creatinine Ratio 19.3, Glucose 109 H, Calcium 8.5 11/08/22 06:25: POC Glucose 100 Micro: Microbiology 11/06/22 08:50 Urine, Catheterized Urine Culture - Final Culture exhibits no growth. 11/06/22 08:19 Blood Culture (Wb) - Right Hand Blood Culture - Preliminary No growth in 48 hours. 11/06/22 08:05 Blood Culture (Wb) - Left Hand Blood Culture - Preliminary No growth in 48 hours. 11/04/22 13:18 Urine, Clean Catch Legionella Antigen - Final 11/04/22 13:18 Urine, Clean Catch Streptococcus pneumoniae Antigen (M - Final 11/05/22 10:31 Mucosa - Nasopharyngeal Respiratory Panel (PCR) - Final Rhythm Strip Rhythm Strip: Sinus Rhythm Rate: 85 Ectopy: None Physical Exam Narrative Alert to name and place. No acute distress. Normal S1, S2. No rubs or murmurs. Lungs clear to auscultation anteriorly, diminished breath sounds bilateral posterior bases. No audible rhonchi or wheezing Abdomen soft, nontender, no guarding or rebound. Trace edema bilateral hands. Assessment & Plan Assessment/Plan (1) SARA (acute kidney injury): (2) Chronic kidney disease, stage 4 (severe): (3) Hyperkalemia: (4) Acute metabolic acidosis: PLAN: Plan Impression/Plan: The patient is a 82-year-old woman with history of type 2 diabetes mellitus, breast cancer, hypertension, dementia, COPD, and chronic kidney disease stage G4. The patient was admitted to the hospital on 11/04/2022 with acute hypoxic respiratory failure attributed to heart failure with preserved ejection fraction. The patient also presented with acute kidney injury on chronic kidney disease. Nephrology is following for SARA on CKD. Acute kidney injury on chronic kidney disease stage G4. Baseline serum creatinine is around 2.5 mg/dL. Suspect the patient has underlying CKD from diabetic kidney disease given persistent proteinuria on review of prior urinalysis. The patient had been followed by Dr. Marquis in the office although she has not had recent office visit. The patient presented to the hospital on 11/03/2022 with serum creatinine of 3.70 mg/dL. Creatinine increased to 3.72 mg/dL on 11/04/2022 but stabilized at 3.57 mg/dL on 11/05/2022 despite diuresis. Unfortunately, renal function has declined over the past few days and today her serum creatinine is up to 5.14 mg/dL, BUN 99, potassium 5.9. Bicarb 20. Urine output is slowly declining. We are likely seeing progression of CKD along with cardiorenal SARA. Because of increasing serum creatinine, diuretic has been put on hold. Last dose of furosemide was given on 11/05/2022. We would not recommend dialysis in this patient given her comorbidities as it would not increase her quality of life. If the patient/family chooses more palliative route, we can more aggressively diurese her for comfort to keep her out of the hospital. Patient is currently DNR CCA CODE STATUS. There is no family at bedside today. Yesterday daughter Mary was at bedside and I had long discussion with patient and daughter that patient may be heading towards needing dialysis. I also explained to patient that she may be heading towards needing dialysis and today patient stated that she did not want to pursue hemodialysis. We reviewed role of hemodialysis, risks and benefits of hemodialysis. Mary stated that she would update her sister and brother of information but per conversation with Mary yesterday family all leaning towards not pursuing hemodialysis. Questions were answered. Hyperkalemia. Potassium up to 5.9 today. Bicarb improved to 20 today. We will give a dose of Kayexalate. Also keep on low potassium diet restrictions. Nephrology plan discussed with Dr. Soria. Documented by User: Dr. Gill Mendez MD 11/08/22 16:30 Objective Data Lab / Micro Data Result Diagrams: 11/08/22 04:35 11/08/22 04:35 Assessment & Plan Assessment/Plan (1) SARA (acute kidney injury): (2) Chronic kidney disease, stage 4 (severe): (3) Hyperkalemia: (4) Acute metabolic acidosis: PLAN: Plan Impression/Plan: The patient is a 82-year-old woman with history of type 2 diabetes mellitus, breast cancer, hypertension, dementia, COPD, and chronic kidney disease stage G4. The patient was admitted to the hospital on 11/04/2022 with acute hypoxic respiratory failure attributed to heart failure with preserved ejection fraction. The patient also presented with acute kidney injury on chronic kidney disease. Nephrology is following for SARA on CKD. Acute kidney injury on chronic kidney disease stage G4. Baseline serum creatinine is around 2.5 mg/dL. Suspect the patient has underlying CKD from diabetic kidney disease given persistent proteinuria on review of prior urinalysis. The patient had been followed by Dr. Marquis in the office although she has not had recent office visit. The patient presented to the hospital on 11/03/2022 with serum creatinine of 3.70 mg/dL. Creatinine increased to 3.72 mg/dL on 11/04/2022 but stabilized at 3.57 mg/dL on 11/05/2022 despite diuresis. Unfortunately, renal function has declined over the past few days and today her serum creatinine is up to 5.14 mg/dL, BUN 99, potassium 5.9. Bicarb 20. Urine output is slowly declining. We are likely seeing progression of CKD along with cardiorenal SARA. Because of increasing serum creatinine, diuretic has been put on hold. Last dose of furosemide was given on 11/05/2022. We would not recommend dialysis in this patient given her comorbidities as it would not increase her quality of life. If the patient/family chooses more palliative route, we can more aggressively diurese her for comfort to keep her out of the hospital. Patient is currently DNR CCA CODE STATUS. There is no family at bedside today. Yesterday daughter Mary was at bedside and I had long discussion with patient and daughter that patient may be heading towards needing dialysis. I also explained to patient that she may be heading towards needing dialysis and today patient stated that she did not want to pursue hemodialysis. We reviewed role of hemodialysis, risks and benefits of hemodialysis. Mary stated that she would update her sister and brother of information but per conversation with Mary yesterday family all leaning towards not pursuing hemodialysis. Qu estions were answered. Hyperkalemia. Potassium up to 5.9 today. Bicarb improved to 20 today. We will give a dose of Kayexalate. Also keep on low potassium diet restrictions. Nephrology plan discussed with Dr. Soria. Nephrology attending addendum: The patient seen and examined. I also spoke to her daughter, Jackelin, who is healthcare POA. Again, I do not recommend dialysis for this patient as it is unlikely to change her quality of life. This was communicated with her daughter, Jackelin. Would recommend medical treatment of volume overload with furosemide as needed. Nephrology plan will be discussed with Dr. Soria. Ruben Houser MD
[2022-11-08 12:25] LABS: Bedside Glucose 129 mg/dL (74-106)
[2022-11-08] MEDS: Sodium Polystyrene Sulfonate 15 GM/60 ML UDC 30 GM PO (13:32)
--- NOTE | 2022-11-08 14:29 | CASEMGMT ---
Physician put in an order for Hospice. SW called patient's daughter Jackelin and she confirmed she would like the local Hospice. MARGARET explained SW will call them with a referral and also fax information. Someone from Hospice will call her to set up a time to meet. Jackelin was in agreement with this plan. SW called Hospice regarding referral and also faxed information. Charisse Jimenez SUPPORT STAFF RUSTY
[2022-11-08 14:45] VITALS: BP 129/90; PULSE 77; RESP 18; TEMP 35.8; O2SAT 99
--- NOTE | 2022-11-08 15:06 | PCM.CONS.C ---
Assessment & Plan Assessment/Plan (1) Acute HFrEF (heart failure with reduced ejection fraction): PLAN: Patient has new drop in ejection fraction with wall motion abnormalities that raise a suspicion of Takotsubo cardiomyopathy. Patient is debilitated and is being considered for hospice. She appears comfortable from a CHF standpoint. I agree with comfort care for the patient. We will sign off at this time. Please let us know if we can be of any further assistance. HPI Consult Data Date of Consult: 11/08/22 HPI Narrative Reason for Consultation: CHF HPI Narrative: ÁNGEL MARVIN, is a 82 F who presents with shortness of breath. Patient is a poor historian. She denies any chest pain at this time. It is not clear if she has any shortness of breath. She has a new drop in EF. She appears to be resting comfortably. Patient also has acute on chronic renal failure and was felt not to be a candidate for dialysis. After discussion with the family hospice is being considered. Review of systems: Cannot be obtained as patient is a poor historian. [facility] Medical History Cancer COPD (chronic obstructive pulmonary disease) Dementia Diabetes Former smoker Hearing loss, left Hearing loss, right HTN (hypertension) Hyperlipidemia Hypertension Kidney disease Home Medications atenolol 25 mg tablet 25 mg PO DAILY blood pressure 09/27/17 [History Last Taken 10/27/20] simvastatin 20 mg tablet 20 mg PO QHS cholesterol lowering 09/27/17 [History Last Taken 10/27/20] aspirin 81 mg tablet,delayed release (Josue Low Dose Aspirin) 81 mg PO DAILY HEALTH MAINTENANCE 10/28/20 [History Last Taken 10/26/20] cholecalciferol (vitamin D3) 50 mcg (2,000 unit) capsule 50 mcg PO TU SUPPLEMENT 10/28/20 [History Last Taken 10/27/20] insulin glargine 100 unit/mL subcutaneous solution (Lantus U-100 Insulin) 20 unit SQ QHS blood sugar 03/15/22 [History Last Taken Unknown] linagliptin 5 mg tablet (Tradjenta) 5 mg PO DAILY 03/15/22 [History Last Taken Unknown] oxybutynin chloride 5 mg tablet,extended release 24 hr 5 mg PO QHS 03/22/22 [History Last Taken Unknown] amlodipine 5 mg tablet 5 mg PO DAILY HTN 11/04/22 [History Last Taken Unknown] bimatoprost 0.01 % eye drops (Lumigan) 1 drp EACH EYE DAILY GLAUCOMA 11/04/22 [History Last Taken Unknown] brimonidine 0.2 %-timolol 0.5 % eye drops (Combigan) 1 drp EACH EYE Q12H GLAUCOMA 11/04/22 [History Last Taken Unknown] furosemide 40 mg tablet 40 mg PO BID PNEUMONIA WITH HEART FAILURE 11/04/22 [History Last Taken Unknown] omeprazole 40 mg capsule,delayed release 40 mg PO QHS GERD 11/04/22 [History Last Taken Unknown] tramadol 50 mg tablet 50 mg PO BID PRN ARTHRITIS PAIN 11/04/22 [History Last Taken Unknown] Allergy/AdvReac Type Severity Reaction Status Date / Time penicillin Allergy Rash Verified 11/04/22 11:51 Family History Mother Hypertension Diabetes Other Breast cancer Cancer Seizures Thyroid disorder Surgical History Hx of cataract surgery S/P breast lumpectomy Social History household members: none housing: condominium Smoking Status: Former smoker how long ago did patient quit smoking: Patient quit cigarette tobacco use in the 1970s, started age 20-22. alcohol intake: never substance use type: does not use Physical Exam Const no apparent distress HEENT normocephalic Eyes no scleral icterus Resp normal respiratory effort Cardio regular rate Extremity no pedal edema Skin no rashes or lesions noted Risk Stratification Risk Stratification Applicable: No Charges/Coding Visit Charges Inpatient E&M: 78779 Init Hosp L2 Objective Data Vital Signs: Vital Signs Temp Pulse Resp BP Pulse Ox O2 Del Method O2 Flow Rate 97.3 F L 74 16 137/75 H 99 Nasal Cannula 4 11/08/22 08:45 11/08/22 08:45 11/08/22 08:45 11/08/22 08:45 11/08/22 08:45 11/08/22 14:00 11/08/22 14:00 Oxygen Flow Rate (L/min) 4 Oxygen Delivery Method Nasal Cannula Weight: 112 lb 14.027 oz Body Mass Index (BMI) 22.8 Intake & Output: Intake and Output for Last 24 Hours 11/06/22 11/07/22 11/08/22 23:59 23:59 23:59 Intake Total 795.00 / 795.00 960 / 980 490 / 490 Output Total 500 / 500 0 / 0 Balance 295.00 / 295.00 960 / 980 490 / 490 Lab / Micro Data Result Diagrams: 11/08/22 04:35 11/08/22 04:35 Labs: Laboratory Results - last 24 hr 11/07/22 17:16: POC Glucose 148 H 11/07/22 22:39: POC Glucose 142 H 11/08/22 04:35: WBC 17.6 H, RBC 3.20 L, Hgb 8.6 L, Hct 28.4 L, MCV 88.8, MCH 26.9 L, MCHC 30.3 L, RDW Std Deviation 47.5 H, RDW Coeff of Abhinav 14.8 H, Plt Count 370, MPV 12.9 H, Immature Gran % (Auto) 2.900 H, Neut % (Auto) 76.9 H, Lymph % (Auto) 12.6 L, [place] % (Auto) 7.2, Eos % (Auto) 0.3, Baso % (Auto) 0.1, Absolute Neuts (auto) 13.5 H, Absolute Lymphs (auto) 2.22, Nucleated RBC % 0.3 11/08/22 04:35: Sodium 135 L, Potassium 5.9 H, Chloride 106, Carbon Dioxide 20.0 L, Anion Gap 9, BUN 99 H, Creatinine 5.14 H, Estim Creat Clear Calc 6.70, Est GFR (MDRD) Af Amer 10 L, Est GFR (MDRD) Non-Af 9 L, BUN/Creatinine Ratio 19.3, Glucose 109 H, Calcium 8.5 11/08/22 06:25: POC Glucose 100 11/08/22 12:03: POC Glucose 129 H Micro: Microbiology 11/06/22 08:50 Urine, Catheterized Urine Culture - Final Culture exhibits no growth. 11/06/22 08:19 Blood Culture (Wb) - Right Hand Blood Culture - Preliminary No growth in 48 hours. 11/06/22 08:05 Blood Culture (Wb) - Left Hand Blood Culture - Preliminary No growth in 48 hours. Rhythm Strip Rhythm Strip: Sinus Rhythm Rate: 85 Ectopy: None Cardiology Labs/Tests 11/08/22 04:35: WBC 17.6 H, RBC 3.20 L, Hgb 8.6 L, Hct 28.4 L, MCV 88.8, MCH 26.9 L, MCHC 30.3 L, Plt Count 370, MPV 12.9 H, Immature Gran % (Auto) 2.900 H, Neut % (Auto) 76.9 H, Lymph % (Auto) 12.6 L, [place] % (Auto) 7.2, Eos % (Auto) 0.3, Baso % (Auto) 0.1, Absolute Neuts (auto) 13.5 H, Nucleated RBC % 0.3 11/08/22 04:35: Sodium 135 L, Potassium 5.9 H, Chloride 106, Carbon Dioxide 20.0 L, Anion Gap 9, BUN 99 H, Creatinine 5.14 H, Est GFR (MDRD) Af Amer 10 L, Est GFR (MDRD) Non-Af 9 L, BUN/Creatinine Ratio 19.3, Glucose 109 H, Calcium 8.5 Rhythm: EKG: ECHO: Stress Test: Cardiac Cath: PCI: CT Surgery: Holter monitor: EPS: PPM: CXR: Chest CT Scan: Radiography Diagnostic Testing: Radiology Impression Renal Ultrasound 11/08/22 07:58 IMPRESSION: No obstructive uropathy, or suspicious solid renal lesion Simple left renal cyst, no specific follow-up needed Electronically Signed: Nasir Welsh MD at 13:03 EDT Reading Location ID and State: [address] [place] [address] , Service support ,
[2022-11-08] MEDS: Acetaminophen 325 MG Tablet 650 MG PO (15:12)
[2022-11-08 16:37] LABS: Bedside Glucose 118 mg/dL (74-106)
--- NOTE | 2022-11-08 16:37 | PCM.PN.BLA ---
Assessment & Plan Assessment/Plan (1) SARA (acute kidney injury): (2) Chronic kidney disease, stage 4 (severe): PLAN: Plan Nephrology attending addendum. I spoke to the patient's daughter, Jackelin, today. She is the H POA. I explained to Jackelin that I do not recommend starting her mother on hemodialysis as it would not appreciably prolong her life given her other comorbidities. More importantly, I will definitely decrease the patient's quality of life as she will have to spend 4 hours 3 times a week with that in the dialysis unit rather than with her family. If she does go to hospice route, IV Lasix can be given to her for comfort from my standpoint. Ruben Houser MD
--- NOTE | 2022-11-08 18:12 | DCINST_ITS ---
Discharge Instructions Diet Discharge Diet: No restrictions Follow Up Care Test Results: Test results from this visit will be discussed in further detail at your follow- up appointment, if applicable. Discharge Plan Admission Admit Date/Time: 11/04/22 14:44 Primary Reason for Your Visit: SARA Attending Provider: Guille Soria Primary Care Provider: Becky Lassiter Consulting Providers: Brant Marquis ; Bimal Sparks ; Dwight Brown ; Tiana Newsome ; Rafi Aponte ; Christy Sanabria ; Nikky Magaña ; Zenia Moore FORESTRY AID TECHNICIAN Discharge Orders/Prescriptions Prescriptions: Continued brimonidine-timolol [Combigan] 0.2-0.5 % Drops 1 drp EACH EYE Q12H Lumigan 0.01 % Drops 1 drp EACH EYE DAILY Discontinued atenolol 25 MG tablet 25 mg PO DAILY Label Comments: simvastatin 20 MG tablet 20 mg PO QHS aspirin [Josue Low Dose Aspirin] 81 mg Tablet,Delayed Release (Dr/Ec) 81 mg PO DAILY cholecalciferol (vitamin D3) 50 mcg (2,000 unit) Capsule 50 mcg PO TU oxybutynin chloride 5 mg Tablet Extended Release 24hr 5 mg PO QHS Tradjenta 5 mg tablet 5 mg PO DAILY insulin glargine [Lantus U-100 Insulin] 100 UNIT/ML solution 20 unit SQ QHS furosemide 40 mg Tablet 40 mg PO BID amlodipine 5 mg tablet 5 mg PO DAILY Label Comments: TAKE 1 TABLET BY MOUTH ONCE DAILY omeprazole 40 mg Capsule,Delayed Release(Dr/Ec) 40 mg PO QHS tramadol 50 mg Tablet 50 mg PO BID PRN (Reason: ARTHRITIS PAIN) Referrals / Follow Up: Becky Lassiter DO [Primary Care Provider] - Disposition Disposition (needs filled in before D/C Order can be placed): Hospice in Medical Facility
--- NOTE | 2022-11-08 18:14 | PCM.DC.SUM ---
Providers Date of Admission: 11/04/22 Primary Care Physician: Dr. Becky Lassiter, DO Consultations 11/04/22 17:12 Consult: Nephrology Routine Consulting Provider: Brant Marquis Reason for Consult: SARA on CKD3, HF exa EMERGENT Consult: No MD Notified: Yes Date Notified: 11/04/22 Time Notified: 17:12 Method of Notification: Text 11/07/22 09:43 Consult: Cardiology Routine Consulting Provider: Tiana Newsome Reason for Consult: CHF EMERGENT Consult: No MD Notified: Yes Date Notified: 11/07/22 Time Notified: 09:43 Method of Notification: Text 11/08/22 13:29 Consult: Hospice / Palliative Care Routine Consulting Provider: [facility] Reason for Consult: SARA, CHF EMERGENT Consult: No Notified: Yes Date Notified: 11/08/22 Time Notified: 13:29 Method of Notification: SW Reason For Visit: HF EXACERBATION Diagnosis Discharge Diagnosis (1) SARA (acute kidney injury): Status: Acute Code(s): N17.9 - Acute kidney failure, unspecified Plan: Worse on CKD4 nephrology on consult. Feel pt may have cardiorenal syndrome No need for EXHAUST WORKER at this time. anuric (2) Chronic kidney disease, stage 4 (severe): Status: Chronic Code(s): N18.4 - Chronic kidney disease, stage 4 (severe) Plan chronic conditions: DM2? We will continue with insulin and make adjust as necessary Accu-Cheks ACHS GERD? Stable? Continue with PPI DVT: SQ Heparin Advanced care planning: Spent an additional 20 minutes DW pt's daughter, Heidi, explained my concern that the patient is worsening given her traumatic kidney failure, cardiomyopathy, hypothermia. She states that the patient had told her other sister that she felt that she was dying and would state that she would not want aggressive measures though not specifically dialysis. I recommended speaking with hospice and focus on symptom control for quality of life. She was agreeable to speaking with hospice though she is not ready to proceed with hospice measures just yet. Medications at Discharge Home Medications bimatoprost 0.01 % eye drops (Lumigan) 1 drp EACH EYE DAILY GLAUCOMA 11/04/22 brimonidine 0.2 %-timolol 0.5 % eye drops (Combigan) 1 drp EACH EYE Q12H GLAUCOMA 11/04/22 Hospital Course Operations None Procedures 2-D Echocardiogram Summary of Care Provided Minutes Spent on Discharge: 50 Hospital Course: Pt presents with SOB due to CHF. Was started on furosemide, but was subsequently held due to SARA. SARA progressed to anuria. Seen by nephrology. Nephrology and I discussed with the patient's daughter, Heidi, and recommended against dialysis. Pt was confused and unable to provide any input, likely due to uremia. Family met with hospice and agreed to proceed with hospice services. Patient to be discharged to hospice today. Weight / BMI Weight Weight: 51.2 kg Body Mass Index (BMI) 22.8 ABG / Lab / Microbiology Data Result Diagrams: 11/08/22 04:35 11/08/22 04:35 Laboratory: Laboratory Results - last 24 hr 11/07/22 22:39: POC Glucose 142 H 11/08/22 04:35: WBC 17.6 H, RBC 3.20 L, Hgb 8.6 L, Hct 28.4 L, MCV 88.8, MCH 26.9 L, MCHC 30.3 L, RDW Std Deviation 47.5 H, RDW Coeff of Abhinav 14.8 H, Plt Count 370, MPV 12.9 H, Immature Gran % (Auto) 2.900 H, Neut % (Auto) 76.9 H, Lymph % (Auto) 12.6 L, Rooks % (Auto) 7.2, Eos % (Auto) 0.3, Baso % (Auto) 0.1, Absolute Neuts (auto) 13.5 H, Absolute Lymphs (auto) 2.22, Nucleated RBC % 0.3 11/08/22 04:35: Sodium 135 L, Potassium 5.9 H, Chloride 106, Carbon Dioxide 20.0 L, Anion Gap 9, BUN 99 H, Creatinine 5.14 H, Estim Creat Clear Calc 6.70, Est GFR (MDRD) Af Amer 10 L, Est GFR (MDRD) Non-Af 9 L, BUN/Creatinine Ratio 19.3, Glucose 109 H, Calcium 8.5 11/08/22 06:25: POC Glucose 100 11/08/22 12:03: POC Glucose 129 H 11/08/22 16:20: POC Glucose 118 H Microbiology: Microbiology 11/06/22 08:50 Urine, Catheterized Urine Culture - Final Culture exhibits no growth. 11/06/22 08:19 Blood Culture (Wb) - Right Hand Blood Culture - Preliminary No growth in 48 hours. 11/06/22 08:05 Blood Culture (Wb) - Left Hand Blood Culture - Preliminary No growth in 48 hours. 11/04/22 13:18 Urine, Clean Catch Legionella Antigen - Final 11/04/22 13:18 Urine, Clean Catch Streptococcus pneumoniae Antigen (M - Final 11/05/22 10:31 Mucosa - Nasopharyngeal Respiratory Panel (PCR) - Final Radiography Diagnostic Testing: Radiology Impression Renal Ultrasound 11/08/22 07:58 IMPRESSION: No obstructive uropathy, or suspicious solid renal lesion Simple left renal cyst, no specific follow-up needed Electronically Signed: Nasir Welsh MD at 13:03 EDT Reading Location ID and State: [facility] / [place] , Service support , D/C Instructions Discharge Diet: No restrictions Meaningful Use Info Meaningful Use Diagnoses (Choose all that apply): CHF CHF OCTAVIO/ARB ordered at discharge?: No Reason OCTAVIO/ARB not ordered?: Not indicated (Hospice and SARA) Documented LVEF (%): 30 Discharge Plan Admission Admit Date/Time: 11/04/22 14:44 Primary Reason for Your Visit: SARA Attending Provider: Guille Soria Primary Care Provider: Becky Lassiter Consulting Providers: Brant Marquis ; Bimal Sparks ; Dwight Brown ; Tiana Newsome ; Rafi Aponte ; Christy Sanabria ; Nikky Magaña ; Zenia Moore GRADES 6 [employer] 8 TEACHER Discharge Orders/Prescriptions Prescriptions: Continued brimonidine-timolol [Combigan] 0.2-0.5 % Drops 1 drp EACH EYE Q12H Lumigan 0.01 % Drops 1 drp EACH EYE DAILY Discontinued atenolol 25 MG tablet 25 mg PO DAILY Label Comments: simvastatin 20 MG tablet 20 mg PO QHS aspirin [Josue Low Dose Aspirin] 81 mg Tablet,Delayed Release (Dr/Ec) 81 mg PO DAILY cholecalciferol (vitamin D3) 50 mcg (2,000 unit) Capsule 50 mcg PO TU oxybutynin chloride 5 mg Tablet Extended Release 24hr 5 mg PO QHS Tradjenta 5 mg tablet 5 mg PO DAILY insulin glargine [Lantus U-100 Insulin] 100 UNIT/ML solution 20 unit SQ QHS furosemide 40 mg Tablet 40 mg PO BID amlodipine 5 mg tablet 5 mg PO DAILY Label Comments: TAKE 1 TABLET BY MOUTH ONCE DAILY omeprazole 40 mg Capsule,Delayed Release(Dr/Ec) 40 mg PO QHS tramadol 50 mg Tablet 50 mg PO BID PRN (Reason: ARTHRITIS PAIN) Referrals / Follow Up: Becky Lassiter DO [Primary Care Provider] - Disposition Disposition (needs filled in before D/C Order can be placed): Hospice in Medical Facility Charges/Coding Visit Charges Inpatient E&M: 23266 Disch Hosp >30min
[2022-11-08 18:15] VITALS: BP 122/56; PULSE 73; RESP 16; TEMP 36.3; O2SAT 95
--- NOTE | 2022-11-08 18:58 | NURSING ---
Report called to [facility]
--- NOTE | 2022-11-09 08:46 | CASEMGMT ---
Discharge Planning [address] updated via [facility] that patient was admitted to [facility] last night. Erica Cameron, Discharge Planning Asst.
== END 2022-11-08 19:52 | disposition hospice, inpatient (51) | DRG 291 ==
LOC: ED 13:21 → PCU 15:18
PROVIDERS: Family Medicine; Hospitalist; Admitting Provider Internal Medicine; Emergency Provider Emergency Medicine; PCP Family Medicine
DX: I13.0 Hypertensive heart and chronic kidney disease with heart failure and stage 1 through stage 4 chronic kidney disease, or unspecified chronic kidney disease (principal); J13 Pneumonia due to Streptococcus pneumoniae; I50.43 Acute on chronic combined systolic (congestive) and diastolic (congestive) heart failure; N17.9 Acute kidney failure, unspecified; E87.21 Acute metabolic acidosis; J44.0 Chronic obstructive pulmonary disease with (acute) lower respiratory infection; I24.8 Other forms of acute ischemic heart disease; N18.4 Chronic kidney disease, stage 4 (severe); D63.1 Anemia in chronic kidney disease; T68.XXXA Hypothermia, initial encounter; E11.22 Type 2 diabetes mellitus with diabetic chronic kidney disease; Z79.4 Long term (current) use of insulin; K21.9 Gastro-esophageal reflux disease without esophagitis; E78.5 Hyperlipidemia, unspecified; E87.5 Hyperkalemia; H91.93 Unspecified hearing loss, bilateral; Z79.82 Long term (current) use of aspirin; Z79.899 Other long term (current) drug therapy; Z87.891 Personal history of nicotine dependence
CPT/HCPCS: 36415; 71045; 71046; 76770; 80048; 80053; 80061; 81001; 82962; 83036; 83735; 83880; 84100; 84443; 84484; 85025; 87040; 87086; 87449; 87633; 87641; 92526; 92610; 93005; 93306; 94640; 94667; 94668; 97162; 97166; 97802; 97803; 99285; J7040; Q9957; A4216; J1940